=== PATIENT | female | born 1940 | race Caucasian/White ===

== ENCOUNTER 2020-10-16 23:24 | Inpatient (IN) | payer MEDICARE ==
[2020-10-16] MEDS ORDERED: HYDROmorphone 0.5 MG/0.5 ML SYRINGE IVP STA (23:40)
[2020-10-16] MEDS ORDERED: SODIUM CHLORIDE 0.9% 1,000 ML IV STA (23:40)
--- NOTE | 2020-10-16 23:45 | ED ---
Abdominal Pain HPI - General Chief Complaint: Abdominal Pain Stated Complaint: Abdominal pain Time Seen by Provider: 10/16/20 23:25 Source: patient, EMS Mode of arrival: EMS Limitations: no limitations - History of Present Illness Initial Comments: This patient is an 80-year-old woman presenting to be evaluate for right upper quadrant and epigastric abdominal pain that does radiate around the right flank to the back. It started between 7 and 7:30. She had eaten chicken stirfry an hour to 2 earlier. The patient also having some nausea. Patient does relate that she has had chronic constipation going back for weeks to months. On the review of systems, patient does acknowledge history of COPD being on 24- hour home oxygen at 3 L. She states that her breathing does not feel worse than usual. MD Complaint: abdominal pain Onset/Timin -: hour(s) Location: RUQ Radiation: R flank Migration to: no migration Severity: moderate Quality: aching, sharp Consistency: constant Improves With: nothing Worsens With: nothing Associated Symptoms: nausea, constipation - Related Data Allergies Allergy/AdvReac Type Severity Reaction Status Date / Time metaxalone [From Skelaxin] Allergy Dyspnea Verified 10/16/20 23:43 Review of Systems ROS Statement: Those systems with pertinent positive or pertinent negative responses have been documented in the HPI. ROS Other: All systems not noted in ROS Statement are negative. Constitutional: Denies: fever, chills Respiratory: Reports: cough (Chronic), dyspnea (Chronic), wheezes (Chronic) Cardiovascular: Denies: chest pain, palpitations, edema, syncope Gastrointestinal: Reports: abdominal pain, nausea, constipation (Chronic). Denies: vomiting, diarrhea, melena, hematochezia Genitourinary: Denies: dysuria, hematuria Musculoskeletal: Denies: back pain Skin: Denies: rash Neurological: Denies: headache, weakness, numbness Past Medical History Past Medical History: COPD, Hypertension Additional Past Medical History / Comment(s): Anemia, Pt wears 3 liters nasal cannula constantly, diverticulosis. History of Any Multi-Drug Resistant Organisms: None Reported Past Surgical History: Bladder Surgery, Hysterectomy, Tubal Ligation Past Psychological History: No Psychological Hx Reported Smoking Status: Former smoker Past Alcohol Use History: Daily Past Drug Use History: None Reported General Exam Limitations: no limitations General appearance: alert, in distress Head exam: Present: atraumatic, normocephalic Eye exam: Present: normal appearance. Absent: scleral icterus, conjunctival injection ENT exam: Present: normal oropharynx Neck exam: Present: normal inspection Respiratory exam: Present: respiratory distress, wheezes, accessory muscle use, decreased breath sounds, prolonged expiratory. Absent: rales, rhonchi, stridor, chest wall tenderness Cardiovascular Exam: Present: regular rate, normal rhythm, normal heart sounds. Absent: systolic murmur, diastolic murmur, rubs, gallop GI/Abdominal exam: Present: soft, tenderness. Absent: distended, guarding, rebound, rigid, mass, hernia Extremities exam: Present: normal inspection, normal capillary refill. Absent: pedal edema, calf tenderness Back exam: Present: normal inspection. Absent: CVA tenderness (R), CVA tend erness (L) Neurological exam: Present: alert Skin exam: Present: warm, dry, intact, normal color. Absent: rash Course Vital Signs 10/16/20 10/17/20 23:33 00:56 Temperature 98.3 F Pulse Rate 83 77 Respiratory 20 22 Rate Blood Pressure 212/83 168/54 O2 Sat by Pulse 96 96 Oximetry Medical Decision Making - Medical Decision Making This patient is an 80-year-old woman presenting to be evaluate for right upper quadrant and epigastric abdominal pain that does radiate around the right flank to the back. It started between 7 and 7:30. She had eaten chicken stirfry an hour to 2 earlier. The patient also having some nausea. Patient does relate that she has had chronic constipation going back for weeks to months. On the review of systems, patient does acknowledge history of COPD being on 24- hour home oxygen at 3 L. She states that her breathing does not feel worse than usual. - Lab Data Result diagrams: 10/16/20 23:45 10/17/20 00:20 Lab Results 10/16/20 10/17/20 10/17/20 Range/Units 23:45 00:20 00:20 WBC 18.2 H (3.8-10.6) k/uL RBC 4.69 (3.80-5.40) m/uL Hgb 12.8 (11.4-16.0) gm/dL Hct 41.6 (34.0-46.0) % MCV 88.7 (80.0-100.0) fL MCH 27.3 (25.0-35.0) pg MCHC 30.8 L (31.0-37.0) g/dL RDW 13.7 (11.5-15.5) % Plt Count 369 (150-450) k/uL MPV 9.3 Neutrophils % 82 % Lymphocytes % 9 % Monocytes % 4 % Eosinophils % 4 % Basophils % 0 % Neutrophils # 15.0 H (1.3-7.7) k/uL Lymphocytes # 1.7 (1.0-4.8) k/uL Monocytes # 0.7 (0-1.0) k/uL Eosinophils # 0.7 (0-0.7) k/uL Basophils # 0.1 (0-0.2) k/uL Hypochromasia Slight Sodium 135 L (137-145) mmol/L Potassium 4.7 (3.5-5.1) mmol/L Chloride 101 (98-107) mmol/L Carbon Dioxide 28 (22-30) mmol/L Anion Gap 6 mmol/L BUN 18 H (7-17) mg/dL Creatinine 0.71 (0.52-1.04) mg/dL Est GFR (CKD-EPI)AfAm >90 (>60 ml/min/1.73 sqM) Est GFR (CKD-EPI)NonAf 81 (>60 ml/min/1.73 sqM) Glucose 117 H (74-99) mg/dL Plasma Lactic Acid Marco (0.7-2.0) mmol/L Calcium 10.1 (8.4-10.2) mg/dL Total Bilirubin 0.7 (0.2-1.3) mg/dL AST 90 H (14-36) U/L ALT 28 (4-34) U/L Alkaline Phosphatase 212 H (38-126) U/L Troponin I <0.012 (0.000-0.034) ng/mL Total Protein 6.2 L (6.3-8.2) g/dL Albumin 3.5 (3.5-5.0) g/dL Amylase 165 H (30-110) U/L Lipase 2661 H (23-300) U/L 10/17/20 Range/Units 00:20 WBC (3.8-10.6) k/uL RBC (3.80-5.40) m/uL Hgb (11.4-16.0) gm/dL Hct (34.0-46.0) % MCV (80.0-100.0) fL MCH (25.0-35.0) pg MCHC (31.0-37.0) g/dL RDW (11.5-15.5) % Plt Count (150-450) k/uL MPV Neutrophils % % Lymphocytes % % Monocytes % % Eosinophils % % Basophils % % Neutrophils # (1.3-7.7) k/uL Lymphocytes # (1.0-4.8) k/uL Monocytes # (0-1.0) k/uL Eosinophils # (0-0.7) k/uL Basophils # (0-0.2) k/uL Hypochromasia Sodium (137-145) mmol/L Potassium (3.5-5.1) mmol/L Chloride (98-107) mmol/L Carbon Dioxide (22-30) mmol/L Anion Gap mmol/L BUN (7-17) mg/dL Creatinine (0.52-1.04) mg/dL Est GFR (CKD-EPI)AfAm (>60 ml/min/1.73 sqM) Est GFR (CKD-EPI)NonAf (>60 ml/min/1.73 sqM) Glucose (74-99) mg/dL Plasma Lactic Acid Marco 1.2 (0.7-2.0) mmol/L Calcium (8.4-10.2) mg/dL Total Bilirubin (0.2-1.3) mg/dL AST (14-36) U/L ALT (4-34) U/L Alkaline Phosphatase (38-126) U/L Troponin I (0.000-0.034) ng/mL Total Protein (6.3-8.2) g/dL Albumin (3.5-5.0) g/dL Amylase (30-110) U/L Lipase (23-300) U/L Disposition Clinical Impression: Abdominal pain, Pancreatitis Disposition: ADMITTED IP TO THIS [facility] Condition: Fair Is patient prescribed a controlled substance at d/c from ED?: No Referrals: Caprice Gore MD [Primary Care Provider] - 1-2 days
[2020-10-17 00:06] LABS: Basophils # (A) 0.1 k/uL (0-0.2); Basophils % (A) 0 %; Eosinophils # (A) 0.7 k/uL (0-0.7); Eosinophils % (A) 4 %; HCT 41.6 % (34.0-46.0); HGB 12.8 gm/dL (11.4-16.0); Hypochromasia Slight; Lymphocytes # (A) 1.7 k/uL (1.0-4.8); Lymphocytes % (A) 9 %; MCH 27.3 pg (25.0-35.0); MCHC 30.8 g/dL (31.0-37.0); MCV 88.7 fL (80.0-100.0); Mean Platelet Volume 9.3; Monocytes # (A) 0.7 k/uL (0-1.0); Monocytes % (A) 4 %; Neutrophils % (A) 82 %; Platelet Count 369 k/uL (150-450); RBC 4.69 m/uL (3.80-5.40); RDW 13.7 % (11.5-15.5); WBC 18.2 k/uL (3.8-10.6)
--- NOTE | 2020-10-17 00:16 | XR ---
EXAM: XR Abdomen, 1 View CLINICAL HISTORY: Abdominal pain. TECHNIQUE: Frontal supine view of the abdomen/pelvis. COMPARISON: No previous studies. FINDINGS: Gastrointestinal tract: Moderate quantity of stool throughout the colon. No dilation. Bones/joints: Moderate degenerative disc disease of the thoracolumbar spine and dextroscoliosis. Vasculature: IVC filter is noted in place. Pelvic phleboliths are noted. Other findings: No abnormal calcifications. IMPRESSION: 1. Moderate quantity of stool throughout the colon. 2. Nonspecific bowel gas pattern.
[2020-10-17] MEDS ORDERED: HYDROmorphone 1 MG/ML 1 ML SYRINGE IVP STA (01:01)
[2020-10-17 01:05] LABS: ALT 28 U/L (4-34); AST 90 U/L (14-36); African American GFR (CKD) >90 (>60 ml/min/1.73 sqM); Albumin 3.5 g/dL (3.5-5.0); Alkaline Phosphatase 212 U/L (38-126); Amylase 165 U/L (30-110); Anion Gap 6 mmol/L; Blood Urea Nitrogen 18 mg/dL (7-17); Calcium 10.1 mg/dL (8.4-10.2); Carbon Dioxide 28 mmol/L (22-30); Chloride 101 mmol/L (98-107); Glucose 117 mg/dL (74-99); Non-African American GFR(CKD) 81 (>60 ml/min/1.73 sqM); Sodium 135 mmol/L (137-145); Total Bilirubin 0.7 mg/dL (0.2-1.3); Total Protein 6.2 g/dL (6.3-8.2)
[2020-10-17 01:16] LABS: Lipase 2661 U/L (23-300)
[2020-10-17 01:29] LABS: Potassium 4.7 mmol/L (3.5-5.1)
--- NOTE | 2020-10-17 01:33 | US ---
EXAM: US Abdomen Limited, Right Upper Quadrant CLINICAL HISTORY: RUQ TECHNIQUE: Real-time ultrasound of the right upper quadrant with image documentation. COMPARISON: No relevant prior studies available. FINDINGS: Liver: Diffusely increased hepatic echogenicity is suggestive of steatosis. No focal hepatic lesions. Gallbladder: Gallbladder sludge. Sonographic Hernandez sign is positive. No shadowing gallstones or gallbladder wall thickening. Common bile duct: Unremarkable as visualized. No stones. No dilation. Pancreas: Unremarkable as visualized. Right kidney: Cortical thickening. No stones. No solid mass. No hydronephrosis. IMPRESSION: Gallbladder sludge. Sonographic Hernandez sign is positive. No shadowing gallstones or gallbladder wall thickening.
--- NOTE | 2020-10-17 03:20 | CT ---
EXAM: CT Abdomen and Pelvis With Intravenous Contrast CLINICAL HISTORY: ITS.REASON CT Reason: abdominal pain TECHNIQUE: Axial computed tomography images of the abdomen and pelvis with intravenous contrast. CTDI is 42.17 mGy and DLP is 1593.9 mGy-cm. This CT exam was performed using one or more of the following dose reduction techniques: automated exposure control, adjustment of the mA and/or kV according to patient size, and/or use of iterative reconstruction technique. COMPARISON: No relevant prior studies available. FINDINGS: Lung bases: Bibasilar atelectasis. ABDOMEN: Liver: No significant abnormality. Gallbladder and bile ducts: No significant abnormality. No calcified stones. Pancreas: No significant abnormality. Spleen: No significant abnormality. Adrenals: No significant abnormality. Kidneys and ureters: No significant abnormality. No hydronephrosis. Stomach and bowel: Rectal prolapse. Colonic diverticulosis without focal inflammatory change. Bowel is nondilated. PELVIS: Appendix: No findings to suggest acute appendicitis. Bladder: No significant abnormality. Reproductive: The uterus is absent. ABDOMEN and PELVIS: Intraperitoneal space: No significant abnormality. No free air. Bones/joints: Mild compression fracture of the superior endplate of the T12 vertebral body with visible fracture line and sclerosis. There is approximately 25% height loss of the anterior superior T12 vertebral body. No significant bony retropulsion. Degenerative changes of the spine and hips. Soft tissues: Diastases of the rectus musculature. Fat-containing periumbilical hernia. Vasculature: IVC filter. Aortic atherosclerosis and tortuosity. No abdominal aortic aneurysm. Lymph nodes: No significant abnormality. IMPRESSION: 1. Acute or subacute mild compression fracture of the superior endplate of T12. No significant bony retropulsion. 2. Rectocele.
[2020-10-17] MEDS ORDERED: TEMAZEPAM 15 MG CAP PO PRN (03:32)
[2020-10-17] MEDS ORDERED: ONDANSETRON 4 MG/2 ML VIAL IVP PRN (03:32)
[2020-10-17] MEDS ORDERED: NALOXONE 0.4 MG/ML 1 ML VIAL IV PRN (03:32)
[2020-10-17] MEDS ORDERED: ACETAMINOPHEN TAB 325 MG TAB PO PRN (03:32)
[2020-10-17] MEDS ORDERED: MORPHINE SULFATE 4 MG/ML SYRINGE IV PRN (03:32)
[2020-10-17 03:41] LABS: Appearance,Urine Cloudy (Clear); Bacteria,Urine Few /hpf; Bilirubin,Urine Negative (Negative); Blood,Urine Negative (Negative); Budding Yeast,Urine Occasional /hpf; Color,Urine Yellow; Glucose,Urine (UA) Negative (Negative); Ketones,Urine Negative (Negative); Leukocyte Esterase,Urine Large (Negative); Mucus,Urine Rare /hpf; Nitrite,Urine Positive (Negative); PH, Urine 6.5 (5.0-8.0); Protein,Urine Negative (Negative); RBC,Urine 43 /hpf (0-5); Specific Gravity,Urine 1.038 (1.001-1.035); Squamous Epithelial Cell,Urine 3 /hpf (0-4); Urobilinogen,Urine <2.0 mg/dL (<2.0); WBC,Urine 70 /hpf (0-5)
[2020-10-17] MEDS ORDERED: IPRATROPIUM-ALBUTEROL 3 ML NEB INHALATION PRN (04:53)
--- NOTE | 2020-10-17 05:00 | P.HPIM ---
History of Present Illness H&P Date: 10/17/20 Chief Complaint: Abdominal pain 80-year-old female with chronic hypoxic respiratory failure secondary to COPD on home oxygen Patient comes in due to acute onset epigastric and right upper quadrant abdominal pain radiating to the back sharp in nature 9 out of 10 in severity started this evening after dinner, was associated with feeling nauseous and sweating all night until eventually she decided come to the hospital for evaluation she has never experienced anything like this she denies any vomiting denies any diarrhea denies any changes in her urine denies any history of gallstones or kidney stones. Denies any history of peptic ulcer disease. Denies any GI bleeding. Denies any fevers or chills. She claims that she has been at her baseline status of health before this happens. She denies any history of pancreatitis. Denies any alcohol abuse. Patient denies any changes in her medications In the ED blood work suggested possible pancreatitis computed tomography scan showed no changes around the pancreas. Review of Systems Pertinent positives as noted in HPI. All other systems were reviewed and are negative Past Medical History Past Medical History: COPD, Hypertension Additional Past Medical History / Comment(s): Anemia, Pt wears 3 liters nasal cannula constantly, diverticulosis. History of Any Multi-Drug Resistant Organisms: None Reported Past Surgical History: Bladder Surgery, Hysterectomy, Tubal Ligation Past Psychological History: No Psychological Hx Reported Smoking Status: Former smoker Past Alcohol Use History: Daily Past Drug Use History: None Reported - Past Family History Family Family Medical History: No Reported History Medications and Allergies Allergies Allergy/AdvReac Type Severity Reaction Status Date / Time metaxalone [From Skelaxin] Allergy Dyspnea Verified 10/16/20 23:43 Physical Exam Vitals: Vital Signs Temp Pulse Resp BP Pulse Ox 10/17/20 00:56 77 22 168/54 96 10/16/20 23:33 98.3 F 83 20 212/83 96 Intake and Output 10/16/20 10/16/20 10/17/20 14:59 22:59 06:59 Other: Weight 94.347 kg Constitutional: No acute distress, conversant, pleasant Eyes: Anicteric sclerae, moist conjunctiva, Pupils equal round reactive to light ENMT: NC/AT Oropharynx clear, no erythema, or exudates Neck: Supple, FROM, no masses, or JVD No carotid bruits No thyromegaly Lungs: Clear to auscultation Clear to percussion Normal respiratory effort, no accessory muscle use Cardiovascular: Heart regular in rate and rhythm, No murmurs, gallops, or rubs No peripheral edema Abdominal: Soft Discomfort to deep palpation of the epigastric region, Hernandez's sign negative, no tenderness to palpation of the costovertebral angle no guarding, rebound or rigidity Abdomen moving with respiration Normoactive bowel sounds No hepatomegaly, No splenomegaly No palpable mass No abdominal wall hernia noted Skin: Normal temperature, tone, texture, turgor No induration No subcutaneous nodules No rash, lesions No ulcers Extremities: No digital cyanosis No clubbing Pedal pulses intact and symmetrical Radial pulses intact and symmetrical No calf tenderness Psychiatric: Alert and oriented to person, place and time Appropriate affect fair judgement Neuro Muscles Strength 4/5 in all 4 extremities Sensation to light touch grossly present throughout Cranial nerves II-XII grossly intact No focal sensory deficits Lymphatics: no palpable cervical or supraclavicular , or inguinal lymph nodes Results CBC & Chem 7: 10/16/20 23:45 10/17/20 00:20 Labs: Abnormal Lab Results - Last 24 Hours (Table) 10/16/20 10/17/20 10/17/20 Range/Units 23:45 00:20 03:27 WBC 18.2 H (3.8-10.6) k/uL MCHC 30.8 L (31.0-37.0) g/dL Neutrophils # 15.0 H (1.3-7.7) k/uL Sodium 135 L (137-145) mmol/L BUN 18 H (7-17) mg/dL Glucose 117 H (74-99) mg/dL AST 90 H (14-36) U/L Alkaline Phosphatase 212 H (38-126) U/L Total Protein 6.2 L (6.3-8.2) g/dL Amylase 165 H (30-110) U/L Lipase 2661 H (23-300) U/L Urine Appearance Cloudy H (Clear) Ur Specific [place] 1.038 H (1.001-1.035) Urine Nitrite Positive H (Negative) Ur Leukocyte Esterase Large H (Negative) Urine RBC 43 H (0-5) /hpf Urine WBC 70 H (0-5) /hpf Urine Bacteria Few H (None) /hpf Urine Mucus Rare H (None) /hpf Urine Yeast (Budding) Occasional H (None) /hpf Assessment and Plan Assessment: Acute pancreatitis unknown underlying cause CT of the abdomen reviewed Follow-up lipase and liver enzymes GI evaluation Check lipid panel Check immunoglobulin G4 subtype IV fluid hydration Pain control Nothing by mouth Protonic Verify home medications Chronic hypoxic respiratory failure on supplemental oxygen secondary to COPD Supplemental oxygen as needed DuoNeb's when necessary CODE STATUS: Full code DVT prophylaxis: Heparin subcu 3 times a day Discussed with: Patient, ER, RN Anticipated length of stay more than [address]: Pending clinical course A total of 75 minutes was spent on the care of this complex patient more than 50% of the time was spent in counseling and care coordination.
[2020-10-17] MEDS: HYDROmorphone 0.5 MG/0.5 ML SYRINGE IVP PRN ×3 (05:33→23:33)
[2020-10-17] MEDS: PANTOPRAZOLE 40 MG/10 ML VIAL IV SCH (08:52)
[2020-10-17] MEDS: SODIUM CHLORIDE 0.9% 1,000 ML IV SCH ×2 (08:52→15:57)
[2020-10-17] MEDS: HEPARIN SODIUM,PORCINE/PF 5,000 UNIT/0.5 ML SYRINGE SQ SCH ×3 (08:52→23:33)
[2020-10-17 10:12] LABS: Chol/HDL Ratio 2.6
[2020-10-17] MEDS ORDERED: ALBUTEROL NEBULIZED 2.5 MG/3 ML INHALATION PRN (11:32)
--- NOTE | 2020-10-17 11:34 | P.PN ---
Subjective Progress Note Date: 10/17/20 Patient was seen and evaluated by me today. She reports still having some abdominal pain that is better compared to yesterday. She is not feeling hungry and does not have an appetite. Repeat blood work this morning is not back yet. Objective - Vital Signs Vital signs: Vital Signs Temp 98.4 F 10/17/20 11:19 Pulse 67 10/17/20 11:19 Resp 20 10/17/20 11:19 BP 175/63 10/17/20 11:19 Pulse Ox 94 L 10/17/20 11:19 Intake & Output 10/16/20 10/17/20 10/17/20 18:59 06:59 18:59 Weight 94.347 kg Other: # Voids 0 - Exam General: The patient is awake and alert, in no distress Eye: there is normal conjunctiva bilaterally. Neck: The neck is supple, there is no JVD. Cardiovascular: Normal S1-S2, no S3-S4, no murmurs. Respiratory: Lungs clear to auscultation bilaterally Gastrointestinal: Abdomen is soft, there is moderate tenderness to palpation in the epigastric area Musculoskeletal: There is no pedal edema. Neurological:. Speech is normal. Skin: Skin is warm and dry - Labs CBC & Chem 7: 10/16/20 23:45 10/17/20 00:20 Labs: Abnormal Lab Results - Last 24 Hours (Table) 10/16/20 10/17/20 10/17/20 Range/Units 23:45 00:20 03:27 WBC 18.2 H (3.8-10.6) k/uL MCHC 30.8 L (31.0-37.0) g/dL Neutrophils # 15.0 H (1.3-7.7) k/uL Sodium 135 L (137-145) mmol/L BUN 18 H (7-17) mg/dL Glucose 117 H (74-99) mg/dL AST 90 H (14-36) U/L Alkaline Phosphatase 212 H (38-126) U/L Total Protein 6.2 L (6.3-8.2) g/dL Amylase 165 H (30-110) U/L Lipase 2661 H (23-300) U/L Urine Appearance Cloudy H (Clear) Ur Specific [place] 1.038 H (1.001-1.035) Urine Nitrite Positive H (Negative) Ur Leukocyte Esterase Large H (Negative) Urine RBC 43 H (0-5) /hpf Urine WBC 70 H (0-5) /hpf Urine Bacteria Few H (None) /hpf Urine Mucus Rare H (None) /hpf Urine Yeast (Budding) Occasional H (None) /hpf Assessment and Plan Assessment: This is a 80-year-old female with past medical history noted below that presented to the emergency room with abdominal pain. Patient was evaluated in the ER and admitted to the hospital for further management of her medical problems noted below. 1. Acute pancreatitis, exact etiology unclear. Patient denies alcohol use. Ultrasound showed no evidence of stones. Triglyceride level normal. GI consulted for further evaluation. 2. Gallbladder sludge and positive sonographic Hernandez sign, noted on ultrasound. I will consult general surgery for further evaluation. Hernandez sign is negative on clinical exam 3. Chronic medical problems: COPD with no evidence of exacerbation, essential hypertension, hyperlipidemia, GERD 4. DVT prophylaxis with subcu heparin Today, I reviewed her medication list and lab work results. Repeat lab work from this morning is still pending. Continue nothing by mouth status for now. IV fluid hydration and pain control. Awaiting consultants evaluation.
[2020-10-17] MEDS: IPRATROPIUM-ALBUTEROL 3 ML NEB INHALATION PRN ×3 (11:52→20:09)
--- NOTE | 2020-10-17 12:41 | CONS ---
CONSULTATION DATE OF DICTATION: October 17, 2020. REASON FOR CONSULTATION: Acute pancreatitis. HISTORY OF PRESENT ILLNESS: The patient is an 80-year-old pleasant white female admitted to the hospital with acute onset of severe epigastric pain that started around 7:00 pm last night. The pain was mostly in the epigastric area radiating to the back and continued to progressively get worse with some nausea but no emesis. She came to the emergency room and was noted to have elevated amylase and lipase consistent with acute pancreatitis. She never had these symptoms in the past. She drinks about 1 or 2 glasses of wine on a daily basis, but no history of heavy alcohol abuse. In the ER, she denies being started on any new medications recently. No family history of acute pancreatitis. In the ER, she did have labs done and was noted to have elevated lipase at 2661 and amylase of 165. ALT and AST were 28 and 90 respectively and alkaline phosphatase was 212. She did have ultrasound of the gallbladder that did show evidence of sludge, but no stones and CT of the abdomen was unremarkable. PAST MEDICAL HISTORY: Significant for hypertension, gastroesophageal reflux disease, hyperlipidemia, anxiety, depression. MEDICATIONS: Medications at home include Myrbetriq, calcium/vitamin D3, verapamil, Celexa, Lipitor, Ecotrin, omeprazole, and Isordil. ALLERGIES: SKELAXIN. SOCIAL HISTORY: Remote history of smoking. Drinks 1 or 2 glasses of wine on a daily basis. PAST SURGICAL HISTORY: Tubal ligation, hysterectomy and bladder surgery. REVIEW OF SYSTEMS: CARDIOPULMONARY: She denies any chest pain or shortness of breath. GENITOURINARY: No dysuria or hematuria. MUSCULOSKELETAL unremarkable. SKIN unremarkable. ENDOCRINE unremarkable. PSYCHIATRIC unremarkable. NEUROLOGY: Unremarkable. ENT/VISION: Unremarkable. CONSTITUTIONAL: No recent weight loss. No fever, chills, night sweats. GI as mentioned above. Hematology unremarkable. PHYSICAL EXAMINATION: She appears comfortable. VITAL SIGNS: Stable. Blood pressure 188/72, pulse rate 92, temperature 97.7. HEENT examination unremarkable. Conjunctivae pink. Sclerae anicteric. Oral cavity no lesions. NECK: No JVD or lymph node enlargement. CHEST was clear to auscultation. HEART: Regular rate and rhythm. ABDOMEN: Soft. Mild tenderness noted in the epigastric area. Bowel sounds are positive. No organomegaly. EXTREMITIES: No pedal edema. SKIN: No rashes. NEURO: She is alert and oriented x3. No focal deficits. LABS: Labs done yesterday: WBC 18, hemoglobin 12, platelets normal. Amylase 165, lipase 2661. AST 90, ALT 28, alkaline phosphatase 212. Ultrasound of the gallbladder did show evidence of sludge in the gallbladder. No biliary ductal dilation. No thickening of the gallbladder wall. Hernandez sign was positive. CT of the abdomen and pelvis showed normal-appearing pancreas. Rectocele noted. IMPRESSION: This is a lady who presented to the hospital with acute onset of severe epigastric pain around 7:00 pm last night, associated with some nausea but no emesis. Noted to have elevated lipase consistent with acute pancreatitis. CT scan was unremarkable. Ultrasound did show gallbladder sludge, but no evidence of gallstones. The liver enzymes are minimally elevated with AST at 90 but ALT is normal and alkaline phosphatase was 212. At this time, etiology of pancreatitis remains unclear. Patient has mild to moderate amount of drinking but no history of heavy alcohol abuse. RECOMMENDATIONS: 1. Aggressive IV hydration. 2. Pain medications as needed. 3. We will repeat labs in the morning and if the lipase is improving and her symptoms are improving, we can start her on a clear liquid diet. For now we can start her on ice chips. 4. We will repeat LFTs and amylase and lipase tomorrow and we will follow with you closely. Thank you for this consultation. NIXON / LIANNA: [id number] /
[2020-10-17] MEDS: ISOSORBIDE MONONITRATE ER 30 MG TAB.ER.24H PO SCH (12:43)
[2020-10-17] MEDS: PATIENT'S OWN (Mirabegron [Myrbetriq] 25 MG Tab.Er.24h) PO SCH (20:07)
[2020-10-17] MEDS: VERAPAMIL SR 120 MG TABLET.ER PO SCH (20:12)
[2020-10-17] MEDS: ASPIRIN 81 MG PO SCH (20:12)
[2020-10-17] MEDS: VERAPAMIL SR 180 MG TABLET.ER PO SCH (20:13)
[2020-10-17] MEDS ORDERED: VERAPAMIL HCL 300 MG PO SCH (21:00)
[2020-10-18] MEDS ORDERED: LORazepam 2 MG/ML INJ IV PRN ×3 (00:52)
[2020-10-18] MEDS: SODIUM CHLORIDE 0.9% 1,000 ML IV SCH ×3 (04:11→20:35)
[2020-10-18] MEDS: HYDROmorphone 0.5 MG/0.5 ML SYRINGE IVP PRN (06:16)
[2020-10-18 06:41] LABS: Basophils # (A) 0.1 k/uL (0-0.2); Basophils % (A) 0 %; Eosinophils # (A) 0.1 k/uL (0-0.7); Eosinophils % (A) 0 %; HCT 33.3 % (34.0-46.0); HGB 10.5 gm/dL (11.4-16.0); Hypochromasia Moderate; Lymphocytes # (A) 1.7 k/uL (1.0-4.8); Lymphocytes % (A) 6 %; MCH 28.4 pg (25.0-35.0); MCHC 31.6 g/dL (31.0-37.0); Mean Platelet Volume 9.8; Monocytes # (A) 1.5 k/uL (0-1.0); Monocytes % (A) 5 %; Neutrophils # (A) 25.1 k/uL (1.3-7.7); Neutrophils % (A) 88 %; Platelet Count 295 k/uL (150-450); RDW 13.6 % (11.5-15.5); WBC 28.6 k/uL (3.8-10.6)
[2020-10-18] MEDS: LOSARTAN 50 MG TAB PO SCH (08:02)
[2020-10-18] MEDS: ISOSORBIDE MONONITRATE ER 30 MG TAB.ER.24H PO SCH (08:03)
[2020-10-18] MEDS: HEPARIN SODIUM,PORCINE/PF 5,000 UNIT/0.5 ML SYRINGE SQ SCH ×2 (08:03→17:26)
[2020-10-18] MEDS: CITALOPRAM HYDROBROMIDE 20 MG TAB PO SCH (08:03)
[2020-10-18] MEDS: PANTOPRAZOLE 40 MG/10 ML VIAL IV SCH (08:03)
[2020-10-18] MEDS: ATORVASTATIN 20 MG TAB PO SCH (08:03)
[2020-10-18 08:29] LABS: Poikilocytosis (M) Present
--- NOTE | 2020-10-18 08:35 | P.PN ---
Subjective Progress Note Date: 10/18/20 Patient is doing better today. Her abdominal pain is improving. Nursing staff informed me that patient daughter told him that patient usually drinks 2 large glasses of fine daily. This is a new information to me today. Patient herself denies any nausea or vomiting. Objective - Vital Signs Vital signs: Vital Signs Temp 97.9 F 10/18/20 05:00 Pulse 78 10/18/20 05:00 Resp 16 10/18/20 05:00 BP 145/97 10/18/20 05:00 Pulse Ox 90 L 10/18/20 05:00 Intake & Output 10/17/20 10/18/20 10/18/20 18:59 06:59 18:59 Intake Total 1320 Balance 1320 Intake: Intake, IV Titration 1320 Amount Sodium Chloride 0.9% 1, 1320 000 ml @ 110 mls/hr IV . Q9H6M [facility] Rx#:[id number] Other: # Voids 1 2 - Exam General: The patient is awake and alert, in no distress Eye: there is normal conjunctiva bilaterally. Neck: The neck is supple, there is no JVD. Cardiovascular: Normal S1-S2, no S3-S4, no murmurs. Respiratory: Lungs clear to auscultation bilaterally Gastrointestinal: Abdomen is soft, nontender Musculoskeletal: There is no pedal edema. Neurological:. Speech is normal. Skin: Skin is warm and dry - Labs CBC & Chem 7: 10/18/20 05:27 10/17/20 00:20 Labs: Abnormal Lab Results - Last 24 Hours (Table) 10/18/20 Range/Units 05:27 WBC 28.6 H (3.8-10.6) k/uL RBC 3.70 L (3.80-5.40) m/uL Hgb 10.5 L (11.4-16.0) gm/dL Hct 33.3 L (34.0-46.0) % Assessment and Plan Assessment: This is a 80-year-old female with past medical history noted below that pre sented to the emergency room with abdominal pain. Patient was evaluated in the ER and admitted to the hospital for further management of her medical problems noted below. 1. Acute pancreatitis: Probably alcohol induced. Ultrasound showed no evidence of stones. Triglyceride level normal. GI consulted for further evaluation. 2. Gallbladder sludge and positive sonographic Hernandez sign, noted on ultrasound. I consulted general surgery for further evaluation. Hernandez sign is negative on clinical exam 3. Possible UTI with worsening leukocytosis, I'll start patient on IV ceftriaxone. Repeat urinalysis with culture. Cultures were not sent in the ER. Leukocytosis may be also reactive to underlying pancreatitis. 4. Underlying COPD with mild exacerbation, change DuoNeb's every 6 hours scheduled. Continue albuterol as needed. 5. Chronic medical problems: essential hypertension, hyperlipidemia, GERD 6. DVT prophylaxis with subcu heparin Today, I reviewed her medication list and lab work results. Start clear liquid diet today IV fluid hydration and pain control as needed Repeat lab work from this morning is still pending.
[2020-10-18 10:53] LABS: African American GFR (CKD) 61.6 (60.0-200.0); Albumin 3.6 g/dL (3.80-4.90); Albumin/Globulin Ratio 1.71 (1.60-3.17); Anion Gap 10.2 mmol/L (4.00-12.00); Calcium 10.2 mg/dL (8.7-10.3); Carbon Dioxide 26.8 mmol/L (21.6-31.8); Globulin 2.1 g/dL (1.6-3.3); Non-African American GFR(CKD) 53.2 (60.0-200.0); Potassium 5.1 mmol/L (3.5-5.5); Total Bilirubin 1.5 mg/dL (0.3-1.2); Total Protein 5.7 g/dL (6.2-8.2)
[2020-10-18 11:15] LABS: IgG Subclass 3 84.1 mg/dL (11.0-85.0); IgG Subclass 4 37.1 mg/dL (3.0-175.0)
--- NOTE | 2020-10-18 11:25 | PN ---
PROGRESS NOTE DATE OF SERVICE: 10/18/2020. The patient is an 80-year-old pleasant white female admitted to hospital with acute pancreatitis. She presented with acute onset of severe epigastric pain associated with nausea, vomiting. She did have a CT of the abdomen and ultrasound of the abdomen that showed evidence of sludge in the gallbladder, but no biliary ductal dilation. She was noted to have very minimal elevation of AST and alkaline phosphatase. This morning she is feeling much better. She was started on a clear liquid diet yesterday. Labs from this morning are still pending. PHYSICAL EXAMINATION: She appears comfortable. VITAL SIGNS: Stable. Blood pressure is 145/97, pulse rate 78, temperature 97.8. HEENT examination unremarkable. Conjunctivae pink, sclerae anicteric. Oral cavity no lesions. NECK: No JVD or lymph node enlargement. ABDOMEN: Soft, slightly distended. There was minimal tenderness on deep palpation in the epigastric area. Rest of the abdomen was benign. EXTREMITIES: No pedal edema. NEURO: She is alert and oriented x3. No focal deficits. LABS: From this morning are still pending. IMPRESSION: 1. Acute pancreatitis. Workup in progress. Labs from this morning are pending at this time. Possibility of biliary pancreatitis cannot be entirely excluded though unlikely. The patient clinically doing well on a clear liquid diet, tolerating well. 2. Mild leukocytosis probably related to acute pancreatitis. 3. History of hypertension. 4. History of anxiety, depression. RECOMMENDATIONS: 1. Continue with a clear liquid diet. 2. Await labs from today. 3. Continue with symptomatic and supportive care. 4. Continue with IV hydration. 5. Will follow with you closely. MMODL / IJN: [id number] /
--- NOTE | 2020-10-18 12:11 | P.GSCN ---
History of Present Illness Consult date: 10/18/20 Reason for Consult: Pancreatitis History of present illness: 80-year-old female presents to the hospital complaining of abdominal pain. Pain is epigastric. Associated with nausea. Patient was found to have pancreatitis by labs. CAT scan showed gallbladder sludge in the pancreas actually appeared fairly normal. Ultrasound also showed gallbladder sludge with a positive Hernandez sign. Common bile duct nondistended. Patient doing better today. She was started on liquids. No nausea or vomiting. Patient with history of daily alcohol use however volume is fairly small. No history of pancreatitis or gallbladder disease in the past. Review of Systems The patient denies any acute changes in vision or hearing, no dysphagia or odynophagia, no chest pain or shortness of breath, no dysuria or hematuria, no headache, no runny nose, no rectal bleeding or melena, no unexplained weight loss Past Medical History Past Medical History: COPD, Hypertension Additional Past Medical History / Comment(s): Anemia, Pt wears 3 liters nasal cannula constantly, diverticulosis. History of Any Multi-Drug Resistant Organisms: None Reported Past Surgical History: Bladder Surgery, Hysterectomy, Tubal Ligation Past Psychological History: No Psychological Hx Reported Smoking Status: Former smoker Past Alcohol Use History: Daily Past Drug Use History: None Reported - Past Family History Family Family Medical History: No Reported History Medications and Allergies Home Medications Medication Instructions Recorded Confirmed Type Albuterol Inhaler [Ventolin Hfa 2 puff INHALATION RT-QID PRN 10/17/20 10/17/20 History Inhaler] Aspirin EC [Ecotrin Low Dose] 81 mg PO HS 10/17/20 10/17/20 History Atorvastatin Calcium [Lipitor] 20 mg PO DAILY 10/17/20 10/17/20 History Jered/D3/Mag11/Zinc/Lead Designer/Mike/Bor 1 tab PO BID 10/17/20 10/17/20 History [Caltrate 600+D Plus Tablet] Candesartan Cilexetil [Atacand] 32 mg PO DAILY 10/17/20 10/17/20 History Citalopram Hydrobromide [CeleXA] 20 mg PO DAILY 10/17/20 10/17/20 History EPINEPHrine (Auto Inject) [Epipen] 0.3 mg IM ONCE PRN 10/17/20 10/17/20 History Fluticasone/Umeclidin/Vilanter 1 puff INHALATION RT-DAILY 10/17/20 10/17/20 History [Trelegy Ellipta 100-62.5-25] Ipratropium-Albuterol Nebulize 3 ml INHALATION RT-QID PRN 10/17/20 10/17/20 History [Duoneb 0.5 mg-3 mg/3 ml Soln] Isosorbide Mononitrate [Isosorbide 30 mg PO DAILY 10/17/20 10/17/20 History Mononitrate ER] Mirabegron [Myrbetriq] 25 mg PO HS 10/17/20 10/17/20 History Omeprazole 20 mg PO DAILY 10/17/20 10/17/20 History Verapamil HCl [Verelan Pm] 300 mg PO HS 10/17/20 10/17/20 History Allergies Allergy/AdvReac Type Severity Reaction Status Date / Time metaxalone [From Skelaxin] Allergy Dyspnea Verified 10/17/20 09:22 Surgical - Exam Vital Signs Temp Pulse Resp BP Pulse Ox 98.3 F 83 20 212/83 96 10/16/20 23:33 10/16/20 23:33 10/16/20 23:33 10/16/20 23:33 10/16/20 23:33 Physical exam: General: Well-developed, well-nourished mildly short of breath HEENT: Normocephalic, sclerae nonicteric Abdomen: Mild epigastric tenderness, nondistended Extremities: Bilateral lower extremity edema Neuro: Alert and oriented Results - Labs 10/18/20 05:27 10/18/20 05:27 Abnormal Lab Results - Last 24 Hours (Table) 10/18/20 10/18/20 Range/Units 05:27 05:27 WBC 28.6 H (3.8-10.6) k/uL RBC 3.70 L (3.80-5.40) m/uL Hgb 10.5 L (11.4-16.0) gm/dL Hct 33.3 L (34.0-46.0) % Neutrophils # 25.1 H (1.3-7.7) k/uL Monocytes # 1.5 H (0-1.0) k/uL BUN 28.0 H (9.0-27.0) mg/dL Est GFR (CKD-EPI)NonAf 53.2 L (60.0-200.0) BUN/Creatinine Ratio 28.00 H (12.00-20.00) Ratio Total Bilirubin 1.5 H (0.3-1.2) mg/dL AST 136 H (13-35) U/L ALT 106 H (8-44) U/L Alkaline Phosphatase 251 H (41-126) U/L Total Protein 5.7 L (6.2-8.2) g/dL Albumin 3.60 L (3.80-4.90) g/dL Diabetes panel 10/18/20 Range/Units 05:27 Sodium 142 (135-145) mmol/L Potassium 5.1 (3.5-5.5) mmol/L Chloride 105 (96-109) mmol/L Carbon Dioxide 26.8 (21.6-31.8) mmol/L BUN 28.0 H (9.0-27.0) mg/dL Creatinine 1.0 (0.6-1.5) mg/dL Glucose 110 (70-110) mg/dL Calcium 10.2 (8.7-10.3) mg/dL AST 136 H (13-35) U/L ALT 106 H (8-44) U/L Alkaline Phosphatase 251 H (41-126) U/L Total Protein 5.7 L (6.2-8.2) g/dL Albumin 3.60 L (3.80-4.90) g/dL Calcium panel 10/18/20 Range/Units 05:27 Calcium 10.2 (8.7-10.3) mg/dL Albumin 3.60 L (3.80-4.90) g/dL Pituitary panel 10/18/20 Range/Units 05:27 Sodium 142 (135-145) mmol/L Potassium 5.1 (3.5-5.5) mmol/L Chloride 105 (96-109) mmol/L Carbon Dioxide 26.8 (21.6-31.8) mmol/L BUN 28.0 H (9.0-27.0) mg/dL Creatinine 1.0 (0.6-1.5) mg/dL Glucose 110 (70-110) mg/dL Calcium 10.2 (8.7-10.3) mg/dL Adrenal panel 10/18/20 Range/Units 05:27 Sodium 142 (135-145) mmol/L Potassium 5.1 (3.5-5.5) mmol/L Chloride 105 (96-109) mmol/L Carbon Dioxide 26.8 (21.6-31.8) mmol/L BUN 28.0 H (9.0-27.0) mg/dL Creatinine 1.0 (0.6-1.5) mg/dL Glucose 110 (70-110) mg/dL Calcium 10.2 (8.7-10.3) mg/dL Total Bilirubin 1.5 H (0.3-1.2) mg/dL AST 136 H (13-35) U/L ALT 106 H (8-44) U/L Alkaline Phosphatase 251 H (41-126) U/L Total Protein 5.7 L (6.2-8.2) g/dL Albumin 3.60 L (3.80-4.90) g/dL Assessment and Plan (1) Pancreatitis Narrative/Plan: 80-year-old female with pancreatitis. Ultrasound and CAT scan shows gallbladder sludge. Biliary source certainly a very likely etiology for her pancreatitis. Patient is not interested in surgery at this time. Patient's pulmonary status precludes surgery at this time either way. We'll follow closely with you for possible elective outpatient cholecystectomy. Current Visit: Yes Status: Acute Code(s): K85.90 - ACUTE PANCREATITIS WITHOUT NECROSIS OR INFECTION, UNSP SNOMED Code(s): 89257588
[2020-10-18 12:12] LABS: Appearance,Urine Turbid (Clear); Bacteria,Urine Many /hpf; Bilirubin,Urine Negative (Negative); Blood,Urine Negative (Negative); Color,Urine Dark Brown; Glucose,Urine (UA) Negative (Negative); Hyaline Casts,Urine 24 /lpf (0-2); Ketones,Urine Negative (Negative); Leukocyte Esterase,Urine Moderate (Negative); Mucus,Urine Few /hpf; Nitrite,Urine Negative (Negative); Protein,Urine 1+ (Negative); RBC,Urine 12 /hpf (0-5); Specific Gravity,Urine 1.031 (1.001-1.035); Squamous Epithelial Cell,Urine 8 /hpf (0-4); WBC,Urine 87 /hpf (0-5)
[2020-10-18] MEDS: IPRATROPIUM-ALBUTEROL 3 ML NEB INHALATION SCH ×3 (13:28→20:20)
[2020-10-18] MEDS: THIAMINE 100 MG TAB PO SCH (17:27)
[2020-10-18] MEDS: PATIENT'S OWN (Mirabegron [Myrbetriq] 25 MG Tab.Er.24h) PO SCH (20:32)
[2020-10-18] MEDS: VERAPAMIL SR 180 MG TABLET.ER PO SCH (20:34)
[2020-10-18] MEDS: ASPIRIN 81 MG PO SCH (20:34)
[2020-10-18] MEDS: VERAPAMIL SR 120 MG TABLET.ER PO SCH (20:34)
[2020-10-19] MEDS: HEPARIN SODIUM,PORCINE/PF 5,000 UNIT/0.5 ML SYRINGE SQ SCH ×4 (00:02→23:41)
[2020-10-19] MEDS: SODIUM CHLORIDE 0.9% 1,000 ML IV SCH (04:57)
[2020-10-19 05:31] LABS: Basophils % (A) 0 %; Eosinophils # (A) 0.2 k/uL (0-0.7); Eosinophils % (A) 1 %; HCT 32.5 % (34.0-46.0); Hypochromasia Moderate; Lymphocytes # (A) 1.3 k/uL (1.0-4.8); Lymphocytes % (A) 7 %; MCH 27.4 pg (25.0-35.0); MCHC 30.8 g/dL (31.0-37.0); MCV 88.9 fL (80.0-100.0); Monocytes # (A) 1.1 k/uL (0-1.0); Monocytes % (A) 6 %; Neutrophils # (A) 15.1 k/uL (1.3-7.7); Neutrophils % (A) 85 %; Platelet Count 266 k/uL (150-450); RBC 3.65 m/uL (3.80-5.40); RDW 13.7 % (11.5-15.5); WBC 17.9 k/uL (3.8-10.6)
[2020-10-19] MEDS: IPRATROPIUM-ALBUTEROL 3 ML NEB INHALATION SCH ×4 (07:11→19:15)
[2020-10-19] MEDS: ATORVASTATIN 20 MG TAB PO SCH (09:05)
[2020-10-19] MEDS: ISOSORBIDE MONONITRATE ER 30 MG TAB.ER.24H PO SCH (09:05)
[2020-10-19] MEDS: PANTOPRAZOLE 40 MG/10 ML VIAL IV SCH (09:05)
[2020-10-19] MEDS: LOSARTAN 50 MG TAB PO SCH (09:06)
[2020-10-19] MEDS: THIAMINE 100 MG TAB PO SCH ×2 (09:06→17:46)
[2020-10-19] MEDS: CITALOPRAM HYDROBROMIDE 20 MG TAB PO SCH (09:06)
--- NOTE | 2020-10-19 09:27 | P.PN ---
Subjective Progress Note Date: 10/19/20 Patient is feeling better today in terms of her abdominal pain. She did have a bowel movement this morning. She denies any abdominal pain at this point. She is having worsening shortness of breath. She appeared very short of breath when I saw her and told me that she just got off of the toilet and that's why she is short of breath. She is on 3 L of oxygen at home. She denies any productive cough. No fevers or chills. Objective - Vital Signs Vital signs: Vital Signs Temp 98.2 F 10/19/20 04:26 Pulse 73 10/19/20 07:25 Resp 20 10/19/20 04:26 BP 149/55 10/19/20 04:26 Pulse Ox 93 L 10/19/20 07:14 Intake & Output 10/18/20 10/19/20 10/19/20 18:59 06:59 18:59 Intake Total 62 1900 Balance 62 1900 Intake: Intake, IV Titration 62 1300 Amount Sodium Chloride 0.9% 1, 12 1300 000 ml @ 110 mls/hr IV . Q9H6M [facility] Rx#:[id number] cefTRIAXone 1 gm In 50 Sodium Chloride 0.9% 50 ml @ 100 mls/hr IVPB Q24HR [facility] Rx#:[id number] Oral 600 Other: # Voids 3 # Bowel Movements 1 - Exam General: The patient is awake and alert, in no distress Eye: there is normal conjunctiva bilaterally. Neck: The neck is supple, there is no JVD. Cardiovascular: Normal S1-S2, no S3-S4, no murmurs. Respiratory: Lungs are diminished with end-expiratory wheezing Gastrointestinal: Abdomen is soft, nontender Musculoskeletal: There is no pedal edema. Neurological:. Speech is normal. Skin: Skin is warm and dry - Labs CBC & Chem 7: 10/19/20 04:19 10/18/20 05:27 Labs: Abnormal Lab Results - Last 24 Hours (Table) 10/18/20 10/18/20 10/19/20 Range/Units 05:27 11:50 04:19 WBC 17.9 H (3.8-10.6) k/uL RBC 3.65 L (3.80-5.40) m/uL Hgb 10.0 L (11.4-16.0) gm/dL Hct 32.5 L (34.0-46.0) % MCHC 30.8 L (31.0-37.0) g/dL Neutrophils # 15.1 H (1.3-7.7) k/uL Monocytes # 1.1 H (0-1.0) k/uL BUN 28.0 H (9.0-27.0) mg/dL Est GFR (CKD-EPI)NonAf 53.2 L (60.0-200.0) BUN/Creatinine Ratio 28.00 H (12.00-20.00) Ratio Total Bilirubin 1.5 H (0.3-1.2) mg/dL AST 136 H (13-35) U/L ALT 106 H (8-44) U/L Alkaline Phosphatase 251 H (41-126) U/L Total Protein 5.7 L (6.2-8.2) g/dL Albumin 3.60 L (3.80-4.90) g/dL Urine Appearance Turbid H (Clear) Urine Protein 1+ H (Negative) Ur Leukocyte Esterase Moderate H (Negative) Urine RBC 12 H (0-5) /hpf Urine WBC 87 H (0-5) /hpf Urine WBC Clumps Few H (None) /hpf Ur Squamous Epith Cells 8 H (0-4) /hpf Urine Bacteria Many H (None) /hpf Hyaline Casts 24 H (0-2) /lpf Urine Mucus Few H (None) /hpf Microbiology - Last 24 Hours (Table) 10/18/20 11:50 Urine Culture - Preliminary Urine,Voided Assessment and Plan Assessment: This is a 80-year-old female with past medical history noted below that presen anamaria to the emergency room with abdominal pain. Patient was evaluated in the ER and admitted to the hospital for further management of her medical problems noted below. 1. Acute pancreatitis: Probably alcohol induced. Patient reported drinking 1 or 2 large glasses of wine daily. Patient advised to stop drinking for the foreseeable future and On Her Drinking Maybe Half a Glass of Find Daily after Work. Ultrasound showed no evidence of stones. Triglyceride level normal. GI consulted for further evaluation, appreciate recommendations. 2. Gallbladder sludge and positive sonographic Hernandez sign, noted on ultrasound. I consulted general surgery for further evaluation. May consider elective cholecystectomy as an outpatient 3. Possible UTI with worsening leukocytosis, IV ceftriaxone day #2 awaiting urine culture 4. Underlying COPD with acute exacerbation: Start IV Solu-Medrol 40 mg twice daily. Symbicort twice daily. Obtain chest x-ray. Continue DuoNeb's every 6 hours scheduled. Continue albuterol as needed. 5. Chronic medical problems: essential hypertension, hyperlipidemia, GERD 6. DVT prophylaxis with subcu heparin Today, I reviewed her medication list and lab work results. Discontinue IV fluids Advance diet as tolerated Awaiting lab work from this morning
--- NOTE | 2020-10-19 09:37 | PN ---
PROGRESS NOTE DATE OF DICTATION: October 19, 2020. REQUESTING PHYSICIAN: Caprice Rea. The patient is an 80-year-old pleasant white female admitted to the hospital with acute pancreatitis. She is feeling much better. Abdominal pain has resolved. No nausea, no vomiting. On a clear liquid diet, tolerating well. Labs from yesterday did show elevated serum transaminases with AST that went up to 136, ALT went up to 106, alkaline phosphatase 251 and bilirubin is 1.5. Amylase and lipase have normalized to 48 and 21 respectively. She has leukocytosis with a white count of 28.6 thousand and she was started on broad-spectrum antibiotics with ceftriaxone. She denies any fever, chills, night sweats. PHYSICAL EXAMINATION: Appears comfortable, no apparent distress. Vital signs stable. Blood pressure 149/55, pulse rate 66. Temperature 98.2. HEENT examination unremarkable. Conjunctivae pink. Sclerae anicteric. Oral cavity no lesions. NECK: No JVD. No lymph node enlargement. CHEST was clear to auscultation. HEART: Regular rate and rhythm. ABDOMEN: Benign. Bowel sounds are positive. No organomegaly. EXTREMITIES: No pedal edema. NEURO: She is alert and oriented x3. No focal deficits. LABS: WBC 17.9, hemoglobin 10. Platelets normal. LFTs are still pending from this morning. IMPRESSION: 1. Acute pancreatitis, most likely biliary pancreatitis given the fact that she has elevated serum transaminases on labs from yesterday, ultrasound showed gallbladder sludge. Dr. Wing was already consulted. The patient is feeling better. Remains on broad-spectrum antibiotics. 2. History of hypertension and hyperlipidemia. 3. History of anxiety. RECOMMENDATIONS: 1. Advance to low-fat diet. 2. We will await labs from this morning. If serum transaminases are improving, she does not need to have any endoscopic intervention. However, if the serum transaminases and bilirubin continues to get worse, we may have to consider an ERCP during this hospitalization. For now, we will watch her closely. Monitor labs on a daily basis. Continue with broad-spectrum antibiotics and follow with you. Thank you for this consultation. MMODL / IJN: [id number] /
[2020-10-19] MEDS: SYMBICORT 160-4.5 MCG INHALER INHALATION SCH ×2 (09:44→19:16)
[2020-10-19 10:21] LABS: Albumin 3.2 g/dL (3.80-4.90); Albumin/Globulin Ratio 1.6 (1.60-3.17); Anion Gap 9.6 mmol/L (4.00-12.00); BUN/Creat Ratio 24.29 Ratio (12.00-20.00); Calcium 9.1 mg/dL (8.7-10.3); Carbon Dioxide 25.4 mmol/L (21.6-31.8); Non-African American GFR(CKD) 35.4 (60.0-200.0); Potassium 4.2 mmol/L (3.5-5.5); Total Bilirubin 0.7 mg/dL (0.2-1.2); Total Protein 5.2 g/dL (6.2-8.2)
[2020-10-19 10:22] LABS: Magnesium 1.6 mg/dL (1.5-2.4)
--- NOTE | 2020-10-19 10:30 | XR ---
EXAMINATION TYPE: XR chest 2V DATE OF EXAM: 10/19/2020 COMPARISON: NONE HISTORY: Shortness of breath TECHNIQUE: Frontal and lateral views of the chest are obtained. FINDINGS: There is no focal air space opacity, pleural effusion, or pneumothorax seen. The cardiac silhouette size is within normal limits. There are prominent lung volume suggesting underlying COPD. Minimal patchy basilar density is present on the right. Aorta is dense and tortuous. Suspect an infer ior vena cava filter is in place. The osseous structures are intact, anterior wedge compression defo rmity noted near the thoracic lumbar junction is of indeterminate age. There are coronary artery calc ifications suspected. There is overlying artifact.. IMPRESSION: COPD, difficult to exclude basilar pneumonia versus atelectasis or scarring.
[2020-10-19] MEDS: methylPREDNISolone SOD SUCCI 40 MG/ML 1 ML VIAL IV SCH ×3 (10:46→23:41)
[2020-10-19] MEDS: guaiFENesin 600 MG TABLET.ER PO SCH ×2 (10:46→19:53)
[2020-10-19] MEDS ORDERED: FUROSEMIDE 10 MG/ML 2 ML VIAL IV ONE (11:02)
--- NOTE | 2020-10-19 11:02 | P.CNPUL ---
History of Present Illness Consult date: 10/19/20 Reason for consult: COPD History of present illness: 80-year-old female presents to the hospital complaining of abdominal pain. The patient was diagnosed having acute pancreatitis. I was consulted to see this patient because of COPD exacerbation. The patient has advanced COPD and the patient is oxygen dependent utilizes oxygen at 3 L per minute nasal cannula and she has been maintained on Trelegy on outpatient basis once a day regarding her COPD controlled. This morning, she was noted to be more short of breath. Chest x-ray was done that showed no acute abnormalities and showed hyperinflation secondary to COPD. IV fluids are running at the rate of 110cc/hr an hour and the patient was placed on KVO IV fluids. Currently she is receiving bronchodilators with albuterol nebulized treatments around the clock. She is also on Symbicort as maintenance to follow twice a day and she is on IV Solu- Medrol 40 mg every 6 hours that was started today, first dose was given today. Her abdominal pain was epigastric. Associated with nausea. Patient was found to have pancreatitis by labs. CAT scan showed gallbladder sludge in the panc reas actually appeared fairly normal. Ultrasound also showed gallbladder sludge with a positive Hernandez sign. Common bile duct nondistended. Patient doing better today. She was started on liquids. No nausea or vomiting. Patient with history of daily alcohol use however volume is fairly small. No history of pancreatitis or gallbladder disease in the past. Review of Systems For review of system was done and the positive findings were mentioned above in history of present illness. Is consistent with worsening shortness of breath during this current hospital stay is also consistent with epigastric pain which ultimately turned out to be related to pancreatitis. The patient remains on 3 L of oxygen by nasal cannula. Abdominal pain is subsided. Otherwise review of system is negative. Past Medical History Past Medical History: COPD, Hypertension Additional Past Medical History / Comment(s): Anemia, Pt wears 3 liters nasal cannula constantly, diverticulosis. History of Any Multi-Drug Resistant Organisms: None Reported Past Surgical History: Bladder Surgery, Hysterectomy, Tubal Ligation Past Psychological History: No Psychological Hx Reported Smoking Status: Former smoker Past Alcohol Use History: Daily Past Drug Use History: None Reported - Past Family History Family Family Medical History: No Reported History Medications and Allergies Home Medications Medication Instructions Recorded Confirmed Type Albuterol Inhaler [Ventolin Hfa 2 puff INHALATION RT-QID PRN 10/17/20 10/17/20 History Inhaler] Aspirin EC [Ecotrin Low Dose] 81 mg PO HS 10/17/20 10/17/20 History Atorvastatin Calcium [Lipitor] 20 mg PO DAILY 10/17/20 10/17/20 History Jered/D3/Mag11/Zinc/Bilingual Research Interviewer/Mike/Bor 1 tab PO BID 10/17/20 10/17/20 History [Caltrate 600+D Plus Tablet] Candesartan Cilexetil [Atacand] 32 mg PO DAILY 10/17/20 10/17/20 History Citalopram Hydrobromide [CeleXA] 20 mg PO DAILY 10/17/20 10/17/20 History EPINEPHrine (Auto Inject) [Epipen] 0.3 mg IM ONCE PRN 10/17/20 10/17/20 History Fluticasone/Umeclidin/Vilanter 1 puff INHALATION RT-DAILY 10/17/20 10/17/20 History [Trelemarty Ellipta 100-62.5-25] Ipratropium-Albuterol Nebulize 3 ml INHALATION RT-QID PRN 10/17/20 10/17/20 History [Duoneb 0.5 mg-3 mg/3 ml Soln] Isosorbide Mononitrate [Isosorbide 30 mg PO DAILY 10/17/20 10/17/20 History Mononitrate ER] Mirabegron [Myrbetriq] 25 mg PO HS 10/17/20 10/17/20 History Omeprazole 20 mg PO DAILY 10/17/20 10/17/20 History Verapamil HCl [Verelan Pm] 300 mg PO HS 10/17/20 10/17/20 History Allergies Allergy/AdvReac Type Severity Reaction Status Date / Time metaxalone [From Skelaxin] Allergy Dyspnea Verified 10/17/20 09:22 Physical Exam Vitals: Vital Signs Temp Pulse Pulse Resp BP Pulse Ox 10/19/20 07:25 73 10/19/20 07:14 69 93 L 10/19/20 04:26 98.2 F 66 20 149/55 97 10/18/20 20:04 98.8 F 79 16 136/59 94 L 10/18/20 19:15 16 10/18/20 13:39 78 10/18/20 13:31 72 10/18/20 11:57 97.9 F 58 L 126/59 93 L Intake and Output 10/18/20 10/19/20 10/19/20 22:59 06:59 14:59 Intake Total 422 1540 Balance 422 1540 Intake: Intake, IV Titration 62 1300 Amount Sodium Chloride 0.9% 1, 12 1300 000 ml @ 110 mls/hr IV . Q9H6M [facility] Rx#:[id number] cefTRIAXone 1 gm In 50 Sodium Chloride 0.9% 50 ml @ 100 mls/hr IVPB Q24HR [facility] Rx#:[id number] Oral 360 240 Other: # Voids 3 # Bowel Movements 1 General: The patient is awake and alert, in no distress Eye: there is normal conjunctiva bilaterally. Neck: The neck is supple, there is no JVD. Cardiovascular: Normal S1-S2, no S3-S4, no murmurs. Respiratory: Lungs are diminished breath sounds along with scattered expiratory wheezes without the lung reynoso bilaterally and prolongation of the expiration phase of breathing Gastrointestinal: Abdomen is soft, there is moderate tenderness to palpation in the epigastric area Musculoskeletal: There is no pedal edema. Neurological:. Speech is normal. Skin: Skin is warm and dry Results - Laboratory Findings CBC and BMP: 10/19/20 04:19 10/19/20 04:19 Abnormal lab findings: Abnormal Labs 10/16/20 10/17/20 10/17/20 23:45 00:20 03:27 WBC 18.2 H RBC Hgb Hct MCHC 30.8 L Neutrophils # 15.0 H Monocytes # Sodium 135 L BUN 18 H Est GFR (CKD-EPI)AfAm Est GFR (CKD-EPI)NonAf BUN/Creatinine Ratio Glucose 117 H Total Bilirubin AST 90 H ALT Alkaline Phosphatase 212 H Total Protein 6.2 L Albumin Amylase 165 H Lipase 2661 H Urine Appearance Cloudy H Ur Specific Mehama 1.038 H Urine Protein Urine Nitrite Positive H Ur Leukocyte Esterase Large H Urine RBC 43 H Urine WBC 70 H Urine WBC Clumps Ur Squamous Epith Cells Urine Bacteria Few H Hyaline Casts Urine Mucus Rare H Urine Yeast (Budding) Occasional H 10/18/20 10/18/20 10/18/20 05:27 05:27 11:50 WBC 28.6 H RBC 3.70 L Hgb 10.5 L Hct 33.3 L MCHC Neutrophils # 25.1 H Monocytes # 1.5 H Sodium BUN 28.0 H Est GFR (CKD-EPI)AfAm Est GFR (CKD-EPI)NonAf 53.2 L BUN/Creatinine Ratio 28.00 H Glucose Total Bilirubin 1.5 H AST 136 H ALT 106 H Alkaline Phosphatase 251 H Total Protein 5.7 L Albumin 3.60 L Amylase Lipase Urine Appearance Turbid H Ur Specific Mehama Urine Protein 1+ H Urine Nitrite Ur Leukocyte Esterase Moderate H Urine RBC 12 H Urine WBC 87 H Urine WBC Clumps Few H Ur Squamous Epith Cells 8 H Urine Bacteria Many H Hyaline Casts 24 H Urine Mucus Few H Urine Yeast (Budding) 10/19/20 10/19/20 04:19 04:19 WBC 17.9 H RBC 3.65 L Hgb 10.0 L Hct 32.5 L MCHC 30.8 L Neutrophils # 15.1 H Monocytes # 1.1 H Sodium BUN 34.0 H Est GFR (CKD-EPI)AfAm 41.0 L Est GFR (CKD-EPI)NonAf 35.4 L BUN/Creatinine Ratio 24.29 H Glucose Total Bilirubin AST 97 H ALT 82 H Alkaline Phosphatase 202 H Total Protein 5.2 L Albumin 3.20 L Amylase Lipase Urine Appearance Ur Specific Mehama Urine Protein Urine Nitrite Ur Leukocyte Esterase Urine RBC Urine WBC Urine WBC Clumps Ur Squamous Epith Cells Urine Bacteria Hyaline Casts Urine Mucus Urine Yeast (Budding) - Diagnostic Findings Chest x-ray: image reviewed Assessment and Plan Plan: 1 shortness of breath secondary to COPD exacerbation. The patient is known to have advanced COPD oxygen dependent maintained on Trelegy at home. No obvious signs of fluid overload currently still on 3 L 02 by nasal cannula started on bronchodilators and steroids on steroids.. Chest x-ray was noted. 2 Acute pancreatitis: Probably alcohol induced. Patient reported drinking 1 or 2 large glasses of wine daily. Ultrasound showed no evidence of stones. Triglyceride level normal. GI consulted for further evaluation, appreciate recommendations. 3 Gallbladder sludge and positive sonographic Hernandez sign, noted on ultrasound. 4 Possible UTI with worsening leukocytosis, IV ceftriaxone day #2 awaiting urine culture 5. Chronic medical problems: essential hypertension, hyperlipidemia, GERD Plan Agree on the current treatment. We'll continue to follow. Every dose of Lasix 20 mg IV push. Agree on chest exam fluids. Continue bronchodilators. Continue steroids. clinically improving.
--- NOTE | 2020-10-19 11:15 | P.PN ---
Subjective Progress Note Date: 10/19/20 Principal diagnosis: Pancreatitis Patient complaining of shortness of breath. Denies abdominal pain. Tolerating diet. White blood cell count decreased at 17.9. Lipase normal. Liver enzymes improved. Objective - Vital Signs Vital signs: Vital Signs Temp 98.2 F 10/19/20 04:26 Pulse 73 10/19/20 07:25 Resp 20 10/19/20 04:26 BP 149/55 10/19/20 04:26 Pulse Ox 93 L 10/19/20 07:14 Intake & Output 10/18/20 10/19/20 10/19/20 18:59 06:59 18:59 Intake Total 62 1900 Balance 62 1900 Intake: Intake, IV Titration 62 1300 Amount Sodium Chloride 0.9% 1, 12 1300 000 ml @ 110 mls/hr IV . Q9H6M [facility] Rx#:[id number] cefTRIAXone 1 gm In 50 Sodium Chloride 0.9% 50 ml @ 100 mls/hr IVPB Q24HR [facility] Rx#:[id number] Oral 600 Other: # Voids 3 # Bowel Movements 1 - Exam Abdomen: Soft, nontender, nondistended - Labs CBC & Chem 7: 10/19/20 04:19 10/19/20 04:19 Labs: Abnormal Lab Results - Last 24 Hours (Table) 10/18/20 10/19/20 10/19/20 Range/Units 11:50 04:19 04:19 WBC 17.9 H (3.8-10.6) k/uL RBC 3.65 L (3.80-5.40) m/uL Hgb 10.0 L (11.4-16.0) gm/dL Hct 32.5 L (34.0-46.0) % MCHC 30.8 L (31.0-37.0) g/dL Neutrophils # 15.1 H (1.3-7.7) k/uL Monocytes # 1.1 H (0-1.0) k/uL BUN 34.0 H (9.0-27.0) mg/dL Est GFR (CKD-EPI)AfAm 41.0 L (60.0-200.0) Est GFR (CKD-EPI)NonAf 35.4 L (60.0-200.0) BUN/Creatinine Ratio 24.29 H (12.00-20.00) Ratio AST 97 H (13-35) U/L ALT 82 H (8-44) U/L Alkaline Phosphatase 202 H (41-126) U/L Total Protein 5.2 L (6.2-8.2) g/dL Albumin 3.20 L (3.80-4.90) g/dL Urine Appearance Turbid H (Clear) Urine Protein 1+ H (Negative) Ur Leukocyte Esterase Moderate H (Negative) Urine RBC 12 H (0-5) /hpf Urine WBC 87 H (0-5) /hpf Urine WBC Clumps Few H (None) /hpf Ur Squamous Epith Cells 8 H (0-4) /hpf Urine Bacteria Many H (None) /hpf Hyaline Casts 24 H (0-2) /lpf Urine Mucus Few H (None) /hpf Microbiology - Last 24 Hours (Table) 10/18/20 11:50 Urine Culture - Preliminary Urine,Voided Assessment and Plan (1) Pancreatitis Narrative/Plan: 80-year-old female with gallbladder sludge. Possible etiology for recent pancreatitis. Patient with increased shortness of breath. Pulmonary consult pending. Will follow. Current Visit: Yes Status: Acute Code(s): K85.90 - ACUTE PANCREATITIS WITHOUT NECROSIS OR INFECTION, [facility] SNOMED Code(s): 96152440
[2020-10-19] MEDS: PATIENT'S OWN (Mirabegron [Myrbetriq] 25 MG Tab.Er.24h) PO SCH (19:42)
[2020-10-19] MEDS: VERAPAMIL SR 180 MG TABLET.ER PO SCH (19:53)
[2020-10-19] MEDS: VERAPAMIL SR 120 MG TABLET.ER PO SCH (19:53)
[2020-10-19] MEDS: ASPIRIN 81 MG PO SCH (19:53)
[2020-10-20 07:16] LABS: Basophils % (A) 0 %; Eosinophils % (A) 0 %; HCT 37.2 % (34.0-46.0); HGB 11.2 gm/dL (11.4-16.0); Hypochromasia Slight; Lymphocytes # (A) 0.9 k/uL (1.0-4.8); Lymphocytes % (A) 7 %; MCV 89.8 fL (80.0-100.0); Mean Platelet Volume 9.7; Monocytes # (A) 0.3 k/uL (0-1.0); Monocytes % (A) 2 %; Neutrophils # (A) 12.1 k/uL (1.3-7.7); Neutrophils % (A) 91 %; Platelet Count 334 k/uL (150-450); RBC 4.14 m/uL (3.80-5.40); RDW 13.8 % (11.5-15.5); WBC 13.3 k/uL (3.8-10.6)
[2020-10-20] MEDS: IPRATROPIUM-ALBUTEROL 3 ML NEB INHALATION SCH ×4 (07:19→19:56)
[2020-10-20] MEDS: SYMBICORT 160-4.5 MCG INHALER INHALATION SCH ×2 (07:19→19:56)
[2020-10-20] MEDS: ATORVASTATIN 20 MG TAB PO SCH (07:43)
[2020-10-20] MEDS: guaiFENesin 600 MG TABLET.ER PO SCH ×2 (07:43→20:41)
[2020-10-20] MEDS: HEPARIN SODIUM,PORCINE/PF 5,000 UNIT/0.5 ML SYRINGE SQ SCH ×3 (07:43→23:00)
[2020-10-20] MEDS: ISOSORBIDE MONONITRATE ER 30 MG TAB.ER.24H PO SCH (07:44)
[2020-10-20] MEDS: THIAMINE 100 MG TAB PO SCH ×2 (07:44→16:54)
[2020-10-20] MEDS: CITALOPRAM HYDROBROMIDE 20 MG TAB PO SCH (07:45)
[2020-10-20] MEDS: LOSARTAN 50 MG TAB PO SCH (07:45)
[2020-10-20] MEDS: PANTOPRAZOLE 40 MG/10 ML VIAL IV SCH (07:46)
[2020-10-20] MEDS: methylPREDNISolone SOD SUCCI 40 MG/ML 1 ML VIAL IV SCH (07:47)
--- NOTE | 2020-10-20 10:44 | P.DS ---
Providers Date of admission: 10/17/20 03:32 Expected date of discharge: 10/20/20 Attending physician: Paco Gómez MD Consults: 10/17/20 03:33 Consult Physician Routine Consulting Provider: Santa Cabrera Consult Reason/Comments: Abdominal pain. Pancreatitis. Do you want consulting provider notified?: Yes 10/17/20 11:30 Consult Physician Routine Consulting Provider: Darien Wing Consult Reason/Comments: Gallbladder sludge Do you want consulting provider notified?: Yes 10/19/20 09:27 Consult Physician Routine Consulting Provider: Gopi Vazquez Consult Reason/Comments: COPD exacerbation Do you want consulting provider notified?: Yes Primary care physician: Caprice Gore MD Hospital Course: This is a 80-year-old female with past medical history noted below that presented to the emergency room with abdominal pain. Patient was evaluated in the ER and admitted to the hospital for further management of her medical problems noted below. 1. Acute pancreatitis: Improved significantly. Probably alcohol induced. Patient reported drinking 1 or 2 large glasses of wine daily. Patient advised to stop drinking for the foreseeable future. Ultrasound showed no evidence of stones. Triglyceride level normal. GI consulted for further evaluation, appreciate recommendations. 2. Gallbladder sludge and positive sonographic Hernandez sign, noted on ultrasound. I consulted general surgery for further evaluation. May consider elective cholecystectomy as an outpatient. Follow up as directed 3. Possible UTI with worsening leukocytosis, started on IV ceftriaxone. Would finish 5 days course of antibiotic with Keflex 4. Underlying COPD with acute exacerbation: Improved with IV Solu-Medrol and bronchodilators. Would finish short course of prednisone. Chest x-ray showed no acute findings. 5. Chronic medical problems: essential hypertension, hyperlipidemia, GERD Patient will be discharged home in a stable condition. She was referred to Dr. Vazquez to establish care with him here in town given underlying severe COPD. She will follow-up with Dr. Wing in the office as directed in 2 weeks. Plan of care discussed with her daughter over the phone. Patient Condition at Discharge: Fair Plan - Discharge Summary New Discharge Prescriptions: New predniSONE [Deltasone] 40 mg PO DAILY #6 tab Cephalexin [Keflex] 500 mg PO Q6HR 2 Days #8 cap Continue Isosorbide Mononitrate [Isosorbide Mononitrate ER] 30 mg PO DAILY Aspirin EC [Ecotrin Low Dose] 81 mg PO HS Jered/D3/Mag11/Zinc/Cement Mason Helper/Mike/Bor [Caltrate 600+D Plus Tablet] 1 tab PO BID Mirabegron [Myrbetriq] 25 mg PO HS EPINEPHrine (Auto Inject) [Epipen] 0.3 mg IM ONCE PRN PRN Reason: Anaphylaxis Albuterol Inhaler [Ventolin Hfa Inhaler] 2 puff INHALATION RT-QID PRN PRN Reason: Shortness Of Breath Candesartan Cilexetil [Atacand] 32 mg PO DAILY Verapamil HCl [Verelan Pm] 300 mg PO HS Omeprazole 20 mg PO DAILY Citalopram Hydrobromide [CeleXA] 20 mg PO DAILY Fluticasone/Umeclidin/Vilanter [Trelegy Ellipta 100-62.5-25] 1 puff INHALATION RT-DAILY Atorvastatin Calcium [Lipitor] 20 mg PO DAILY Ipratropium-Albuterol Nebulize [Duoneb 0.5 mg-3 mg/3 ml Soln] 3 ml INHALATION RT-QID PRN PRN Reason: Shortness Of Breath Discharge Medication List Albuterol Inhaler [Ventolin Hfa Inhaler] 2 puff INHALATION RT-QID PRN 10/17/20 [History] Aspirin EC [Ecotrin Low Dose] 81 mg PO HS 10/17/20 [History] Atorvastatin Calcium [Lipitor] 20 mg PO DAILY 10/17/20 [History] Jered/D3/Mag11/Zinc/Cement Mason Helper/Mike/Bor [Caltrate 600+D Plus Tablet] 1 tab PO BID 10/17/20 [History] Candesartan Cilexetil [Atacand] 32 mg PO DAILY 10/17/20 [History] Citalopram Hydrobromide [CeleXA] 20 mg PO DAILY 10/17/20 [History] EPINEPHrine (Auto Inject) [Epipen] 0.3 mg IM ONCE PRN 10/17/20 [History] Fluticasone/Umeclidin/Vilanter [Trelegy Ellipta 100-62.5-25] 1 puff INHALATION RT-DAILY 10/17/20 [History] Ipratropium-Albuterol Nebulize [Duoneb 0.5 mg-3 mg/3 ml Soln] 3 ml INHALATION RT-QID PRN 10/17/20 [History] Isosorbide Mononitrate [Isosorbide Mononitrate ER] 30 mg PO DAILY 10/17/20 [History] Mirabegron [Myrbetriq] 25 mg PO HS 10/17/20 [History] Omeprazole 20 mg PO DAILY 10/17/20 [History] Verapamil HCl [Verelan Pm] 300 mg PO HS 10/17/20 [History] Cephalexin [Keflex] 500 mg PO Q6HR 2 Days #8 cap 10/20/20 [Rx] predniSONE [Deltasone] 40 mg PO DAILY #6 tab 10/20/20 [Rx] Follow up Appointment(s)/Referral(s): Darien Wing MD [Medical Doctor] - 2 Weeks Caprice Gore MD [Primary Care Provider] - 1-2 days Gopi Vazquez MD [STAFF PHYSICIAN] - 1 Week
--- NOTE | 2020-10-20 11:39 | P.PN ---
<Tisha Solis - Last Filed: 10/20/20 11:34> Subjective Progress Note Date: 10/20/20 CHIEF COMPLAINT: Abdominal pain HISTORY OF PRESENT ILLNESS: Patient is being followed in regards pancreatitis. She denies any abdominal pain. Denies any nausea or vomiting. Patient does report some lower abdominal discomfort which was likely gas pains. Now resolved. She is tolerating regular diet. Patient is scheduled for discharge. She reports that her shortness of breath is back to baseline. Afebrile. WBC is down from 17.9-13.3 hemoglobin 11.2 LFTs yesterday trending down and lipase normal at 25 PHYSICAL EXAM: VITAL SIGNS: Reviewed. GENERAL: Well-developed in no acute distress. HEENT: No sclera icterus. Extraocular movements grossly intact. Moist buccal mucosa. Head is atraumatic, normocephalic. ABDOMEN: Soft. Nondistended. Nontender. NEUROLOGIC: Alert and oriented. Cranial nerves II through XII grossly intact. ASSESSMENT: 1. Pancreatitis 2. Gallbladder sludge possible etiology for recent pancreatitis PLAN: -Continue regular diet -Patient is stable from surgical standpoint for discharge Physician Hot Dipper note has been reviewed by physician. Signing provider agrees with the documented findings, assessment, and plan of care. Objective - Vital Signs Vital signs: Vital Signs Temp 97.4 F L 10/20/20 05:00 Pulse 71 10/20/20 11:14 Resp 18 10/20/20 05:00 BP 168/60 10/20/20 05:00 Pulse Ox 96 10/20/20 07:19 Intake & Output 10/19/20 10/20/20 10/20/20 18:59 06:59 18:59 Intake Total 50 720 Balance 50 720 Intake: Intake, IV Titration 50 120 Amount Sodium Chloride 0.9% 1, 120 000 ml @ 110 mls/hr IV . Q9H6M [facility] Rx#:[id number] cefTRIAXone 1 gm In 50 Sodium Chloride 0.9% 50 ml @ 100 mls/hr IVPB Q24HR [facility] Rx#:[id number] Oral 600 Other: # Voids 2 2 - Labs CBC & Chem 7: 10/20/20 06:10 10/19/20 04:19 Labs: Abnormal Lab Results - Last 24 Hours (Table) 10/20/20 Range/Units 06:10 WBC 13.3 H (3.8-10.6) k/uL Hgb 11.2 L (11.4-16.0) gm/dL MCHC 30.0 L (31.0-37.0) g/dL Neutrophils # 12.1 H (1.3-7.7) k/uL Lymphocytes # 0.9 L (1.0-4.8) k/uL Microbiology - Last 24 Hours (Table) 10/18/20 11:50 Urine Culture - Preliminary Urine,Voided Gram Neg Bacilli <Darien Wing - Last Filed: 10/20/20 12:15> Subjective As above. No pain. Continue diet as tolerated. Follow-up as outpatient. Objective - Vital Signs Vital signs: Vital Signs Temp 97.7 F 10/20/20 11:42 Pulse 75 10/20/20 11:42 Resp 20 10/20/20 11:42 BP 174/55 10/20/20 11:42 Pulse Ox 92 L 10/20/20 11:42 Intake & Output 10/19/20 10/20/20 10/20/20 18:59 06:59 18:59 Intake Total 50 720 Balance 50 720 Intake: Intake, IV Titration 50 120 Amount Sodium Chloride 0.9% 1, 120 000 ml @ 110 mls/hr IV . Q9H6M [facility] Rx#:[id number] cefTRIAXone 1 gm In 50 Sodium Chloride 0.9% 50 ml @ 100 mls/hr IVPB Q24HR [facility] Rx#:[id number] Oral 600 Other: # Voids 2 2 - Labs CBC & Chem 7: 10/20/20 06:10 10/19/20 04:19 Labs: Abnormal Lab Results - Last 24 Hours (Table) 10/20/20 Range/Units 06:10 WBC 13.3 H (3.8-10.6) k/uL Hgb 11.2 L (11.4-16.0) gm/dL MCHC 30.0 L (31.0-37.0) g/dL Neutrophils # 12.1 H (1.3-7.7) k/uL Lymphocytes # 0.9 L (1.0-4.8) k/uL Microbiology - Last 24 Hours (Table) 10/18/20 11:50 Urine Culture - Final Urine,Voided Escherichia coli Assessment and Plan (1) Pancreatitis Current Visit: Yes Status: Acute Code(s): K85.90 - ACUTE PANCREATITIS WITHOUT NECROSIS OR INFECTION[facility] Code(s): 65588797
[2020-10-20 13:21] LABS: ALT 60 U/L (4-34); AST 62 U/L (14-36); African American GFR (CKD) 49 (>60 ml/min/1.73 sqM); Albumin 3.4 g/dL (3.5-5.0); Albumin/Globulin Ratio 1.3; Alkaline Phosphatase 182 U/L (38-126); Anion Gap 8 mmol/L; Blood Urea Nitrogen 37 mg/dL (7-17); Calcium 9.9 mg/dL (8.4-10.2); Carbon Dioxide 25 mmol/L (22-30); Chloride 105 mmol/L (98-107); Globulin 2.7 g/dL; Glucose 127 mg/dL (74-99); Non-African American GFR(CKD) 43 (>60 ml/min/1.73 sqM); Potassium 3.7 mmol/L (3.5-5.1); Sodium 138 mmol/L (137-145); Total Bilirubin 0.4 mg/dL (0.2-1.3); Total Protein 6.1 g/dL (6.3-8.2)
--- NOTE | 2020-10-20 14:13 | P.PN ---
Subjective Progress Note Date: 10/20/20 Principal diagnosis: Acute exacerbation of COPD 80-year-old female presents to the hospital complaining of abdominal pain. The patient was diagnosed having acute pancreatitis. I was consulted to see this patient because of COPD exacerbation. The patient has advanced COPD and the patient is oxygen dependent utilizes oxygen at 3 L per minute nasal cannula and she has been maintained on Trelegy on outpatient basis once a day regarding her COPD controlled. This morning, she was noted to be more short of breath. Chest x-ray was done that showed no acute abnormalities and showed hyperinflation secondary to COPD. IV fluids are running at the rate of 110cc/hr an hour and t he patient was placed on KVO IV fluids. Currently she is receiving bronchodilators with albuterol nebulized treatments around the clock. She is also on Symbicort as maintenance to follow twice a day and she is on IV Solu- Medrol 40 mg every 6 hours that was started today, first dose was given today. Her abdominal pain was epigastric. Associated with nausea. Patient was found to have pancreatitis by labs. CAT scan showed gallbladder sludge in the pancreas actually appeared fairly normal. Ultrasound also showed gallbladder sludge with a positive Hernandez sign. Common bile duct nondistended. Patient doing better today. She was started on liquids. No nausea or vomiting. Patient with history of daily alcohol use however volume is fairly small. No history of pancreatitis or gallbladder disease in the past. On 10/20/2020 patient seen in follow-up on medical surgical floor. She is s itting up in the chair, she is breathing easier, she states there is about 80% improvement in her breathing since admission. She is speaking in full sentences, her pulse ox on 3 L is 92%, she's been afebrile, no complaints of worsening cough, dyspnea, some mild abdominal discomfort under the left breast in the upper abdomen area no nausea or vomiting. Chest x-ray from yesterday shows COPD, and minimal patchy basilar density on the right. No fever or chills, today's labs have been reviewed, electrolytes are within normal limits, her creatinine is improving and is down to 1.21 from 1.4 on yesterday's labs, B1 is 37, LFTs are improving, her amylase and lipase were negative at 48 and 25 respectively. Urinalysis showed urinary tract infection, urine culture is positive for E. coli, patient is covered with Lasix. Patient continues on Symbicort, and DuoNeb breathing treatments. Objective - Vital Signs Vital signs: Vital Signs Temp 97.7 F 10/20/20 11:42 Pulse 75 10/20/20 11:42 Resp 20 10/20/20 11:42 BP 174/55 10/20/20 11:42 Pulse Ox 92 L 10/20/20 11:42 Intake & Output 10/19/20 10/20/20 10/20/20 18:59 06:59 18:59 Intake Total 50 720 Balance 50 720 Intake: Intake, IV Titration 50 120 Amount Sodium Chloride 0.9% 1, 120 000 ml @ 110 mls/hr IV . Q9H6M [facility] Rx#:[id number] cefTRIAXone 1 gm In 50 Sodium Chloride 0.9% 50 ml @ 100 mls/hr IVPB Q24HR [facility] Rx#:[id number] Oral 600 Other: # Voids 2 2 - Exam GENERAL EXAM: Alert, very pleasant, 80-year-old white female on 3 L of oxygen a pulse ox of 92%, comfortable in no apparent distress. HEAD: Normocephalic/atraumatic. EYES: Normal reaction of pupils, equal size. Conjunctiva pink, sclera white. NOSE: Clear with pink turbinates. THROAT: No erythema or exudates. NECK: No masses, no JVD, no thyroid enlargement, no adenopathy. CHEST: No chest wall deformity. Symmetrical expansion. LUNGS: Equal air entry with mild expiratory wheezing CVS: Regular rate and rhythm, normal S1 and S2, no gallops, no murmurs, no rubs ABDOMEN: Soft, nontender. No hepatosplenomegaly, normal bowel sounds, no guarding or rigidity. EXTREMITIES: No clubbing, no edema, no cyanosis, 2+ pulses and upper and lower extremities. MUSCULOSKELETAL: Muscle strength and tone normal. SPINE: No scoliosis or deformity SKIN: No rashes CENTRAL NERVOUS SYSTEM: Alert and oriented -3. No focal deficits, tone is normal in all 4 extremities. PSYCHIATRIC: Alert and oriented -3. Appropriate affect. Intact judgment and insight. - Labs CBC & Chem 7: 10/20/20 06:10 10/20/20 12:59 Labs: Abnormal Lab Results - Last 24 Hours (Table) 10/20/20 10/20/20 Range/Units 06:10 12:59 WBC 13.3 H (3.8-10.6) k/uL Hgb 11.2 L (11.4-16.0) gm/dL MCHC 30.0 L (31.0-37.0) g/dL Neutrophils # 12.1 H (1.3-7.7) k/uL Lymphocytes # 0.9 L (1.0-4.8) k/uL BUN 37 H (7-17) mg/dL Creatinine 1.21 H (0.52-1.04) mg/dL Glucose 127 H (74-99) mg/dL AST 62 H (14-36) U/L ALT 60 H (4-34) U/L Alkaline Phosphatase 182 H (38-126) U/L Total Protein 6.1 L (6.3-8.2) g/dL Albumin 3.4 L (3.5-5.0) g/dL Microbiology - Last 24 Hours (Table) 10/18/20 11:50 Urine Culture - Final Urine,Voided Escherichia coli Assessment and Plan Plan: Assessment: #1. shortness of breath secondary to COPD exacerbation. The patient is known to have advanced COPD oxygen dependent maintained on Trelegy at home. No obvious signs of fluid overload currently still on 3 L 02 by nasal cannula started on bronchodilators and steroids on steroids.. Chest x-ray was noted. #2. Acute pancreatitis: Probably alcohol induced. Patient reported drinking 1 or 2 large glasses of wine daily. Ultrasound showed no evidence of stones. Triglyceride level normal. GI consulted for further evaluation, appreciate recommendations. #3. Gallbladder sludge and positive sonographic Hernandez sign, noted on ultrasound. #4. Possible UTI with worsening leukocytosis, urine culture positive for E. coli, patient is covered with Rocephin #5. Chronic medical problems: essential hypertension, hyperlipidemia, GERD Plan: Continue current antibiotics Continue breathing treatments Continue steroids Patient reports about 80% improvement but is still bronchospastic on today's e chloe will probably benefit from the 24-hour inpatient treatment On discharge and can resume her Trelegy Ellipta, DuoNeb nebulized treatments, she can finish outpatient course of oral antibiotics for urinary tract infection, prednisone taper. She will need outpatient follow-up with Dr. Vazquez in the office in 7-10 days I performed a history & physical examination of the patient and discussed their management with my nurse practitioner, Dianne Vargas. I reviewed the nurse practitioner's note and agree with the documented findings and plan of care. Lung sounds are positive for mild wheezes throughout the lung reynoso. The findings and the impression was discussed with the patient. I attest to the documentation by the nurse practitioner. Time with Patient: Less than 30
--- NOTE | 2020-10-20 14:56 | P.PN ---
Subjective Progress Note Date: 10/20/20 Principal diagnosis: Pancreatitis, abdominal pain An 80-year-old pleasant white female who was admitted to the hospital with acute pancreatitis. She continues to feel much better with abdominal pain. Denies any nausea or vomiting. Liver enzymes continued to trend down. She is having some increased difficulty with breathing, has a history of COPD. Today's labs totally bilirubin 0.4, alkaline phosphatase 182, AST 62, ALT 60. Objective - Vital Signs Vital signs: Vital Signs Temp 97.7 F 10/20/20 11:42 Pulse 75 10/20/20 11:42 Resp 20 10/20/20 11:42 BP 174/55 10/20/20 11:42 Pulse Ox 92 L 10/20/20 11:42 Intake & Output 10/19/20 10/20/20 10/20/20 18:59 06:59 18:59 Intake Total 50 720 Balance 50 720 Intake: Intake, IV Titration 50 120 Amount Sodium Chloride 0.9% 1, 120 000 ml @ 110 mls/hr IV . Q9H6M [facility] Rx#:[id number] cefTRIAXone 1 gm In 50 Sodium Chloride 0.9% 50 ml @ 100 mls/hr IVPB Q24HR [facility] Rx#:[id number] Oral 600 Other: # Voids 2 2 - Exam General appearance: The patient is alert, oriented, appears in no acute distress. HET: Head is normocephalic and atraumatic. Conjunctiva pink. Sclera anicteric. Neck: Supple without lymphadenopathy. Abdomen: Soft, nontender, nondistended with bowel sounds. No guarding or rigi dity. Extremities: Normal skin color and turgor. No pedal edema Skin: No rashes, no jaundice Neurological: No focal deficits. Alert and oriented 3. - Labs CBC & Chem 7: 10/20/20 06:10 10/20/20 12:59 Labs: Abnormal Lab Results - Last 24 Hours (Table) 10/20/20 10/20/20 Range/Units 06:10 12:59 WBC 13.3 H (3.8-10.6) k/uL Hgb 11.2 L (11.4-16.0) gm/dL MCHC 30.0 L (31.0-37.0) g/dL Neutrophils # 12.1 H (1.3-7.7) k/uL Lymphocytes # 0.9 L (1.0-4.8) k/uL BUN 37 H (7-17) mg/dL Creatinine 1.21 H (0.52-1.04) mg/dL Glucose 127 H (74-99) mg/dL AST 62 H (14-36) U/L ALT 60 H (4-34) U/L Alkaline Phosphatase 182 H (38-126) U/L Total Protein 6.1 L (6.3-8.2) g/dL Albumin 3.4 L (3.5-5.0) g/dL Microbiology - Last 24 Hours (Table) 10/18/20 11:50 Urine Culture - Final Urine,Voided Escherichia coli Assessment and Plan (1) Pancreatitis Narrative/Plan: 80-year-old female pancreatitis most likely biliary pancreatitis given the fact that she has elevated serum transaminases on labs from initial hospitalization. Ultrasound showed gallbladder sludge. Dr. Wing is on consult no plans for any surgical intervention. Current Visit: Yes Status: Acute Code(s): K85.90 - ACUTE PANCREATITIS WITHOUT NECROSIS OR INFECTION, UNSP SNOMED Code(s): 49260681 (2) Abdominal pain Current Visit: Yes Status: Acute Code(s): R10.9 - UNSPECIFIED ABDOMINAL PAIN SNOMED Code(s): 47727396 Plan: 1. CMP ordered and reviewed 2. Continue current medical management 3. Surgical service is on consult no plan for any surgical intervention 4. Liver enzymes continued to trend down, no plans for any endoscopic ev aluation Thank you for this consultation, patient may be discharged home from a gastroenterology standpoint once medically stable Dr. Marla Cabrera I agree with the dictator's note, documented as a scribe by Fiorella Rodriguez.
[2020-10-20] MEDS: VERAPAMIL SR 180 MG TABLET.ER PO SCH (20:37)
[2020-10-20] MEDS: VERAPAMIL SR 120 MG TABLET.ER PO SCH (20:37)
[2020-10-20] MEDS: ASPIRIN 81 MG PO SCH (20:37)
[2020-10-20] MEDS: PATIENT'S OWN (Mirabegron [Myrbetriq] 25 MG Tab.Er.24h) PO SCH (20:39)
[2020-10-21 04:39] VITALS: BP 177/60; RESP 18; TEMP 97.6
[2020-10-21] MEDS: IPRATROPIUM-ALBUTEROL 3 ML NEB INHALATION SCH ×2 (07:11→11:05)
[2020-10-21] MEDS: SYMBICORT 160-4.5 MCG INHALER INHALATION SCH (07:11)
[2020-10-21] MEDS: HEPARIN SODIUM,PORCINE/PF 5,000 UNIT/0.5 ML SYRINGE SQ SCH (07:33)
[2020-10-21] MEDS: THIAMINE 100 MG TAB PO SCH (07:34)
[2020-10-21] MEDS: guaiFENesin 600 MG TABLET.ER PO SCH (07:34)
[2020-10-21] MEDS: ISOSORBIDE MONONITRATE ER 30 MG TAB.ER.24H PO SCH (07:35)
[2020-10-21] MEDS: CITALOPRAM HYDROBROMIDE 20 MG TAB PO SCH (07:35)
[2020-10-21] MEDS: ATORVASTATIN 20 MG TAB PO SCH (07:35)
[2020-10-21] MEDS: LOSARTAN 50 MG TAB PO SCH (07:35)
[2020-10-21] MEDS ORDERED: PANTOPRAZOLE 40 MG TABLET PO SCH (09:00)
[2020-10-21] MEDS ORDERED: predniSONE 20 MG TAB PO SCH (09:00)
[2020-10-21 11:19] VITALS: PULSE 78
--- NOTE | 2020-10-21 12:55 | P.PN ---
Subjective Progress Note Date: 10/21/20 Principal diagnosis: Acute exacerbation of COPD 80-year-old female presents to the hospital complaining of abdominal pain. The patient was diagnosed having acute pancreatitis. I was consulted to see this patient because of COPD exacerbation. The patient has advanced COPD and the patient is oxygen dependent utilizes oxygen at 3 L per minute nasal cannula and she has been maintained on Trelegy on outpatient basis once a day regarding her COPD controlled. This morning, she was noted to be more short of breath. Chest x-ray was done that showed no acute abnormalities and showed hyperinflation secondary to COPD. IV fluids are running at the rate of 110cc/hr an hour and t he patient was placed on KVO IV fluids. Currently she is receiving bronchodilators with albuterol nebulized treatments around the clock. She is also on Symbicort as maintenance to follow twice a day and she is on IV Solu- Medrol 40 mg every 6 hours that was started today, first dose was given today. Her abdominal pain was epigastric. Associated with nausea. Patient was found to have pancreatitis by labs. CAT scan showed gallbladder sludge in the pancreas actually appeared fairly normal. Ultrasound also showed gallbladder sludge with a positive Hernandez sign. Common bile duct nondistended. Patient doing better today. She was started on liquids. No nausea or vomiting. Patient with history of daily alcohol use however volume is fairly small. No history of pancreatitis or gallbladder disease in the past. On 10/20/2020 patient seen in follow-up on medical surgical floor. She is s itting up in the chair, she is breathing easier, she states there is about 80% improvement in her breathing since admission. She is speaking in full sentences, her pulse ox on 3 L is 92%, she's been afebrile, no complaints of worsening cough, dyspnea, some mild abdominal discomfort under the left breast in the upper abdomen area no nausea or vomiting. Chest x-ray from yesterday shows COPD, and minimal patchy basilar density on the right. No fever or chills, today's labs have been reviewed, electrolytes are within normal limits, her creatinine is improving and is down to 1.21 from 1.4 on yesterday's labs, B1 is 37, LFTs are improving, her amylase and lipase were negative at 48 and 25 respectively. Urinalysis showed urinary tract infection, urine culture is positive for E. coli, patient is covered with Lasix. Patient continues on Symbicort, and DuoNeb breathing treatments. On 10/21/2020 patient seen in follow-up on medical surgical floor. She is breathing much easier today, less bronchospastic, less dyspneic. She is currently on 3 L of oxygen, this is actually the amount of oxygen she wears at home, her pulse ox is 90%, he is afebrile,. She states she is breathing easier, she is close to her baseline, today's labs have been reviewed electrolytes are within normal limits, renal function slightly improved, creatinine is down to 1.21. Patient is on Rocephin for urinary tract infection due to to E. coli, she was treated with IV steroids and nebulized bronchodilators, she responded well to inpatient treatment. Patient is anticipated to be discharged home today Objective - Vital Signs Vital signs: Vital Signs Temp 97.6 F 10/21/20 04:36 Pulse 78 10/21/20 11:18 Resp 18 10/21/20 04:36 BP 177/60 10/21/20 04:36 Pulse Ox 90 L 10/21/20 04:36 Intake & Output 10/20/20 10/21/20 10/21/20 18:59 06:59 18:59 Other: # Voids 2 - Exam GENERAL EXAM: Alert, very pleasant, 80-year-old white female on 3 L of oxygen a pulse ox of 92%, comfortable in no apparent distress. HEAD: Normocephalic/atraumatic. EYES: Normal reaction of pupils, equal size. Conjunctiva pink, sclera white. NOSE: Clear with pink turbinates. THROAT: No erythema or exudates. NECK: No masses, no JVD, no thyroid enlargement, no adenopathy. CHEST: No chest wall deformity. Symmetrical expansion. LUNGS: Equal air entry with mild expiratory wheezing CVS: Regular rate and rhythm, normal S1 and S2, no gallops, no murmurs, no rubs ABDOMEN: Soft, nontender. No hepatosplenomegaly, normal bowel sounds, no guarding or rigidity. EXTREMITIES: No clubbing, no edema, no cyanosis, 2+ pulses and upper and lower extremities. MUSCULOSKELETAL: Muscle strength and tone normal. SPINE: No scoliosis or deformity SKIN: No rashes CENTRAL NERVOUS SYSTEM: Alert and oriented -3. No focal deficits, tone is normal in all 4 extremities. PSYCHIATRIC: Alert and oriented -3. Appropriate affect. Intact judgment and insight. - Labs CBC & Chem 7: 10/20/20 06:10 10/20/20 12:59 Labs: Abnormal Lab Results - Last 24 Hours (Table) 10/20/20 Range/Units 12:59 BUN 37 H (7-17) mg/dL Creatinine 1.21 H (0.52-1.04) mg/dL Glucose 127 H (74-99) mg/dL AST 62 H (14-36) U/L ALT 60 H (4-34) U/L Alkaline Phosphatase 182 H (38-126) U/L Total Protein 6.1 L (6.3-8.2) g/dL Albumin 3.4 L (3.5-5.0) g/dL Microbiology - Last 24 Hours (Table) 10/18/20 11:50 Urine Culture - Final Urine,Voided Escherichia coli Assessment and Plan Plan: Assessment: #1. shortness of breath secondary to COPD exacerbation. The patient is known to have advanced COPD oxygen dependent maintained on Trelegy at home. No obvious signs of fluid overload currently still on 3 L 02 by nasal cannula started on bronchodilators and steroids on steroids.. Chest x-ray was noted. #2. Acute pancreatitis: Probably alcohol induced. Patient reported drinking 1 or 2 large glasses of wine daily. Ultrasound showed no evidence of stones. Triglyceride level normal. GI consulted for further evaluation, appreciate recommendations. #3. Gallbladder sludge and positive sonographic Hernandez sign, noted on ultrasound. #4. Possible UTI with worsening leukocytosis, urine culture positive for E. coli, patient is covered with Rocephin #5. Chronic medical problems: essential hypertension, hyperlipidemia, GERD Plan: Patient reports further improvement in her breathing Vital signs are stable She is on home dose supplemental oxygen, 3 L She's been treated with IV steroids, she received Rocephin for E. coli urinary tract infection, She responded well to inpatient treatment She can be discharged from pulmonary perspective On discharge and can resume her Trelegy Ellipta, DuoNeb nebulized treatments, she can finish outpatient course of oral antibiotics for urinary tract infection, prednisone taper. She will need outpatient follow-up with Dr. Vazquez in the office in 7-10 days I performed a history & physical examination of the patient and discussed their management with my nurse practitioner, Dianne Vargas. I reviewed the nurse practitioner's note and agree with the documented findings and plan of care. Lung sounds are positive for mild wheezes throughout the lung reynoso. The findings and the impression was discussed with the patient. I attest to the documentation by the nurse practitioner. Time with Patient: Less than 30
--- NOTE | 2020-10-21 15:23 | P.DS ---
<Tima Sam - Last Filed: 10/21/20 14:56> Providers Expected date of discharge: 10/21/20 Hospital Course: Discharge Diagnosis: Acute pancreatitis Gallbladder sludge and positive sonographic Hernandez sign, noted on ultrasound. Possible UTI with worsening leukocytosis, started on IV ceftriaxone. Would finish 5 days course of antibiotic with Keflex Underlying COPD with acute exacerbation: Improved with IV Solu-Medrol and bronchodilators. Essential hypertension Hyperlipidemia GERD Hospital Course: Patient is an 80-year-old female with a past medical history of chronic hypoxemic respiratory failure secondary to COPD on home oxygen, GERD, hypertension, hyperlipidemia, anxiety and depression. She presented to the emergency department on 10/17/20 with a chief complaint of sudden onset right up per quadrant pain radiating into her back beginning after eating dinner that evening. Patient reported this pain was accompanied by nausea and diaphoresis. Patient underwent full workup in the emergency department with KUB showing moderate quantity of stool throughout the colon with nonspecific bowel gas pattern. Abdominal ultrasound revealing gallbladder sludge with positive sonographic Hernandez sign. Transaminitis present with AST of 90 and a alkaline phosphatase of 212. Initial lipase 2661. Patient admitted under our services for acute pancreatitis and cholithiasis without acute cholecystitis. Patient was treated with aggressive IV hydration. Urinalysis was also obtained concerning for UTI and urine culture positive for E. coli. Patient started on IV antibiotic Rocephin and being discharged home with Keflex 500 mg every 6 hours for 2 days to complete a 5 day course of antibiotic. Patient's abdominal pain has completely subsided and she is medically stable for discharge home. Patient to follow-up with PCP Dr. Gore in 2 days, order worker Dr. Cabrera in one week, Dr. Vazquez fiberglass ski maker in 1 week, and Dr. Wing to discuss the possibility of outpatient cholecystectomy. Physical exam: Patient seen and examined at bedside. Vital signs reviewed and stable. General: Nontoxic, no distress and appears stated age. Derm: Skin warm and dry, normal coloration for ethnicity. Head: Atraumatic, normocephalic and symmetric. Eyes: EOMs intact, no lid lag, and anicteric sclera Mouth: no lip lesions, mucus membranes moist Cardiovascular: regular rate and rhythm with normal S1S2, no murmur, positive posterior tibial pulses bilaterally, and cap refill < 2 seconds. Lungs: Respirations even, regular, and unlabored on 3 L O2 via nasal cannula.. Lungs diminished at bases with soft expiratory wheezes diffusely bilaterally. Abdominal: soft, nontender to palpation, no guarding, no appreciable organomegaly Ext: ROM intact. No gross muscle atrophy, no edema, no contractures Neuro: Speech clear, face symmetrical and CN II-XII grossly intact with no noted focal neuro deficits. Psych: Alert and oriented to person, place, time, and situation. Appropriate and pleasant affect. A total of 45 minutes of time were spent preparing this complex discharge summary. Patient Condition at Discharge: Fair Plan - Discharge Summary New Discharge Prescriptions: New predniSONE [Deltasone] 40 mg PO DAILY #6 tab Cephalexin [Keflex] 500 mg PO Q6HR 2 Days #8 cap Continue Isosorbide Mononitrate [Isosorbide Mononitrate ER] 30 mg PO DAILY Aspirin EC [Ecotrin Low Dose] 81 mg PO HS Jered/D3/Mag11/Zinc/Legal Administrator/Mike/Bor [Caltrate 600+D Plus Tablet] 1 tab PO BID Mirabegron [Myrbetriq] 25 mg PO HS EPINEPHrine (Auto Inject) [Epipen] 0.3 mg IM ONCE PRN PRN Reason: Anaphylaxis Albuterol Inhaler [Ventolin Hfa Inhaler] 2 puff INHALATION RT-QID PRN PRN Reason: Shortness Of Breath Candesartan Cilexetil [Atacand] 32 mg PO DAILY Verapamil HCl [Verelan Pm] 300 mg PO HS Omeprazole 20 mg PO DAILY Citalopram Hydrobromide [CeleXA] 20 mg PO DAILY Fluticasone/Umeclidin/Vilanter [Trelegy Ellipta 100-62.5-25] 1 puff INHALATION RT-DAILY Atorvastatin Calcium [Lipitor] 20 mg PO DAILY Ipratropium-Albuterol Nebulize [Duoneb 0.5 mg-3 mg/3 ml Soln] 3 ml INHALATION RT-QID PRN PRN Reason: Shortness Of Breath Discharge Medication List Albuterol Inhaler [Ventolin Hfa Inhaler] 2 puff INHALATION RT-QID PRN 10/17/20 [History] Aspirin EC [Ecotrin Low Dose] 81 mg PO HS 10/17/20 [History] Atorvastatin Calcium [Lipitor] 20 mg PO DAILY 10/17/20 [History] Jered/D3/Mag11/Zinc/Legal Administrator/Mike/Bor [Caltrate 600+D Plus Tablet] 1 tab PO BID 10/17/20 [History] Candesartan Cilexetil [Atacand] 32 mg PO DAILY 10/17/20 [History] Citalopram Hydrobromide [CeleXA] 20 mg PO DAILY 10/17/20 [History] EPINEPHrine (Auto Inject) [Epipen] 0.3 mg IM ONCE PRN 10/17/20 [History] Fluticasone/Umeclidin/Vilanter [Trelegy Ellipta 100-62.5-25] 1 puff INHALATION RT-DAILY 10/17/20 [History] Ipratropium-Albuterol Nebulize [Duoneb 0.5 mg-3 mg/3 ml Soln] 3 ml INHALATION RT-QID PRN 10/17/20 [History] Isosorbide Mononitrate [Isosorbide Mononitrate ER] 30 mg PO DAILY 10/17/20 [History] Mirabegron [Myrbetriq] 25 mg PO HS 10/17/20 [History] Omeprazole 20 mg PO DAILY 10/17/20 [History] Verapamil HCl [Verelan Pm] 300 mg PO HS 10/17/20 [History] Cephalexin [Keflex] 500 mg PO Q6HR 2 Days #8 cap 10/20/20 [Rx] predniSONE [Deltasone] 40 mg PO DAILY #6 tab 10/20/20 [Rx] Follow up Appointment(s)/Referral(s): Darien Wing MD [Medical Doctor] - 10/29/20 9:00 am Caprice Gore MD [Primary Care Provider] - 1-2 days (The office lines are busy please call and make follow up appointment.) Santa Cabrera MD [STAFF PHYSICIAN] - 10/28/20 10:00 am Gopi Vazquez MD [STAFF PHYSICIAN] - 11/13/20 9:45 am Patient Instructions/Handouts: Cephalexin (By mouth), Prednisone (By mouth), Pancreatitis (DC), Acute Abdominal Pain (DC) Activity/Diet/Wound Care/Special Instructions: [facility] - Discharge Disposition: HOME WITH HOME HEALTH SERVICES <Reyna Valencia - Last Filed: 10/21/20 18:06> Providers Date of admission: 10/17/20 03:32 Attending physician: Paco Gómez MD Consults: 10/17/20 03:33 Consult Physician Routine Consulting Provider: Santa Cabrera Consult Reason/Comments: Abdominal pain. Pancreatitis. Do you want consulting provider notified?: Yes 10/17/20 11:30 Consult Physician Routine Consulting Provider: Darien Wing Consult Reason/Comments: Gallbladder sludge Do you want consulting provider notified?: Yes 10/19/20 09:27 Consult Physician Routine Consulting Provider: Gopi Vazquez Consult Reason/Comments: COPD exacerbation Do you want consulting provider notified?: Yes Primary care physician: Caprice Gore MD Hospital Course: I discussed the care with Tima Sam NP and reviewed the findings and plan as documented in the note above. I did not physically speak with or examine the patient on this date.
== END 2020-10-21 12:05 | disposition home health service (06) | DRG 439 ==
LOC: EC 23:24 → 5NMEDONC 10-17 03:32
PROVIDERS: ADMIT Internal Medicine; ATTEND Internal Medicine
DX: K85.90 Acute pancreatitis without necrosis or infection, unspecified (principal); J44.1 Chronic obstructive pulmonary disease with (acute) exacerbation; J96.11 Chronic respiratory failure with hypoxia; N39.0 Urinary tract infection, site not specified; B96.20 Unspecified Escherichia coli [E. coli] as the cause of diseases classified elsewhere; E78.5 Hyperlipidemia, unspecified; K80.20 Calculus of gallbladder without cholecystitis without obstruction; I10 Essential (primary) hypertension; Z99.81 Dependence on supplemental oxygen; K21.9 Gastro-esophageal reflux disease without esophagitis; K59.09 Other constipation; K82.8 Other specified diseases of gallbladder; Z79.899 Other long term (current) drug therapy; Z20.822 Contact with and (suspected) exposure to COVID-19; Z87.891 Personal history of nicotine dependence; Z90.710 Acquired absence of both cervix and uterus; Z98.51 Tubal ligation status; Z88.8 Allergy status to other drugs, medicaments and biological substances
CPT/HCPCS: 36415; 71046; 74018; 74177; 76705; 80053; 80061; 81001; 82150; 82787; 83605; 83690; 83735; 84484; 85025; 87077; 87086; 87186; 87635; 94640; 94760; 96361; 96374; 96376; 99285

== ENCOUNTER 2020-11-11 12:26 | Inpatient (IN) | payer MEDICARE, BC ==
[2020-11-11] MEDS ORDERED: SODIUM CHLORIDE 0.9% 1,000 ML IV STA (12:44)
[2020-11-11] MEDS ORDERED: ONDANSETRON 4 MG/2 ML VIAL IVP STA (12:44)
[2020-11-11] MEDS ORDERED: MORPHINE SULFATE 4 MG/ML SYRINGE IV STA (12:44)
--- NOTE | 2020-11-11 12:56 | ED ---
Abdominal Pain HPI - General Chief Complaint: Abdominal Pain Stated Complaint: ABD pain Time Seen by Provider: 11/11/20 12:31 Source: patient Mode of arrival: ambulatory Limitations: no limitations - History of Present Illness Initial Comments: Patient is an 80-year-old female, with history of COPD, on 3 L of home O2, GERD, hypertension, presenting to the emergency department via EMS with complaints of right-sided abdominal pain as well as diarrhea for the past few days. Patient was recently discharged on 10/21/2020 following a bout of pancreatitis, cholelithiasis without acute cholecystitis and mild COPD exacerbation. She did not follow-up with any of the doctors they recommended. Patient states she did finish her antibiotics regarding a UTI she had as well. She states the diarrhea started a few days ago, she's been going about 5-6 times a day, she is also complaining of right upper quadrant pain that is very sharp, consistent, rated 8/10. She denies any radiation. She admits to history of hysterectomy, no other abdominal surgeries. She denies any fevers or chills, no chest pain or increase in her shortness of breath. She does admit to some mild nausea however no vomiting. Denies dysuria. She has no further complaints at this time. Upon arrival to the ER, she is afebrile, 93% on 3 L. - Related Data Home Medications Medication Instructions Recorded Confirmed Albuterol Inhaler [Ventolin Hfa 2 puff INHALATION RT-QID PRN 10/17/20 11/11/20 Inhaler] Aspirin EC [Ecotrin Low Dose] 81 mg PO HS 10/17/20 11/11/20 Atorvastatin Calcium [Lipitor] 20 mg PO DAILY 10/17/20 11/11/20 Jered/D3/Mag11/Zinc/Revenue Analyst/Mike/Bor 1 tab PO BID 10/17/20 11/11/20 [Caltrate 600+D Plus Tablet] Candesartan Cilexetil [Atacand] 32 mg PO DAILY 10/17/20 11/11/20 Citalopram Hydrobromide [CeleXA] 20 mg PO DAILY 10/17/20 11/11/20 EPINEPHrine (Auto Inject) [Epipen] 0.3 mg IM ONCE PRN 10/17/20 11/11/20 Fluticasone/Umeclidin/Vilanter 1 puff INHALATION RT-DAILY 10/17/20 11/11/20 [Chekolemarty Ellipta 100-62.5-25] Ipratropium-Albuterol Nebulize 3 ml INHALATION RT-QID PRN 10/17/20 11/11/20 [Duoneb 0.5 mg-3 mg/3 ml Soln] Isosorbide Mononitrate [Isosorbide 30 mg PO DAILY 10/17/20 11/11/20 Mononitrate ER] Mirabegron [Myrbetriq] 25 mg PO HS 10/17/20 11/11/20 Omeprazole 20 mg PO DAILY 10/17/20 11/11/20 Verapamil HCl [Verelan Pm] 300 mg PO HS 10/17/20 11/11/20 Naproxen Sodium [Aleve] 440 mg PO Q12H PRN 11/11/20 11/11/20 Allergies Allergy/AdvReac Type Severity Reaction Status Date / Time metaxalone [From Skelaxin] Allergy Dyspnea Verified 11/11/20 15:34 Review of Systems ROS Statement: Those systems with pertinent positive or pertinent negative responses have been documented in the HPI. ROS Other: All systems not noted in ROS Statement are negative. Past Medical History Past Medical History: COPD, Hypertension Additional Past Medical History / Comment(s): Anemia, Pt wears 3 liters nasal cannula constantly, diverticulosis. History of Any Multi-Drug Resistant Organisms: None Reported Past Surgical History: Bladder Surgery, Hysterectomy, Tubal Ligation Past Psychological History: No Psychological Hx Reported Smoking Status: Former smoker Past Alcohol Use History: Daily Past Drug Use History: None Reported - Past Family History Family Family Medical History: No Reported History General Exam - General Exam Comments Initial Comments: GENERAL: Patient is well-developed and well-nourished. Patient is nontoxic and in mild distress, appears dry and dehydrated. HEAD: Atraumatic, normocephalic. EYES: Pupils equal round and reactive to light, extraocular movements intact, sclera anicteric, conjunctiva are normal. Eyelids were unremarkable. ENT: TMs normal, nares patent, oropharynx clear without exudates. Moist mucous membranes. NECK: Normal range of motion, supple without lymphadenopathy or JVD. LUNGS: Unlabored respirations. Breath sounds clear to auscultation bilaterally and equal. No wheezes rales or rhonchi. HEART: Regular rate and rhythm without murmurs, rubs or gallops. ABDOMEN: Soft, tender to palpation in the right upper quadrant, positive murphys sign, normoactive bowel sounds. No guarding, no rebound. No masses appreciated. : Deferred MUSCULOSKELETAL: Normal extremities with adequate strength and normal range of motion, no pitting or edema. No clubbing or cyanosis. NEUROLOGICAL: Patient is alert and oriented x 3. Motor and sensory are also intact. Cranial nerves II through XII grossly intact. Symmetrical smile. Normal speech, normal gait. PSYCH: Normal mood, normal affect. SKIN: Warm, Dry, normal turgor, no rashes or lesions noted. Limitations: no limitations Course Vital Signs 11/11/20 11/11/20 12:37 14:47 Temperature 97.9 F Pulse Rate 55 L 68 Respiratory 16 18 Rate Blood Pressure 139/67 139/46 O2 Sat by Pulse 93 L 94 L Oximetry Medical Decision Making - Medical Decision Making Patient is an 80-year-old female with history of COPD, hypertension, presenting with right upper quadrant abdominal pain, nausea and diarrhea for the past few days. Patient was recently admitted with diagnoses of pancreatitis, cholelithi asis without acute cholecystitis. She was also to follow-up with Dr. Cabrera as well as Dr. Wing regarding a possible cholecystectomy. She did not follow up with them. Her vitals are stable upon arrival. Labs show a white count of 22.8 which is elevated from before, sodium is 134, transaminitis, lipase is normal at 27 today. Lactic acid is 1.3. Urine shows a large amount leukocyte Estrace, cl umps, bacteria, urine culture is pending. KUB shows no acute process, ultrasound gallbladder today reveals cholelithiasis without acute cholecystitis. IV infiltration of the liver. She received fluids, pain control, continues to have right upper quadrant pain. She will be admitted for UTI, cholelithiasis with consult to surgery. I did order a C. diff, this is pending secondary to the diarrhea. Case discussed with Dr. Nixon who accepts the patient. Case disussed with Dr. Garg. - Lab Data Result diagrams: 11/11/20 12:50 11/11/20 12:50 Lab Results 06/23/21 06/23/21 06/23/21 Range/Units 12:50 12:50 12:50 WBC 22.8 H (3.8-10.6) k/uL RBC 4.26 (3.80-5.40) m/uL Hgb 11.3 L (11.4-16.0) gm/dL Hct 36.3 (34.0-46.0) % MCV 85.3 (80.0-100.0) fL MCH 26.4 (25.0-35.0) pg MCHC 31.0 (31.0-37.0) g/dL RDW 15.0 (11.5-15.5) % Plt Count 222 (150-450) k/uL MPV 10.2 Neutrophils % 88 % Lymphocytes % 6 % Monocytes % 5 % Eosinophils % 0 % Basophils % 0 % Neutrophils # 19.9 H (1.3-7.7) k/uL Lymphocytes # 1.3 (1.0-4.8) k/uL Monocytes # 1.1 H (0-1.0) k/uL Eosinophils # 0.1 (0-0.7) k/uL Basophils # 0.1 (0-0.2) k/uL Hypochromasia Moderate PT 10.6 (9.0-12.0) sec INR 1.0 (<1.2) APTT 21.8 L (22.0-30.0) sec Sodium 134 L (137-145) mmol/L Potassium 3.7 (3.5-5.1) mmol/L Chloride 104 (98-107) mmol/L Carbon Dioxide 24 (22-30) mmol/L Anion Gap 6 mmol/L BUN 36 H (7-17) mg/dL Creatinine 0.93 (0.52-1.04) mg/dL Est GFR (CKD-EPI)AfAm 68 (>60 ml/min/1.73 sqM) Est GFR (CKD-EPI)NonAf 59 (>60 ml/min/1.73 sqM) Glucose 110 H (74-99) mg/dL Plasma Lactic Acid Marco (0.7-2.0) mmol/L Calcium 9.4 (8.4-10.2) mg/dL Magnesium 1.5 L (1.6-2.3) mg/dL Total Bilirubin 0.6 (0.2-1.3) mg/dL AST 139 H (14-36) U/L ALT 114 H (4-34) U/L Alkaline Phosphatase 163 H (38-126) U/L Total Protein 5.1 L (6.3-8.2) g/dL Albumin 2.6 L (3.5-5.0) g/dL Amylase 33 (30-110) U/L Lipase 27 (23-300) U/L Urine Color Urine Appearance (Clear) Urine pH (5.0-8.0) Ur Specific [place] (1.001-1.035) Urine Protein (Negative) Urine Glucose (UA) (Negative) Urine Ketones (Negative) Urine Blood (Negative) Urine Nitrite (Negative) Urine Bilirubin (Negative) Urine Urobilinogen (<2.0) mg/dL Ur Leukocyte Esterase (Negative) Urine RBC (0-5) /hpf Urine WBC (0-5) /hpf Urine WBC Clumps (None) /hpf Ur Squamous Epith Cells (0-4) /hpf Urine Bacteria (None) /hpf Hyaline Casts (0-2) /lpf Urine Mucus (None) /hpf Urine Yeast (Budding) (None) /hpf 11/11/20 11/11/20 Range/Units 12:50 15:41 WBC (3.8-10.6) k/uL RBC (3.80-5.40) m/uL Hgb (11.4-16.0) gm/dL Hct (34.0-46.0) % MCV (80.0-100.0) fL MCH (25.0-35.0) pg MCHC (31.0-37.0) g/dL RDW (11.5-15.5) % Plt Count (150-450) k/uL MPV Neutrophils % % Lymphocytes % % Monocytes % % Eosinophils % % Basophils % % Neutrophils # (1.3-7.7) k/uL Lymphocytes # (1.0-4.8) k/uL Monocytes # (0-1.0) k/uL Eosinophils # (0-0.7) k/uL Basophils # (0-0.2) k/uL Hypochromasia PT (9.0-12.0) sec INR (<1.2) APTT (22.0-30.0) sec Sodium (137-145) mmol/L Potassium (3.5-5.1) mmol/L Chloride (98-107) mmol/L Carbon Dioxide (22-30) mmol/L Anion Gap mmol/L BUN (7-17) mg/dL Creatinine (0.52-1.04) mg/dL Est GFR (CKD-EPI)AfAm (>60 ml/min/1.73 sqM) Est GFR (CKD-EPI)NonAf (>60 ml/min/1.73 sqM) Glucose (74-99) mg/dL Plasma Lactic Acid Marco 1.3 (0.7-2.0) mmol/L Calcium (8.4-10.2) mg/dL Magnesium (1.6-2.3) mg/dL Total Bilirubin (0.2-1.3) mg/dL AST (14-36) U/L ALT (4-34) U/L Alkaline Phosphatase (38-126) U/L Total Protein (6.3-8.2) g/dL Albumin (3.5-5.0) g/dL Amylase (30-110) U/L Lipase (23-300) U/L Urine Color Yellow Urine Appearance Turbid H (Clear) Urine pH 6.5 (5.0-8.0) Ur Specific [place] 1.020 (1.001-1.035) Urine Protein 1+ H (Negative) Urine Glucose (UA) Negative (Negative) Urine Ketones Trace H (Negative) Urine Blood Trace H (Negative) Urine Nitrite Negative (Negative) Urine Bilirubin Negative (Negative) Urine Urobilinogen 3.0 (<2.0) mg/dL Ur Leukocyte Esterase Large H (Negative) Urine RBC 2 (0-5) /hpf Urine WBC 99 H (0-5) /hpf Urine WBC Clumps Few H (None) /hpf Ur Squamous Epith Cells 22 H (0-4) /hpf Urine Bacteria Many H (None) /hpf Hyaline Casts 37 H (0-2) /lpf Urine Mucus Occasional H (None) /hpf Urine Yeast (Budding) Many H (None) /hpf Disposition Clinical Impression: Abdominal pain, UTI (urinary tract infection), Cholelithiasis Disposition: ADMITTED IP TO THIS HOSP Condition: Stable Is patient prescribed a controlled substance at d/c from ED?: No Referrals: Caprice Gore MD [Primary Care Provider] - 1-2 days Decision Date: 11/11/20 Decision Time: 16:34
[2020-11-11 13:05] LABS: Basophils # (A) 0.1 k/uL (0-0.2); Basophils % (A) 0 %; Eosinophils # (A) 0.1 k/uL (0-0.7); Eosinophils % (A) 0 %; HCT 36.3 % (34.0-46.0); HGB 11.3 gm/dL (11.4-16.0); Hypochromasia Moderate; Lymphocytes # (A) 1.3 k/uL (1.0-4.8); Lymphocytes % (A) 6 %; MCH 26.4 pg (25.0-35.0); MCV 85.3 fL (80.0-100.0); Mean Platelet Volume 10.2; Monocytes # (A) 1.1 k/uL (0-1.0); Monocytes % (A) 5 %; Neutrophils # (A) 19.9 k/uL (1.3-7.7); Neutrophils % (A) 88 %; Platelet Count 222 k/uL (150-450); RBC 4.26 m/uL (3.80-5.40); WBC 22.8 k/uL (3.8-10.6)
[2020-11-11 13:18] LABS: Albumin 2.6 g/dL (3.5-5.0); Calcium 9.4 mg/dL (8.4-10.2); Magnesium 1.5 mg/dL (1.6-2.3); Potassium 3.7 mmol/L (3.5-5.1); Total Bilirubin 0.6 mg/dL (0.2-1.3); Total Protein 5.1 g/dL (6.3-8.2)
[2020-11-11 13:21] LABS: Prothrombin Time 10.6 sec (9.0-12.0)
[2020-11-11 13:37] LABS: Partial Thromboplastin Time 21.8 sec (22.0-30.0)
--- NOTE | 2020-11-11 13:53 | XR ---
KUB HISTORY: Abdominal pain Frontal KUB and 2 images correlated to prior KUB and CT 10/17/2020 Inferior vena cava filter is again noted in a stable position. Degenerative disc changes in the visua lized spine. Lung bases show a similar appearance, possible interstitial changes. Heart may be enlarg ed. Aorta is dense and possibly ectatic. No evident pneumoperitoneum or bowel obstruction. Multiple c alcifications are again noted within the pelvis. Osteoarthritic change noted within the hips. impression: No acute abnormality is evident
--- NOTE | 2020-11-11 14:40 | US ---
EXAMINATION TYPE: US gallbladder DATE OF EXAM: 11/11/2020 COMPARISON: US 10/17/2020, CT 10/17/2020 CLINICAL HISTORY: RUQ pain. EXAM MEASUREMENTS: Liver Length: 15.1 cm Gallbladder Wall: 0.2 cm CBD: 0.5 cm Right Kidney: 8.6 x 4.7 x 4.0 cm Pancreas: Obscured by bowel gas Liver: Heterogeneous Gallbladder: Non-shadowing echogenic foci visualized Evidence for sonographic Hernandez's sign: Yes CBD: wnl as visualized Right Kidney: Measuring small. Loss of corticomedullary differentiation. No hydronephrosis IMPRESSION: 1. Cholelithiasis. No acute cholecystitis evident. 2. Limited exam due to bowel gas. 3. Right renal atrophy. 4. Fatty infiltration of the liver.
[2020-11-11] MEDS ORDERED: MORPHINE SULFATE 4 MG/ML SYRINGE IVP STA (14:58)
[2020-11-11 16:04] LABS: Appearance,Urine Turbid (Clear); Bacteria,Urine Many /hpf; Bilirubin,Urine Negative (Negative); Blood,Urine Trace (Negative); Budding Yeast,Urine Many /hpf; Color,Urine Yellow; Glucose,Urine (UA) Negative (Negative); Hyaline Casts,Urine 37 /lpf (0-2); Ketones,Urine Trace (Negative); Leukocyte Esterase,Urine Large (Negative); Mucus,Urine Occasional /hpf; Nitrite,Urine Negative (Negative); PH, Urine 6.5 (5.0-8.0); Protein,Urine 1+ (Negative); RBC,Urine 2 /hpf (0-5); Squamous Epithelial Cell,Urine 22 /hpf (0-4); WBC,Urine 99 /hpf (0-5)
[2020-11-11] MEDS ORDERED: cefTRIAXone IN SWFI 1,000 MG/10 ML SYRINGE IVP STA (16:11)
[2020-11-11] MEDS ORDERED: ONDANSETRON 4 MG/2 ML VIAL IVP PRN (16:31)
[2020-11-11] MEDS ORDERED: NALOXONE 0.4 MG/ML 1 ML VIAL IV PRN (16:31)
[2020-11-11] MEDS ORDERED: PANTOPRAZOLE 40 MG/10 ML VIAL IV SCH (16:45)
[2020-11-11] MEDS: SODIUM CHLORIDE 0.9% 1,000 ML IV SCH (16:58)
[2020-11-11] MEDS ORDERED: ALBUTEROL HFA INHALER INHALATION PRN (17:13)
--- NOTE | 2020-11-11 17:20 | P.HPIM ---
History of Present Illness H&P Date: 11/11/20 Chief Complaint: Abdominal pain This is a 80-year-old female with complex past medical history noted below that presented to the emergency room with right upper quadrant pain. Patient said that her symptoms started couple of days ago and has been constant. She initially thought that the pain would go away that since her pain was constant and she decided to come to the emergency room. She reports no appetite but denies any nausea or vomiting. No constipation or diarrhea. No fevers or chills. No urinary symptoms. Patient was evaluated in the ER and was found to have evidence of leukocytosis. Ultrasound in the ER showed cholelithiasis was no evidence of acute cholecystitis. Urinalysis was clearly contaminated. Patient will be placed on observation for surgical evaluation. Review of Systems Review of system: 14 points review of systems were obtained and were negative except to what were mentioned in the HPI. Past Medical History Past Medical History: COPD, Hypertension Additional Past Medical History / Comment(s): Anemia, Pt wears 3 liters nasal cannula constantly, diverticulosis. History of Any Multi-Drug Resistant Organisms: None Reported Past Surgical History: Bladder Surgery, Hysterectomy, Tubal Ligation Past Psychological History: No Psychological Hx Reported Smoking Status: Former smoker Past Alcohol Use History: Daily Past Drug Use History: None Reported - Past Family History Family Family Medical History: No Reported History Medications and Allergies Home Medications Medication Instructions Recorded Confirmed Type Albuterol Inhaler [Ventolin Hfa 2 puff INHALATION RT-QID PRN 10/17/20 11/11/20 History Inhaler] Aspirin EC [Ecotrin Low Dose] 81 mg PO HS 10/17/20 11/11/20 History Atorvastatin Calcium [Lipitor] 20 mg PO DAILY 10/17/20 11/11/20 History Jered/D3/Mag11/Zinc/Veterinary Anatomist/Mike/Bor 1 tab PO BID 10/17/20 11/11/20 History [Caltrate 600+D Plus Tablet] Candesartan Cilexetil [Atacand] 32 mg PO DAILY 10/17/20 11/11/20 History Citalopram Hydrobromide [CeleXA] 20 mg PO DAILY 10/17/20 11/11/20 History EPINEPHrine (Auto Inject) [Epipen] 0.3 mg IM ONCE PRN 10/17/20 11/11/20 History Fluticasone/Umeclidin/Vilanter 1 puff INHALATION RT-DAILY 10/17/20 11/11/20 History [Trelegy Ellipta 100-62.5-25] Ipratropium-Albuterol Nebulize 3 ml INHALATION RT-QID PRN 10/17/20 11/11/20 History [Duoneb 0.5 mg-3 mg/3 ml Soln] Isosorbide Mononitrate [Isosorbide 30 mg PO DAILY 10/17/20 11/11/20 History Mononitrate ER] Mirabegron [Myrbetriq] 25 mg PO HS 10/17/20 11/11/20 History Omeprazole 20 mg PO DAILY 10/17/20 11/11/20 History Verapamil HCl [Verelan Pm] 300 mg PO HS 10/17/20 11/11/20 History Naproxen Sodium [Aleve] 440 mg PO Q12H PRN 11/11/20 11/11/20 History Allergies Allergy/AdvReac Type Severity Reaction Status Date / Time metaxalone [From Skelaxin] Allergy Dyspnea Verified 11/11/20 15:34 Physical Exam Vitals: Vital Signs Temp Pulse Resp BP Pulse Ox 11/11/20 14:47 68 18 139/46 94 L 11/11/20 12:37 97.9 F 55 L 16 139/67 93 L Intake and Output 11/11/20 11/11/20 11/11/20 06:59 14:59 22:59 Other: Weight 81.647 kg General: The patient is awake and alert, in no distress Eye: there is normal conjunctiva bilaterally. Neck: The neck is supple, there is no JVD. Cardiovascular: Normal S1-S2, no S3-S4, no murmurs. Respiratory: Lungs clear to auscultation bilaterally Gastrointestinal: Abdomen is soft, there is tenderness to palpation in the right upper quadrant Musculoskeletal: There is no pedal edema. Neurological:. Speech is normal. Skin: Skin is warm and dry Results CBC & Chem 7: 11/11/20 12:50 11/11/20 12:50 Labs: Abnormal Lab Results - Last 24 Hours (Table) 11/11/20 11/11/20 11/11/20 Range/Units 12:50 12:50 12:50 WBC 22.8 H (3.8-10.6) k/uL Hgb 11.3 L (11.4-16.0) gm/dL Neutrophils # 19.9 H (1.3-7.7) k/uL Monocytes # 1.1 H (0-1.0) k/uL APTT 21.8 L (22.0-30.0) sec Sodium 134 L (137-145) mmol/L BUN 36 H (7-17) mg/dL Glucose 110 H (74-99) mg/dL Magnesium 1.5 L (1.6-2.3) mg/dL AST 139 H (14-36) U/L ALT 114 H (4-34) U/L Alkaline Phosphatase 163 H (38-126) U/L Total Protein 5.1 L (6.3-8.2) g/dL Albumin 2.6 L (3.5-5.0) g/dL Urine Appearance (Clear) Urine Protein (Negative) Urine Ketones (Negative) Urine Blood (Negative) Ur Leukocyte Esterase (Negative) Urine WBC (0-5) /hpf Urine WBC Clumps (None) /hpf Ur Squamous Epith Cells (0-4) /hpf Urine Bacteria (None) /hpf Hyaline Casts (0-2) /lpf Urine Mucus (None) /hpf Urine Yeast (Budding) (None) /hpf 11/11/20 Range/Units 15:41 WBC (3.8-10.6) k/uL Hgb (11.4-16.0) gm/dL Neutrophils # (1.3-7.7) k/uL Monocytes # (0-1.0) k/uL APTT (22.0-30.0) sec Sodium (137-145) mmol/L BUN (7-17) mg/dL Glucose (74-99) mg/dL Magnesium (1.6-2.3) mg/dL AST (14-36) U/L ALT (4-34) U/L Alkaline Phosphatase (38-126) U/L Total Protein (6.3-8.2) g/dL Albumin (3.5-5.0) g/dL Urine Appearance Turbid H (Clear) Urine Protein 1+ H (Negative) Urine Ketones Trace H (Negative) Urine Blood Trace H (Negative) Ur Leukocyte Esterase Large H (Negative) Urine WBC 99 H (0-5) /hpf Urine WBC Clumps Few H (None) /hpf Ur Squamous Epith Cells 22 H (0-4) /hpf Urine Bacteria Many H (None) /hpf Hyaline Casts 37 H (0-2) /lpf Urine Mucus Occasional H (None) /hpf Urine Yeast (Budding) Many H (None) /hpf Assessment and Plan Assessment: 1. Right upper quadrant pain, exact etiology unclear. Gallbladder ultrasound showed cholelithiasis with no evidence of early cystitis. Previously noted to have a gallbladder sludge sludge during last admission a month ago. Gen. surgery consulted for further evaluation. 2. Uncomplicated UTI, her urinalysis was clearly contaminated. I would obtain repeat UA. Check bladder scan to rule out retention as patient is on Myrbetric at home. 3. Underlying COPD with chronic hypoxic respiratory failure on 3 L of oxygen at home 4. Chronic medical problems, essential hypertension, hyperlipidemia, GERD 5. DVT prophylaxis with subcu Lovenox 6. CODE STATUS: Patient is full code Today, I reviewed her medication list and lab work results. I can't identify a clear source of infection by given leukocytosis would cover empirically with Zosyn. I would obtain a repeat urinalysis to get a clean catch urine and figure out whether this patient has a UTI. She does not have any urinary symptoms. Awaiting general surgery evaluation for right upper quadrant. The liquid for now and nothing by mouth after midnight.
--- NOTE | 2020-11-11 17:20 | P.PN ---
Progress Note - Text Progress Note Date: 11/11/20 Today, I discussed with the patient and her daughter at bedside CODE STATUS. We discussed the meaning of cardiac resuscitation and intubation/mechanical ventilation if needed. Patient would like to be a full code.
[2020-11-11] MEDS ORDERED: NON FORMULARY DRUG (Cal/D3/Mag11/Zinc/Cop/Mang/Bor [Caltrate 600+D Plus Tablet] 1 EACH Tab PO SCH (21:00)
[2020-11-11] MEDS: PIPERACILLIN-TAZOBACTAM 3.375 GM in SODIUM CHLORIDE 0.9% 100 ML IVPB SCH (23:30)
[2020-11-11] MEDS: MORPHINE SULFATE 4 MG/ML SYRINGE IV PRN (23:32)
[2020-11-12] MEDS: VERAPAMIL SR 180 MG TABLET.ER PO SCH ×2 (06:14→20:19)
[2020-11-12] MEDS: ASPIRIN 81 MG PO SCH (07:46)
[2020-11-12] MEDS: ENOXAPARIN 40 MG/0.4 ML SYRINGE SQ SCH (07:46)
[2020-11-12] MEDS: CITALOPRAM HYDROBROMIDE 20 MG TAB PO SCH (07:46)
[2020-11-12] MEDS: ATORVASTATIN 20 MG TAB PO SCH (07:46)
[2020-11-12] MEDS: PANTOPRAZOLE 40 MG TABLET PO SCH (07:46)
[2020-11-12] MEDS: SODIUM CHLORIDE 0.9% 1,000 ML IV SCH ×2 (07:48→20:31)
[2020-11-12] MEDS: PIPERACILLIN-TAZOBACTAM 3.375 GM in SODIUM CHLORIDE 0.9% 100 ML IVPB SCH ×2 (07:49→16:49)
[2020-11-12] MEDS: MORPHINE SULFATE 4 MG/ML SYRINGE IV PRN ×2 (08:09→12:25)
[2020-11-12] MEDS: IPRATROPIUM-ALBUTEROL 3 ML NEB INHALATION PRN ×3 (08:23→21:03)
[2020-11-12] MEDS: SYMBICORT 80-4.5 MCG INHALER INHALATION SCH ×2 (08:35→21:02)
[2020-11-12 09:00] LABS: Basophils # (A) 0.1 k/uL (0-0.2); Basophils % (A) 0 %; Eosinophils # (A) 0.1 k/uL (0-0.7); Eosinophils % (A) 0 %; HCT 35.3 % (34.0-46.0); HGB 11.1 gm/dL (11.4-16.0); Hypochromasia Marked; Lymphocytes # (A) 1.3 k/uL (1.0-4.8); Lymphocytes % (A) 6 %; MCHC 31.4 g/dL (31.0-37.0); MCV 85.9 fL (80.0-100.0); Mean Platelet Volume 10.2; Monocytes # (A) 1.4 k/uL (0-1.0); Monocytes % (A) 6 %; Neutrophils # (A) 18.5 k/uL (1.3-7.7); Neutrophils % (A) 86 %; Platelet Count 225 k/uL (150-450); RDW 14.8 % (11.5-15.5); WBC 21.7 k/uL (3.8-10.6)
[2020-11-12 09:31] LABS: ALT 85 U/L (4-34); AST 73 U/L (14-36); African American GFR (CKD) >90 (>60 ml/min/1.73 sqM); Albumin 2.5 g/dL (3.5-5.0); Alkaline Phosphatase 148 U/L (38-126); Anion Gap 4 mmol/L; Blood Urea Nitrogen 31 mg/dL (7-17); Calcium 9.3 mg/dL (8.4-10.2); Carbon Dioxide 24 mmol/L (22-30); Chloride 110 mmol/L (98-107); Globulin 2.5 g/dL; Glucose 111 mg/dL (74-99); Non-African American GFR(CKD) 85 (>60 ml/min/1.73 sqM); Potassium 3.9 mmol/L (3.5-5.1); Sodium 138 mmol/L (137-145); Total Bilirubin 0.5 mg/dL (0.2-1.3)
--- NOTE | 2020-11-12 12:45 | P.GSCN ---
History of Present Illness Consult date: 11/12/20 History of present illness: CHIEF COMPLAINT: Right upper quadrant abdominal pain HISTORY OF PRESENT ILLNESS: This is a 80-year-old female with a known past medical history of COPD, chronic hypoxic respiratory failure home O2 dependent, hypertension. Her past surgical history includes bladder suspension, hysterectomy and tubal ligation. Patient presents to the emergency room with complaints of right upper quadrant abdominal pain for the last 3 days. She has had no appetite. She's been nauseated no vomiting. She denies any fever chills or sweats. She did have one episode of diarrhea. She had a ultrasound that showed cholelithiasis. No acute cholecystitis is evident. Fatty infiltration of the liver. Right renal atrophy. Patient is currently on antibiotics IV fluids. She has been requiring pain medication. Surgical service has been called consulted in regards to patient's abdominal pain and cholelithiasis. Patient also had a admission in September 2020 with pancreatitis. At that time ultrasound had showed gallbladder sludge and positive Hernandez sign. Which may have contributed to patient's pancreatitis. Dr. Ricardo was recommending an outpatient cholecystectomy. Patient reports she never did follow up for the appointment because it had been too hot outside. PAST MEDICAL HISTORY: See list. PAST SURGICAL HISTORY: See list. MEDICATIONS: See list. ALLERGIES: See list. SOCIAL HISTORY: No illicit drug use. REVIEW OF SYSTEMS: CONSTITUTIONAL: Denies fever or chills. HEENT: Denies blurred vision, vision changes, or eye pain. Denies hemoptysis ENDOCRINE: Denies heat or cold intolerance. CARDIOVASCULAR: Denies chest pain or pressure. RESPIRATORY: No shortness of breath. GASTROINTESTINAL: Please free to HPI NEURO: Denies history of seizures. PSYCH: No depression or suicidal ideation HEMATOLOGIC: Denies bleeding disorders. LYMPHATIC: The patient denies any lumps and bumps around the neck. GENITOURINARY: Denies any blood in urine or increased urinary frequency. MUSCULOSKELETAL: Denies myalgias. Denies joint swelling. Denies decreased range of motion beyond patients baseline. SKIN: Denies pruitis. Denies rash. PHYSICAL EXAM: VITAL SIGNS: Reviewed GENERAL: Well-developed in no acute distress. HEENT: No sclera icterus. Extraocular movements grossly intact. Moist buccal mucosa. Head is atraumatic, normocephalic. Hears conversational speech. No nasal drainage. NECK: Supple without lymphadenopathy. CHEST: Non-labored respirations and equal bilateral excursions. CARDIOVASCULAR: Regular rate with regular rhythm. Palpable 2+ radial pulses. ABDOMEN: Soft. Nondistended. Tenderness to palpation of the right upper quadrant MUSCULOSKELETAL: No clubbing or cyanosis. NEUROLOGIC: No focal or lateralizing signs. Cranial nerves II through XII grossly intact. PSYCH: Appropriate affect. Alert and oriented to person, place and time. SKIN: Well perfused. Good skin turgor. LABORATORY DATA: WBC 21.7 hemoglobin 11.1 and platelets 225 INR 1.0 sodium 138 potassium 3.9 creatinine 0.63 BUN 31 lactic acid 1.3 magnesium 1.7 AST has come down from 139-73 ALT 114 down to 85 alk phos 163 down to 148 lipase normal at 27 Urinalysis possible contamination COVID-19 not detected IMAGING: ultrasound that showed cholelithiasis. No acute cholecystitis is evident. Fatty infiltration of the liver. Right renal atrophy. ASSESSMENT: 1. Acute cholecystitis 2. Elevated LFTs trending down 3. History of COPD and home O2 dependent 4. Prior hospitalization for pancreatitis possibly secondary to gallbladder sludge 5. Surgical history of bladder suspension, hysterectomy and tubal ligation PLAN: -Patient scheduled for robotic cholecystectomy tomorrow 11/13/2020 pending cardiac and pulmonary clearance. -Okay to start clear liquid diet -Nothing by mouth after midnight -Continue IV antibiotics -Continue IV fluids -Continue pain medication as needed Thank you for this consultation Physician Director Electrical Engineering note has been reviewed by physician. Signing provider agrees with the documented findings, assessment, and plan of care. Past Medical History Past Medical History: COPD, Hypertension Additional Past Medical History / Comment(s): Anemia, Pt wears 3 liters nasal cannula constantly, diverticulosis. History of Any Multi-Drug Resistant Organisms: None Reported Past Surgical History: Bladder Surgery, Hysterectomy, Tubal Ligation Past Anesthesia/Blood Transfusion Reactions: No Reported Reaction Past Psychological History: No Psychological Hx Reported Smoking Status: Former smoker Past Alcohol Use History: Daily Past Drug Use History: None Reported - Past Family History Family Family Medical History: No Reported History Medications and Allergies Home Medications Medication Instructions Recorded Confirmed Type Albuterol Inhaler [Ventolin Hfa 2 puff INHALATION RT-QID PRN 10/17/20 11/11/20 History Inhaler] Aspirin EC [Ecotrin Low Dose] 81 mg PO HS 10/17/20 11/11/20 History Atorvastatin Calcium [Lipitor] 20 mg PO DAILY 10/17/20 11/11/20 History Jered/D3/Mag11/Zinc/Property Assessment Monitor/Mike/Bor 1 tab PO BID 10/17/20 11/11/20 History [Caltrate 600+D Plus Tablet] Candesartan Cilexetil [Atacand] 32 mg PO DAILY 10/17/20 11/11/20 History Citalopram Hydrobromide [CeleXA] 20 mg PO DAILY 10/17/20 11/11/20 History EPINEPHrine (Auto Inject) [Epipen] 0.3 mg IM ONCE PRN 10/17/20 11/11/20 History Fluticasone/Umeclidin/Vilanter 1 puff INHALATION RT-DAILY 10/17/20 11/11/20 History [Chekolemarty Ellipta 100-62.5-25] Ipratropium-Albuterol Nebulize 3 ml INHALATION RT-QID PRN 10/17/20 11/11/20 History [Duoneb 0.5 mg-3 mg/3 ml Soln] Isosorbide Mononitrate [Isosorbide 30 mg PO DAILY 10/17/20 11/11/20 History Mononitrate ER] Mirabegron [Myrbetriq] 25 mg PO HS 10/17/20 11/11/20 History Omeprazole 20 mg PO DAILY 10/17/20 11/11/20 History Verapamil HCl [Verelan Pm] 300 mg PO HS 10/17/20 11/11/20 History Naproxen Sodium [Aleve] 440 mg PO Q12H PRN 11/11/20 11/11/20 History Allergies Allergy/AdvReac Type Severity Reaction Status Date / Time metaxalone [From Skelaxin] Allergy Dyspnea Verified 11/11/20 15:34 Surgical - Exam Vital Signs Temp Pulse Resp BP Pulse Ox 97.9 F 55 L 16 139/67 93 L 11/11/20 12:37 11/11/20 12:37 11/11/20 12:37 11/11/20 12:37 11/11/20 12:37 Results - Labs 11/12/20 08:24 11/12/20 08:24 Abnormal Lab Results - Last 24 Hours (Table) 11/11/20 11/11/20 11/11/20 Range/Units 12:50 12:50 12:50 WBC 22.8 H (3.8-10.6) k/uL Hgb 11.3 L (11.4-16.0) gm/dL Neutrophils # 19.9 H (1.3-7.7) k/uL Monocytes # 1.1 H (0-1.0) k/uL APTT 21.8 L (22.0-30.0) sec Sodium 134 L (137-145) mmol/L Chloride (98-107) mmol/L BUN 36 H (7-17) mg/dL Glucose 110 H (74-99) mg/dL Magnesium 1.5 L (1.6-2.3) mg/dL AST 139 H (14-36) U/L ALT 114 H (4-34) U/L Alkaline Phosphatase 163 H (38-126) U/L Total Protein 5.1 L (6.3-8.2) g/dL Albumin 2.6 L (3.5-5.0) g/dL Urine Appearance (Clear) Urine Protein (Negative) Urine Ketones (Negative) Urine Blood (Negative) Ur Leukocyte Esterase (Negative) Urine WBC (0-5) /hpf Urine WBC Clumps (None) /hpf Ur Squamous Epith Cells (0-4) /hpf Urine Bacteria (None) /hpf Hyaline Casts (0-2) /lpf Urine Mucus (None) /hpf Urine Yeast (Budding) (None) /hpf 11/11/20 11/12/20 11/12/20 Range/Units 15:41 08:24 08:24 WBC 21.7 H (3.8-10.6) k/uL Hgb 11.1 L (11.4-16.0) gm/dL Neutrophils # 18.5 H (1.3-7.7) k/uL Monocytes # 1.4 H (0-1.0) k/uL APTT (22.0-30.0) sec Sodium (137-145) mmol/L Chloride 110 H (98-107) mmol/L BUN 31 H (7-17) mg/dL Glucose 111 H (74-99) mg/dL Magnesium (1.6-2.3) mg/dL AST 73 H (14-36) U/L ALT 85 H (4-34) U/L Alkaline Phosphatase 148 H (38-126) U/L Total Protein 5.0 L (6.3-8.2) g/dL Albumin 2.5 L (3.5-5.0) g/dL Urine Appearance Turbid H (Clear) Urine Protein 1+ H (Negative) Urine Ketones Trace H (Negative) Urine Blood Trace H (Negative) Ur Leukocyte Esterase Large H (Negative) Urine WBC 99 H (0-5) /hpf Urine WBC Clumps Few H (None) /hpf Ur Squamous Epith Cells 22 H (0-4) /hpf Urine Bacteria Many H (None) /hpf Hyaline Casts 37 H (0-2) /lpf Urine Mucus Occasional H (None) /hpf Urine Yeast (Budding) Many H (None) /hpf Microbiology - Last 24 Hours (Table) 11/11/20 15:41 Urine Culture - Preliminary Urine,Clean Catch Diabetes panel 11/11/20 11/12/20 Range/Units 12:50 08:24 Sodium 134 L 138 (137-145) mmol/L Potassium 3.7 3.9 (3.5-5.1) mmol/L Chloride 104 110 H (98-107) mmol/L Carbon Dioxide 24 24 (22-30) mmol/L BUN 36 H 31 H (7-17) mg/dL Creatinine 0.93 0.63 (0.52-1.04) mg/dL Glucose 110 H 111 H (74-99) mg/dL Calcium 9.4 9.3 (8.4-10.2) mg/dL AST 139 H 73 H (14-36) U/L ALT 114 H 85 H (4-34) U/L Alkaline Phosphatase 163 H 148 H (38-126) U/L Total Protein 5.1 L 5.0 L (6.3-8.2) g/dL Albumin 2.6 L 2.5 L (3.5-5.0) g/dL Calcium panel 11/11/20 11/12/20 Range/Units 12:50 08:24 Calcium 9.4 9.3 (8.4-10.2) mg/dL Albumin 2.6 L 2.5 L (3.5-5.0) g/dL Pituitary panel 11/11/20 11/12/20 Range/Units 12:50 08:24 Sodium 134 L 138 (137-145) mmol/L Potassium 3.7 3.9 (3.5-5.1) mmol/L Chloride 104 110 H (98-107) mmol/L Carbon Dioxide 24 24 (22-30) mmol/L BUN 36 H 31 H (7-17) mg/dL Creatinine 0.93 0.63 (0.52-1.04) mg/dL Glucose 110 H 111 H (74-99) mg/dL Calcium 9.4 9.3 (8.4-10.2) mg/dL Adrenal panel 11/11/20 11/12/20 Range/Units 12:50 08:24 Sodium 134 L 138 (137-145) mmol/L Potassium 3.7 3.9 (3.5-5.1) mmol/L Chloride 104 110 H (98-107) mmol/L Carbon Dioxide 24 24 (22-30) mmol/L BUN 36 H 31 H (7-17) mg/dL Creatinine 0.93 0.63 (0.52-1.04) mg/dL Glucose 110 H 111 H (74-99) mg/dL Calcium 9.4 9.3 (8.4-10.2) mg/dL Total Bilirubin 0.6 0.5 (0.2-1.3) mg/dL AST 139 H 73 H (14-36) U/L ALT 114 H 85 H (4-34) U/L Alkaline Phosphatase 163 H 148 H (38-126) U/L Total Protein 5.1 L 5.0 L (6.3-8.2) g/dL Albumin 2.6 L 2.5 L (3.5-5.0) g/dL
[2020-11-12] MEDS: ISOSORBIDE MONONITRATE ER 30 MG TAB.ER.24H PO SCH (13:43)
[2020-11-12] MEDS: LOSARTAN 50 MG TAB PO SCH (13:43)
[2020-11-12 16:39] LABS: Appearance,Urine Cloudy (Clear); Bacteria,Urine Rare /hpf; Bilirubin,Urine Negative (Negative); Blood,Urine Negative (Negative); Color,Urine Yellow; Glucose,Urine (UA) Negative (Negative); Hyaline Casts,Urine 1 /lpf (0-2); Ketones,Urine Negative (Negative); Leukocyte Esterase,Urine Moderate (Negative); Mucus,Urine Rare /hpf; Nitrite,Urine Positive (Negative); Protein,Urine Trace (Negative); RBC,Urine 2 /hpf (0-5); Specific Gravity,Urine 1.022 (1.001-1.035); Squamous Epithelial Cell,Urine 3 /hpf (0-4); Urobilinogen,Urine <2.0 mg/dL (<2.0); WBC,Urine 30 /hpf (0-5)
--- NOTE | 2020-11-12 16:44 | P.PN ---
Subjective Progress Note Date: 11/12/20 Patient is still complaining of right upper quadrant pain. Objective - Vital Signs Vital signs: Vital Signs Temp 98.4 F 11/12/20 14:00 Pulse 66 11/12/20 14:00 Resp 18 11/12/20 14:00 BP 149/53 11/12/20 14:00 Pulse Ox 93 L 11/12/20 14:00 Intake & Output 11/11/20 11/12/20 11/12/20 18:59 06:59 18:59 Output Total 1000 500 Balance -1000 -500 Weight 81.647 kg 81.647 kg Output: Urine 500 Post Void Residual 1000 Other: Voiding Method Bedside Commode Bedside Commode # Voids 3 - Exam General: The patient is awake and alert, in no distress Eye: there is normal conjunctiva bilaterally. Neck: The neck is supple, there is no JVD. Cardiovascular: Normal S1-S2, no S3-S4, no murmurs. Respiratory: Lungs clear to auscultation bilaterally Gastrointestinal: Abdomen is soft, nontender Musculoskeletal: There is no pedal edema. Neurological:. Speech is normal. Skin: Skin is warm and dry - Labs CBC & Chem 7: 11/12/20 08:24 11/12/20 08:24 Labs: Abnormal Lab Results - Last 24 Hours (Table) 11/12/20 11/12/20 11/12/20 Range/Units 08:24 08:24 16:20 WBC 21.7 H (3.8-10.6) k/uL Hgb 11.1 L (11.4-16.0) gm/dL Neutrophils # 18.5 H (1.3-7.7) k/uL Monocytes # 1.4 H (0-1.0) k/uL Chloride 110 H (98-107) mmol/L BUN 31 H (7-17) mg/dL Glucose 111 H (74-99) mg/dL AST 73 H (14-36) U/L ALT 85 H (4-34) U/L Alkaline Phosphatase 148 H (38-126) U/L Total Protein 5.0 L (6.3-8.2) g/dL Albumin 2.5 L (3.5-5.0) g/dL Urine Appearance Cloudy H (Clear) Urine Protein Trace H (Negative) Urine Nitrite Positive H (Negative) Ur Leukocyte Esterase Moderate H (Negative) Urine WBC 30 H (0-5) /hpf Urine Bacteria Rare H (None) /hpf Urine Mucus Rare H (None) /hpf Microbiology - Last 24 Hours (Table) 11/11/20 15:41 Urine Culture - Preliminary Urine,Clean Catch Assessment and Plan Assessment: 1. Acute cholecystitis: Seen and evaluated by general surgery. Plan for cholecystectomy tomorrow awaiting clearance. 2. Uncomplicated UTI, initial urinalysis was clearly contaminated. Repeat UA not impressive. We will continue antibiotic for now awaiting urine culture. Check bladder scan to rule out retention as patient is on Myrbetric at home. 3. Underlying COPD with chronic hypoxic respiratory failure on 3 L of oxygen at home 4. Chronic medical problems, essential hypertension, hyperlipidemia, GERD 5. DVT prophylaxis with subcu Lovenox 6. CODE STATUS: Patient is full code Today, I reviewed her medication list and lab work results. Continue current regimen. Repeat lab work in the morning.
[2020-11-12] MEDS: HYDROcodone/APAP 5-325MG 1 EACH TAB PO PRN (20:19)
[2020-11-13] MEDS: PIPERACILLIN-TAZOBACTAM 3.375 GM in SODIUM CHLORIDE 0.9% 100 ML IVPB SCH ×3 (00:57→16:56)
[2020-11-13] MEDS: MORPHINE SULFATE 4 MG/ML SYRINGE IV PRN (01:07)
[2020-11-13] MEDS: SYMBICORT 80-4.5 MCG INHALER INHALATION SCH ×2 (07:39→20:47)
[2020-11-13] MEDS: ISOSORBIDE MONONITRATE ER 30 MG TAB.ER.24H PO SCH (07:53)
[2020-11-13] MEDS: PANTOPRAZOLE 40 MG TABLET PO SCH (07:53)
[2020-11-13] MEDS: ENOXAPARIN 40 MG/0.4 ML SYRINGE SQ SCH ×2 (07:54→08:07)
[2020-11-13] MEDS: CITALOPRAM HYDROBROMIDE 20 MG TAB PO SCH (07:54)
[2020-11-13] MEDS: LOSARTAN 50 MG TAB PO SCH (07:54)
[2020-11-13] MEDS: ASPIRIN 81 MG PO SCH (07:54)
[2020-11-13] MEDS: ATORVASTATIN 20 MG TAB PO SCH (07:54)
--- NOTE | 2020-11-13 08:03 | ECHOF ---
Referral Reason:Hypertensive heart disease MEASUREMENTS -------- HEIGHT: 165.1 cm WEIGHT: 81.6 kg BP: 147/55 RVIDd: 3.2 cm (< 3.3) IVSd: 1.2 cm (0.6 - 1.1) LVIDd: 4.4 cm (3.9 - 5.3) LVPWd: 1.1 cm (0.6 - 1.1) IVSs: 1.7 cm LVIDs: 3.1 cm LVPWs: 1.5 cm LA Diam: 3.5 cm (2.7 - 3.8) LAESV Index (A-L): 26.82 ml/m Ao Diam: 3.6 cm (2.0 - 3.7) AV Cusp: 2.3 cm (1.5 - 2.6) MV EXCURSION: 12.148 mm (> 18.000) MV EF SLOPE: 25 mm/s (70 - 150) EPSS: 0.9 cm MV E Moi: 0.98 m/s MV DecT: 323 ms MV A Moi: 1.48 m/s MV E/A Ratio: 0.66 RAP: 5.00 mmHg RVSP: 38.72 mmHg FINDINGS -------- Sinus rhythm. This was a technically adequate study. The left ventricular size is normal. There is borderline concentric left ventricular hypertrophy. Overall left ventricular systolic function is normal with, an EF between 60 - 65 %. The right ventricle is normal in size. Normal LA size by volume 22+/-6 ml/m2. The right atrium is normal in size. There is mild aortic valve sclerosis. The mitral valve leaflets are mildly thickened. Mild mitral annular calcification present. Mild m itral regurgitation is present. Mild tricuspid regurgitation present. There is mild pulmonary hypertension. The right ventricular systolic pressure, as measured by Doppler, is 38.72mmHg. The pulmonic valve was not well visualized. The aortic root size is normal. Normal inferior vena cava with normal inspiratory collapse consistent with estimated right atrial pre ssure of 5 mmHg. There is no pericardial effusion. CONCLUSIONS -------- 1. The left ventricular size is normal. 2. There is borderline concentric left ventricular hypertrophy. 3. Overall left ventricular systolic function is normal with, an EF between 60 - 65 %. 4. There is mild aortic valve sclerosis. 5. The mitral valve leaflets are mildly thickened. 6. Mild mitral annular calcification present. 7. Mild mitral regurgitation is present. 8. Mild tricuspid regurgitation present. 9. There is mild pulmonary hypertension. 10. The right ventricular systolic pressure, as measured by Doppler, is 38.72mmHg. 11. There is no pericardial effusion. [employer]: Shireen Alicea RDCS
[2020-11-13 09:50] LABS: HCT 34.1 % (37.2-46.3); HGB 10.1 g/dL (12.0-15.0); MCH 25.9 pg (27.0-32.0); MCHC 29.6 g/dL (32.0-37.0); MCV 87.4 fL (80.0-97.0); Mean Platelet Volume 12.8 fL (9.5-12.2); Platelet Count 257 X 10*3/uL (140-440); RDW 16.1 % (11.5-14.5); WBC 26.24 X 10*3/uL (4.50-10.00)
--- NOTE | 2020-11-13 10:40 | P.CRDCN ---
History of Present Illness Consult date: 11/13/20 History of present illness: HISTORY OF PRESENT ILLNESS: This is a 80-year-old female with a past medical history significant for COPD with home oxygen use, hypertension, former nicotine dependence, and diverticulosis. Patient does not follow with a business analyst manager. We have been asked to see the patient in consultation for cardiac clearance. Patient presented to the hospital secondary to abdominal pain. It is noted the patient was recently hospitalized secondary to cholelithiasis and pancreatitis. Patient was found to have acute cholecystitis and is scheduled for robotic cholecystectomy with Dr. Vitale. Patient examined at the bedside. Patient is confused at the time of examination is unable to provide thorough medical history. She denies any cardiac history. She currently denies chest pain or pressure. She denies shortness of breath. Echocardiogram completed revealed ejection fraction 60- 65%, mild mitral regurgitation, and mild tricuspid regurgitation. Laboratory data reveals WBC 26.24. Hemoglobin 10.1. Platelet count 257. Sodium 138. Potassium 3.9. BUN 31. Creatinine 0.63. Magnesium 1.7. Bilirubin 0.5. AST 73. ALT 85. Home cardiac medications include Imdur 30 mg daily, atorvastatin 20 mg daily, and aspirin 81 mg daily REVIEW OF SYSTEMS: At the time of my exam: CONSTITUTIONAL: Denies fever or chills. HEENT: Denies blurred vision, vision changes, or eye pain. Denies hemoptysis CARDIOVASCULAR: Denies chest pain. Denies orthopnea. Denies PND. Denies palpitations RESPIRATORY: Denies shortness of breath. GASTROINTESTINAL: Denies abdominal pain. Denies nausea or vomiting. HEMATOLOGIC: Denies bleeding disorders. GENITOURINARY: Denies any blood in urine. SKIN: Denies pruitis. Denies rash. PHYSICAL EXAM: VITAL SIGNS: Reviewed. GENERAL: Well-developed in no acute distress. Ill appearing. HEENT: Head is normocephalic. Pupils are equal, round. Sclerae anicteric. Mucous membranes of the mouth are moist. Neck supple. No JVD or thyromegaly LUNGS: Respirations even and unlabored. Lungs diminished bilaterally. HEART: Regular rate and rhythm. S1 and S2 heard. ABDOMEN: Soft. Nondistended. Tenderness with palpation EXTREMITIES: Normal range of motion. No clubbing or cyanosis. Peripheral pulses intact. No lower extremity edema NEUROLOGIC: Awake and alert. Confused. ASSESSMENT: Acute cholecystitis Leukocytosis Recent hospitalization secondary to pancreatitis and cholecystitis Mildly elevated LFTs COPD with home oxygen use PLAN: Continue current cardiac medications Patient denies any symptoms of angina. No clinical evidence of acute heart failure Patient is high risk for surgical intervention due to advanced age and comorbidities Will defer timing of surgical intervention to general surgery Nurse practitioner note has been reviewed by physician. Signing provider agrees with the documented findings, assessment, and plan of care. Past Medical History Past Medical History: COPD, Hypertension Additional Past Medical History / Comment(s): Anemia, Pt wears 3 liters nasal cannula constantly, diverticulosis. History of Any Multi-Drug Resistant Organisms: None Reported Past Surgical History: Bladder Surgery, Hysterectomy, Tubal Ligation Past Anesthesia/Blood Transfusion Reactions: No Reported Reaction Past Psychological History: No Psychological Hx Reported Smoking Status: Former smoker Past Alcohol Use History: Daily Past Drug Use History: None Reported - Past Family History Family Family Medical History: No Reported History Medications and Allergies Home Medications Medication Instructions Recorded Confirmed Type Albuterol Inhaler [Ventolin Hfa 2 puff INHALATION RT-QID PRN 10/17/20 11/11/20 History Inhaler] Aspirin EC [Ecotrin Low Dose] 81 mg PO HS 10/17/20 11/11/20 History Atorvastatin Calcium [Lipitor] 20 mg PO DAILY 10/17/20 11/11/20 History Jered/D3/Mag11/Zinc/Dancer Or Choreographer/Mike/Bor 1 tab PO BID 10/17/20 11/11/20 History [Caltrate 600+D Plus Tablet] Candesartan Cilexetil [Atacand] 32 mg PO DAILY 10/17/20 11/11/20 History Citalopram Hydrobromide [CeleXA] 20 mg PO DAILY 10/17/20 11/11/20 History EPINEPHrine (Auto Inject) [Epipen] 0.3 mg IM ONCE PRN 10/17/20 11/11/20 History Fluticasone/Umeclidin/Vilanter 1 puff INHALATION RT-DAILY 10/17/20 11/11/20 History [Trelegy Ellipta 100-62.5-25] Ipratropium-Albuterol Nebulize 3 ml INHALATION RT-QID PRN 10/17/20 11/11/20 History [Duoneb 0.5 mg-3 mg/3 ml Soln] Isosorbide Mononitrate [Isosorbide 30 mg PO DAILY 10/17/20 11/11/20 History Mononitrate ER] Mirabegron [Myrbetriq] 25 mg PO HS 10/17/20 11/11/20 History Omeprazole 20 mg PO DAILY 10/17/20 11/11/20 History Verapamil HCl [Verelan Pm] 300 mg PO HS 10/17/20 11/11/20 History Naproxen Sodium [Aleve] 440 mg PO Q12H PRN 11/11/20 11/11/20 History Allergies Allergy/AdvReac Type Severity Reaction Status Date / Time metaxalone [From Skelaxin] Allergy Dyspnea Verified 11/11/20 15:34 Physical Exam Vitals: Vital Signs Temp Pulse Pulse Resp BP Pulse Ox 11/13/20 07:39 90 L 11/13/20 07:28 97.5 F L 68 18 145/45 92 L 11/13/20 02:39 97.4 F L 74 15 140/59 91 L 11/12/20 21:17 71 11/12/20 21:04 71 98 11/12/20 20:00 76 19 11/12/20 19:45 98.2 F 76 19 141/83 91 L 11/12/20 14:00 98.4 F 66 18 149/53 93 L 11/12/20 11:51 68 11/12/20 11:44 67 Intake and Output 11/12/20 11/13/20 11/13/20 22:59 06:59 14:59 Output Total 750 150 Balance -750 -150 Output: Urine 500 150 Post Void Residual 250 Other: Voiding Method Indwelling Catheter # Voids 2 Results 11/13/20 05:27 11/12/20 08:24 CBC 11/13/20 Range/Units 05:27 WBC 26.24 H (4.50-10.00) X 10*3/uL RBC 3.90 L (4.10-5.20) X 10*6/uL Hgb 10.1 L (12.0-15.0) g/dL Hct 34.1 L (37.2-46.3) % Plt Count 257 (140-440) X 10*3/uL Current Medications Generic Name Dose Route Start Last Admin Trade Name Freq PRN Reason Stop Dose Admin Acetaminophen 650 mg 11/11/20 16:31 Acetaminophen Tab 325 Mg Tab PO Q6HR PRN Mild Pain or Fever > 100.5 Hydrocodone Bitart/Acetaminophen 1 each 11/11/20 16:31 11/12/20 20:19 Hydrocodone/Apap 5-325mg 1 Each Tab PO 1 each Q4HR PRN Administration Moderate Pain Albuterol Sulfate 2 puff 11/11/20 17:13 Albuterol Hfa Inhaler INHALATION RT-QID PRN Shortness Of Breath Albuterol/Ipratropium 3 ml 11/11/20 17:13 11/12/20 21:03 Ipratropium-Albuterol 3 Ml Neb INHALATION 3 ml RT-QID PRN Administration Shortness Of Breath Albuterol/Ipratropium 3 ml 11/13/20 13:00 Ipratropium-Albuterol 3 Ml Neb INHALATION RT-TID ANTWON Aspirin 81 mg 11/12/20 09:00 11/13/20 07:54 Aspirin 81 Mg PO 81 mg DAILY ANTWON Administration Atorvastatin Calcium 20 mg 11/12/20 09:00 11/13/20 07:54 Atorvastatin 20 Mg Tab PO 20 mg DAILY ANTWON Administration Budesonide/Formoterol Fumarate 2 puff 11/12/20 08:00 11/13/20 07:39 Symbicort 80-4.5 Mcg Inhaler INHALATION 2 puff RT-BID ANTWON Administration Citalopram Hydrobromide 20 mg 11/12/20 09:00 11/13/20 07:54 Citalopram Hydrobromide 20 Mg Tab PO 20 mg DAILY ANTWON Administration Enoxaparin Sodium 40 mg 11/12/20 09:00 11/13/20 08:07 Enoxaparin 40 Mg/0.4 Ml Syringe SQ Not Given DAILY ANTWON Sodium Chloride 1,000 mls @ 75 mls/hr 11/11/20 16:45 11/12/20 20:31 Saline 0.9% IV 75 mls/hr .[id number] ANTWON Administration Piperacillin Sod/Tazobactam 100 mls @ 25 mls/hr 11/12/20 00:00 11/13/20 07:55 Sod 3.375 gm/ Sodium Chloride IVPB 25 mls/hr Q8HR ANTWON Administration Isosorbide Mononitrate 30 mg 11/12/20 09:00 11/13/20 07:53 Isosorbide Mononitrate Er 30 Mg Tab.Er.24h PO 30 mg DAILY ANTWON Administration Losartan Potassium 150 mg 11/12/20 09:00 11/13/20 07:54 Losartan 50 Mg Tab PO 150 mg DAILY ANTWON Administration Methylprednisolone Sodium Succinate 40 mg 11/13/20 10:15 Methylprednisolone Sod Succi 40 Mg/Ml 1 Ml Vial IV Q12HR ANTWON Morphine Sulfate 4 mg 11/11/20 16:31 11/13/20 01:07 Morphine Sulfate 4 Mg/Ml Syringe IV 4 mg Q4HR PRN Administration Severe Pain Naloxone HCl 0.2 mg 11/11/20 16:31 Naloxone 0.4 Mg/Ml 1 Ml Vial IV Q2M PRN Opioid Reversal Ondansetron HCl 4 mg 11/11/20 16:31 Ondansetron 4 Mg/2 Ml Vial IVP Q8HR PRN Nausea And Vomiting Pantoprazole Sodium 40 mg 11/12/20 07:30 11/13/20 07:53 Pantoprazole 40 Mg Tablet PO 40 mg DAILY@0730 ANTWON Administration Verapamil HCl 360 mg 11/11/20 21:00 11/12/20 20:19 Verapamil Sr 180 Mg Tablet.Er PO 360 mg HS ANTWON Administration Intake and Output 11/12/20 11/13/20 11/13/20 22:59 06:59 14:59 Output Total 750 150 Balance -750 -150 Output: Urine 500 150 Post Void Residual 250 Other: Voiding Method Indwelling Catheter # Voids 2 11/13/20 05:27 11/12/20 08:24
[2020-11-13 11:00] LABS: African American GFR (CKD) 80.7 (60.0-200.0); Albumin 2.9 g/dL (3.80-4.90); Albumin/Globulin Ratio 1.53 (1.60-3.17); Anion Gap 7.6 mmol/L (4.00-12.00); BUN/Creat Ratio 41.25 Ratio (12.00-20.00); Calcium 8.8 mg/dL (8.7-10.3); Carbon Dioxide 24.4 mmol/L (21.6-31.8); Globulin 1.9 g/dL (1.6-3.3); Non-African American GFR(CKD) 69.6 (60.0-200.0); Potassium 3.7 mmol/L (3.5-5.5); Total Bilirubin 0.5 mg/dL (0.2-1.2); Total Protein 4.8 g/dL (6.2-8.2)
[2020-11-13 11:15] LABS: Acanthocytes 2+; Basophils # (A) 0.07 X 10*3/uL (0.00-0.10); Basophils % (A) 0.3 %; Eosinophils # (A) 0.02 X 10*3/uL (0.04-0.35); Eosinophils % (A) 0.1 %; Hypochromasia (M) 2+; Lymphocytes # (A) 1.89 X 10*3/uL (0.90-5.00); Lymphocytes % (A) 7.2 %; Monocytes # (A) 2.43 X 10*3/uL (0.20-1.00); Monocytes % (A) 9.3 %; Neutrophils # (A) 21.64 X 10*3/uL (1.80-7.70); Neutrophils % (A) 82.4 %
[2020-11-13] MEDS: IPRATROPIUM-ALBUTEROL 3 ML NEB INHALATION SCH ×2 (11:54→20:47)
[2020-11-13] MEDS: methylPREDNISolone SOD SUCCI 40 MG/ML 1 ML VIAL IV SCH ×2 (11:58→22:20)
[2020-11-13] MEDS: HYDROcodone/APAP 5-325MG 1 EACH TAB PO PRN (11:59)
--- NOTE | 2020-11-13 12:08 | P.CNPUL ---
History of Present Illness Consult date: 11/13/20 Requesting physician: Mauricio Nixon Reason for consult: dyspnea, other Chief complaint: Shortness of breath, right upper quadrant abdominal pain, diarrhea History of present illness: This is a 80-year-old white female patient with past history of COPD on home oxygen at 3 L, hypertension, hyperlipidemia, GERD, urinary tract infections, who was recently hospitalized from 10/16/2020 through 10/23/2020 for acute pancreatitis, and ultrasound of the gallbladder showed gallbladder sludge and positive sonographic Hernandez sign, and urinary tract infection. During that admission we saw the patient for acute exacerbation of COPD in addition to the above mentioned complaints. Patient was treated with steroids, nebulized bronchodilators. Her maintenance inhaler at home is Trelegy. Patient's acute pancreatitis was thought to be possibly related to regular alcohol intake. And patient reported drinking one or 2 large glasses of wine on a daily basis. Her liver enzymes improved during that admission, abdominal pain improved, she was discharged home on 10/21/2020. On 11/11/2020 patient returned to the emergency department for evaluation of right-sided abdominal pain, and diarrhea for the past few days. Patient apparently failed to follow-up with any of her doctors as recommended. She did finish her antibiotics for the urinary tract infection. Patient reports 5-6 bouts of diarrhea on a daily basis. She still complains of right upper quadrant pain which is very sharp consistent, rated 8 out of 10. She denied any radiation. Denied any fever or chills, no chest pain. She did report some mild nausea. Denied any dysuria. Her KUB abdomen showed no acute abnormality. Lung bases showed possible interstitial changes, no evidence of pneumoperitoneum or bowel obstruction. Ultrasound of gallbladder showed cholelithiasis with no acute cholecystitis, fatty infiltration of the liver. Initial blood work showed elevated white count of 22.8, hemoglobin was 11.3, INR was 1.0, sodium was 134, the rest of electrolytes and renal profile were fairly unremarkable with the exception of BUN being elevated at 36, her liver enzymes showed total bilirubin of 0.6, AST of 139, ALT of 114, alkaline phosphatase is 163. Amylase and lipase were within normal limits at 33 and 27 respectively. Urinalysis showed turbid urine, with large amount of leuk trase, many bacteria, and white blood cells in clumps. Urine culture was sent and showed a gram- negative bacilli, cultures pending, patient was started on Zosyn. She is on Symbicort and DuoNeb breathing treatments. Patient is having ongoing sharp right upper quadrant abdominal pain. Surgical services were consulted and patient is being scheduled for robotic cholecystectomy with Dr. Vitale. We were asked to see the patient for clearance for surgery from pulmonary perspective, we don't have a chest x-ray from this admission, patient is bronchospastic she does have congestive cough on today's exam, she is on 4 L of oxygen and the pulse ox 90 and at 92%. She is afebrile, she is having significant right upper quadrant abdominal pain, we will go ahead and clear the patient for surgery, we'll continue to closely follow the patient in the postoperative period Review of Systems All systems: negative Constitutional: Denies chills, Denies fever Eyes: denies blurred vision, denies pain Ears, nose, mouth and throat: Denies headache, Denies sore throat Cardiovascular: Denies chest pain, Denies shortness of breath Respiratory: Reports dyspnea, Denies cough Gastrointestinal: Reports abdominal pain, Reports nausea, Denies diarrhea, D enies vomiting Genitourinary: Denies dysuria, Denies hematuria Musculoskeletal: Denies myalgias Integumentary: Denies pruritus, Denies rash Neurological: Denies numbness, Denies weakness Psychiatric: Denies anxiety, Denies depression Endocrine: Denies fatigue, Denies weight change Past Medical History Past Medical History: COPD, Hypertension Additional Past Medical History / Comment(s): Anemia, Pt wears 3 liters nasal cannula constantly, diverticulosis. History of Any Multi-Drug Resistant Organisms: None Reported Past Surgical History: Bladder Surgery, Hysterectomy, Tubal Ligation Past Anesthesia/Blood Transfusion Reactions: No Reported Reaction Past Psychological History: No Psychological Hx Reported Smoking Status: Former smoker Past Alcohol Use History: Daily Past Drug Use History: None Reported - Past Family History Family Family Medical History: No Reported History Medications and Allergies Home Medications Medication Instructions Recorded Confirmed Type Albuterol Inhaler [Ventolin Hfa 2 puff INHALATION RT-QID PRN 10/17/20 11/11/20 History Inhaler] Aspirin EC [Ecotrin Low Dose] 81 mg PO HS 10/17/20 11/11/20 History Atorvastatin Calcium [Lipitor] 20 mg PO DAILY 10/17/20 11/11/20 History Jered/D3/Mag11/Zinc/Dock Boss/Mike/Bor 1 tab PO BID 10/17/20 11/11/20 History [Caltrate 600+D Plus Tablet] Candesartan Cilexetil [Atacand] 32 mg PO DAILY 10/17/20 11/11/20 History Citalopram Hydrobromide [CeleXA] 20 mg PO DAILY 10/17/20 11/11/20 History EPINEPHrine (Auto Inject) [Epipen] 0.3 mg IM ONCE PRN 10/17/20 11/11/20 History Fluticasone/Umeclidin/Vilanter 1 puff INHALATION RT-DAILY 10/17/20 11/11/20 History [Chekolemarty Ellipta 100-62.5-25] Ipratropium-Albuterol Nebulize 3 ml INHALATION RT-QID PRN 10/17/20 11/11/20 History [Duoneb 0.5 mg-3 mg/3 ml Soln] Isosorbide Mononitrate [Isosorbide 30 mg PO DAILY 10/17/20 11/11/20 History Mononitrate ER] Mirabegron [Myrbetriq] 25 mg PO HS 10/17/20 11/11/20 History Omeprazole 20 mg PO DAILY 10/17/20 11/11/20 History Verapamil HCl [Verelan Pm] 300 mg PO HS 10/17/20 11/11/20 History Naproxen Sodium [Aleve] 440 mg PO Q12H PRN 11/11/20 11/11/20 History Allergies Allergy/AdvReac Type Severity Reaction Status Date / Time metaxalone [From Skelaxin] Allergy Dyspnea Verified 11/11/20 15:34 Physical Exam Vitals: Vital Signs Temp Pulse Pulse Resp BP Pulse Ox 11/13/20 07:39 90 L 11/13/20 07:28 97.5 F L 68 18 145/45 92 L 11/13/20 02:39 97.4 F L 74 15 140/59 91 L 11/12/20 21:17 71 11/12/20 21:04 71 98 11/12/20 20:00 76 19 11/12/20 19:45 98.2 F 76 19 141/83 91 L 11/12/20 14:00 98.4 F 66 18 149/53 93 L 11/12/20 11:51 68 Intake and Output 11/12/20 11/13/20 11/13/20 22:59 06:59 14:59 Output Total 750 150 Balance -750 -150 Output: Urine 500 150 Post Void Residual 250 Other: Voiding Method Indwelling Catheter Indwelling Catheter # Voids 2 GENERAL EXAM: Alert but confused, 80-year-old white female, on 4 L of oxygen with pulse ox of 90-92% comfortable in no apparent distress. HEAD: Normocephalic/atraumatic. EYES: Normal reaction of pupils, equal size. Conjunctiva pink, sclera white. NOSE: Clear with pink turbinates. THROAT: No erythema or exudates. NECK: No masses, no JVD, no thyroid enlargement, no adenopathy. CHEST: No chest wall deformity. Symmetrical expansion. LUNGS: Equal air entry with scattered wheezes CVS: Regular rate and rhythm, normal S1 and S2, no gallops, no murmurs, no rubs ABDOMEN: Soft, patient has sharp tenderness in the right upper quadrant with palpation No hepatosplenomegaly, normal bowel sounds, no guarding or rigidity. EXTREMITIES: No clubbing, no edema, no cyanosis, 2+ pulses and upper and lower extremities. MUSCULOSKELETAL: Muscle strength and tone normal. SPINE: No scoliosis or deformity SKIN: No rashes CENTRAL NERVOUS SYSTEM: Alert and confused No focal deficits, tone is normal in all 4 extremities. Results - Laboratory Findings CBC and BMP: 11/13/20 05:27 11/13/20 05:27 PT/INR, D-dimer PT 10.6 sec (9.0-12.0) 11/11/20 12:50 INR 1.0 (<1.2) 11/11/20 12:50 Abnormal lab findings: Abnormal Labs 11/11/20 11/11/20 11/11/20 12:50 12:50 12:50 WBC 22.8 H RBC Hgb 11.3 L Hct MCH MCHC RDW MPV Absolute Nucleated RBC Immature Gran # Neutrophils # 19.9 H Monocytes # 1.1 H Eosinophils # NRBC/100 WBC Diff APTT 21.8 L Sodium 134 L Chloride BUN 36 H BUN/Creatinine Ratio Glucose 110 H Magnesium 1.5 L AST 139 H ALT 114 H Alkaline Phosphatase 163 H Total Protein 5.1 L Albumin 2.6 L Albumin/Globulin Ratio Urine Appearance Urine Protein Urine Ketones Urine Blood Urine Nitrite Ur Leukocyte Esterase Urine WBC Urine WBC Clumps Ur Squamous Epith Cells Urine Bacteria Hyaline Casts Urine Mucus Urine Yeast (Budding) 11/11/20 11/12/20 11/12/20 15:41 08:24 08:24 WBC 21.7 H RBC Hgb 11.1 L Hct MCH MCHC RDW MPV Absolute Nucleated RBC Immature Gran # Neutrophils # 18.5 H Monocytes # 1.4 H Eosinophils # NRBC/100 WBC Diff APTT Sodium Chloride 110 H BUN 31 H BUN/Creatinine Ratio Glucose 111 H Magnesium AST 73 H ALT 85 H Alkaline Phosphatase 148 H Total Protein 5.0 L Albumin 2.5 L Albumin/Globulin Ratio Urine Appearance Turbid H Urine Protein 1+ H Urine Ketones Trace H Urine Blood Trace H Urine Nitrite Ur Leukocyte Esterase Large H Urine WBC 99 H Urine WBC Clumps Few H Ur Squamous Epith Cells 22 H Urine Bacteria Many H Hyaline Casts 37 H Urine Mucus Occasional H Urine Yeast (Budding) Many H 11/12/20 11/13/20 11/13/20 16:20 05:27 05:27 WBC 26.24 H RBC 3.90 L Hgb 10.1 L Hct 34.1 L MCH 25.9 L MCHC 29.6 L RDW 16.1 H MPV 12.8 H Absolute Nucleated RBC 0.05 H Immature Gran # 0.19 H Neutrophils # 21.64 H Monocytes # 2.43 H Eosinophils # 0.02 L NRBC/100 WBC Diff 0.2 H APTT Sodium Chloride 110 H BUN 33.0 H BUN/Creatinine Ratio 41.25 H Glucose Magnesium AST 65 H ALT 86 H Alkaline Phosphatase 175 H Total Protein 4.8 L Albumin 2.90 L Albumin/Globulin Ratio 1.53 L Urine Appearance Cloudy H Urine Protein Trace H Urine Ketones Urine Blood Urine Nitrite Positive H Ur Leukocyte Esterase Moderate H Urine WBC 30 H Urine WBC Clumps Ur Squamous Epith Cells Urine Bacteria Rare H Hyaline Casts Urine Mucus Rare H Urine Yeast (Budding) - Diagnostic Findings Additional studies: KUB x-ray, gallbladder ultrasound, echocardiogram reviewed Assessment and Plan Plan: Assessment: #1. Acute on chronic hypoxic respiratory failure related to exacerbation of COPD, we will review chest x-ray when is completed #2. Acute right upper quadrant pain, likely related to acute cholecystitis, patient is scheduled for robotically assisted cholecystectomy today with Dr. Vitale on 11/13/2020 pending cardiology and pulmonology clearance #3. Acute urinary tract infection, urine cultures are positive for gram- negative bacilli, patient is covered with Zosyn #4. Recent hospitalization for acute pancreatitis, urinary tract infection, and acute exacerbation of COPD #5. Medical noncompliance #6. Daily EtOH use patient drinks 1-2 large glasses of wine on a daily basis #7. Confusion, altered mental status, consider EtOH withdrawal in addition to sepsis related to urinary tract infection and acute cholecystitis, or place the patient on CIWA protocol #8. Advanced COPD on home oxygen usually wears 3 L on a regular basis #9. Hypertension #10. Former smoker Plan: Continue nebulized bronchodilators Continue antibiotics We will add IV steroids with Solu-Medrol 40 mg twice daily Obtain a portable chest x-ray From pulmonary perspective patient is cleared for surgery, the benefits outweigh the potential risks We'll follow the patient in the postoperative period Add CIWA protocol I performed a history & physical examination of the patient and discussed their management with my nurse practitioner, Dianne Vargas. I reviewed the nurse practitioner's note and agree with the documented findings and plan of care. Lung sounds are positive for diffuse wheezes throughout the lung reynoso. The findings and the impression was discussed with the patient. I attest to the documentation by the nurse practitioner. Time with Patient: Greater than 30
[2020-11-13] MEDS: SODIUM CHLORIDE 0.9% 1,000 ML IV SCH (12:28)
--- NOTE | 2020-11-13 12:36 | XR ---
EXAMINATION TYPE: XR chest 1V portable DATE OF EXAM: 11/13/2020 COMPARISON: 10/19/2020 INDICATION: Shortness of breath TECHNIQUE: Single frontal view of the chest is obtained. FINDINGS: The heart size is normal. The pulmonary vasculature is normal. Bibasilar infiltrates are present. IMPRESSION: 1. Bibasilar infiltrates. Correlate for atelectasis.
--- NOTE | 2020-11-13 13:25 | P.PN ---
Subjective Progress Note Date: 11/13/20 Patient is still complaining of right upper quadrant pain today. No acute events overnight reported by nursing staff. Objective - Vital Signs Vital signs: Vital Signs Temp 97.5 F L 11/13/20 07:28 Pulse 90 11/13/20 12:02 Resp 18 11/13/20 12:02 BP 145/45 11/13/20 07:28 Pulse Ox 90 L 11/13/20 07:39 Intake & Output 11/12/20 11/13/20 11/13/20 18:59 06:59 18:59 Output Total 500 400 Balance -500 -400 Output: Urine 500 150 Post Void Residual 250 Other: Voiding Method Bedside Commode Indwelling Catheter Indwelling Catheter # Voids 2 - Exam General: The patient is awake and alert, in no distress Eye: there is normal conjunctiva bilaterally. Neck: The neck is supple, there is no JVD. Cardiovascular: Normal S1-S2, no S3-S4, no murmurs. Respiratory: Lungs clear to auscultation bilaterally Gastrointestinal: Abdomen is soft, nontender Musculoskeletal: There is no pedal edema. Neurological:. Speech is normal. Skin: Skin is warm and dry - Labs CBC & Chem 7: 11/13/20 05:27 11/13/20 05:27 Labs: Abnormal Lab Results - Last 24 Hours (Table) 11/12/20 11/13/20 11/13/20 Range/Units 16:20 05:27 05:27 WBC 26.24 H (4.50-10.00) X 10*3/uL RBC 3.90 L (4.10-5.20) X 10*6/uL Hgb 10.1 L (12.0-15.0) g/dL Hct 34.1 L (37.2-46.3) % MCH 25.9 L (27.0-32.0) pg MCHC 29.6 L (32.0-37.0) g/dL RDW 16.1 H (11.5-14.5) % MPV 12.8 H (9.5-12.2) fL Absolute Nucleated RBC 0.05 H (0.00-0.00) X 10*3/uL Immature Gran # 0.19 H (0.00-0.04) X 10*3/uL Neutrophils # 21.64 H (1.80-7.70) X 10*3/uL Monocytes # 2.43 H (0.20-1.00) X 10*3/uL Eosinophils # 0.02 L (0.04-0.35) X 10*3/uL NRBC/100 WBC Diff 0.2 H (0.0-0.0) /100 WBCS Chloride 110 H (96-109) mmol/L BUN 33.0 H (9.0-27.0) mg/dL BUN/Creatinine Ratio 41.25 H (12.00-20.00) Ratio AST 65 H (13-35) U/L ALT 86 H (8-44) U/L Alkaline Phosphatase 175 H (41-126) U/L Total Protein 4.8 L (6.2-8.2) g/dL Albumin 2.90 L (3.80-4.90) g/dL Albumin/Globulin Ratio 1.53 L (1.60-3.17) g/dL Urine Appearance Cloudy H (Clear) Urine Protein Trace H (Negative) Urine Nitrite Positive H (Negative) Ur Leukocyte Esterase Moderate H (Negative) Urine WBC 30 H (0-5) /hpf Urine Bacteria Rare H (None) /hpf Urine Mucus Rare H (None) /hpf Microbiology - Last 24 Hours (Table) 11/12/20 16:20 Urine Culture - Preliminary Urine,Clean Catch 11/11/20 15:41 Urine Culture - Preliminary Urine,Clean Catch Gram Neg Bacilli 11/11/20 16:40 Blood Culture - Preliminary Blood No Growth after 24 hours Assessment and Plan Assessment: 1. Acute cholecystitis: Seen and evaluated by general surgery. Seen by cardiology and pulmonary for clearance. Awaiting surgery to schedule surgery. 2. Uncomplicated UTI, initial urinalysis was clearly contaminated. Repeat UA not impressive. We will continue antibiotic for now awaiting urine culture. Check bladder scan to rule out retention as patient is on Myrbetric at home. 3. Obstructive uropathy with evidence of urinary retention on bladder scan. Status post Young catheter insertion. We will attempt voiding trial after surgery 4. Underlying COPD with chronic hypoxic respiratory failure on 3 L of oxygen at home 5. Chronic medical problems, essential hypertension, hyperlipidemia, GERD 6. DVT prophylaxis with subcu Lovenox 7. CODE STATUS: Patient is full code Today, I reviewed her medication list and lab work results. Continue current regimen. Repeat lab work in the morning.
--- NOTE | 2020-11-13 13:38 | P.PN ---
Subjective Progress Note Date: 11/13/20 Principal diagnosis: Patient seen and evaluated with nerves. Patient has increased confusion overnight. Patient was more awake and alert in the time of my assessment. Still pending both cardiac including pulmonary clearance. At this time, recommended medical optimization. Surgery is scheduled for tomorrow after medical optimization Objective - Vital Signs Vital signs: Vital Signs Temp 97.5 F L 11/13/20 07:28 Pulse 90 11/13/20 12:02 Resp 18 11/13/20 12:02 BP 145/45 11/13/20 07:28 Pulse Ox 90 L 11/13/20 07:39 Intake & Output 11/12/20 11/13/20 11/13/20 18:59 06:59 18:59 Output Total 500 400 Balance -500 -400 Output: Urine 500 150 Post Void Residual 250 Other: Voiding Method Bedside Commode Indwelling Catheter Indwelling Catheter # Voids 2 - Labs CBC & Chem 7: 11/13/20 05:27 11/13/20 05:27 Labs: Abnormal Lab Results - Last 24 Hours (Table) 11/12/20 11/13/20 11/13/20 Range/Units 16:20 05:27 05:27 WBC 26.24 H (4.50-10.00) X 10*3/uL RBC 3.90 L (4.10-5.20) X 10*6/uL Hgb 10.1 L (12.0-15.0) g/dL Hct 34.1 L (37.2-46.3) % MCH 25.9 L (27.0-32.0) pg MCHC 29.6 L (32.0-37.0) g/dL RDW 16.1 H (11.5-14.5) % MPV 12.8 H (9.5-12.2) fL Absolute Nucleated RBC 0.05 H (0.00-0.00) X 10*3/uL Immature Gran # 0.19 H (0.00-0.04) X 10*3/uL Neutrophils # 21.64 H (1.80-7.70) X 10*3/uL Monocytes # 2.43 H (0.20-1.00) X 10*3/uL Eosinophils # 0.02 L (0.04-0.35) X 10*3/uL NRBC/100 WBC Diff 0.2 H (0.0-0.0) /100 WBCS Chloride 110 H (96-109) mmol/L BUN 33.0 H (9.0-27.0) mg/dL BUN/Creatinine Ratio 41.25 H (12.00-20.00) Ratio AST 65 H (13-35) U/L ALT 86 H (8-44) U/L Alkaline Phosphatase 175 H (41-126) U/L Total Protein 4.8 L (6.2-8.2) g/dL Albumin 2.90 L (3.80-4.90) g/dL Albumin/Globulin Ratio 1.53 L (1.60-3.17) g/dL Urine Appearance Cloudy H (Clear) Urine Protein Trace H (Negative) Urine Nitrite Positive H (Negative) Ur Leukocyte Esterase Moderate H (Negative) Urine WBC 30 H (0-5) /hpf Urine Bacteria Rare H (None) /hpf Urine Mucus Rare H (None) /hpf Microbiology - Last 24 Hours (Table) 11/12/20 16:20 Urine Culture - Preliminary Urine,Clean Catch 11/11/20 15:41 Urine Culture - Preliminary Urine,Clean Catch Gram Neg Bacilli 11/11/20 16:40 Blood Culture - Preliminary Blood No Growth after 24 hours
[2020-11-13] MEDS: VERAPAMIL SR 180 MG TABLET.ER PO SCH (22:21)
[2020-11-14] MEDS: PIPERACILLIN-TAZOBACTAM 3.375 GM in SODIUM CHLORIDE 0.9% 100 ML IVPB SCH ×4 (00:16→23:55)
[2020-11-14] MEDS ORDERED: INDOCYANINE GREEN 25 MG VIAL IV STA (07:21)
[2020-11-14] MEDS ORDERED: fentaNYL (PF) 50 MCG/ML 2 ML AMP ONE (07:51)
[2020-11-14] MEDS ORDERED: ROCURONIUM 10 MG/ML (5 ML VIAL) IV ONE (07:51)
[2020-11-14] MEDS ORDERED: GLYCOPYRROLATE 0.2 MG/ML 2 ML VIAL ONE (07:51)
[2020-11-14] MEDS ORDERED: PROPOFOL 10 MG/ML 20 ML VIAL IV ONE (07:51)
[2020-11-14] MEDS ORDERED: HYDROCORTISONE SUCCINATE 100 MG/2 ML VIAL ONE (07:51)
[2020-11-14] MEDS ORDERED: SUCCINYLCHOLINE CHLORIDE 100 MG/5 ML SYR IV ONE (07:51)
[2020-11-14] MEDS ORDERED: MIDAZOLAM 2 MG/2 ML VIAL ONE (07:51)
[2020-11-14] MEDS ORDERED: ONDANSETRON 4 MG/2 ML VIAL ONE (07:51)
[2020-11-14] MEDS ORDERED: HYDROmorphone (PF) 1 MG/ML ONE (07:51)
[2020-11-14] MEDS ORDERED: HEPARIN SODIUM,PORCINE 5,000 UNIT/ML 1 ML VIAL ONE (07:51)
[2020-11-14] MEDS ORDERED: NEOSTIGMINE 1 MG/ML 10 ML VIAL ONE (07:51)
[2020-11-14] MEDS ORDERED: LIDOCAINE 1%-EPI 1:100,000 20 ML VIAL SQ ONE (08:11)
[2020-11-14] MEDS ORDERED: SODIUM CHLORIDE 0.9% 1,000 ML IV ONE (08:11)
[2020-11-14] MEDS: SYMBICORT 80-4.5 MCG INHALER INHALATION SCH ×2 (09:02→20:27)
[2020-11-14] MEDS: IPRATROPIUM-ALBUTEROL 3 ML NEB INHALATION SCH ×3 (09:02→20:27)
[2020-11-14] MEDS ORDERED: LACTATED RINGERS 1,000 ML IV ONE (09:07)
[2020-11-14 09:18] LABS: HCT 32.9 % (37.2-46.3); HGB 10.1 g/dL (12.0-15.0); MCH 26.4 pg (27.0-32.0); MCHC 30.7 g/dL (32.0-37.0); MCV 85.9 fL (80.0-97.0); Mean Platelet Volume 12.2 fL (9.5-12.2); Platelet Count 283 X 10*3/uL (140-440); RBC 3.83 X 10*6/uL (4.10-5.20); RDW 16.3 % (11.5-14.5); WBC 25.33 X 10*3/uL (4.50-10.00)
[2020-11-14 10:10] LABS: African American GFR (CKD) 80.7 (60.0-200.0); Albumin/Globulin Ratio 1.36 (1.60-3.17); Anion Gap 11.3 mmol/L (4.00-12.00); BUN/Creat Ratio 47.5 Ratio (12.00-20.00); Basophils # (A) 0.07 X 10*3/uL (0.00-0.10); Basophils % (A) 0.3 %; Calcium 8.9 mg/dL (8.7-10.3); Carbon Dioxide 21.7 mmol/L (21.6-31.8); Eosinophils # (A) 0 X 10*3/uL (0.04-0.35); Eosinophils % (A) 0 %; Globulin 2.2 g/dL (1.6-3.3); Lymphocytes # (A) 1.37 X 10*3/uL (0.90-5.00); Lymphocytes % (A) 5.4 %; Monocytes % (A) 4.3 %; Neutrophils # (A) 22.23 X 10*3/uL (1.80-7.70); Neutrophils % (A) 87.8 %; Non-African American GFR(CKD) 69.6 (60.0-200.0); Potassium 3.8 mmol/L (3.5-5.5); Total Bilirubin 0.6 mg/dL (0.2-1.2); Total Protein 5.2 g/dL (6.2-8.2)
[2020-11-14 10:11] LABS: Acanthocytes 2+
[2020-11-14] MEDS ORDERED: ACETAMINOPHEN IV (For NPO) 1,000 MG in EMPTY BAG 1 BAG IVPB ONE (10:16)
--- NOTE | 2020-11-14 10:22 | P.OP ---
Date of Procedure: 11/14/20 Description of Procedure: SURGEON: LIZ RODRIGUEZ MD PREOPERATIVE DIAGNOSES: 1. Acute cholecystitis with sepsis 2. Transaminitis 3. Moderate to severe chronic obstructive pulmonary disease exacerbation, oxygen dependent 4. Hypertensive heart disease and ischemic cardiomyopathy 5. Depressive disorder 6. Congestive heart failure 7. Hyperlipidemia 8. Anemia POSTOPERATIVE DIAGNOSES: 1. Acute cholecystitis with sepsis 2. Transaminitis 3. Moderate to severe chronic obstructive pulmonary disease exacerbation, oxygen dependent 4. Hypertensive heart disease and ischemic cardiomyopathy 5. Depressive disorder 6. Congestive heart failure 7. Hyperlipidemia 8. Anemia 9. Right upper quadrant peritonitis 10. Severe intra-abdominal peritoneal adhesions 11. Incarcerated ventral hernia OPERATION: 1. Robotic-assisted da Jitendra Xi laparoscopic lysis of adhesions over 30 minutes 2. Robotic-assisted da Jitendra Xi laparoscopic sub-total cholecystectomy, multiport with FIREFLY 3. Placement of round #19 Adrian-Eastman drain, hepatic fossa Anesthesia: GETA, local Estimated Blood Loss (ml): 5 Pathology: other (Peritoneal fluid, gallbladder) Condition: stable Disposition: floor COMPLICATIONS: None. Operative Findings: 1. Severe intra-abdominal adhesions, omentum to abdominal wall requiring additional port placement left lateral abdomen 2. Extensive lysis of adhesions over 30 minutes performed of the epigastrium and bilateral upper abdomen 3. Bile staining right upper quadrant including decompressed gallbladder nonop acified consistent with acute cholecystitis and right upper quadrant peritonitis of unclear etiology 4. Common bile duct visualized without injury and within normal limits 5. Right upper quadrant peritonitis with peritoneal fluid obtained for cultures 6. Ventral umbilical hernia identified 7. Anterior surface right lobe of liver with questionable intraparenchymal liver abscess versus cyst. 8. ANITA drain along the hepatic fossa 9. Indocyanine green confirms acute cholecystitis with lack of contrast in gallbladder and lack of contrast at right upper quadrant fluid collection negative for bile. INDICATIONS: The patient is a 80 year-old female who presents with right upper quadrant peritonitis, acute cholecystitis with presentation of sepsis. Surgical intervention with cholecystectomy was described. Patient was deemed high risk with moderate to severe COPD. Robotic assisted laparoscopic approach was described. Benefits and risks of the procedure including but not limited to bleeding, infection, injury to the biliary tree was reviewed. Informed consent was obtained. DESCRIPTION OF PROCEDURE: Patient was brought to the operating room, placed in supine position. After general induction, the abdomen had been prepped and draped in standard sterile fashion. The robotic da Jitendra XI system was primed. After a timeout protocol was performed, the patient had been prepped and draped in standard sterile fashion. The patient was injected with indocyanine green. A 5 mm 0 degrees laparoscopic trocar entry was performed along the left upper quadrant. The abdomen insufflated to 15 mmHg pressure which was tolerated well. Diagnostic laparoscopy demonstrated no injury to bowel viscera or mesentery. The liver surface was unremarkable. A moderately distended gallbladder was i dentified adding complexity to the case including complete encasement of the gallbladder by the omentum. Next, two 8 mm robotic ports were placed along the right upper abdomen. The camera 8-mm port was maintained along the epigastrium. Another 8 mm port was placed along the left upper abdominal wall after exchanging the 5 mm port. Please note that the ports were placed at least 10 to 15 cm away from the target anatomy of the gallbladder. The robot was docked along the left lateral abdomen. The patient was repositioned in reverse Trendelenburg position at 21 with the right side up 7. Using a grasper for arm 3, a grasper for arm 4, including hook cautery for arm 1, the robotic system was docked and primed as described. Instruments were interchanged by the escrow assistant including hook cautery, Bovie cautery and clip appliers. Additional instruments including vessel sealer, robotic suction brazing furnace operator, robotic stapler were made available. I had sat at the console. Moderate to severe epigastric adhesions including at the midline was identified with a ventral umbilical hernia. Extensive lysis of adhesions over 30 minutes was performed using vessel sealer. Additionally, the gallbladder was decompressed without instrumentation. Right upper quadrant peritoneal fluid the color of bile was identified. Using indocyanine green, non-enhancement confirmed non-bilious content fluid collection of unclear etiology. Additionally, along the anterior inferior right lobe of the liver a questionable cyst versus abscess was found. Using a sponge, the liver was reflected towards the diaphragm and starting at the gallbladder fundus, hook cautery was used between the liver and the gallbladder. As the gallbladder was dissected from the hepatic fossa, hemostasis was checked using vessel sealer along the posterior gallbladder. Next, indocyanine green was used to confirm the common bile duct as well as cystic duct. The entire gallbladder was without contrast consistent with acute cholecystitis. The infundibulum was retracted laterally away from the common bile duct. FIREFLY was used to identify the common bile duct. Using large PLASTIC clips, two (2) clips were placed along the junction of the cystic duct and infundibulum. The cystic duct was divided using hook cautery. Similarly the cystic artery was controlled and divided using clips and cautery. No injury to the common bile duct had occurred. The robot was undocked. I re-scrubbed into the case. A 10 mm Endo Catch bag was used to remove the gallbladder in total via the left upper quadrant incision. The specimen was removed from the abdominal cavity. Jarek Wells and 0 Vicryl was used to close the fascial defect of the left upper quadrant. A round #19 drain was placed along the right upper quadrant at the hepatic fossa and exited via the right lateral trocar. A drain stitch 2-0 nylon was placed. All pneumoperitoneum instruments were evacuated from the abdominal cavity. The incisions were cleansed using dilute hydrogen peroxide. The incisions were reapproximated using 4-0 Monocryl in an interrupted subcuticular fashion. Please note along the trocar sites, local anesthetic was placed as a field block prior to insertion of all instruments. Liquid glue was applied to the skin. Optifoam was placed along the ANITA site for the right upper quadrant. At the end of the procedure needle, sponge, and instrument count had been verified correct by the surgical brace maker. The patient was transferred to postanesthesia care unit in stable condition. Intraoperative films were shared with the patient's family who were pleased with the level of care.
[2020-11-14] MEDS ORDERED: FUROSEMIDE 10 MG/ML 4 ML VIAL IV ONE (10:35)
[2020-11-14 11:23] LABS: Glucose,Whole Blood 147 mg/dL (75-99)
[2020-11-14] MEDS: LOSARTAN 50 MG TAB PO SCH (12:24)
[2020-11-14] MEDS: CITALOPRAM HYDROBROMIDE 20 MG TAB PO SCH (12:24)
[2020-11-14] MEDS: ENOXAPARIN 40 MG/0.4 ML SYRINGE SQ SCH (12:24)
[2020-11-14] MEDS: ISOSORBIDE MONONITRATE ER 30 MG TAB.ER.24H PO SCH (12:24)
[2020-11-14] MEDS: ASPIRIN 81 MG PO SCH (12:24)
[2020-11-14] MEDS: PANTOPRAZOLE 40 MG TABLET PO SCH (12:24)
[2020-11-14] MEDS: ATORVASTATIN 20 MG TAB PO SCH (12:24)
[2020-11-14] MEDS: methylPREDNISolone SOD SUCCI 40 MG/ML 1 ML VIAL IV SCH ×2 (12:26→20:25)
[2020-11-14] MEDS: SIMETHICONE 40 MG/0.6 ML DROPS 2,000 MG/30 ML BOTTLE PO SCH ×3 (12:54→20:25)
--- NOTE | 2020-11-14 13:08 | P.PN ---
Subjective Progress Note Date: 11/14/20 Patient was seen and evaluated by me in the ICU. She was on BiPAP. She appeared restless and was trying to pull the mask. Nursing staff informing the patient was started on BiPAP secondary to worsening respiratory status. Objective - Vital Signs Vital signs: Vital Signs Temp 97.4 F L 11/14/20 09:59 Pulse 65 11/14/20 12:40 Resp 24 11/14/20 10:45 BP 149/67 11/14/20 10:45 Pulse Ox 93 L 11/14/20 10:45 Intake & Output 11/13/20 11/14/20 11/14/20 18:59 06:59 18:59 Intake Total 950 Output Total 400 350 205 Balance -400 -350 745 Intake: IV 950 Output: Urine 400 350 200 Estimated Blood Loss 5 Other: Voiding Method Indwelling Catheter Indwelling Catheter - Exam General: The patient is awak but appeared restless. BiPAP in place. Eye: there is normal conjunctiva bilaterally. Neck: The neck is supple, there is no JVD. Cardiovascular: Normal S1-S2, no S3-S4, no murmurs. Respiratory: Lungs clear to anterior chest auscultation bilaterally Gastrointestinal: Abdomen is soft, nontender Musculoskeletal: There is no pedal edema. Skin: Skin is warm and dry - Labs CBC & Chem 7: 11/14/20 06:03 11/14/20 06:03 Labs: Abnormal Lab Results - Last 24 Hours (Table) 11/14/20 11/14/20 11/14/20 Range/Units 06:03 06:03 11:21 WBC 25.33 H (4.50-10.00) X 10*3/uL RBC 3.83 L (4.10-5.20) X 10*6/uL Hgb 10.1 L (12.0-15.0) g/dL Hct 32.9 L (37.2-46.3) % MCH 26.4 L (27.0-32.0) pg MCHC 30.7 L (32.0-37.0) g/dL RDW 16.3 H (11.5-14.5) % Absolute Nucleated RBC 0.03 H (0.00-0.00) X 10*3/uL Immature Gran # 0.56 H (0.00-0.04) X 10*3/uL Neutrophils # 22.23 H (1.80-7.70) X 10*3/uL Monocytes # 1.10 H (0.20-1.00) X 10*3/uL Eosinophils # 0 L (0.04-0.35) X 10*3/uL NRBC/100 WBC Diff 0.1 H (0.0-0.0) /100 WBCS Sodium 146 H (135-145) mmol/L Chloride 113 H (96-109) mmol/L BUN 38.0 H (9.0-27.0) mg/dL BUN/Creatinine Ratio 47.50 H (12.00-20.00) Ratio Glucose 130 H (70-110) mg/dL POC Glucose (mg/dL) 147 H (75-99) mg/dL AST 63 H (13-35) U/L ALT 79 H (8-44) U/L Alkaline Phosphatase 210 H (41-126) U/L Total Protein 5.2 L (6.2-8.2) g/dL Albumin 3.00 L (3.80-4.90) g/dL Albumin/Globulin Ratio 1.36 L (1.60-3.17) g/dL Microbiology - Last 24 Hours (Table) 11/12/20 16:20 Urine Culture - Final Urine,Clean Catch 11/11/20 16:40 Blood Culture - Preliminary Blood No Growth after 48 hours 11/11/20 15:41 Urine Culture - Final Urine,Clean Catch Escherichia coli
--- NOTE | 2020-11-14 13:23 | P.PN ---
Subjective Progress Note Date: 11/14/20 Principal diagnosis: Acute cholecystitis and right upper quadrant pain This is a 80-year-old white female patient with past history of COPD on home oxygen at 3 L, hypertension, hyperlipidemia, GERD, urinary tract infections, who was recently hospitalized from 10/16/2020 through 10/23/2020 for acute pancreatitis, and ultrasound of the gallbladder showed gallbladder sludge and po sitive sonographic Hernandez sign, and urinary tract infection. During that admission we saw the patient for acute exacerbation of COPD in addition to the above mentioned complaints. Patient was treated with steroids, nebulized bronchodilators. Her maintenance inhaler at home is Trelegy. Patient's acute pancreatitis was thought to be possibly related to regular alcohol intake. And patient reported drinking one or 2 large glasses of wine on a daily basis. Her liver enzymes improved during that admission, abdominal pain improved, she was discharged home on 10/21/2020. On 11/11/2020 patient returned to the emergency department for evaluation of right-sided abdominal pain, and diarrhea for the past few days. Patient apparently failed to follow-up with any of her doctors as recommended. She did finish her antibiotics for the urinary tract infection. Patient reports 5-6 bouts of diarrhea on a daily basis. She still complains of right upper quadrant pain which is very sharp consistent, rated 8 out of 10. She denied any radiation. Denied any fever or chills, no chest pain. She did report some mild nausea. Denied any dysuria. Her KUB abdomen showed no acute abnormality. Lung bases showed possible interstitial changes, no evidence of pneumoperitoneum or bowel obstruction. Ultrasound of gallbladder showed cholelithiasis with no acute cholecystitis, fatty infiltration of the liver. Initial blood work showed elevated white count of 22.8, hemoglobin was 11.3, INR was 1.0, sodium was 134, the rest of electrolytes and renal profile were fairly unremarkable with the exception of BUN being elevated at 36, her liver enzymes showed total bilirubin of 0.6, AST of 139, ALT of 114, alkaline phosphatase is 163. Amylase and lipase were within normal limits at 33 and 27 respectively. Urinalysis showed turbid urine, with large amount of leuk trase, many bacteria, and white blood cells in clumps. Urine culture was sent and showed a gram- negative bacilli, cultures pending, patient was started on Zosyn. She is on Symbicort and DuoNeb breathing treatments. Patient is having ongoing sharp right upper quadrant abdominal pain. Surgical services were consulted and patient is being scheduled for robotic cholecystectomy with Dr. Vitale. We were asked to see the patient for clearance for surgery from pulmonary perspective, we don't have a chest x-ray from this admission, patient is bronchospastic she does have congestive cough on today's exam, she is on 4 L of oxygen and the pulse ox 90 and at 92%. She is afebrile, she is having significant right upper quadrant abdominal pain, we will go ahead and clear the patient for surgery, we'll continue to closely follow the patient in the postoperative period Patient was reevaluated today on 11/14/2020, patient is now status post robotic extensive lysis of adhesions robotic cholecystectomy and placement of #19 drain right upper quadrant. Patient was found to have severe intra-abdominal adhesions with omentum adhering to abdominal wall and she underwent extensive lysis of adhesions over [address] Cartagena. She was also noted to have bile staining right upper quadrant including a decompressed g allbladder consistent with acute cholecystitis she was also found to have right upper quadrant peritonitis and peritoneal fluid was obtained for cultures. At any rate patient was sent back to the ICU after her surgery, she was noted to be and a bit of respiratory distress, and I recommended patient on BiPAP with IPAP of 12 EPAP of 6, and FiO2 of 35%. Patient is already on antibiotics, she is als o on bronchodilators, and I plan to monitor the patient in the ICU for at least the next 24 hours, if her condition gets any worse, patient could be intubated and placed on mechanical ventilation. Apparently while she was on the recovery room, her status was marginal, and the intubating the patient was considered but felt not to do so unless the patient gets any worse. Patient is lethargic, coul d not get adequate history from the patient today WBC count remains elevated at 25.33. Hemoglobin is 10.1. Electrolytes are normal renal profile is normal, chest x-ray is pending. Previous x-ray showed bibasilar atelectasis Objective - Vital Signs Vital signs: Vital Signs Temp 97.4 F L 11/14/20 09:59 Pulse 58 L 11/14/20 13:00 Resp 18 11/14/20 13:00 BP 142/52 11/14/20 13:00 Pulse Ox 95 11/14/20 13:00 Intake & Output 11/13/20 11/14/20 11/14/20 18:59 06:59 18:59 Intake Total 950 Output Total 400 350 205 Balance -400 -350 745 Intake: IV 950 Output: Urine 400 350 200 Estimated Blood Loss 5 Other: Voiding Method Indwelling Catheter Indwelling Catheter - Exam GENERAL EXAM: Revealed 80-year-old female, restless and bed, agitated, in mild respiratory distress on nasal cannula, switched to BiPAP in the ICU. Head: Atraumatic, normocephalic. HEENT: PERRLA, EOMI, anicteric, no neck masses, dry mucous membranes, throat is clear. CHEST: Symmetrical chest expansion. LUNGS: Rhonchi noted bilaterally. No wheezing. No crackles. CVS: Normal S1 and S2, no S3 gallop. No murmur. ABDOMEN: Postsurgical soft slightly tender to palpation. EXTREMITIES: Good pulses bilaterally no clubbing edema or SKIN: No rashes CENTRAL NERVOUS SYSTEM: Lethargic, however arousable, follows simple instructions only. Psychiatric: Blunted mood and affect, confused - Labs CBC & Chem 7: 11/14/20 06:03 11/14/20 06:03 Labs: Abnormal Lab Results - Last 24 Hours (Table) 11/14/20 11/14/20 11/14/20 Range/Units 06:03 06:03 11:21 WBC 25.33 H (4.50-10.00) X 10*3/uL RBC 3.83 L (4.10-5.20) X 10*6/uL Hgb 10.1 L (12.0-15.0) g/dL Hct 32.9 L (37.2-46.3) % MCH 26.4 L (27.0-32.0) pg MCHC 30.7 L (32.0-37.0) g/dL RDW 16.3 H (11.5-14.5) % Absolute Nucleated RBC 0.03 H (0.00-0.00) X 10*3/uL Immature Gran # 0.56 H (0.00-0.04) X 10*3/uL Neutrophils # 22.23 H (1.80-7.70) X 10*3/uL Monocytes # 1.10 H (0.20-1.00) X 10*3/uL Eosinophils # 0 L (0.04-0.35) X 10*3/uL NRBC/100 WBC Diff 0.1 H (0.0-0.0) /100 WBCS Sodium 146 H (135-145) mmol/L Chloride 113 H (96-109) mmol/L BUN 38.0 H (9.0-27.0) mg/dL BUN/Creatinine Ratio 47.50 H (12.00-20.00) Ratio Glucose 130 H (70-110) mg/dL POC Glucose (mg/dL) 147 H (75-99) mg/dL AST 63 H (13-35) U/L ALT 79 H (8-44) U/L Alkaline Phosphatase 210 H (41-126) U/L Total Protein 5.2 L (6.2-8.2) g/dL Albumin 3.00 L (3.80-4.90) g/dL Albumin/Globulin Ratio 1.36 L (1.60-3.17) g/dL Microbiology - Last 24 Hours (Table) 11/12/20 16:20 Urine Culture - Final Urine,Clean Catch 11/11/20 16:40 Blood Culture - Preliminary Blood No Growth after 48 hours 11/11/20 15:41 Urine Culture - Final Urine,Clean Catch Escherichia coli Assessment and Plan Assessment: Impression: Status post robotic cholecystectomy, extensive lysis of adhesions, placement of right upper quadrant drain. Postoperative day #0. Acute cholecystitis. History of severe underlying COPD. Acute on chronic hypoxic respiratory failure secondary to COPD. Acute urinary tract infection Recent hospitalization for acute pancreatitis Medical noncompliance. History of alcohol abuse. Hypertension. Former smoker. Recommendation: Continue to monitor the patient in the ICU. Continue antibiotics Continue bronchodilators Placed patient on BiPAP, and titrate accordingly. Continue incentive spirometry. Continued ciwa protocol. Continue GI and DVT prophylaxis. If her clinical condition gets any worse, patient could be intubated and mechanically ventilated. However will try to manage the patient with BiPAP for now. Ecchymosis is definitely guarded. We'll continue to follow Time with Patient: Less than 30
[2020-11-14 13:30] LABS: Albumin 2.7 g/dL (3.5-5.0); Calcium 9.3 mg/dL (8.4-10.2); Potassium 4.3 mmol/L (3.5-5.1); Total Bilirubin 0.5 mg/dL (0.2-1.3); Total Protein 5.4 g/dL (6.3-8.2)
[2020-11-14 13:36] LABS: Basophils # (A) 0.1 k/uL (0-0.2); Basophils % (A) 0 %; Eosinophils % (A) 0 %; HCT 37.3 % (34.0-46.0); HGB 10.8 gm/dL (11.4-16.0); Hypochromasia Marked; Lymphocytes # (A) 1.3 k/uL (1.0-4.8); Lymphocytes % (A) 5 %; MCH 25.8 pg (25.0-35.0); Mean Platelet Volume 10.7; Monocytes # (A) 1.1 k/uL (0-1.0); Monocytes % (A) 4 %; Neutrophils # (A) 24.3 k/uL (1.3-7.7); Neutrophils % (A) 91 %; Platelet Count 294 k/uL (150-450); RDW 15.1 % (11.5-15.5); WBC 26.8 k/uL (3.8-10.6)
--- NOTE | 2020-11-14 13:38 | XR ---
EXAMINATION TYPE: XR chest 1V portable DATE OF EXAM: 11/14/2020 COMPARISON: 11/13/2020 HISTORY: Short of breath TECHNIQUE: FINDINGS: There is no heart failure. There is some coarsening of interstitial markings in the lower l nighat reynoso. There is no pleural effusion. There are no hilar masses. Thoracic aorta is atheromatous. IMPRESSION: Mild fibrotic changes at the lung bases. No heart failure. No significant change compared to recent exam.
--- NOTE | 2020-11-14 14:34 | P.PN ---
Progress Note - Text Progress Note Date: 11/14/20 Patient sent to ICU per anesthesia. Notified by nurse regarding ANITA drain. Patient had bilious fluid in the right upper quadrant with peritonitis prior to removal of gallbladder, localized. Questionable abscess along right anterior surface of liver surface. ANITA drain left for pre-existing peritonitis with drainage of right upper quadrant fluid collection. Monitor WBC.
[2020-11-14] MEDS: VERAPAMIL SR 180 MG TABLET.ER PO SCH (19:31)
[2020-11-14] MEDS: MORPHINE SULFATE 4 MG/ML SYRINGE IV PRN (22:53)
[2020-11-14] MEDS ORDERED: hydrALAZINE HCL 20 MG/ML 1 ML VIAL IVP STA (23:47)
[2020-11-15 03:59] LABS: Basophils % (A) 0 %; Eosinophils % (A) 0 %; HCT 33.6 % (34.0-46.0); HGB 10.5 gm/dL (11.4-16.0); Hypochromasia Marked; Lymphocytes # (A) 1.1 k/uL (1.0-4.8); Lymphocytes % (A) 5 %; MCH 26.7 pg (25.0-35.0); MCHC 31.2 g/dL (31.0-37.0); MCV 85.4 fL (80.0-100.0); Mean Platelet Volume 9.8; Monocytes # (A) 0.8 k/uL (0-1.0); Monocytes % (A) 4 %; Neutrophils # (A) 19.8 k/uL (1.3-7.7); Neutrophils % (A) 91 %; Platelet Count 277 k/uL (150-450); RBC 3.93 m/uL (3.80-5.40); RDW 15.3 % (11.5-15.5); WBC 21.8 k/uL (3.8-10.6)
[2020-11-15 04:14] LABS: Albumin 2.6 g/dL (3.5-5.0); Calcium 9.7 mg/dL (8.4-10.2); Total Bilirubin 0.5 mg/dL (0.2-1.3); Total Protein 5.2 g/dL (6.3-8.2)
--- NOTE | 2020-11-15 07:27 | XR ---
EXAMINATION TYPE: XR chest 1V portable DATE OF EXAM: 11/15/2020 HISTORY: Shortness of breath. COMPARISON: 11/14/2020 TECHNIQUE: Single view of the chest is submitted. FINDINGS: Demonstrated are scattered senescent parenchymal change. There is no evidence for focal infiltrate. The heart is stable. Hilar and mediastinal structures are within normal limits. Degenerative changes are seen of the dorsal spine. IMPRESSION: 1. Chronic changes without evidence for acute pulmonary disease.
[2020-11-15] MEDS ORDERED: LABETALOL 5 MG/ML VIAL MDV IVP PRN (08:05)
[2020-11-15] MEDS: IPRATROPIUM-ALBUTEROL 3 ML NEB INHALATION SCH ×3 (08:30→21:59)
[2020-11-15] MEDS: SYMBICORT 80-4.5 MCG INHALER INHALATION SCH ×2 (08:31→21:59)
[2020-11-15] MEDS: PIPERACILLIN-TAZOBACTAM 3.375 GM in SODIUM CHLORIDE 0.9% 100 ML IVPB SCH ×2 (08:52→16:07)
[2020-11-15] MEDS: SIMETHICONE 40 MG/0.6 ML DROPS 2,000 MG/30 ML BOTTLE PO SCH ×4 (08:53→19:42)
[2020-11-15] MEDS: PANTOPRAZOLE 40 MG/10 ML VIAL IVP SCH (08:54)
[2020-11-15] MEDS: methylPREDNISolone SOD SUCCI 40 MG/ML 1 ML VIAL IV SCH ×2 (08:54→19:42)
[2020-11-15] MEDS: ENOXAPARIN 40 MG/0.4 ML SYRINGE SQ SCH (08:54)
[2020-11-15] MEDS: LOSARTAN 50 MG TAB PO SCH (08:55)
[2020-11-15] MEDS: ASPIRIN 81 MG PO SCH (08:55)
[2020-11-15] MEDS: ATORVASTATIN 20 MG TAB PO SCH (08:55)
[2020-11-15] MEDS: CITALOPRAM HYDROBROMIDE 20 MG TAB PO SCH (08:55)
[2020-11-15] MEDS: ISOSORBIDE MONONITRATE ER 30 MG TAB.ER.24H PO SCH (08:55)
[2020-11-15] MEDS: DEXTROSE 5% IN WATER 1,000 ML IV SCH ×2 (10:45→19:43)
[2020-11-15] MEDS: CLEVIDIPINE BUTYRATE 25 MG in EMPTY BAG 1 BAG IV SCH ×2 (10:45→19:44)
--- NOTE | 2020-11-15 12:50 | P.PN ---
Subjective Progress Note Date: 11/15/20 Patient is awake and alert today. She is on oxygen via nasal cannula. She denies shortness of breath. She passed swallow study this morning. She is yet to try some food. No acute events overnight reported by nursing staff. Blood pressure still not well controlled. Objective - Vital Signs Vital signs: Vital Signs Temp 99.4 F 11/15/20 08:00 Pulse 81 11/15/20 10:00 Resp 18 11/15/20 10:00 BP 174/66 11/15/20 10:00 Pulse Ox 96 11/15/20 10:00 Intake & Output 11/14/20 11/15/20 11/15/20 18:59 06:59 18:59 Intake Total 1170 240 160 Output Total 440 645 170 Balance 730 -405 -10 Weight 85.4 kg Intake: IV 1070 240 160 0.9 120 240 60 Piperacillin-Tazobactam 3 100 .375 gm In Sodium Chloride 0.9% 100 ml @ 25 mls/hr IVPB Q8HR ANTWON Rx# :[id number] Intake, IV Titration 100 Amount Piperacillin-Tazobactam 3 100 .375 gm In Sodium Chloride 0.9% 100 ml @ 25 mls/hr IVPB Q8HR ANTWON Rx# :[id number] Output: Drainage 40 60 Abdomen 40 60 Urine 395 585 170 Estimated Blood Loss 5 Other: Voiding Method Indwelling Catheter Indwelling Catheter Indwelling Catheter - Exam General: The patient is awake and alert, in no distress Eye: there is normal conjunctiva bilaterally. Neck: The neck is supple, there is no JVD. Cardiovascular: Normal S1-S2, no S3-S4, no murmurs. Respiratory: Lungs clear to auscultation bilaterally Gastrointestinal: Abdomen is soft, nontender Musculoskeletal: There is no pedal edema. Neurological:. Speech is normal. Skin: Skin is warm and dry - Labs CBC & Chem 7: 11/15/20 02:51 11/15/20 02:51 Labs: Abnormal Lab Results - Last 24 Hours (Table) 11/14/20 11/14/20 11/15/20 Range/Units 11:48 11:48 02:51 WBC 26.8 H 21.8 H (3.8-10.6) k/uL Hgb 10.8 L 10.5 L (11.4-16.0) gm/dL Hct 33.6 L (34.0-46.0) % MCHC 29.0 L (31.0-37.0) g/dL Neutrophils # 24.3 H 19.8 H (1.3-7.7) k/uL Monocytes # 1.1 H (0-1.0) k/uL Sodium 148 H (137-145) mmol/L Chloride 116 H (98-107) mmol/L Carbon Dioxide 21 L (22-30) mmol/L BUN 37 H (7-17) mg/dL Glucose 146 H (74-99) mg/dL Magnesium (1.6-2.3) mg/dL AST 69 H (14-36) U/L ALT 71 H (4-34) U/L Alkaline Phosphatase 213 H (38-126) U/L Total Protein 5.4 L (6.3-8.2) g/dL Albumin 2.7 L (3.5-5.0) g/dL 11/15/20 11/15/20 Range/Units 02:51 10:58 WBC (3.8-10.6) k/uL Hgb (11.4-16.0) gm/dL Hct (34.0-46.0) % MCHC (31.0-37.0) g/dL Neutrophils # (1.3-7.7) k/uL Monocytes # (0-1.0) k/uL Sodium 150 H (137-145) mmol/L Chloride 121 H (98-107) mmol/L Carbon Dioxide 19 L (22-30) mmol/L BUN 47 H (7-17) mg/dL Glucose 129 H (74-99) mg/dL Magnesium 2.4 H (1.6-2.3) mg/dL AST 103 H (14-36) U/L ALT 67 H (4-34) U/L Alkaline Phosphatase 212 H (38-126) U/L Total Protein 5.2 L (6.3-8.2) g/dL Albumin 2.6 L (3.5-5.0) g/dL Microbiology - Last 24 Hours (Table) 11/14/20 09:40 Gram Stain - Preliminary Peritoneal Fluid Body Fluid Culture - Preliminary 11/14/20 09:40 Anaerobic Culture - Preliminary Peritoneal Fluid 11/14/20 09:40 Fungal Culture - Preliminary Peritoneal Fluid 11/11/20 16:40 Blood Culture - Preliminary Blood No Growth after 72 hours Assessment and Plan Assessment: 1. Acute cholecystitis: Status post cholecystectomy with lysis of adhesions. Postoperative care per general surgery. 2. Uncomplicated UTI, currently on IV Zosyn day #4. Urine culture grew E. coli. Would discontinue antibiotics tomorrow. 3. Obstructive uropathy with evidence of urinary retention on bladder scan. Status post Young catheter insertion. We will attempt voiding trial after surgery 4. Underlying COPD with chronic hypoxic respiratory failure on 3 L of oxygen at home. Now with acute exacerbation managed by pulmonology. Currently on IV Solu-Medrol and bronchodilators. 5. Hypernatremia: IV fluids changed to D5 water. We'll repeat lab work in the morning. 6. Chronic medical problems, essential hypertension, hyperlipidemia, GERD 7. DVT prophylaxis with subcu Lovenox 8. CODE STATUS: Patient is full code Today, I reviewed her medication list and lab work results. Continue current regimen. Repeat lab work in the morning.
--- NOTE | 2020-11-15 13:19 | P.PN ---
Subjective Progress Note Date: 11/15/20 Principal diagnosis: Her granddaughter is at bedside. She is now on nasal cannula, off Bipap. She is awake. No complaints of generalized or localized pain. Swallow assessment compl eted earlier and passed. She denies appetite. Her family reports they took her dentures home. ABDOMEN: ANITA is bilious. No peritonitis. Mild tenderness right upper quadrant. (Patient was pulling on ANITA tubing earlier) LABS: WBC decreasing from over 25,000 to over 21,000. LFTs trending down. ASSESSMENT: 1. Sepsis 2. Acute cholecystitis 3. Right upper quadrant peritonitis PLAN: 1. Order dysphagia diet 2. Monitor LFTs 3. Send cultures from [facility] - Vital Signs Vital signs: Vital Signs Temp 99.4 F 11/15/20 08:00 Pulse 77 11/15/20 13:03 Resp 18 11/15/20 10:00 BP 174/66 11/15/20 10:00 Pulse Ox 96 11/15/20 10:00 Intake & Output 11/14/20 11/15/20 11/15/20 18:59 06:59 18:59 Intake Total 1170 240 160 Output Total 440 645 170 Balance 730 -405 -10 Weight 85.4 kg Intake: IV 1070 240 160 0.9 120 240 60 Piperacillin-Tazobactam 3 100 .375 gm In Sodium Chloride 0.9% 100 ml @ 25 mls/hr IVPB Q8HR [facility] Rx# :[id number] Intake, IV Titration 100 Amount Piperacillin-Tazobactam 3 100 .375 gm In Sodium Chloride 0.9% 100 ml @ 25 mls/hr IVPB Q8HR [facility] Rx# :[id number] Output: Drainage 40 60 Abdomen 40 60 Urine 395 585 170 Estimated Blood Loss 5 Other: Voiding Method Indwelling Catheter Indwelling Catheter Indwelling Catheter - Labs CBC & Chem 7: 11/15/20 02:51 11/15/20 02:51 Labs: Abnormal Lab Results - Last 24 Hours (Table) 11/14/20 11/14/20 11/15/20 Range/Units 11:48 11:48 02:51 WBC 26.8 H 21.8 H (3.8-10.6) k/uL Hgb 10.8 L 10.5 L (11.4-16.0) gm/dL Hct 33.6 L (34.0-46.0) % MCHC 29.0 L (31.0-37.0) g/dL Neutrophils # 24.3 H 19.8 H (1.3-7.7) k/uL Monocytes # 1.1 H (0-1.0) k/uL Sodium 148 H (137-145) mmol/L Chloride 116 H (98-107) mmol/L Carbon Dioxide 21 L (22-30) mmol/L BUN 37 H (7-17) mg/dL Glucose 146 H (74-99) mg/dL Magnesium (1.6-2.3) mg/dL AST 69 H (14-36) U/L ALT 71 H (4-34) U/L Alkaline Phosphatase 213 H (38-126) U/L Total Protein 5.4 L (6.3-8.2) g/dL Albumin 2.7 L (3.5-5.0) g/dL 11/15/20 11/15/20 Range/Units 02:51 10:58 WBC (3.8-10.6) k/uL Hgb (11.4-16.0) gm/dL Hct (34.0-46.0) % MCHC (31.0-37.0) g/dL Neutrophils # (1.3-7.7) k/uL Monocytes # (0-1.0) k/uL Sodium 150 H (137-145) mmol/L Chloride 121 H (98-107) mmol/L Carbon Dioxide 19 L (22-30) mmol/L BUN 47 H (7-17) mg/dL Glucose 129 H (74-99) mg/dL Magnesium 2.4 H (1.6-2.3) mg/dL AST 103 H (14-36) U/L ALT 67 H (4-34) U/L Alkaline Phosphatase 212 H (38-126) U/L Total Protein 5.2 L (6.3-8.2) g/dL Albumin 2.6 L (3.5-5.0) g/dL Microbiology - Last 24 Hours (Table) 11/14/20 09:40 Gram Stain - Preliminary Peritoneal Fluid Body Fluid Culture - Preliminary 11/14/20 09:40 Anaerobic Culture - Preliminary Peritoneal Fluid 11/14/20 09:40 Fungal Culture - Preliminary Peritoneal Fluid 11/11/20 16:40 Blood Culture - Preliminary Blood No Growth after 72 hours
--- NOTE | 2020-11-15 13:25 | P.PN ---
Subjective Progress Note Date: 11/15/20 This is a 80-year-old white female patient with past history of COPD on home oxygen at 3 L, hypertension, hyperlipidemia, GERD, urinary tract infections, who was recently hospitalized from 10/16/2020 through 10/23/2020 for acute pancreatitis, and ultrasound of the gallbladder showed gallbladder sludge and positive sonographic Hernandez sign, and urinary tract infection. During that admission we saw the patient for acute exacerbation of COPD in addition to the above mentioned complaints. Patient was treated with steroids, nebulized bronchodilators. Her maintenance inhaler at home is Trelegy. Patient's acute pancreatitis was thought to be possibly related to regular alcohol intake. And patient reported drinking one or 2 large glasses of wine on a daily basis. Her liver enzymes improved during that admission, abdominal pain improved, she was discharged home on 10/21/2020. On 11/11/2020 patient returned to the emergency department for evaluation of right-sided abdominal pain, and diarrhea for the past few days. Patient apparently failed to follow-up with any of her doctors as recommended. She did finish her antibiotics for the urinary tract infection. Patient reports 5-6 bouts of diarrhea on a daily basis. She still complains of right upper quadrant pain which is very sharp consistent, rated 8 out of 10. She denied any radiation. Denied any fever or chills, no chest pain. She did report some mild nausea. Denied any dysuria. Her KUB abdomen showed no acute abnormality. Lung bases showed possible interstitial changes, no evidence of pneumoperitoneum or bowel obstruction. Ultrasound of gallbladder showed cholelithiasis with no acute cholecystitis, fatty infiltration of the liver. Initial blood work showed elevated white count of 22.8, hemoglobin was 11.3, INR was 1.0, sodium was 134, the rest of electrolytes and renal profile were fairly unremarkable with the exception of BUN being elevated at 36, her liver enzymes showed total bilirubin of 0.6, AST of 139, ALT of 114, alkaline phosphatase is 163. Amylase and lipase were within normal limits at 33 and 27 respectively. Urinalysis showed turbid urine, with large amount of leuk trase, many bacteria, and white blood cells in clumps. Urine culture was sent and showed a gram- negative bacilli, cultures pending, patient was started on Zosyn. She is on Symbicort and DuoNeb breathing treatments. Patient is having ongoing sharp right upper quadrant abdominal pain. Surgical services were consulted and patient is being scheduled for robotic cholecystectomy with Dr. Vitale. We were asked to see the patient for clearance for surgery from pulmonary perspective, we don't have a chest x-ray from this admission, patient is bronchospastic she does have congestive cough on today's exam, she is on 4 L of oxygen and the pulse ox 90 and at 92%. She is afebrile, she is having significant right upper quadrant abdominal pain, we will go ahead and clear the patient for surgery, we'll continue to closely follow the patient in the postoperative period Patient was reevaluated today on 11/14/2020, patient is now status post robotic extensive lysis of adhesions robotic cholecystectomy and placement of #19 drain right upper quadrant. Patient was found to have severe intra-abdominal adhesions with omentum adhering to abdominal wall and she underwent extensive lysis of adhesions over [address] Cartagena. She was also noted to have bile staining right upper quadrant including a decompressed gallbladder consistent with acute cholecystitis she was also found to have right upper quadrant peritonitis and peritoneal fluid was obtained for cultures. At any rate patient was sent back to the ICU after her surgery, she was noted to be and a bit of respiratory distress, and I recommended patient on BiPAP with IPAP of 12 EPAP of 6, and FiO2 of 35%. Patient is already on antibiotics, she is also on bronchodilators, and I plan to monitor the patient in the ICU for at least the next 24 hours, if her condition gets any worse, patient could be intubated and placed on mechanical ventilation. Apparently while she was on the recovery room, her status was marginal, and the intubating the patient was considered but felt not to do so unless the patient gets any worse. Patient is lethargic, could not get adequate history from the patient today WBC count remains elevated at 25.33. Hemoglobin is 10.1. Electrolytes are normal renal profile is normal, chest x-ray is pending. Previous x-ray showed bibasilar atelectasis The patient is seen today 11/15/2020 in follow-up in the intensive care unit. She is currently resting fairly comfortably in bed. Awake. Currently on BiPAP 12/6 and 40% FiO2. Chest x-ray reveals evidence of chronic changes but no acute pulmonary process. She is having issues with hypertension. She was given labetalol earlier. His 0.9 normal saline at KVO. Abdominal dressing is dry and intact. ANITA drain remains in place.. Female fluid cultures are pending. Urine culture pending. Previous culture positive for E. coli. White count 21.8. Hemoglobin 10.5. Sodium 150. Potassium 4.0. Bicarb 19. Creatinine 0.99. Glucose 129. AST 103. ALT 67. Alk phos 212. She is continued on DuoNeb inhalations, Symbicort, IV Solu-Medrol. Antibiotics in the form of Zosyn. Lovenox for DVT prophylaxis. [facility] - Vital Signs Vital signs: Vital Signs Temp 99.4 F 11/15/20 08:00 Pulse 77 11/15/20 13:03 Resp 18 11/15/20 10:00 BP 174/66 11/15/20 10:00 Pulse Ox 96 11/15/20 10:00 Intake & Output 11/14/20 11/15/20 11/15/20 18:59 06:59 18:59 Intake Total 1170 240 160 Output Total 440 645 170 Balance 730 -405 -10 Weight 85.4 kg Intake: IV 1070 240 160 0.9 120 240 60 Piperacillin-Tazobactam 3 100 .375 gm In Sodium Chloride 0.9% 100 ml @ 25 mls/hr IVPB Q8HR [facility] Rx# :[id number] Intake, IV Titration 100 Amount Piperacillin-Tazobactam 3 100 .375 gm In Sodium Chloride 0.9% 100 ml @ 25 mls/hr IVPB Q8HR [facility] Rx# :[id number] Output: Drainage 40 60 Abdomen 40 60 Urine 395 585 170 Estimated Blood Loss 5 Other: Voiding Method Indwelling Catheter Indwelling Catheter Indwelling Catheter - Exam GENERAL EXAM: Revealed an 80-year-old female, awake, alert, on BiPAP 04/26 at 40% FiO2, no acute distress. Head: Atraumatic, normocephalic. HEENT: PERRLA, EOMI, anicteric, no neck masses, dry mucous membranes, throat is clear. CHEST: Symmetrical chest expansion. LUNGS: Rhonchi noted bilaterally. No wheezing. No crackles. CVS: Normal S1 and S2, no S3 gallop. No murmur. ABDOMEN: Postsurgical soft slightly tender to palpation. EXTREMITIES: Good pulses bilaterally no clubbing edema or SKIN: No rashes CENTRAL NERVOUS SYSTEM: Awake, follows simple instructions only. Psychiatric: Blunted mood and affect, confused - Labs CBC & Chem 7: 11/15/20 02:51 11/15/20 02:51 Labs: Abnormal Lab Results - Last 24 Hours (Table) 11/14/20 11/14/20 11/15/20 Range/Units 11:48 11:48 02:51 WBC 26.8 H 21.8 H (3.8-10.6) k/uL Hgb 10.8 L 10.5 L (11.4-16.0) gm/dL Hct 33.6 L (34.0-46.0) % MCHC 29.0 L (31.0-37.0) g/dL Neutrophils # 24.3 H 19.8 H (1.3-7.7) k/uL Monocytes # 1.1 H (0-1.0) k/uL Sodium 148 H (137-145) mmol/L Chloride 116 H (98-107) mmol/L Carbon Dioxide 21 L (22-30) mmol/L BUN 37 H (7-17) mg/dL Glucose 146 H (74-99) mg/dL Magnesium (1.6-2.3) mg/dL AST 69 H (14-36) U/L ALT 71 H (4-34) U/L Alkaline Phosphatase 213 H (38-126) U/L Total Protein 5.4 L (6.3-8.2) g/dL Albumin 2.7 L (3.5-5.0) g/dL 11/15/20 11/15/20 Range/Units 02:51 10:58 WBC (3.8-10.6) k/uL Hgb (11.4-16.0) gm/dL Hct (34.0-46.0) % MCHC (31.0-37.0) g/dL Neutrophils # (1.3-7.7) k/uL Monocytes # (0-1.0) k/uL Sodium 150 H (137-145) mmol/L Chloride 121 H (98-107) mmol/L Carbon Dioxide 19 L (22-30) mmol/L BUN 47 H (7-17) mg/dL Glucose 129 H (74-99) mg/dL Magnesium 2.4 H (1.6-2.3) mg/dL AST 103 H (14-36) U/L ALT 67 H (4-34) U/L Alkaline Phosphatase 212 H (38-126) U/L Total Protein 5.2 L (6.3-8.2) g/dL Albumin 2.6 L (3.5-5.0) g/dL Microbiology - Last 24 Hours (Table) 11/14/20 09:40 Gram Stain - Preliminary Peritoneal Fluid Body Fluid Culture - Preliminary 11/14/20 09:40 Anaerobic Culture - Preliminary Peritoneal Fluid 11/14/20 09:40 Fungal Culture - Preliminary Peritoneal Fluid 11/11/20 16:40 Blood Culture - Preliminary Blood No Growth after 72 hours Assessment and Plan Assessment: 1 Acute cholecystitis, status post robotic cholecystectomy, extensive lysis of adhesions, placement of right upper quadrant drain. Postoperative day #1. 2 Hypernatremia, current sodium 150 3 Hypertension requiring Cleviprex infusion 4 Acute on chronic hypoxic respiratory failure secondary to COPD and the currently on BiPAP. 5 Acute urinary tract infection 6 Recent hospitalization for acute pancreatitis 7 Medical noncompliance. 8 History of alcohol abuse. 9 Former smoker Plan: The patient was seen and evaluated by Dr. Lambert Chest x-ray and labs reviewed Continue BiPAP for now Initiate Cleviprex drip for hypertension Change IV fluids to D5W it 100 ML's per hour due to hypernatremia Continue Zosyn Incentive spirometry when off the BiPAP We will watch her here in the ICU another 24 hours I, the cosigning physician, performed a history & physical examination of the patient. Lungs sounds with few scattered rhonchi. Maintaining good O2 saturations in the 90s on BiPAP at 40% FiO2. I discussed the assessment and plan of care with my nurse practitioner, Rita Fernández. I attest to the above note as dictated by her.
[2020-11-15] MEDS: MORPHINE SULFATE 4 MG/ML SYRINGE IV PRN ×2 (15:15→22:31)
[2020-11-15] MEDS: VERAPAMIL SR 180 MG TABLET.ER PO SCH (19:42)
[2020-11-16] MEDS: PIPERACILLIN-TAZOBACTAM 3.375 GM in SODIUM CHLORIDE 0.9% 100 ML IVPB SCH ×4 (00:11→23:38)
[2020-11-16 04:30] LABS: Albumin 2.6 g/dL (3.5-5.0); Calcium 9.5 mg/dL (8.4-10.2); Potassium 4.1 mmol/L (3.5-5.1); Total Bilirubin 0.5 mg/dL (0.2-1.3); Total Protein 5.2 g/dL (6.3-8.2)
[2020-11-16 04:59] LABS: Basophils % (A) 0 %; Eosinophils % (A) 0 %; HCT 33.5 % (34.0-46.0); HGB 10.8 gm/dL (11.4-16.0); Hypochromasia Marked; Lymphocytes % (A) 6 %; MCH 28.1 pg (25.0-35.0); MCHC 32.2 g/dL (31.0-37.0); MCV 87.5 fL (80.0-100.0); Mean Platelet Volume 9.5; Monocytes # (A) 0.5 k/uL (0-1.0); Monocytes % (A) 3 %; Neutrophils # (A) 15.2 k/uL (1.3-7.7); Neutrophils % (A) 90 %; Platelet Count 211 k/uL (150-450); RBC 3.83 m/uL (3.80-5.40); RDW 15.4 % (11.5-15.5); WBC 16.9 k/uL (3.8-10.6)
[2020-11-16] MEDS: DEXTROSE 5% IN WATER 1,000 ML IV SCH ×2 (05:51→21:33)
[2020-11-16] MEDS: IPRATROPIUM-ALBUTEROL 3 ML NEB INHALATION SCH ×3 (07:06→19:46)
[2020-11-16] MEDS: SYMBICORT 80-4.5 MCG INHALER INHALATION SCH ×2 (07:06→19:47)
[2020-11-16] MEDS: ENOXAPARIN 40 MG/0.4 ML SYRINGE SQ SCH (08:04)
[2020-11-16] MEDS: PANTOPRAZOLE 40 MG/10 ML VIAL IVP SCH (08:05)
[2020-11-16] MEDS: SIMETHICONE 40 MG/0.6 ML DROPS 2,000 MG/30 ML BOTTLE PO SCH ×4 (08:09→21:51)
[2020-11-16] MEDS: LOSARTAN 50 MG TAB PO SCH (08:12)
[2020-11-16] MEDS: ASPIRIN 81 MG PO SCH (08:12)
[2020-11-16] MEDS: methylPREDNISolone SOD SUCCI 40 MG/ML 1 ML VIAL IV SCH ×2 (08:13→21:52)
[2020-11-16] MEDS: ATORVASTATIN 20 MG TAB PO SCH (08:13)
[2020-11-16] MEDS: CITALOPRAM HYDROBROMIDE 20 MG TAB PO SCH (08:13)
[2020-11-16] MEDS: ISOSORBIDE MONONITRATE ER 30 MG TAB.ER.24H PO SCH (08:13)
--- NOTE | 2020-11-16 09:30 | P.PN ---
Subjective Progress Note Date: 11/16/20 Principal diagnosis: Urinary tract infection, sepsis, dehydration, cholecystitis. This is a 80-year-old white female patient with past history of COPD on home oxygen at 3 L, hypertension, hyperlipidemia, GERD, urinary tract infections, who was recently hospitalized from 10/16/2020 through 10/23/2020 for acute pancreatitis, and ultrasound of the gallbladder showed gallbladder sludge and positive sonographic Hernandez sign, and urinary tract infection. During that admission we saw the patient for acute exacerbation of COPD in addition to the above mentioned complaints. Patient was treated with steroids, nebulized bronchodilators. Her maintenance inhaler at home is Trelegy. Patient's acute pancreatitis was thought to be possibly related to regular alcohol intake. And patient reported drinking one or 2 large glasses of wine on a daily basis. Her liver enzymes improved during that admission, abdominal pain improved, she was discharged home on 10/21/2020. On 11/11/2020 patient returned to the emergency department for evaluation of right-sided abdominal pain, and diarrhea for the past few days. Patient apparently failed to follow-up with any of her doctors as recommended. She did finish her antibiotics for the urinary tract infection. Patient reports 5-6 bouts of diarrhea on a daily basis. She still complains of right upper quadrant pain which is very sharp consistent, rated 8 out of 10. She denied any radiation. Denied any fever or chills, no chest pain. She did report some mild nausea. Denied any dysuria. Her KUB abdomen showed no acute abnormality. Lung bases showed possible interstitial changes, no evidence of pneumoperitoneum or bowel obstruction. Ultrasound of gallbladder showed cholelithiasis with no acute cholecystitis, fatty infiltration of the liver. Initial blood work showed elevated white count of 22.8, hemoglobin was 11.3, INR was 1.0, sodium was 134, the rest of electrolytes and renal profile were fairly unremarkable with the exception of BUN being elevated at 36, her liver enzymes showed total bilirubin of 0.6, AST of 139, ALT of 114, alkaline phosphatase is 163. Amylase and lipase were within normal limits at 33 and 27 respectively. Urinalysis showed turbid urine, with large amount of leuk trase, many bacteria, and white blood cells in clumps. Urine culture was sent and showed a gram- negative bacilli, cultures pending, patient was started on Zosyn. She is on Symbicort and DuoNeb breathing treatments. Patient is having ongoing sharp right upper quadrant abdominal pain. Surgical services were consulted and patient is being scheduled for robotic cholecystectomy with Dr. Vitale. We were asked to see the patient for clearance for surgery from pulmonary perspective, we don't have a chest x-ray from this admission, patient is bronchospastic she does have congestive cough on today's exam, she is on 4 L of oxygen and the pulse ox 90 and at 92%. She is afebrile, she is having significant right upper quadrant abdominal pain, we will go ahead and clear the patient for surgery, we'll continue to closely follow the patient in the postoperative period Patient was reevaluated today on 11/14/2020, patient is now status post robotic extensive lysis of adhesions robotic cholecystectomy and placement of #19 drain right upper quadrant. Patient was found to have severe intra-abdominal adhesions with omentum adhering to abdominal wall and she underwent extensive lysis of adhesions over [address] Cartagena. She was also noted to have bile staining right upper quadrant including a decompressed gallbladder consistent with acute cholecystitis she was also found to have right upper quadrant peritonitis and peritoneal fluid was obtained for cultures. At any rate patient was sent back to the ICU after her surgery, she was noted to be and a bit of respiratory distress, and I recommended patient on BiPAP with IPAP of 12 EPAP of 6, and FiO2 of 35%. Patient is already on antibiotics, she is also on bronchodilators, and I plan to monitor the patient in the ICU for at least the next 24 hours, if her condition gets any worse, patient could be intubated and placed on mechanical ventilation. Apparently while she was on the recovery room, her status was marginal, and the intubating the patient was considered but felt not to do so unless the patient gets any worse. Patient is lethargic, could not get adequate history from the patient today WBC count remains elevated at 25.33. Hemoglobin is 10.1. Electrolytes are normal renal profile is normal, chest x-ray is pending. Previous x-ray showed bibasilar atelectasis The patient is seen today 11/15/2020 in follow-up in the intensive care unit. She is currently resting fairly comfortably in bed. Awake. Currently on BiPAP 12/6 and 40% FiO2. Chest x-ray reveals evidence of chronic changes but no acute pulmonary process. She is having issues with hypertension. She was given labetalol earlier. His 0.9 normal saline at KVO. Abdominal dressing is dry and intact. ANITA drain remains in place.. Female fluid cultures are pending. Urine culture pending. Previous culture positive for E. coli. White count 21.8. Hemoglobin 10.5. Sodium 150. Potassium 4.0. Bicarb 19. Creatinine 0.99. Glucose 129. AST 103. ALT 67. Alk phos 212. She is continued on DuoNeb inhalations, Symbicort, IV Solu-Medrol. Antibiotics in the form of Zosyn. Lovenox for DVT prophylaxis. Progress note dated 11/16/2020. 80-year-old female, who was admitted back on November 11. Please see the above notes. The patient was admitted with a diagnosis of Escherichia coli urinary tract infection and sepsis, dehydration, and cholecystitis. The patient had a laparoscopic cholecystectomy on November 14. Currently, she is on Zosyn for her E. coli urinary tract infection. She's getting 5 L nasal cannula. He is also getting dextrose, at 100 mL an hour. I did tell the nurse to drop it down to 50 mL an hour. I discussed off the phone with her granddaughter by the name of Bita Malone. I attempted to have a conversation about CODE STATUS with the patient, but she was not able to really respond appropriately. She was somewhat lethargic and somnolent. Anyway, the granddaughter said that the patient would agree to all support short of intubation and mechanical ventilation which I think is very appropriate given her age. White count of 16.9, hemoglobin 10.8, hematocrit 33.5, platelet count 211,000. Sodium 147, calcium is 4.1, chlorides 121, CO2 19, anion gap 7, BUN 50 and creatinine 0.81. No recent chest x-ray to report. Objective - Vital Signs Vital signs: Vital Signs Temp 98.1 F 11/16/20 08:00 Pulse 75 11/16/20 08:00 Resp 23 11/16/20 08:00 BP 138/56 11/16/20 08:00 Pulse Ox 95 11/16/20 08:00 Intake & Output 11/15/20 11/16/20 11/16/20 18:59 06:59 18:59 Intake Total 1145.9 1371.533 375 Output Total 580 560 145 Balance 565.9 811.533 230 Weight 84.8 kg Intake: IV 1140 1320 345 0.9 140 120 20 Dextrose 5% in Water 1, 800 1200 300 000 ml @ 100 mls/hr IV . Q10H [facility] Rx#:[id number] Piperacillin-Tazobactam 3 200 25 .375 gm In Sodium Chloride 0.9% 100 ml @ 25 mls/hr IVPB Q8HR [facility] Rx# :[id number] Intake, IV Titration 5.9 51.533 Amount Clevidipine Butyrate 25 5.9 51.533 mg In Empty Bag 1 bag @ 1 MG/HR 2 mls/hr IV .Q24H [facility] Rx#:[id number] Oral 30 Output: Drainage 40 Abdomen 40 Urine 580 520 145 Other: Voiding Method Indwelling Catheter Indwelling Catheter Indwelling Catheter - Exam No acute distress, lethargic and somnolent. Currently on 5 L nasal cannula. HEENT examination is grossly unremarkable. Neck supple. Full range of motion. No adenopathy thyromegaly or neck vein distention. Cardiovascular examination reveals regular rhythm rate. S1-S2 normal. No S3 or S4. No discernible murmur noted. Heart sounds are very distant. Heart rate 75 bpm. Lungs reveal gurgling respirations. Breath sounds equal. A few scattered rhonchi. No wheezes or crackles. Breath sounds equal. Abdomen soft, without bowel sounds. No masses or tenderness. Extremities are intact. Diffuse edema is noted. No cyanosis or clubbing. Skin is without rash or lesion. Neurologic examination is difficult to assess. She does respond, but seemed very lethargic and somnolent. - Labs CBC & Chem 7: 11/16/20 03:38 11/16/20 03:38 Labs: Abnormal Lab Results - Last 24 Hours (Table) 11/15/20 11/16/20 11/16/20 Range/Units 10:58 03:38 03:38 WBC 16.9 H (3.8-10.6) k/uL Hgb 10.8 L (11.4-16.0) gm/dL Hct 33.5 L (34.0-46.0) % Neutrophils # 15.2 H (1.3-7.7) k/uL Sodium 147 H (137-145) mmol/L Chloride 121 H (98-107) mmol/L Carbon Dioxide 19 L (22-30) mmol/L BUN 50 H (7-17) mg/dL Glucose 175 H (74-99) mg/dL Magnesium 2.4 H (1.6-2.3) mg/dL AST 62 H (14-36) U/L ALT 51 H (4-34) U/L Alkaline Phosphatase 201 H (38-126) U/L Total Protein 5.2 L (6.3-8.2) g/dL Albumin 2.6 L (3.5-5.0) g/dL Microbiology - Last 24 Hours (Table) 11/11/20 16:40 Blood Culture - Preliminary Blood No Growth after 96 hours 11/14/20 09:40 Gram Stain - Preliminary Peritoneal Fluid Body Fluid Culture - Preliminary Assessment and Plan Assessment: 1 Acute cholecystitis, status post robotic cholecystectomy, extensive lysis of adhesions, placement of right upper quadrant drain. Postoperative day #2. 2 Hypernatremia, improved. 3 Hypertension. 4 Acute on chronic hypoxic respiratory failure secondary to COPD and the currently on nasal cannula. 5 Escherichia coli urinary tract infection. 6 Recent hospitalization for acute pancreatitis. 7 Medical noncompliance. 8 History of alcohol abuse. 9 Former smoker. Plan: Progress note dated 11/16/2020. I did speak to the granddaughter. The patient is now a DO NOT INTUBATE. The patient would agree to all other forms of resuscitation short of intubation and mechanical ventilation. The patient is on D5W now at 50 mL an hour. She receiving nasal cannula at 5 L. She is on Zosyn for Escherichia coli urinary tract infection. Labs x-rays a medications are all reviewed. Narcotics are discontinued. Head of bed should be elevated all times. She is currently at risk for aspiration. We will continue to follow and make recommendations where appropriate. Time with Patient: Greater than 30
--- NOTE | 2020-11-16 11:00 | P.PN ---
Subjective Progress Note Date: 11/16/20 CHIEF COMPLAINT: Abdominal pain HISTORY OF PRESENT ILLNESS: Surgical service is following regards to patient's acute cholecystitis. Patient is postop day #2 status post robotic extensive lysis of adhesions, robotic cholecystectomy and placement of ANITA drain right upper quadrant. Patient is lethargic. She is easily awakened. Nursing staff that said that she was awake earlier this morning on talking and was able to eat small amounts of food. Critical care service has adjusted pain medication to Tylenol and Toradol and discontinued his Dilaudid. And patient's CODE STATUS has been changed to a DO NOT INTUBATE. Patient denies any nausea or vomiting. No bowel movement reported. Afebrile. On 4 L nasal cannula. White count is down from 21.8-16.9. Hemoglobin 10.8 LFTs trending down. Fluid cultures from ANITA drain negative so far PHYSICAL EXAM: VITAL SIGNS: Reviewed GENERAL: Well-developed in no acute distress. HEENT: No sclera icterus. Extraocular movements grossly intact. Moist buccal mucosa. Head is atraumatic, normocephalic. Hears conversational speech. No nasal drainage. NECK: Supple without lymphadenopathy. CHEST: Non-labored respirations and equal bilateral excursions. CARDIOVASCULAR: Palpable 2+ radial pulses. ABDOMEN: Soft. Nondistended. Incision sites clean dry and intact. ANITA drain with bilious output MUSCULOSKELETAL: No clubbing or cyanosis. NEUROLOGIC: No focal or lateralizing signs. Cranial nerves II through XII grossly intact. PSYCH: Appropriate affect. Alert and oriented to person, place and time. SKIN: Well perfused. Good skin turgor. ASSESSMENT: 1. Sepsis 2. Acute cholecystitis 3. Peritonitis right upper quadrant 4. Severe intra-abdominal adhesions 5. Ventral umbilical hernia 6. UTI 7. COPD exacerbation 8. Hypernatremia PLAN: -Continue pureed Diet -Continue pain medication -Continue antibiotics -Continue ICU management -Continue supportive care -DVT prophylaxis Lovenox and GI prophylaxis Protonix Physician Case Management Manager note has been reviewed by physician. Signing provider agrees with the documented findings, assessment, and plan of care. Objective - Vital Signs Vital signs: Vital Signs Temp 98.1 F 11/16/20 08:00 Pulse 75 11/16/20 08:00 Resp 23 11/16/20 08:00 BP 138/56 11/16/20 08:00 Pulse Ox 95 11/16/20 08:00 Intake & Output 11/15/20 11/16/20 11/16/20 18:59 06:59 18:59 Intake Total 1145.9 1371.533 375 Output Total 580 560 145 Balance 565.9 811.533 230 Weight 84.8 kg Intake: IV 1140 1320 345 0.9 140 120 20 Dextrose 5% in Water 1, 800 1200 300 000 ml @ 100 mls/hr IV . Q10H [facility] Rx#:[id number] Piperacillin-Tazobactam 3 200 25 .375 gm In Sodium Chloride 0.9% 100 ml @ 25 mls/hr IVPB Q8HR [facility] Rx# :[id number] Intake, IV Titration 5.9 51.533 Amount Clevidipine Butyrate 25 5.9 51.533 mg In Empty Bag 1 bag @ 1 MG/HR 2 mls/hr IV .Q24H [facility] Rx#:[id number] Oral 30 Output: Drainage 40 Abdomen 40 Urine 580 520 145 Other: Voiding Method Indwelling Catheter Indwelling Catheter Indwelling Catheter - Labs CBC & Chem 7: 11/16/20 03:38 11/16/20 03:38 Labs: Abnormal Lab Results - Last 24 Hours (Table) 11/15/20 11/16/20 11/16/20 Range/Units 10:58 03:38 03:38 WBC 16.9 H (3.8-10.6) k/uL Hgb 10.8 L (11.4-16.0) gm/dL Hct 33.5 L (34.0-46.0) % Neutrophils # 15.2 H (1.3-7.7) k/uL Sodium 147 H (137-145) mmol/L Chloride 121 H (98-107) mmol/L Carbon Dioxide 19 L (22-30) mmol/L BUN 50 H (7-17) mg/dL Glucose 175 H (74-99) mg/dL Magnesium 2.4 H (1.6-2.3) mg/dL AST 62 H (14-36) U/L ALT 51 H (4-34) U/L Alkaline Phosphatase 201 H (38-126) U/L Total Protein 5.2 L (6.3-8.2) g/dL Albumin 2.6 L (3.5-5.0) g/dL Microbiology - Last 24 Hours (Table) 11/11/20 16:40 Blood Culture - Preliminary Blood No Growth after 96 hours 11/14/20 09:40 Gram Stain - Preliminary Peritoneal Fluid Body Fluid Culture - Preliminary
[2020-11-16] MEDS: KETOROLAC 15 MG/ML 1 ML VIAL IVP SCH ×3 (11:38→23:37)
--- NOTE | 2020-11-16 13:05 | P.PN ---
Subjective Progress Note Date: 11/16/20 Patient is doing fairly well today. No acute events overnight. Patient denies any pain this morning. Objective - Vital Signs Vital signs: Vital Signs Temp 98.3 F 11/16/20 12:00 Pulse 60 11/16/20 12:00 Resp 23 11/16/20 12:00 BP 151/66 11/16/20 12:00 Pulse Ox 95 11/16/20 12:00 Intake & Output 11/15/20 11/16/20 11/16/20 18:59 06:59 18:59 Intake Total 1145.9 1371.533 750 Output Total 580 560 255 Balance 565.9 811.533 495 Weight 84.8 kg Intake: IV 1140 1320 720 0.9 140 120 20 Dextrose 5% in Water 1, 800 1200 600 000 ml @ 50 mls/hr IV . Q20H [facility] Rx#:[id number] Piperacillin-Tazobactam 3 200 100 .375 gm In Sodium Chloride 0.9% 100 ml @ 25 mls/hr IVPB Q8HR [facility] Rx# :[id number] Intake, IV Titration 5.9 51.533 Amount Clevidipine Butyrate 25 5.9 51.533 mg In Empty Bag 1 bag @ 1 MG/HR 2 mls/hr IV .Q24H [facility] Rx#:[id number] Oral 30 Output: Drainage 40 Abdomen 40 Urine 580 520 255 Other: Voiding Method Indwelling Catheter Indwelling Catheter Indwelling Catheter - Exam General: The patient is awake and alert, in no distress Eye: there is normal conjunctiva bilaterally. Neck: The neck is supple, there is no JVD. Cardiovascular: Normal S1-S2, no S3-S4, no murmurs. Respiratory: Lungs clear to auscultation bilaterally Gastrointestinal: Abdomen is soft, nontender Musculoskeletal: There is no pedal edema. Neurological:. Speech is normal. Skin: Skin is warm and dry - Labs CBC & Chem 7: 11/16/20 03:38 11/16/20 03:38 Labs: Abnormal Lab Results - Last 24 Hours (Table) 11/16/20 11/16/20 Range/Units 03:38 03:38 WBC 16.9 H (3.8-10.6) k/uL Hgb 10.8 L (11.4-16.0) gm/dL Hct 33.5 L (34.0-46.0) % Neutrophils # 15.2 H (1.3-7.7) k/uL Sodium 147 H (137-145) mmol/L Chloride 121 H (98-107) mmol/L Carbon Dioxide 19 L (22-30) mmol/L BUN 50 H (7-17) mg/dL Glucose 175 H (74-99) mg/dL AST 62 H (14-36) U/L ALT 51 H (4-34) U/L Alkaline Phosphatase 201 H (38-126) U/L Total Protein 5.2 L (6.3-8.2) g/dL Albumin 2.6 L (3.5-5.0) g/dL Microbiology - Last 24 Hours (Table) 11/11/20 16:40 Blood Culture - Preliminary Blood No Growth after 96 hours 11/14/20 09:40 Gram Stain - Preliminary Peritoneal Fluid Body Fluid Culture - Preliminary Assessment and Plan Assessment: 1. Acute cholecystitis: Status post cholecystectomy with lysis of adhesions. Postoperative care per general surgery. 2. Uncomplicated UTI: Urine culture grew E. coli. Today is day #5 of antibiotic 3. Obstructive uropathy with evidence of urinary retention on bladder scan. Status post Young catheter insertion. We will attempt voiding trial in the next day or 2 4. Underlying COPD with chronic hypoxic respiratory failure on 3 L of oxygen at home. Now with acute exacerbation managed by pulmonology. Currently on IV Solu-Medrol and bronchodilators. 5. Hypernatremia: IV fluids changed to D5 water. We'll repeat lab work in the morning. 6. Chronic medical problems, essential hypertension, hyperlipidemia, GERD 7. DVT prophylaxis with subcu Lovenox 8. CODE STATUS: Patient is full code Today, I reviewed her medication list and lab work results. Patient may be transferred out of ICU to [facility] care. Continue current regimen. Repeat lab work in the morning.
[2020-11-16 13:47] VITALS: BMI 31.1
[2020-11-16] MEDS: VERAPAMIL SR 180 MG TABLET.ER PO SCH (21:53)
[2020-11-17] MEDS: KETOROLAC 15 MG/ML 1 ML VIAL IVP SCH ×4 (05:49→23:57)
[2020-11-17] MEDS: PIPERACILLIN-TAZOBACTAM 3.375 GM in SODIUM CHLORIDE 0.9% 100 ML IVPB SCH (07:43)
[2020-11-17] MEDS: ISOSORBIDE MONONITRATE ER 30 MG TAB.ER.24H PO SCH (07:43)
[2020-11-17] MEDS: ASPIRIN 81 MG PO SCH (07:43)
[2020-11-17] MEDS: CITALOPRAM HYDROBROMIDE 20 MG TAB PO SCH (07:44)
[2020-11-17] MEDS: ATORVASTATIN 20 MG TAB PO SCH (07:44)
[2020-11-17] MEDS: methylPREDNISolone SOD SUCCI 40 MG/ML 1 ML VIAL IV SCH (07:44)
[2020-11-17] MEDS: PANTOPRAZOLE 40 MG/10 ML VIAL IVP SCH (07:45)
[2020-11-17] MEDS: LOSARTAN 50 MG TAB PO SCH (07:45)
[2020-11-17] MEDS: ENOXAPARIN 40 MG/0.4 ML SYRINGE SQ SCH (07:46)
--- NOTE | 2020-11-17 08:50 | XR ---
EXAMINATION TYPE: XR chest 1V portable DATE OF EXAM: 11/17/2020 HISTORY: Shortness of breath. COMPARISON: 11/15/2020 TECHNIQUE: Single view of the chest is submitted. FINDINGS: Demonstrated are scattered senescent parenchymal change. Increased basilar densities may reflect atelectasis versus developing infiltrate. Correlate clinicall y. The heart is stable. Hilar and mediastinal structures are within normal limits. Degenerative changes are seen of the dorsal spine. IMPRESSION: 1. Increased basilar densities may reflect atelectasis versus developing infiltrate. Correlate clini eloise.
[2020-11-17 09:15] LABS: Basophils % (A) 0 %; Eosinophils % (A) 0 %; HCT 36.3 % (34.0-46.0); HGB 10.7 gm/dL (11.4-16.0); Hypochromasia Marked; Lymphocytes # (A) 1.1 k/uL (1.0-4.8); Lymphocytes % (A) 4 %; MCH 25.7 pg (25.0-35.0); MCHC 29.5 g/dL (31.0-37.0); Mean Platelet Volume 9.9; Monocytes # (A) 0.5 k/uL (0-1.0); Monocytes % (A) 2 %; Neutrophils # (A) 24.9 k/uL (1.3-7.7); Neutrophils % (A) 94 %; Platelet Count 226 k/uL (150-450); RBC 4.17 m/uL (3.80-5.40); RDW 15.5 % (11.5-15.5); WBC 26.6 k/uL (3.8-10.6)
[2020-11-17] MEDS: IPRATROPIUM-ALBUTEROL 3 ML NEB INHALATION SCH ×3 (09:21→19:49)
[2020-11-17] MEDS: SYMBICORT 80-4.5 MCG INHALER INHALATION SCH ×2 (09:21→19:49)
[2020-11-17 09:34] LABS: ALT 46 U/L (4-34); AST 44 U/L (14-36); African American GFR (CKD) 75 (>60 ml/min/1.73 sqM); Albumin 2.7 g/dL (3.5-5.0); Alkaline Phosphatase 187 U/L (38-126); Anion Gap 8 mmol/L; Blood Urea Nitrogen 48 mg/dL (7-17); Calcium 9.9 mg/dL (8.4-10.2); Carbon Dioxide 19 mmol/L (22-30); Chloride 118 mmol/L (98-107); Globulin 2.7 g/dL; Glucose 137 mg/dL (74-99); Non-African American GFR(CKD) 65 (>60 ml/min/1.73 sqM); Sodium 145 mmol/L (137-145); Total Bilirubin 0.5 mg/dL (0.2-1.3); Total Protein 5.4 g/dL (6.3-8.2)
[2020-11-17] MEDS: SIMETHICONE 40 MG/0.6 ML DROPS 2,000 MG/30 ML BOTTLE PO SCH ×4 (10:05→21:49)
[2020-11-17] MEDS ORDERED: metroNIDAZOLE 500 MG TAB PO SCH (10:30)
--- NOTE | 2020-11-17 10:33 | P.PN ---
Subjective Progress Note Date: 11/17/20 Principal diagnosis: Urinary tract infection, sepsis, dehydration, cholecystitis This is a 80-year-old white female patient with past history of COPD on home oxygen at 3 L, hypertension, hyperlipidemia, GERD, urinary tract infections, who was recently hospitalized from 10/16/2020 through 10/23/2020 for acute pancreatitis, and ultrasound of the gallbladder showed gallbladder sludge and positive sonographic Hernandez sign, and urinary tract infection. During that admission we saw the patient for acute exacerbation of COPD in addition to the above mentioned complaints. Patient was treated with steroids, nebulized bronchodilators. Her maintenance inhaler at home is Trelegy. Patient's acute pancreatitis was thought to be possibly related to regular alcohol intake. And patient reported drinking one or 2 large glasses of wine on a daily basis. Her liver enzymes improved during that admission, abdominal pain improved, she was discharged home on 10/21/2020. On 11/11/2020 patient returned to the emergency department for evaluation of right-sided abdominal pain, and diarrhea for the past few days. Patient apparently failed to follow-up with any of her doctors as recommended. She did finish her antibiotics for the urinary tract infection. Patient reports 5-6 bouts of diarrhea on a daily basis. She still complains of right upper quadrant pain which is very sharp consistent, rated 8 out of 10. She denied any radiation. Denied any fever or chills, no chest pain. She did report some mild nausea. Denied any dysuria. Her KUB abdomen showed no acute abnormality. Lung bases showed possible interstitial changes, no evidence of pneumoperitoneum or bowel obstruction. Ultrasound of gallbladder showed cholelithiasis with no acute cholecystitis, fatty infiltration of the liver. Initial blood work showed elevated white count of 22.8, hemoglobin was 11.3, INR was 1.0, sodium was 134, the rest of electrolytes and renal profile were fairly unremarkable with the exception of BUN being elevated at 36, her liver enzymes showed total bilirubin of 0.6, AST of 139, ALT of 114, alkaline phosphatase is 163. Amylase and lipase were within normal limits at 33 and 27 respectively. Urinalysis showed turbid urine, with large amount of leuk trase, many bacteria, and white blood cells in clumps. Urine culture was sent and showed a gram- negative bacilli, cultures pending, patient was started on Zosyn. She is on Symbicort and DuoNeb breathing treatments. Patient is having ongoing sharp right upper quadrant abdominal pain. Surgical services were consulted and patient is being scheduled for robotic cholecystectomy with Dr. Vitale. We were asked to see the patient for clearance for surgery from pulmonary perspective, we don't have a chest x-ray from this admission, patient is bronchospastic she does have congestive cough on today's exam, she is on 4 L of oxygen and the pulse ox 90 and at 92%. She is afebrile, she is having significant right upper quadrant abdominal pain, we will go ahead and clear the patient for surgery, we'll continue to closely follow the patient in the postoperative period Patient was reevaluated today on 11/14/2020, patient is now status post robotic extensive lysis of adhesions robotic cholecystectomy and placement of #19 drain right upper quadrant. Patient was found to have severe intra-abdominal adhesions with omentum adhering to abdominal wall and she underwent extensive lysis of adhesions over [address] Cartagena. She was also noted to have bile staining right upper quadrant including a decompressed gallbladder consistent with acute cholecystitis she was also found to have right upper quadrant peritonitis and peritoneal fluid was obtained for cultures. At any rate patient was sent back to the ICU after her surgery, she was noted to be and a bit of respiratory distress, and I recommended patient on BiPAP with IPAP of 12 EPAP of 6, and FiO2 of 35%. Patient is already on antibiotics, she is also on bronchodilators, and I plan to monitor the patient in the ICU for at least the next 24 hours, if her condition gets any worse, patient could be intubated and placed on mechanical ventilation. Apparently while she was on the recovery room, her status was marginal, and the intubating the patient was considered but felt not to do so unless the patient gets any worse. Patient is lethargic, could not get adequate history from the patient today WBC count remains elevated at 25.33. Hemoglobin is 10.1. Electrolytes are normal renal profile is normal, chest x-ray is pending. Previous x-ray showed bibasilar atelectasis The patient is seen today 11/15/2020 in follow-up in the intensive care unit. She is currently resting fairly comfortably in bed. Awake. Currently on BiPAP 12/6 and 40% FiO2. Chest x-ray reveals evidence of chronic changes but no acute pulmonary process. She is having issues with hypertension. She was given labetalol earlier. His 0.9 normal saline at KVO. Abdominal dressing is dry and intact. ANITA drain remains in place.. Female fluid cultures are pending. Urine culture pending. Previous culture positive for E. coli. White count 21.8. Hemoglobin 10.5. Sodium 150. Potassium 4.0. Bicarb 19. Creatinine 0.99. Glucose 129. AST 103. ALT 67. Alk phos 212. She is continued on DuoNeb inhalations, Symbicort, IV Solu-Medrol. Antibiotics in the form of Zosyn. Lovenox for DVT prophylaxis. Progress note dated 11/16/2020. 80-year-old female, who was admitted back on November 11. Please see the above notes. The patient was admitted with a diagnosis of Escherichia coli urinary tract infection and sepsis, dehydration, and cholecystitis. The patient had a laparoscopic cholecystectomy on November 14. Currently, she is on Zosyn for her E. coli urinary tract infection. She's getting 5 L nasal cannula. He is also getting dextrose, at 100 mL an hour. I did tell the nurse to drop it down to 50 mL an hour. I discussed off the phone with her granddaughter by the name of Bita Malone. I attempted to have a conversation about CODE STATUS with the patient, but she was not able to really respond appropriately. She was somewhat lethargic and somnolent. Anyway, the granddaughter said that the patient would agree to all support short of intubation and mechanical ventilation which I think is very appropriate given her age. White count of 16.9, hemoglobin 10.8, hematocrit 33.5, platelet count 211,000. Sodium 147, calcium is 4.1, chlorides 121, CO2 19, anion gap 7, BUN 50 and creatinine 0.81. No recent chest x-ray to report. On 11/17/2020 patient seen in follow-up on medical surgical floor. She is resting in bed, she seems to be a little dyspneic at rest. She is currently 4 L of oxygen the pulse ox of 97%, she is afebrile, a bit hypertensive this morning, with a blood pressure 189/71. Follow-up chest x-ray today has been reviewed showing increased basilar densities that could reflect atelectasis versus developing infiltrate. Patient continues on antibiotics in the form of Zosyn for urinary tract infection. She continues on breathing treatments. She is on IV steroids with IV Solu-Medrol 40 mg every 12 hours. She denies any increased cough, no chest pain. Today's labs have been reviewed showing white blood cell, 26.6, hemoglobin is 10.7, her serum sodium has improved and is down to 145, and we will discontinue her D5W infusion. Chloride is 118, CO2 is 19, BUN is 48 and creatinine 0.85 on today's labs, her LFTs are also trending down Objective - Vital Signs Vital signs: Vital Signs Temp 97.9 F 11/17/20 08:00 Pulse 77 11/17/20 09:35 Resp 18 11/17/20 09:35 BP 189/71 11/17/20 08:00 Pulse Ox 97 11/17/20 09:21 Intake & Output 11/16/20 11/17/20 11/17/20 18:59 06:59 18:59 Intake Total 1010 400 Output Total 405 660 Balance 605 -260 Weight 84.8 kg Intake: IV 980 0.9 30 Dextrose 5% in Water 1, 750 000 ml @ 50 mls/hr IV . Q20H [facility] Rx#:[id number] Piperacillin-Tazobactam 3 200 .375 gm In Sodium Chloride 0.9% 100 ml @ 25 mls/hr IVPB Q8HR [facility] Rx# :[id number] Oral 30 400 Output: Drainage 60 Abdomen 60 Urine 405 600 Other: Voiding Method Indwelling Catheter Indwelling Catheter - Exam GENERAL EXAM: Alert but confused, 80-year-old white female, on 4 L of oxygen with pulse ox of 97% mildly tachypneic and short of breath at rest, but denies acute distress HEAD: Normocephalic/atraumatic. EYES: Normal reaction of pupils, equal size. Conjunctiva pink, sclera white. NOSE: Clear with pink turbinates. THROAT: No erythema or exudates. NECK: No masses, no JVD, no thyroid enlargement, no adenopathy. CHEST: No chest wall deformity. Symmetrical expansion. LUNGS: Equal air entry with scattered wheezes CVS: Regular rate and rhythm, normal S1 and S2, no gallops, no murmurs, no rubs ABDOMEN: Soft, patient has sharp tenderness in the right upper quadrant with palpation No hepatosplenomegaly, normal bowel sounds, no guarding or rigidity. EXTREMITIES: No clubbing, no edema, no cyanosis, 2+ pulses and upper and lower extremities. MUSCULOSKELETAL: Muscle strength and tone normal. SPINE: No scoliosis or deformity SKIN: No rashes CENTRAL NERVOUS SYSTEM: Alert and confused No focal deficits, tone is normal in all 4 extremities. - Labs CBC & Chem 7: 11/17/20 08:32 11/17/20 08:32 Labs: Abnormal Lab Results - Last 24 Hours (Table) 11/17/20 11/17/20 Range/Units 08:32 08:32 WBC 26.6 H (3.8-10.6) k/uL Hgb 10.7 L (11.4-16.0) gm/dL MCHC 29.5 L (31.0-37.0) g/dL Neutrophils # 24.9 H (1.3-7.7) k/uL Chloride 118 H (98-107) mmol/L Carbon Dioxide 19 L (22-30) mmol/L BUN 48 H (7-17) mg/dL Glucose 137 H (74-99) mg/dL AST 44 H (14-36) U/L ALT 46 H (4-34) U/L Alkaline Phosphatase 187 H (38-126) U/L Total Protein 5.4 L (6.3-8.2) g/dL Albumin 2.7 L (3.5-5.0) g/dL Microbiology - Last 24 Hours (Table) 11/11/20 16:40 Blood Culture - Preliminary Blood No Growth after 120 hours 11/14/20 09:40 Gram Stain - Preliminary Peritoneal Fluid Body Fluid Culture - Preliminary Assessment and Plan Plan: Assessment: #1. Acute on chronic hypoxic respiratory failure related to exacerbation of COPD, and possibility of atelectasis, or early infiltrate #2. Acute right upper quadrant pain, likely related to acute cholecystitis, patient is scheduled for robotically assisted cholecystectomy today with Dr. Vitale on 11/13/2020 #3. Acute urinary tract infection related to E. coli patient is covered with Zosyn #4. Hypernatremia, improved #5. Recent hospitalization for acute pancreatitis, urinary tract infection, and acute exacerbation of COPD #6. Medical noncompliance #7. Daily EtOH use patient drinks 1-2 large glasses of wine on a daily basis #8. Confusion, altered mental status, consider EtOH withdrawal in addition to sepsis related to urinary tract infection and acute cholecystitis, or place the patient on CIWA protocol #9. Advanced COPD on home oxygen usually wears 3 L on a regular basis #10. Hypertension #11. Former smoker Plan: Today's chest x-ray has been reviewed Provide incentive spirometer and encourage patient to use Patient is covered with antibiotics Continue breathing treatments and steroids Increase activity, encouraged the patient to sit up in a chair Tolerating oral diet, hypernatremia improved, discontinue D5W We'll continue to follow I performed a history & physical examination of the patient and discussed their management with my nurse practitioner, Dianne Vargas. I reviewed the nurse practitioner's note and agree with the documented findings and plan of care. Lung sounds are positive for diffuse wheezes throughout the lung reynoso. The findings and the impression was discussed with the patient. I attest to the documentation by the nurse practitioner. Time with Patient: Less than 30
--- NOTE | 2020-11-17 14:09 | P.PN ---
Subjective Progress Note Date: 11/17/20 CHIEF COMPLAINT: Abdominal pain HISTORY OF PRESENT ILLNESS: Surgical service is following regards to patient's acute cholecystitis. Patient is postop day #3 status post robotic extensive lysis of adhesions, robotic cholecystectomy and placement of ANITA drain right upper quadrant. Patient was transferred out of the ICU yesterday. She is having multiple episodes of diarrhea. Stool for C. diff have been ordered by medicine service. Patient will be started on Flagyl. Patient denies any abdominal pain. Denies any nausea or vomiting. Afebrile. Fluid cultures remain negative. WBC is up at 26.6 but patient is on steroids. LFTs trending downwards PHYSICAL EXAM: VITAL SIGNS: Reviewed GENERAL: Well-developed in no acute distress. HEENT: No sclera icterus. Extraocular movements grossly intact. Moist buccal mucosa. Head is atraumatic, normocephalic. Hears conversational speech. No nasal dr ainage. NECK: Supple without lymphadenopathy. CHEST: Non-labored respirations and equal bilateral excursions. CARDIOVASCULAR: Palpable 2+ radial pulses. ABDOMEN: Soft. Nondistended. Incision sites clean dry and intact. ANITA drain with bilious output MUSCULOSKELETAL: No clubbing or cyanosis. NEUROLOGIC: No focal or lateralizing signs. Cranial nerves II through XII grossly intact. PSYCH: Appropriate affect. Alert and oriented to person, place and time. SKIN: Well perfused. Good skin turgor. ASSESSMENT: 1. Sepsis 2. Acute cholecystitis 3. Peritonitis right upper quadrant 4. Severe intra-abdominal adhesions 5. Ventral umbilical hernia 6. UTI 7. COPD exacerbation 8. Hypernatremia 9. Diarrhea PLAN: -Flagyl added for diarrhea -Continue pureed Diet -Continue pain medication -Continue antibiotics -Continue supportive care -DVT prophylaxis Lovenox and GI prophylaxis Protonix Physician Organ Pipe Voicer note has been reviewed by physician. Signing provider agrees with the documented findings, assessment, and plan of care. Objective - Vital Signs Vital signs: Vital Signs Temp 97.9 F 11/17/20 13:38 Pulse 76 11/17/20 13:38 Resp 22 11/17/20 13:38 BP 142/62 11/17/20 13:38 Pulse Ox 97 11/17/20 13:38 Intake & Output 11/16/20 11/17/20 11/17/20 18:59 06:59 18:59 Intake Total 1010 400 Output Total 405 660 Balance 605 -260 Weight 84.8 kg Intake: IV 980 0.9 30 Dextrose 5% in Water 1, 750 000 ml @ 50 mls/hr IV . Q20H [facility] Rx#:[id number] Piperacillin-Tazobactam 3 200 .375 gm In Sodium Chloride 0.9% 100 ml @ 25 mls/hr IVPB Q8HR [facility] Rx# :[id number] Oral 30 400 Output: Drainage 60 Abdomen 60 Urine 405 600 Other: Voiding Method Indwelling Catheter Indwelling Catheter Indwelling Catheter - Labs CBC & Chem 7: 11/17/20 08:32 11/17/20 08:32 Labs: Abnormal Lab Results - Last 24 Hours (Table) 11/17/20 11/17/20 Range/Units 08:32 08:32 WBC 26.6 H (3.8-10.6) k/uL Hgb 10.7 L (11.4-16.0) gm/dL MCHC 29.5 L (31.0-37.0) g/dL Neutrophils # 24.9 H (1.3-7.7) k/uL Chloride 118 H (98-107) mmol/L Carbon Dioxide 19 L (22-30) mmol/L BUN 48 H (7-17) mg/dL Glucose 137 H (74-99) mg/dL AST 44 H (14-36) U/L ALT 46 H (4-34) U/L Alkaline Phosphatase 187 H (38-126) U/L Total Protein 5.4 L (6.3-8.2) g/dL Albumin 2.7 L (3.5-5.0) g/dL Microbiology - Last 24 Hours (Table) 11/11/20 16:40 Blood Culture - Preliminary Blood No Growth after 120 hours 11/14/20 09:40 Gram Stain - Preliminary Peritoneal Fluid Body Fluid Culture - Preliminary
--- NOTE | 2020-11-17 14:27 | P.PN ---
Subjective Progress Note Date: 11/17/20 Patient is doing fairly well today. She denies any shortness of breath. She said that her breathing is at baseline. She is having frequent bowel movement this morning mostly diarrhea. Objective - Vital Signs Vital signs: Vital Signs Temp 97.9 F 11/17/20 13:38 Pulse 76 11/17/20 13:38 Resp 22 11/17/20 13:38 BP 142/62 11/17/20 13:38 Pulse Ox 97 11/17/20 13:38 Intake & Output 11/16/20 11/17/20 11/17/20 18:59 06:59 18:59 Intake Total 1010 400 Output Total 405 660 Balance 605 -260 Weight 84.8 kg Intake: IV 980 0.9 30 Dextrose 5% in Water 1, 750 000 ml @ 50 mls/hr IV . Q20H [facility] Rx#:[id number] Piperacillin-Tazobactam 3 200 .375 gm In Sodium Chloride 0.9% 100 ml @ 25 mls/hr IVPB Q8HR [facility] Rx# :[id number] Oral 30 400 Output: Drainage 60 Abdomen 60 Urine 405 600 Other: Voiding Method Indwelling Catheter Indwelling Catheter Indwelling Catheter - Exam General: The patient is awake and alert, in no distress Eye: there is normal conjunctiva bilaterally. Neck: The neck is supple, there is no JVD. Cardiovascular: Normal S1-S2, no S3-S4, no murmurs. Respiratory: Lungs are diminished with no obvious wheezing Gastrointestinal: Abdomen is soft, nontender Musculoskeletal: There is no pedal edema. Neurological:. Speech is normal. Skin: Skin is warm and dry - Labs CBC & Chem 7: 11/17/20 08:32 11/17/20 08:32 Labs: Abnormal Lab Results - Last 24 Hours (Table) 11/17/20 11/17/20 Range/Units 08:32 08:32 WBC 26.6 H (3.8-10.6) k/uL Hgb 10.7 L (11.4-16.0) gm/dL MCHC 29.5 L (31.0-37.0) g/dL Neutrophils # 24.9 H (1.3-7.7) k/uL Chloride 118 H (98-107) mmol/L Carbon Dioxide 19 L (22-30) mmol/L BUN 48 H (7-17) mg/dL Glucose 137 H (74-99) mg/dL AST 44 H (14-36) U/L ALT 46 H (4-34) U/L Alkaline Phosphatase 187 H (38-126) U/L Total Protein 5.4 L (6.3-8.2) g/dL Albumin 2.7 L (3.5-5.0) g/dL Microbiology - Last 24 Hours (Table) 11/14/20 09:40 Anaerobic Culture - Preliminary Peritoneal Fluid Gram Neg Bacilli 11/11/20 16:40 Blood Culture - Preliminary Blood No Growth after 120 hours 11/14/20 09:40 Gram Stain - Preliminary Peritoneal Fluid Body Fluid Culture - Preliminary Assessment and Plan Assessment: 1. Acute cholecystitis: Status post cholecystectomy with lysis of adhesions. Postoperative care per general surgery. 2. Uncomplicated UTI: Urine culture grew E. coli. Today is day #5 of IV Zosyn. Antibiotic will be discontinued. Blood cultures negative. 3. Obstructive uropathy with evidence of urinary retention on bladder scan. Discontinue Young catheter today. Check bladder scan for PVR 4. Underlying COPD with chronic hypoxic respiratory failure on 3 L of oxygen at home. Now with acute exacerbation managed by pulmonology. Currently on IV Solu-Medrol and bronchodilators. I would discontinue IV Solu-Medrol and start prednisone 40 mg daily starting tomorrow 5. Hypernatremia: improved after hydration with D5 water. Encouraged oral hydration. Repeat lab work in the morning. 6. Chronic medical problems, essential hypertension, hyperlipidemia, GERD 7. Leukocytosis, secondary to IV steroid use. 8. Diarrhea: Started today. C. diff screen negative. We will continue to monitor closely 9. DVT prophylaxis with subcu Lovenox 10. CODE STATUS: Patient is full code Today, I reviewed her medication list and lab work results. Continue current regimen. Repeat lab work in the morning. PT/OT evaluation
--- NOTE | 2020-11-17 16:07 | CDI ---
Documentation Clarification Form Date: 11/17/2020 03:36:31 PM From: Irene Wyatt RN, CCDS Admit Date: 11/12/2020 06:25:00 PM Patient Name: Makenna Khan Visit Number: [id number] Discharge Date: ATTENTION: The Clinical Documentation Specialists (CDI) and [facility] Coding Staff appreciate your assistance in clarifying documentation. Please respond to the clarification below the line at the bottom and electronically sign. The CDI & [facility] Coding staff will review the response and follow-up if needed. Please note: Queries are made part of the Legal Health Record. If you have any questions, please contact the author of this message via ITS. Hussain Reed Sepsis is documented in the pulmonary consult on 11/13 and in surgical progress note starting on 11/15 and in subsequent progress notes. In your documentation on 11/18, "Acute cholecystitis with sepsis, bacterial peritonitis" Additional clarification regarding sepsis is requested. 11/18 ID Progress note: Admitted to hospital with sepsis about 7 days ago 11/11/20. History/Risk Factors: COPD O2 dependent, hypertension Clinical Indicators: 80-year-old female present to ED on 11/11 with complaints of right-sided abdominal pain, diarrhea, mild nausea without vomiting. 11/11 WBC: 22.8, Neutrophils 19.9 UA Urine Large Leukocyte Esterase, Urine culture: Escherichia coli 11/11 Blood Culture No growth after 120 hrs 11/11 Lactic acid: 1.3 11/11 Vital signs: 139/67 55 16 97.9 93 % 3/L NC 11/13 Pulmonary progress note: Confusion, altered mental status, consider ETOH withdrawal in addition to sepsis related to urinary tract infection and acute cholecystitis. 11/15 Surgical progress notes: Sepsis, acute cholecystitis peritonitis right upper quadrant Treatment 11/11 IV Bolus: .9NS 1000 MLS/HR Zosyn 3.375 GM IVPB Q8 HRS-11/17 Rocephin 1000, MG IVP X1 11/14 Robotic Cholecystectomy In your professional opinion, please clarify if these findings signify one of the following conditions: [ ] Sepsis POA [ X ] Sepsis, Not POA [ ] Other, please specify [ ] Unable to determine SIRS Criteria: 2 or more of the following may indicate SIRS -Temperature < 96.8F (36C) or > 101.0F (38.3C) -Heart Rate > 90 bpm -Respiratory Rate > 20 breaths/min or PaCO2 < 32 mmHg -White Blood Cell Count > 12,000 or < 4,000 cells/mm3 or > 10% bands (Template Last Reviewed: June 2020) MTDD
[2020-11-17] MEDS: VANCOMYCIN 125 MG CAPSULE PO SCH (21:50)
[2020-11-17] MEDS: VERAPAMIL SR 180 MG TABLET.ER PO SCH (21:50)
[2020-11-17] MEDS: CHOLESTYRAMINE (WITH SUGAR) 4 GM PACKET PO SCH (21:50)
[2020-11-18] MEDS ORDERED: cloNIDine HCL 0.2 MG TAB PO PRN (05:05)
[2020-11-18] MEDS: PANTOPRAZOLE 40 MG/10 ML VIAL IVP SCH (07:31)
[2020-11-18] MEDS: ENOXAPARIN 40 MG/0.4 ML SYRINGE SQ SCH (07:31)
[2020-11-18] MEDS: ACETAMINOPHEN TAB 325 MG TAB PO PRN (07:32)
[2020-11-18] MEDS: predniSONE 20 MG TAB PO SCH (07:33)
[2020-11-18] MEDS: LOSARTAN 50 MG TAB PO SCH (07:33)
[2020-11-18] MEDS: ISOSORBIDE MONONITRATE ER 30 MG TAB.ER.24H PO SCH (07:34)
[2020-11-18] MEDS: ATORVASTATIN 20 MG TAB PO SCH (07:34)
[2020-11-18] MEDS: ASPIRIN 81 MG PO SCH (07:34)
[2020-11-18] MEDS: CHOLESTYRAMINE (WITH SUGAR) 4 GM PACKET PO SCH ×4 (07:37→22:28)
[2020-11-18] MEDS: VANCOMYCIN 125 MG CAPSULE PO SCH ×2 (07:38→12:18)
[2020-11-18] MEDS: SIMETHICONE 40 MG/0.6 ML DROPS 2,000 MG/30 ML BOTTLE PO SCH ×4 (07:39→22:27)
[2020-11-18] MEDS: CITALOPRAM HYDROBROMIDE 20 MG TAB PO SCH (07:42)
[2020-11-18] MEDS: KETOROLAC 15 MG/ML 1 ML VIAL IVP SCH ×4 (08:04→23:33)
[2020-11-18] MEDS: SYMBICORT 80-4.5 MCG INHALER INHALATION SCH ×2 (08:44→22:12)
[2020-11-18] MEDS: IPRATROPIUM-ALBUTEROL 3 ML NEB INHALATION SCH ×3 (08:44→22:12)
[2020-11-18] MEDS: PIPERACILLIN-TAZOBACTAM 3.375 GM in SODIUM CHLORIDE 0.9% 100 ML IVPB SCH ×2 (09:53→16:15)
--- NOTE | 2020-11-18 10:49 | P.PN ---
Subjective Progress Note Date: 11/18/20 Principal diagnosis: Urinary tract infection, sepsis, dehydration, cholecystitis This is a 80-year-old white female patient with past history of COPD on home oxygen at 3 L, hypertension, hyperlipidemia, GERD, urinary tract infections, who was recently hospitalized from 10/16/2020 through 10/23/2020 for acute pancreatitis, and ultrasound of the gallbladder showed gallbladder sludge and positive sonographic Hernandez sign, and urinary tract infection. During that admission we saw the patient for acute exacerbation of COPD in addition to the above mentioned complaints. Patient was treated with steroids, nebulized bronchodilators. Her maintenance inhaler at home is Trelegy. Patient's acute pancreatitis was thought to be possibly related to regular alcohol intake. And patient reported drinking one or 2 large glasses of wine on a daily basis. Her liver enzymes improved during that admission, abdominal pain improved, she was discharged home on 10/21/2020. On 11/11/2020 patient returned to the emergency department for evaluation of right-sided abdominal pain, and diarrhea for the past few days. Patient apparently failed to follow-up with any of her doctors as recommended. She did finish her antibiotics for the urinary tract infection. Patient reports 5-6 bouts of diarrhea on a daily basis. She still complains of right upper quadrant pain which is very sharp consistent, rated 8 out of 10. She denied any radiation. Denied any fever or chills, no chest pain. She did report some mild nausea. Denied any dysuria. Her KUB abdomen showed no acute abnormality. Lung bases showed possible interstitial changes, no evidence of pneumoperitoneum or bowel obstruction. Ultrasound of gallbladder showed cholelithiasis with no acute cholecystitis, fatty infiltration of the liver. Initial blood work showed elevated white count of 22.8, hemoglobin was 11.3, INR was 1.0, sodium was 134, the rest of electrolytes and renal profile were fairly unremarkable with the exception of BUN being elevated at 36, her liver enzymes showed total bilirubin of 0.6, AST of 139, ALT of 114, alkaline phosphatase is 163. Amylase and lipase were within normal limits at 33 and 27 respectively. Urinalysis showed turbid urine, with large amount of leuk trase, many bacteria, and white blood cells in clumps. Urine culture was sent and showed a gram- negative bacilli, cultures pending, patient was started on Zosyn. She is on Symbicort and DuoNeb breathing treatments. Patient is having ongoing sharp right upper quadrant abdominal pain. Surgical services were consulted and patient is being scheduled for robotic cholecystectomy with Dr. Vitale. We were asked to see the patient for clearance for surgery from pulmonary perspective, we don't have a chest x-ray from this admission, patient is bronchospastic she does have congestive cough on today's exam, she is on 4 L of oxygen and the pulse ox 90 and at 92%. She is afebrile, she is having significant right upper quadrant abdominal pain, we will go ahead and clear the patient for surgery, we'll continue to closely follow the patient in the postoperative period Patient was reevaluated today on 11/14/2020, patient is now status post robotic extensive lysis of adhesions robotic cholecystectomy and placement of #19 drain right upper quadrant. Patient was found to have severe intra-abdominal adhesions with omentum adhering to abdominal wall and she underwent extensive lysis of adhesions over [address] Cartagena. She was also noted to have bile staining right upper quadrant including a decompressed gallbladder consistent with acute cholecystitis she was also found to have right upper quadrant peritonitis and peritoneal fluid was obtained for cultures. At any rate patient was sent back to the ICU after her surgery, she was noted to be and a bit of respiratory distress, and I recommended patient on BiPAP with IPAP of 12 EPAP of 6, and FiO2 of 35%. Patient is already on antibiotics, she is also on bronchodilators, and I plan to monitor the patient in the ICU for at least the next 24 hours, if her condition gets any worse, patient could be intubated and placed on mechanical ventilation. Apparently while she was on the recovery room, her status was marginal, and the intubating the patient was considered but felt not to do so unless the patient gets any worse. Patient is lethargic, could not get adequate history from the patient today WBC count remains elevated at 25.33. Hemoglobin is 10.1. Electrolytes are normal renal profile is normal, chest x-ray is pending. Previous x-ray showed bibasilar atelectasis The patient is seen today 11/15/2020 in follow-up in the intensive care unit. She is currently resting fairly comfortably in bed. Awake. Currently on BiPAP 12/6 and 40% FiO2. Chest x-ray reveals evidence of chronic changes but no acute pulmonary process. She is having issues with hypertension. She was given labetalol earlier. His 0.9 normal saline at KVO. Abdominal dressing is dry and intact. ANITA drain remains in place.. Female fluid cultures are pending. Urine culture pending. Previous culture positive for E. coli. White count 21.8. Hemoglobin 10.5. Sodium 150. Potassium 4.0. Bicarb 19. Creatinine 0.99. Glucose 129. AST 103. ALT 67. Alk phos 212. She is continued on DuoNeb inhalations, Symbicort, IV Solu-Medrol. Antibiotics in the form of Zosyn. Lovenox for DVT prophylaxis. Progress note dated 11/16/2020. 80-year-old female, who was admitted back on November 11. Please see the above notes. The patient was admitted with a diagnosis of Escherichia coli urinary tract infection and sepsis, dehydration, and cholecystitis. The patient had a laparoscopic cholecystectomy on November 14. Currently, she is on Zosyn for her E. coli urinary tract infection. She's getting 5 L nasal cannula. He is also getting dextrose, at 100 mL an hour. I did tell the nurse to drop it down to 50 mL an hour. I discussed off the phone with her granddaughter by the name of Bita Malone. I attempted to have a conversation about CODE STATUS with the patient, but she was not able to really respond appropriately. She was somewhat lethargic and somnolent. Anyway, the granddaughter said that the patient would agree to all support short of intubation and mechanical ventilation which I think is very appropriate given her age. White count of 16.9, hemoglobin 10.8, hematocrit 33.5, platelet count 211,000. Sodium 147, calcium is 4.1, chlorides 121, CO2 19, anion gap 7, BUN 50 and creatinine 0.81. No recent chest x-ray to report. On 11/17/2020 patient seen in follow-up on medical surgical floor. She is resting in bed, she seems to be a little dyspneic at rest. She is currently 4 L of oxygen the pulse ox of 97%, she is afebrile, a bit hypertensive this morning, with a blood pressure 189/71. Follow-up chest x-ray today has been reviewed showing increased basilar densities that could reflect atelectasis versus developing infiltrate. Patient continues on antibiotics in the form of Zosyn for urinary tract infection. She continues on breathing treatments. She is on IV steroids with IV Solu-Medrol 40 mg every 12 hours. She denies any increased cough, no chest pain. Today's labs have been reviewed showing white blood cell, 26.6, hemoglobin is 10.7, her serum sodium has improved and is down to 145, and we will discontinue her D5W infusion. Chloride is 118, CO2 is 19, BUN is 48 and creatinine 0.85 on today's labs, her LFTs are also trending down On 11/18/2020 patient is seen in follow-up on medical surgical floor. She is resting in bed, still dyspneic at rest, however not any worse than yesterday's exam, she is remains on the same amount of oxygen at 4 L or pulse ox is 95%, she is afebrile, she remains hypertensive, and her blood pressures are in the 170s to 190s over 60s. Yesterday his follow-up chest x-ray just showed increased basilar densities that could reflect atelectasis. No wheezing, her lung sounds are clear on today's exam, however there is a possibility of bilious leak from around the ANITA drain in the left lower quadrant, ANITA drain itself is putting out serous fluid. ID service is following, and we will be ordering CT of the abdomen and pelvis. Currently patient remains on antibiotics in the form of Zosyn. Patient has been having loose stools, however C. diff was negative, she was started on oral vancomycin for possibility of C. diff which was ruled out. No new labs today, yesterday's labs showed up trending white blood cell count, and he was up to 26.6. Patient has been afebrile. Peritoneal fluid culture is showing gram-negative bacilli and final culture is pending. Urine culture was positive for E. coli. Objective - Vital Signs Vital signs: Vital Signs Temp 98.0 F 11/18/20 08:00 Pulse 77 11/18/20 09:50 Resp 18 11/18/20 09:50 BP 173/64 11/18/20 09:50 Pulse Ox 95 11/18/20 09:50 Intake & Output 11/17/20 11/18/20 11/18/20 18:59 06:59 18:59 Intake Total 340 Output Total 9024 855 Balance -3080 -246 Intake: IV 100 Piperacillin-Tazobactam 3 100 .375 gm In Sodium Chloride 0.9% 100 ml @ 25 mls/hr IVPB Q8HR [facility] Rx# :[id number] Oral 240 Output: Drainage 25 53 Abdomen 25 53 Urine 1640 300 Post Void Residual 505 Other: Voiding Method Indwelling Catheter Bedpan Incontinent Indwelling Catheter # Voids 4 # Bowel Movements 5 - Exam GENERAL EXAM: Alert but confused, 80-year-old white female, on 4 L of oxygen with pulse ox of 97% mildly tachypneic and short of breath at rest, but denies acute distress HEAD: Normocephalic/atraumatic. EYES: Normal reaction of pupils, equal size. Conjunctiva pink, sclera white. NOSE: Clear with pink turbinates. THROAT: No erythema or exudates. NECK: No masses, no JVD, no thyroid enlargement, no adenopathy. CHEST: No chest wall deformity. Symmetrical expansion. LUNGS: Equal air entry with scattered wheezes CVS: Regular rate and rhythm, normal S1 and S2, no gallops, no murmurs, no rubs ABDOMEN: Soft, patient has sharp tenderness in the right upper quadrant with palpation No hepatosplenomegaly, normal bowel sounds, no guarding or rigidity. ANITA drain in the left lower quadrant is covered with a dressing, serous output in the ANITA drain, and there is bilious drainage from around the ANITA drain noted. EXTREMITIES: No clubbing, no edema, no cyanosis, 2+ pulses and upper and lower extremities. MUSCULOSKELETAL: Muscle strength and tone normal. SPINE: No scoliosis or deformity SKIN: No rashes CENTRAL NERVOUS SYSTEM: Alert and confused No focal deficits, tone is normal in all 4 extremities. - Labs CBC & Chem 7: 11/17/20 08:32 11/17/20 08:32 Labs: Microbiology - Last 24 Hours (Table) 11/14/20 09:40 Gram Stain - Final Peritoneal Fluid Body Fluid Culture - Final 11/11/20 16:40 Blood Culture - Final Blood No Growth after 144 hours 11/14/20 09:40 Anaerobic Culture - Preliminary Peritoneal Fluid Gram Neg Bacilli Assessment and Plan Plan: Assessment: #1. Acute on chronic hypoxic respiratory failure related to exacerbation of COPD, and possibility of atelectasis, or early infiltrate #2. Acute right upper quadrant pain, likely related to acute cholecystitis, patient is scheduled for robotically assisted cholecystectomy today with Dr. Demetria Kitchen on 11/13/2020 #3. Acute urinary tract infection related to E. coli patient is covered with Zosyn #4. Hypernatremia, improved #5. Recent hospitalization for acute pancreatitis, urinary tract infection, and acute exacerbation of COPD #6. Medical noncompliance #7. Daily EtOH use patient drinks 1-2 large glasses of wine on a daily basis #8. Confusion, altered mental status, consider EtOH withdrawal in addition to sepsis related to urinary tract infection and acute cholecystitis, or place the patient on CIWA protocol #9. Advanced COPD on home oxygen usually wears 3 L on a regular basis #10. Hypertension #11. Former smoker Plan: Continue nebulized bronchodilators Encourage incentive spirometry use Continue steroids and antibiotics No need for repeat chest x-ray, yesterday chest x-ray only showed atelectasis Breathing is unchanged compared to yesterday Mildly dyspneic, same amount of oxygen Antibiotics per ID service recommendations There is a possibility CT of abdomen and pelvis will be obtained today and will defer this to ID service and surgery We will continue to follow I performed a history & physical examination of the patient and discussed their management with my nurse practitioner, Dianne Vargas. I reviewed the nurse practitioner's note and agree with the documented findings and plan of care. Lung sounds are positive for diffuse wheezes throughout the lung reynoso. The findings and the impression was discussed with the patient. I attest to the documentation by the nurse practitioner. Time with Patient: Less than 30
[2020-11-18 11:37] LABS: Basophils # (A) 0.05 X 10*3/uL (0.00-0.10); Basophils % (A) 0.2 %; Eosinophils # (A) 0.01 X 10*3/uL (0.04-0.35); Eosinophils % (A) 0 %; HCT 33.5 % (37.2-46.3); HGB 9.7 g/dL (12.0-15.0); Lymphocytes # (A) 0.97 X 10*3/uL (0.90-5.00); MCV 89.8 fL (80.0-97.0); Mean Platelet Volume 12.6 fL (9.5-12.2); Monocytes # (A) 0.99 X 10*3/uL (0.20-1.00); Neutrophils # (A) 21.85 X 10*3/uL (1.80-7.70); Neutrophils % (A) 89.1 %; Platelet Count 233 X 10*3/uL (140-440); RBC 3.73 X 10*6/uL (4.10-5.20); RDW 16.8 % (11.5-14.5); WBC 24.54 X 10*3/uL (4.50-10.00)
--- NOTE | 2020-11-18 12:58 | P.PN ---
Subjective Progress Note Date: 11/18/20 CHIEF COMPLAINT: Abdominal pain HISTORY OF PRESENT ILLNESS: Surgical service is following regards to patient's acute cholecystitis. Patient is postop day #4 status post robotic extensive lysis of adhesions, robotic cholecystectomy and placement of ANITA drain right upper quadrant. Patient sitting up at bedside chair. She was eating breakfast. She had complained of right upper quadrant plane where the ANITA drain is placed. The ANITA drain output is still bilious with 25 mL through the night. She had iss ues with urinary retention Young catheter was reinserted. Per nursing staff her diarrhea episodes have decreased. Afebrile. WBC 24.5 for hemoglobin 9.7 C. diff negative. CMP pending peritoneal fluid culture with gram-negative bacilli. PHYSICAL EXAM: VITAL SIGNS: Reviewed GENERAL: Well-developed in no acute distress. HEENT: No sclera icterus. Extraocular movements grossly intact. Moist buccal mucosa. Head is atraumatic, normocephalic. Hears conversational speech. No nasal drainage. NECK: Supple without lymphadenopathy. CHEST: Non-labored respirations and equal bilateral excursions. CARDIOVASCULAR: Palpable 2+ radial pulses. ABDOMEN: Soft. Nondistended. Incision sites clean dry and intact. NAITA drain with bilious output MUSCULOSKELETAL: No clubbing or cyanosis. NEUROLOGIC: No focal or lateralizing signs. Cranial nerves II through XII grossly intact. PSYCH: Appropriate affect. Alert and oriented to person, place and time. SKIN: Well perfused. Good skin turgor. ASSESSMENT: 1. Sepsis 2. Acute cholecystitis 3. Peritonitis right upper quadrant 4. Severe intra-abdominal adhesions 5. Ventral umbilical hernia 6. UTI 7. COPD exacerbation 8. Hypernatremia 9. Diarrhea PLAN: -Continue pureed Diet -Continue pain medication -Continue antibiotics -Continue supportive care -Continue PT OT -DVT prophylaxis Lovenox and GI prophylaxis Protonix Physician Gambling Floor Supervisor note has been reviewed by physician. Signing provider agrees with the documented findings, assessment, and plan of care. Objective - Vital Signs Vital signs: Vital Signs Temp 98.0 F 11/18/20 08:00 Pulse 77 11/18/20 09:50 Resp 18 11/18/20 09:50 BP 173/64 11/18/20 09:50 Pulse Ox 95 11/18/20 09:50 Intake & Output 11/17/20 11/18/20 11/18/20 18:59 06:59 18:59 Intake Total 340 Output Total 4928 857 Balance -6825 -695 Intake: IV 100 Piperacillin-Tazobactam 3 100 .375 gm In Sodium Chloride 0.9% 100 ml @ 25 mls/hr IVPB Q8HR [facility] Rx# :[id number] Oral 240 Output: Drainage 25 53 Abdomen 25 53 Urine 1640 300 Post Void Residual 505 Other: Voiding Method Indwelling Catheter Bedpan Incontinent Incontinent Indwelling Catheter Indwelling Catheter # Voids 4 # Bowel Movements 5 - Labs CBC & Chem 7: 11/18/20 07:04 11/17/20 08:32 Labs: Abnormal Lab Results - Last 24 Hours (Table) 11/18/20 Range/Units 07:04 WBC 24.54 H (4.50-10.00) X 10*3/uL RBC 3.73 L (4.10-5.20) X 10*6/uL Hgb 9.7 L (12.0-15.0) g/dL Hct 33.5 L (37.2-46.3) % MCH 26.0 L (27.0-32.0) pg MCHC 29.0 L (32.0-37.0) g/dL RDW 16.8 H (11.5-14.5) % MPV 12.6 H (9.5-12.2) fL Absolute Nucleated RBC 0.02 H (0.00-0.00) X 10*3/uL Immature Gran # 0.67 H (0.00-0.04) X 10*3/uL Neutrophils # 21.85 H (1.80-7.70) X 10*3/uL Eosinophils # 0.01 L (0.04-0.35) X 10*3/uL NRBC/100 WBC Diff 0.1 H (0.0-0.0) /100 WBCS Microbiology - Last 24 Hours (Table) 11/14/20 09:40 Gram Stain - Final Peritoneal Fluid Body Fluid Culture - Final 11/11/20 16:40 Blood Culture - Final Blood No Growth after 144 hours 11/14/20 09:40 Anaerobic Culture - Preliminary Peritoneal Fluid Gram Neg Bacilli
[2020-11-18 13:28] LABS: African American GFR (CKD) 94.8 (60.0-200.0); Albumin 2.9 g/dL (3.80-4.90); Albumin/Globulin Ratio 1.53 (1.60-3.17); Anion Gap 6.2 mmol/L (4.00-12.00); BUN/Creat Ratio 58.57 Ratio (12.00-20.00); Calcium 8.9 mg/dL (8.7-10.3); Carbon Dioxide 22.8 mmol/L (21.6-31.8); Globulin 1.9 g/dL (1.6-3.3); Non-African American GFR(CKD) 81.8 (60.0-200.0); Potassium 3.7 mmol/L (3.5-5.5); Total Bilirubin 0.5 mg/dL (0.2-1.2); Total Protein 4.8 g/dL (6.2-8.2)
--- NOTE | 2020-11-18 19:02 | P.PN ---
Subjective Progress Note Date: 11/18/20 Principal diagnosis: abdominal pain Patient is an 80-year-old female past medical history of COPD, hypertension, and anemia who presented to the hospital secondary to right upper quadrant pain. She's had a complex hospital stay including a cholecystectomy secondary to acute on chronic cholecystitis. She was also discovered to have bacterial peritonitis. Patient seen and examined at bedside. She reports that her abdominal pain is better than yesterday. She denies any nausea, vomiting. She states her diarrhea has slowed down from yesterday. General: non toxic, no distress, appears at stated age Derm: warm, dry Head: atraumatic, normocephalic, symmetric Eyes: EOMI, no lid lag, anicteric sclera Mouth: no lip lesion, mucus membranes moist Cardiovascular: S1S2 reg, no murmur, positive posterior tibial pulse bilateral, Lungs: Decreased breath sounds bilateral], no rhonchi, no rales , no accessory muscle use Abdominal: soft, tender to palpation diffusely, no guarding, no appreciable organomegaly Ext: no gross muscle atrophy, no edema, no contractures Neuro: CN II-XI grossly intact, no focal neuro deficits Psych: Alert, oriented, appropriate affect Acute cholecystitis with sepsis, bacterial peritonitis -Status post cholecystectomy -Resume Zosyn day #6 -Consult infectious disease Diarrhea -C. diff was negative -Continue with Questran -Transition to low fat, lactose free diet -Continue to monitor Acute blood loss anemia postoperative -Stable -Follow CBC -No indication for transfusion at this point in time Hypernatremia likely secondary to IV fluid resuscitation and poor oral intake -Resume D5 at 50 -Repeat sodium level in a.m. COPD with acute exacerbation with chronic hypoxic respiratory failure, -Pulmonary recommendations -Has been transitioned to oral steroids Uncomplicated UTI, has completed treatment Acute urinary retention, resolved Toxic metabolic encephalopathy, resolved Objective - Vital Signs Vital signs: Vital Signs Temp 97.8 F 11/18/20 13:53 Pulse 81 11/18/20 13:53 Resp 20 11/18/20 13:53 BP 159/68 11/18/20 13:53 Pulse Ox 97 11/18/20 13:53 Intake & Output 11/18/20 11/18/20 11/19/20 06:59 18:59 06:59 Intake Total 340 Output Total 858 600 Balance -518 -600 Weight 84.8 kg Intake: IV 100 Piperacillin-Tazobactam 3 100 .375 gm In Sodium Chloride 0.9% 100 ml @ 25 mls/hr IVPB Q8HR [facility] Rx# :[id number] Oral 240 Output: Drainage 53 Abdomen 53 Urine 300 600 Post Void Residual 505 Other: Voiding Method Bedpan Incontinent Incontinent Indwelling Catheter Indwelling Catheter # Bowel Movements 5 1 - Labs CBC & Chem 7: 11/18/20 07:04 11/18/20 07:04 Labs: Abnormal Lab Results - Last 24 Hours (Table) 11/18/20 11/18/20 Range/Units 07:04 07:04 WBC 24.54 H (4.50-10.00) X 10*3/uL RBC 3.73 L (4.10-5.20) X 10*6/uL Hgb 9.7 L (12.0-15.0) g/dL Hct 33.5 L (37.2-46.3) % MCH 26.0 L (27.0-32.0) pg MCHC 29.0 L (32.0-37.0) g/dL RDW 16.8 H (11.5-14.5) % MPV 12.6 H (9.5-12.2) fL Absolute Nucleated RBC 0.02 H (0.00-0.00) X 10*3/uL Immature Gran # 0.67 H (0.00-0.04) X 10*3/uL Neutrophils # 21.85 H (1.80-7.70) X 10*3/uL Eosinophils # 0.01 L (0.04-0.35) X 10*3/uL NRBC/100 WBC Diff 0.1 H (0.0-0.0) /100 WBCS Sodium 149 H (135-145) mmol/L Chloride 120 H (96-109) mmol/L BUN 41.0 H (9.0-27.0) mg/dL BUN/Creatinine Ratio 58.57 H (12.00-20.00) Ratio Alkaline Phosphatase 166 H (41-126) U/L Total Protein 4.8 L (6.2-8.2) g/dL Albumin 2.90 L (3.80-4.90) g/dL Albumin/Globulin Ratio 1.53 L (1.60-3.17) g/dL Microbiology - Last 24 Hours (Table) 11/14/20 09:40 Anaerobic Culture - Final Peritoneal Fluid Escherichia coli 11/14/20 09:40 Gram Stain - Final Peritoneal Fluid Body Fluid Culture - Final 11/11/20 16:40 Blood Culture - Final Blood No Growth after 144 hours
--- NOTE | 2020-11-18 20:11 | CONS ---
CONSULTATION DATE OF SERVICE: 11/18/2020 REASON FOR CONSULTATION: Peritonitis. HISTORY OF PRESENT ILLNESS: The patient is an 80-year-old female who has been admitted to the hospital with sepsis about 7 days ago on 11/11/2020, in this patient presented to hospital with right-sided abdominal pain and diarrhea for the last few days. The patient was recently admitted to this facility and had been treated for a pancreatitis with concern for possible cholecystitis. The patient on admission to the hospital was afebrile and no fever has been recorded during this admission. The patient did have admission white count 22.8, which increased to 26,000 on November 14, however, was trending down but now is trending up. Urine culture positive for an E coli. The patient was taken to the OR and is status post laparoscopic cholecystectomy completed on 11/14/2020 with abdominal culture showing E coli and has prompted this infection disease consultation. The patient remains to be afebrile, has been lethargic though. The patient has been complaining of pain to the right upper quadrant area and the patient did have greenish drainage around her ANITA drain site. The patient is slightly lethargic and unable to elaborate her pain to the right upper quadrant area. Patient's oral intake remains to be poor. No vomiting has been reported. She did have significant diarrhea yesterday for which the stool for C difficile came back negative. Most of the information has been extracted from review of the chart as the patient is not a very good historian. REVIEW OF SYSTEMS: Positive points have been mentioned in HPI. Complete review could not be obtained because of underlying status. PAST MEDICAL HISTORY: Significant for COPD, hypertension, pancreatitis, diverticulosis. PAST SURGICAL HISTORY: Bladder surgery, hysterectomy, tubal ligation. SOCIAL HISTORY: Remote history of smoking. No drug use. FAMILY HISTORY: No pertinent findings noticed. ALLERGIES: METAXALONE. MEDICATIONS: The patient is currently on Tylenol, Ventolin, DuoNeb, aspirin, Lipitor, Symbicort, cholestyramine, Celexa, Catapres, Lovenox, Imdur, Toradol, Cozaar, Narcan, Zofran, Protonix, Zosyn, vancomycin 1.25 p.o. q.i.d. EXAMINATION: Blood pressure 159/60 with a pulse of 81, temperature 97.8. She is 97% on 4 L nasal cannula. General description is an elderly female lying in bed in no distress. No tachypnea or accessory muscles of respiration use. HEENT: Examination shows no pallor or scleral icterus. Oral mucous membranes dry. NECK: Trachea central. No thyromegaly. LUNGS: Unlabored breathing, decreased breath sounds at the base. No wheeze. HEART: S1, S2. Regular rate and rhythm. ABDOMEN: Soft, mildly distended. Tender in the right upper quadrant area and did have some greenish drainage around the PEG tube site. Drainage inside the drainage tube is not ( ). EXTREMITIES: No edema of the feet. SKIN: No rash or mass palpable. NEUROLOGIC: Patient is awake and alert, oriented x( ). Mood and affect normal. LABS: Hemoglobin 9.1, white count 24.54, BUN of 41, creatinine 0.7, sodium is 149. Liver enzymes have normalized. Urine mildly positive urine showing E coli. Abdominal culture showing E coli sensitive pathogen. DIAGNOSTIC IMPRESSION AND PLAN: Patient admitted to hospital acute cholecystitis in this patient who is status post laparoscopic cholecystectomy. Patient now complaining of more pain to the right upper quadrant area and did have biliary drainage on the drainage catheter site with concern for possible biliary leak. The patient did grow E coli from her abdominal culture. However, that is sensitive and the patient has current adequate antibiotic coverage. PLAN: 1. Recommending CT of abdomen and pelvis or HIDA scan. This was discussed with the nurse practitioner. We will check with the surgeon. 2. Continue the patient on Zosyn 3.37 g q.8 hours. 3. We will follow up on clinical condition and further adjust medication if needed. Thank you for this consultation. Will follow this patient along with you. MMODL / IJN: [id number] /
[2020-11-18] MEDS: VERAPAMIL SR 180 MG TABLET.ER PO SCH (22:27)
[2020-11-19] MEDS: ASPIRIN 81 MG PO SCH (08:41)
[2020-11-19] MEDS: PIPERACILLIN-TAZOBACTAM 3.375 GM in SODIUM CHLORIDE 0.9% 100 ML IVPB SCH ×4 (08:42→15:47)
[2020-11-19] MEDS: PANTOPRAZOLE 40 MG/10 ML VIAL IVP SCH (08:42)
[2020-11-19] MEDS: KETOROLAC 15 MG/ML 1 ML VIAL IVP SCH (08:42)
[2020-11-19] MEDS: ISOSORBIDE MONONITRATE ER 30 MG TAB.ER.24H PO SCH (08:42)
[2020-11-19] MEDS: CITALOPRAM HYDROBROMIDE 20 MG TAB PO SCH (08:42)
[2020-11-19] MEDS: LOSARTAN 50 MG TAB PO SCH (08:42)
[2020-11-19] MEDS: ENOXAPARIN 40 MG/0.4 ML SYRINGE SQ SCH (08:42)
[2020-11-19] MEDS: ATORVASTATIN 20 MG TAB PO SCH (08:42)
[2020-11-19] MEDS: predniSONE 20 MG TAB PO SCH (08:42)
[2020-11-19] MEDS: SIMETHICONE 40 MG/0.6 ML DROPS 2,000 MG/30 ML BOTTLE PO SCH ×4 (08:43→21:56)
[2020-11-19] MEDS: CHOLESTYRAMINE (WITH SUGAR) 4 GM PACKET PO SCH ×4 (08:43→21:53)
[2020-11-19] MEDS: IPRATROPIUM-ALBUTEROL 3 ML NEB INHALATION SCH ×3 (09:27→20:12)
[2020-11-19] MEDS: SYMBICORT 80-4.5 MCG INHALER INHALATION SCH ×2 (09:27→20:12)
--- NOTE | 2020-11-19 09:37 | CDI ---
Documentation Clarification Form Date: 11/19/2020 09:00:12 AM From: Irene Wyatt RN, CCDS Admit Date: 11/12/2020 06:25:00 PM Patient Name: Makenna Khan Visit Number: [id number] Discharge Date: ATTENTION: The Clinical Documentation Specialists (CDI) and [facility] Coding Staff appreciate your assistance in clarifying documentation. Please respond to the clarification below the line at the bottom and electronically sign. The CDI & [facility] Coding staff will review the response and follow-up if needed. Please note: Queries are made part of the Legal Health Record. If you have any questions, please contact the author of this message via ITS. Dr. Reyna Valencia Acute blood loss anemia postoperative is documented in the progress notes on 11/18/20] and patient had Robotic cholecystectomy on 11/14/20. Additional clarification is requested regarding the relationship, if any, that exists between the diagnosis and the procedure. Patients Admitting Diagnosis: (operative note) Sepsis, acute cholecystitis, Post-Operative Diagnosis: Same, peritonitis right upper quadrant, severe intra- abdominal adhesions, ventral hernia Procedure performed: Robotic extensive lysis of adhesions, robotic cholecystectomy, and placement drain right upper quadrant History/Risk Factors: Abdominal Pain, UTI, COPD, Hypertension Clinical Indicators: 80-year-old female present to ED on 11/11 with complaints of abdominal pain with tenderness to palpation in the right upper quadrant, positive [place] signs. On 11/14 she had a Robotic extensive lysis of adhesions, robotic cholecystectomy. Per operate note estimated blood loss (ml): 5 11/11 HGB 11.3, HCT 36.3 11/13 HGB 10.1, HCT 34.1 11/15 HGB 10.5, HCT 33.6 11/18 HGB 9.7, HCT 33.5 Treatment: Monitor CBC Daily What relationship, if any, exists between the diagnosis of acute blood loss anemia, postoperative and the procedure? [ ] Acute blood loss anemia is a complication of surgical procedure [ x] Acute blood loss anemia is an expected outcome of the surgical procedure [ ] Acute blood loss anemia is related to patients co-morbid condition(s) of [insert co-morbid dxs] & not a complication of the procedure [ ] Other please specify ____ [ ] Unable to determine (Template Last Revised: July 2020) Acute blood loss anemia is an expected outcome of the surgical procedure MTDD
--- NOTE | 2020-11-19 11:38 | P.PN ---
Subjective Progress Note Date: 11/19/20 CHIEF COMPLAINT: Abdominal pain HISTORY OF PRESENT ILLNESS: Surgical service is following regards to patient's acute cholecystitis. Patient is postop day #5 status post robotic extensive lysis of adhesions, robotic cholecystectomy and placement of ANITA drain right upper quadrant. Patient is sitting up in bed and eating breakfast. She denies any abdominal pain. Denies any nausea or vomiting. She reports that her diarrhea has improved. ANITA drain with 45 mL bilious output. Afebrile. No new labs. Peritoneal fluid culture E. coli. PHYSICAL EXAM: VITAL SIGNS: Reviewed GENERAL: Well-developed in no acute distress. HEENT: No sclera icterus. Extraocular movements grossly intact. Moist buccal mucosa. Head is atraumatic, normocephalic. Hears conversational speech. No nasal drainage. NECK: Supple without lymphadenopathy. CHEST: Non-labored respirations and equal bilateral excursions. CARDIOVASCULAR: Palpable 2+ radial pulses. ABDOMEN: Soft. Nondistended. Incision sites clean dry and intact. ANITA drain with bilious output MUSCULOSKELETAL: No clubbing or cyanosis. NEUROLOGIC: No focal or lateralizing signs. Cranial nerves II through XII grossly intact. PSYCH: Appropriate affect. Alert and oriented to person, place and time. SKIN: Well perfused. Good skin turgor. ASSESSMENT: 1. Sepsis 2. Acute cholecystitis 3. Peritonitis right upper quadrant 4. Severe intra-abdominal adhesions 5. Ventral umbilical hernia 6. UTI 7. COPD exacerbation 8. Hypernatremia 9. Diarrhea PLAN: -Continue pureed Diet -Continue pain medication as needed -Continue antibiotics per ID -Continue supportive care -Continue PT OT -Encouraged patient to increase activity level -DVT prophylaxis Lovenox and GI prophylaxis Protonix Physician Digital Ad Trafficker note has been reviewed by physician. Signing provider agrees with the documented findings, assessment, and plan of care. Objective - Vital Signs Vital signs: Vital Signs Temp 97.8 F 11/19/20 07:52 Pulse 71 11/19/20 09:36 Resp 18 11/19/20 07:52 BP 191/61 11/19/20 07:52 Pulse Ox 98 11/19/20 07:52 Intake & Output 11/18/20 11/19/20 11/19/20 18:59 06:59 18:59 Intake Total 100 Output Total 600 645 Balance -600 -545 Weight 84.8 kg Intake: Intake, IV Titration 100 Amount Piperacillin-Tazobactam 3 100 .375 gm In Sodium Chloride 0.9% 100 ml @ 25 mls/hr IVPB Q8HR [facility] Rx# :[id number] Output: Drainage 45 Abdomen 45 Urine 600 600 Other: Voiding Method Incontinent Incontinent Indwelling Catheter Indwelling Catheter Indwelling Catheter # Bowel Movements 1 2 - Labs CBC & Chem 7: 11/19/20 14:12 11/19/20 14:12 Labs: Abnormal Lab Results - Last 24 Hours (Table) 11/18/20 11/18/20 Range/Units 07:04 07:04 WBC 24.54 H (4.50-10.00) X 10*3/uL RBC 3.73 L (4.10-5.20) X 10*6/uL Hgb 9.7 L (12.0-15.0) g/dL Hct 33.5 L (37.2-46.3) % MCH 26.0 L (27.0-32.0) pg MCHC 29.0 L (32.0-37.0) g/dL RDW 16.8 H (11.5-14.5) % MPV 12.6 H (9.5-12.2) fL Absolute Nucleated RBC 0.02 H (0.00-0.00) X 10*3/uL Immature Gran # 0.67 H (0.00-0.04) X 10*3/uL Neutrophils # 21.85 H (1.80-7.70) X 10*3/uL Eosinophils # 0.01 L (0.04-0.35) X 10*3/uL NRBC/100 WBC Diff 0.1 H (0.0-0.0) /100 WBCS Sodium 149 H (135-145) mmol/L Chloride 120 H (96-109) mmol/L BUN 41.0 H (9.0-27.0) mg/dL BUN/Creatinine Ratio 58.57 H (12.00-20.00) Ratio Alkaline Phosphatase 166 H (41-126) U/L Total Protein 4.8 L (6.2-8.2) g/dL Albumin 2.90 L (3.80-4.90) g/dL Albumin/Globulin Ratio 1.53 L (1.60-3.17) g/dL Microbiology - Last 24 Hours (Table) 11/14/20 09:40 Anaerobic Culture - Final Peritoneal Fluid Escherichia coli 11/14/20 09:40 Gram Stain - Final Peritoneal Fluid Body Fluid Culture - Final
[2020-11-19] MEDS ORDERED: amLODIPine 5 MG TAB PO STA (14:40)
[2020-11-19 14:47] LABS: African American GFR (CKD) >90 (>60 ml/min/1.73 sqM); Anion Gap 6 mmol/L; Blood Urea Nitrogen 29 mg/dL (7-17); Calcium 9.3 mg/dL (8.4-10.2); Carbon Dioxide 23 mmol/L (22-30); Chloride 118 mmol/L (98-107); Glucose 184 mg/dL (74-99); Non-African American GFR(CKD) 86 (>60 ml/min/1.73 sqM); Potassium 3.9 mmol/L (3.5-5.1); Sodium 147 mmol/L (137-145)
[2020-11-19 14:58] LABS: HCT 32.4 % (34.0-46.0); HGB 10.1 gm/dL (11.4-16.0); Hypochromasia Marked; MCH 27.2 pg (25.0-35.0); MCHC 31.1 g/dL (31.0-37.0); MCV 87.6 fL (80.0-100.0); Mean Platelet Volume 10.7; Platelet Count 253 k/uL (150-450); RBC 3.69 m/uL (3.80-5.40); RDW 15.7 % (11.5-15.5); WBC 28.1 k/uL (3.8-10.6)
--- NOTE | 2020-11-19 15:04 | P.PN ---
Subjective Progress Note Date: 11/19/20 This is a 80-year-old white female patient with past history of COPD on home oxygen at 3 L, hypertension, hyperlipidemia, GERD, urinary tract infections, who was recently hospitalized from 10/16/2020 through 10/23/2020 for acute pancreatitis, and ultrasound of the gallbladder showed gallbladder sludge and positive sonographic Hernandez sign, and urinary tract infection. During that admission we saw the patient for acute exacerbation of COPD in addition to the above mentioned complaints. Patient was treated with steroids, nebulized bronchodilators. Her maintenance inhaler at home is Trelegy. Patient's acute pancreatitis was thought to be possibly related to regular alcohol intake. And patient reported drinking one or 2 large glasses of wine on a daily basis. Her liver enzymes improved during that admission, abdominal pain improved, she was discharged home on 10/21/2020. On 11/11/2020 patient returned to the emergency department for evaluation of right-sided abdominal pain, and diarrhea for the past few days. Patient apparently failed to follow-up with any of her doctors as recommended. She did finish her antibiotics for the urinary tract infection. Patient reports 5-6 bouts of diarrhea on a daily basis. She still complains of right upper quadrant pain which is very sharp consistent, rated 8 out of 10. She denied any radiation. Denied any fever or chills, no chest pain. She did report some mild nausea. Denied any dysuria. Her KUB abdomen showed no acute abnormality. Lung bases showed possible interstitial changes, no evidence of pneumoperitoneum or bowel obstruction. Ultrasound of gallbladder showed cholelithiasis with no acute cholecystitis, fatty infiltration of the liver. Initial blood work showed elevated white count of 22.8, hemoglobin was 11.3, INR was 1.0, sodium was 134, the rest of electrolytes and renal profile were fairly unremarkable with the exception of BUN being elevated at 36, her liver enzymes showed total bilirubin of 0.6, AST of 139, ALT of 114, alkaline phosphatase is 163. Amylase and lipase were within normal limits at 33 and 27 respectively. Urinalysis showed turbid urine, with large amount of leuk trase, many bacteria, and white blood cells in clumps. Urine culture was sent and showed a gram- negative bacilli, cultures pending, patient was started on Zosyn. She is on Symbicort and DuoNeb breathing treatments. Patient is having ongoing sharp right upper quadrant abdominal pain. Surgical services were consulted and patient is being scheduled for robotic cholecystectomy with Dr. Vitale. We were asked to see the patient for clearance for surgery from pulmonary perspective, we don't have a chest x-ray from this admission, patient is bronchospastic she does have congestive cough on today's exam, she is on 4 L of oxygen and the pulse ox 90 and at 92%. She is afebrile, she is having significant right upper quadrant abdominal pain, we will go ahead and clear the patient for surgery, we'll continue to closely follow the patient in the postoperative period Patient was reevaluated today on 11/14/2020, patient is now status post robotic extensive lysis of adhesions robotic cholecystectomy and placement of #19 drain right upper quadrant. Patient was found to have severe intra-abdominal adhesions with omentum adhering to abdominal wall and she underwent extensive lysis of adhesions over [address] Cartagena. She was also noted to have bile staining right upper quadrant including a decompressed gallbladder consistent with acute cholecystitis she was also found to have right upper quadrant peritonitis and peritoneal fluid was obtained for cultures. At any rate patient was sent back to the ICU after her surgery, she was noted to be and a bit of respiratory distress, and I recommended patient on BiPAP with IPAP of 12 EPAP of 6, and FiO2 of 35%. Patient is already on antibiotics, she is also on bronchodilators, and I plan to monitor the patient in the ICU for at least the next 24 hours, if her condition gets any worse, patient could be intubated and placed on mechanical ventilation. Apparently while she was on the recovery room, her status was marginal, and the intubating the patient was considered but felt not to do so unless the patient gets any worse. Patient is lethargic, could not get adequate history from the patient today WBC count remains elevated at 25.33. Hemoglobin is 10.1. Electrolytes are normal renal profile is normal, chest x-ray is pending. Previous x-ray showed bibasilar atelectasis The patient is seen today 11/15/2020 in follow-up in the intensive care unit. She is currently resting fairly comfortably in bed. Awake. Currently on BiPAP 12/6 and 40% FiO2. Chest x-ray reveals evidence of chronic changes but no acute pulmonary process. She is having issues with hypertension. She was given labetalol earlier. His 0.9 normal saline at KVO. Abdominal dressing is dry and intact. ANITA drain remains in place.. Female fluid cultures are pending. Urine culture pending. Previous culture positive for E. coli. White count 21.8. Hemoglobin 10.5. Sodium 150. Potassium 4.0. Bicarb 19. Creatinine 0.99. Glucose 129. AST 103. ALT 67. Alk phos 212. She is continued on DuoNeb inhalations, Symbicort, IV Solu-Medrol. Antibiotics in the form of Zosyn. Lovenox for DVT prophylaxis. Progress note dated 11/16/2020. 80-year-old female, who was admitted back on November 11. Please see the above notes. The patient was admitted with a diagnosis of Escherichia coli urinary tract infection and sepsis, dehydration, and cholecystitis. The patient had a laparoscopic cholecystectomy on November 14. Currently, she is on Zosyn for her E. coli urinary tract infection. She's getting 5 L nasal cannula. He is also getting dextrose, at 100 mL an hour. I did tell the nurse to drop it down to 50 mL an hour. I discussed off the phone with her granddaughter by the name of Bita Malone. I attempted to have a conversation about CODE STATUS with the p atient, but she was not able to really respond appropriately. She was somewhat lethargic and somnolent. Anyway, the granddaughter said that the patient would agree to all support short of intubation and mechanical ventilation which I think is very appropriate given her age. White count of 16.9, hemoglobin 10.8, hematocrit 33.5, platelet count 211,000. Sodium 147, calcium is 4.1, chlorides 121, CO2 19, anion gap 7, BUN 50 and creatinine 0.81. No recent chest x-ray to report. On 11/17/2020 patient seen in follow-up on medical surgical floor. She is resting in bed, she seems to be a little dyspneic at rest. She is currently 4 L of oxygen the pulse ox of 97%, she is afebrile, a bit hypertensive this morning, with a blood pressure 189/71. Follow-up chest x-ray today has been reviewed s howing increased basilar densities that could reflect atelectasis versus developing infiltrate. Patient continues on antibiotics in the form of Zosyn for urinary tract infection. She continues on breathing treatments. She is on IV steroids with IV Solu-Medrol 40 mg every 12 hours. She denies any increased cough, no chest pain. Today's labs have been reviewed showing white blood cell, 26.6, hemoglobin is 10.7, her serum sodium has improved and is down to 145, and we will discontinue her D5W infusion. Chloride is 118, CO2 is 19, BUN is 48 and creatinine 0.85 on today's labs, her LFTs are also trending down On 11/18/2020 patient is seen in follow-up on medical surgical floor. She is resting in bed, still dyspneic at rest, however not any worse than yesterday's exam, she is remains on the same amount of oxygen at 4 L or pulse ox is 95%, she is afebrile, she remains hypertensive, and her blood pressures are in the 170s to 190s over 60s. Yesterday his follow-up chest x-ray just showed increased basilar densities that could reflect atelectasis. No wheezing, her lung sounds are clear on today's exam, however there is a possibility of bilious leak from around the ANITA drain in the left lower quadrant, ANITA drain itself is putting out serous fluid. ID service is following, and we will be ordering CT of the abdomen and pelvis. Currently patient remains on antibiotics in the form of Zosyn. Patient has been having loose stools, however C. diff was negative, she was started on oral vancomycin for possibility of C. diff which was ruled out. No new labs today, yesterday's labs showed up trending white blood cell count, and he was up to 26.6. Patient has been afebrile. Peritoneal fluid culture is showing gram-negative bacilli and final culture is pending. Urine culture was p ositive for E. coli. The patient is seen today 11/19/2020 in follow-up on the regular medical floor. She is currently sitting up in a chair at the bedside. Much more awake and alert. Feeling stronger. Feeling less shortness of breath. Less cough and congestion. She is maintaining O2 saturations in the 90s on 4 L/m per nasal cannula. Peritoneal fluid is positive for E. coli. Sodium 147. Potassium 3.9. Chloride 118. Creatinine 0.61. Glucose 184. She remains on DuoNeb inhalations, Symbicort. Antibiotics in the form of Zosyn. Objective - Vital Signs Vital signs: Vital Signs Temp 97.8 F 11/19/20 07:52 Pulse 85 11/19/20 12:27 Resp 18 11/19/20 07:52 BP 191/61 11/19/20 07:52 Pulse Ox 98 11/19/20 07:52 Intake & Output 11/18/20 11/19/20 11/19/20 18:59 06:59 18:59 Intake Total 100 Output Total 600 645 Balance -600 -545 Weight 84.8 kg Intake: Intake, IV Titration 100 Amount Piperacillin-Tazobactam 3 100 .375 gm In Sodium Chloride 0.9% 100 ml @ 25 mls/hr IVPB Q8HR [facility] Rx# :[id number] Output: Drainage 45 Abdomen 45 Urine 600 600 Other: Voiding Method Incontinent Incontinent Indwelling Catheter Indwelling Catheter Indwelling Catheter # Bowel Movements 1 2 - Exam GENERAL EXAM: Revealed an 80-year-old female, awake, alert, sitting up in a chair at the bedside, on 4 L nasal cannula, no acute distress. Head: Atraumatic, normocephalic. HEENT: PERRLA, EOMI, anicteric, no neck masses, dry mucous membranes, throat is clear. CHEST: Symmetrical chest expansion. LUNGS: Rhonchi noted bilaterally. No wheezing. No crackles. CVS: Normal S1 and S2, no S3 gallop. No murmur. ABDOMEN: Postsurgical soft slightly tender to palpation. EXTREMITIES: Good pulses bilaterally no clubbing edema or SKIN: No rashes CENTRAL NERVOUS SYSTEM: Awake, follows simple instructions only. Psychiatric: Alert, oriented. - Labs CBC & Chem 7: 11/18/20 07:04 11/19/20 14:12 Labs: Abnormal Lab Results - Last 24 Hours (Table) 11/19/20 Range/Units 14:12 Sodium 147 H (137-145) mmol/L Chloride 118 H (98-107) mmol/L BUN 29 H (7-17) mg/dL Glucose 184 H (74-99) mg/dL Microbiology - Last 24 Hours (Table) 11/14/20 09:40 Anaerobic Culture - Final Peritoneal Fluid Escherichia coli Assessment and Plan Assessment: 1 Acute cholecystitis, status post robotic cholecystectomy, extensive lysis of adhesions, placement of right upper quadrant drain. 2 Hypernatremia, current sodium 147 3 Hypertension requiring Cleviprex infusion amount recovered 4 Acute on chronic hypoxic respiratory failure secondary to COPD and the currently on BiPAP. 5 Acute urinary tract infection 6 Recent hospitalization for acute pancreatitis 7 Medical noncompliance. 8 History of alcohol abuse. 9 Former smoker Plan: The patient was seen and evaluated by Dr. Coelho Currently stable from the pulmonary standpoint Continue Zosyn Incentive spirometry Increase her activity as tolerated Titrate the FiO2 as tolerated Discharge planning is in place We'll continue to follow I, the cosigning physician, performed a history & physical examination of the patient. Lungs sounds with few scattered rhonchi. Maintaining good O2 saturations in the 90s on 4 L/m per nasal cannula. I discussed the assessment and plan of care with my nurse practitioner, Rita Fernández. I attest to the above note as dictated by her.
--- NOTE | 2020-11-19 18:48 | P.PN ---
Subjective Progress Note Date: 11/19/20 (delayed charting seen at 1445) Principal diagnosis: abdominal pain Patient is an 80-year-old female past medical history of COPD, hypertension, and anemia who presented to the hospital secondary to right upper quadrant pain. She's had a complex hospital stay including a cholecystectomy secondary to acute on chronic cholecystitis. She was also discovered to have bacterial per itonitis. Patient seen and examined at bedside. He continues to improve. Only 1 bowel movement today. No shortness of breath. No nausea. No vomiting. General: non toxic, no distress, appears at stated age Derm: Multiple areas of ecchymoses bilateral arms, warm, dry Head: atraumatic, normocephalic, symmetric Eyes: EOMI, no lid lag, anicteric sclera Mouth: no lip lesion, mucus membranes moist Cardiovascular: S1S2 reg, no murmur, positive posterior tibial pulse bilateral, Lungs: Decreased breath sounds bilateral, no rhonchi, no rales , no accessory muscle use Abdominal: soft, tender to palpation diffusely, no guarding, no appreciable organomegaly Ext: no gross muscle atrophy, no edema, no contractures Neuro: CN II-XI grossly intact, no focal neuro deficits Psych: Alert, oriented, appropriate affect Acute cholecystitis with sepsis, bacterial peritonitis -Status post cholecystectomy - Zosyn day #7 -Infectious disease recs appreciated - surgery recs appreciated Diarrhea, improved -C. diff was negative -Continue with Questran -Transition to low fat, lactose free diet -Continue to monitor Acute blood loss anemia postoperative -Stable -Follow CBC -No indication for transfusion at this point in time Hypernatremia likely secondary to IV fluid resuscitation and poor oral intake - encourage oral intake -Repeat sodium level in a.m. COPD with acute exacerbation with chronic hypoxic respiratory failure, -Pulmonary recommendations -Has been transitioned to oral steroids Uncomplicated UTI, has completed treatment Acute urinary retention, resolved Toxic metabolic encephalopathy, resolved Objective - Vital Signs Vital signs: Vital Signs Temp 97.7 F 11/19/20 14:00 Pulse 70 11/19/20 14:00 Resp 18 11/19/20 14:00 BP 151/68 11/19/20 14:00 Pulse Ox 96 11/19/20 17:18 Intake & Output 11/18/20 11/19/20 11/19/20 18:59 06:59 18:59 Intake Total 100 Output Total 600 645 30 Balance -600 -545 -30 Weight 84.8 kg Intake: Intake, IV Titration 100 Amount Piperacillin-Tazobactam 3 100 .375 gm In Sodium Chloride 0.9% 100 ml @ 25 mls/hr IVPB Q8HR [facility] Rx# :[id number] Output: Drainage 45 30 Abdomen 45 30 Urine 600 600 Other: Voiding Method Incontinent Incontinent Indwelling Catheter Indwelling Catheter Indwelling Catheter # Bowel Movements 1 2 - Labs CBC & Chem 7: 11/19/20 14:12 11/19/20 14:12 Labs: Abnormal Lab Results - Last 24 Hours (Table) 11/19/20 11/19/20 Range/Units 14:12 14:12 WBC 28.1 H (3.8-10.6) k/uL RBC 3.69 L (3.80-5.40) m/uL Hgb 10.1 L (11.4-16.0) gm/dL Hct 32.4 L (34.0-46.0) % RDW 15.7 H (11.5-15.5) % Sodium 147 H (137-145) mmol/L Chloride 118 H (98-107) mmol/L BUN 29 H (7-17) mg/dL Glucose 184 H (74-99) mg/dL Microbiology - Last 24 Hours (Table) 11/14/20 09:40 Anaerobic Culture - Final Peritoneal Fluid Escherichia coli
[2020-11-19] MEDS: VERAPAMIL SR 180 MG TABLET.ER PO SCH (21:53)
[2020-11-19] MEDS: ACETAMINOPHEN TAB 325 MG TAB PO PRN (21:53)
--- NOTE | 2020-11-19 23:15 | PN ---
PROGRESS NOTE DATE OF SERVICE: 11/19/2020 REASON FOR FOLLOWUP: 1. Acute cholecystitis and secondary peritonitis. 2. Elevated white count. INTERVAL HISTORY: Patient is afebrile. The patient is feeling better today. She has been comfortable. Right upper quadrant pain has improved. No chest pain, shortness of breath or cough. No diarrhea. PHYSICAL EXAMINATION: Blood pressure 118/62 with a pulse of 78, temperature 98.2. She is 96% on 3 L nasal cannula. General description is an elderly female lying in bed in no distress. Respiratory system: Unlabored breathing, decreased breath sounds in the base. No wheeze. Heart S1, S2. Regular rate and rhythm. Abdomen: Soft, no tenderness. Extremities: No edema of the feet. LABS: Hemoglobin is 10.3, white count 28.1. BUN of 29, creatinine 0.61. DIAGNOSTIC IMPRESSION AND PLAN: Patient with acute cholecystitis status post cholecystectomy. Abdominal culture positive E coli that is sensitive pathogen, worsening of the white count more likely steroid effect and will monitor closely. Continue Zosyn and monitor clinical course closely. MMODL / IJN: [id number] /
[2020-11-20] MEDS: PIPERACILLIN-TAZOBACTAM 3.375 GM in SODIUM CHLORIDE 0.9% 100 ML IVPB SCH ×4 (08:11→23:19)
[2020-11-20] MEDS: ASPIRIN 81 MG PO SCH (08:24)
[2020-11-20] MEDS: amLODIPine 5 MG TAB PO SCH (08:24)
[2020-11-20] MEDS: ISOSORBIDE MONONITRATE ER 30 MG TAB.ER.24H PO SCH (08:24)
[2020-11-20] MEDS: ENOXAPARIN 40 MG/0.4 ML SYRINGE SQ SCH (08:24)
[2020-11-20] MEDS: CHOLESTYRAMINE (WITH SUGAR) 4 GM PACKET PO SCH ×4 (08:24→20:19)
[2020-11-20] MEDS: ATORVASTATIN 20 MG TAB PO SCH (08:24)
[2020-11-20] MEDS: CITALOPRAM HYDROBROMIDE 20 MG TAB PO SCH (08:24)
[2020-11-20] MEDS: LOSARTAN 50 MG TAB PO SCH (08:24)
[2020-11-20] MEDS: PANTOPRAZOLE 40 MG/10 ML VIAL IVP SCH ×2 (08:25→11:19)
[2020-11-20] MEDS: SIMETHICONE 40 MG/0.6 ML DROPS 2,000 MG/30 ML BOTTLE PO SCH ×4 (08:25→20:20)
[2020-11-20] MEDS: SYMBICORT 80-4.5 MCG INHALER INHALATION SCH ×2 (08:27→21:01)
[2020-11-20] MEDS: IPRATROPIUM-ALBUTEROL 3 ML NEB INHALATION SCH ×3 (08:27→21:01)
[2020-11-20 12:27] LABS: HCT 28.8 % (37.2-46.3); HGB 8.4 g/dL (12.0-15.0); MCH 25.9 pg (27.0-32.0); MCHC 29.2 g/dL (32.0-37.0); MCV 88.9 fL (80.0-97.0); Platelet Count 226 X 10*3/uL (140-440); RBC 3.24 X 10*6/uL (4.10-5.20); RDW 17.1 % (11.5-14.5); WBC 21.37 X 10*3/uL (4.50-10.00)
--- NOTE | 2020-11-20 12:46 | P.PN ---
Subjective Progress Note Date: 11/20/20 CHIEF COMPLAINT: Cholecystitis HISTORY OF PRESENT ILLNESS: The patient is a 80-year-old female status post robotic-assisted cholecystectomy, 11/14/2020 with findings of right upper quadrant pre-existing peritonitis with bile. She reports doing much better in the last several days. She is on the medical unit. She is tolerating diet. She reports moderate improvement in the right quadrant pain. She is more alert. She denies any more than usual shortness of breath. She is a low-fat diet. She is sitting up in a chair. ROS: No reports of nausea and vomiting. No fevers or chills. No new chest pain. She has pre-existing congestive heart failure including severe chronic obstructive pulmonary disease options dependent. PHYSICAL EXAM: VITAL SIGNS: Reviewed CONSTITUTIONAL: Well developed and in no acute distress. EYES: Conjuctivae without sclera icterus. Extraocular movements grossly intact. HEAD, EARS, NOSE, THROAT: Moist buccal mucosa. Head is atraumatic, normocephalic. Hears conversational speech. No nasal drainage. NECK: No thyroidomegaly. RESPIRATORY: Non-labored respirations and equal bilateral excursions. CARDIOVASCULAR: Regular rate. Regular rhythm. ABDOMEN: ANITA serous bilious. No diffuse abdominal pain. No peritonitis. MUSCULOSKELETAL: No gross deformity of the lower extremities noted. No clubbing. No cyanosis. SKIN: Good skin turgor. Well perfused. NEUROLOGIC: Cranial nerves II through XII grossly intact. No focal or lateralizing signs. PSYCH: Appropriate affect. Alert and oriented to person. CLINICAL LABS: White blood cell count declined from 28,000-21,000. Liver function tests within normal limits PATHOLOGY: Acute on chronic cholecystitis MICROBIOLOGY: E. coli and urinary tract infection and peritoneal fluid ASSESSMENT: 1. Sepsis 2. Acute and chronic cholecystitis 3. Chronic obstructive pulmonary disease, severe, oxygen dependent 4. Ischemic congestive heart failure PLAN: 1. Diet as tolerated 2. Continue Adrian-Eastman drain. Drainage consistent with pre-existing right upper quadrant peritonitis with bile-stained fluid 3. Antibiotic management per infectious disease 4. Continue ANITA drain upon discharge. May discharge once medically stable Objective - Vital Signs Vital signs: Vital Signs Temp 97.7 F 11/20/20 08:00 Pulse 66 11/20/20 12:22 Resp 18 11/20/20 08:00 BP 159/67 11/20/20 08:00 Pulse Ox 100 11/20/20 08:00 Intake & Output 11/19/20 11/20/20 11/20/20 18:59 06:59 18:59 Intake Total 340 Output Total 830 525 Balance -830 -185 Intake: IV 240 0.9 240 Intake, IV Titration 100 Amount Piperacillin-Tazobactam 3 100 .375 gm In Sodium Chloride 0.9% 100 ml @ 25 mls/hr IVPB Q8HR [facility] Rx# :[id number] Output: Drainage 30 25 Abdomen 30 25 Urine 800 500 Other: Voiding Method Indwelling Catheter Indwelling Catheter # Bowel Movements 2 1 - Labs CBC & Chem 7: 11/20/20 07:35 11/19/20 14:12 Labs: Abnormal Lab Results - Last 24 Hours (Table) 11/19/20 11/19/20 11/20/20 Range/Units 14:12 14:12 07:35 WBC 28.1 H 21.37 H (3.8-10.6) k/uL RBC 3.69 L 3.24 L (3.80-5.40) m/uL Hgb 10.1 L 8.4 L (11.4-16.0) gm/dL Hct 32.4 L 28.8 L (34.0-46.0) % MCH 25.9 L (27.0-32.0) pg MCHC 29.2 L (32.0-37.0) g/dL RDW 15.7 H 17.1 H (11.5-15.5) % MPV 13.0 H (9.5-12.2) fL Absolute Nucleated RBC 0.02 H (0.00-0.00) X 10*3/uL NRBC/100 WBC Diff 0.1 H (0.0-0.0) /100 WBCS Sodium 147 H (137-145) mmol/L Chloride 118 H (98-107) mmol/L BUN 29 H (7-17) mg/dL Glucose 184 H (74-99) mg/dL Assessment and Plan (1) Acute cholecystitis due to biliary calculus Current Visit: Yes Status: Acute Code(s): K80.00 - CALCULUS OF GALLBLADDER W ACUTE CHOLECYST W/O OBSTRUCTION SNOMED Code(s): 17183466072595 (2) Acute on chronic cholecystitis concurrent with and due to calculus of gallbladder and bile duct Current Visit: Yes Status: Acute Code(s): K80.66 - CALCULUS OF GB AND BILE DUCT W AC AND CHR CHOLECYST W/O OBST SNOMED Code(s): 08514284977651 (3) Sepsis Current Visit: Yes Status: Acute Code(s): A41.9 - SEPSIS, UNSPECIFIED ORGANISM SNOMED Code(s): 21854087 (4) COPD with acute exacerbation Current Visit: Yes Status: Acute Code(s): J44.1 - CHRONIC OBSTRUCTIVE PULMONARY DISEASE W (ACUTE) EXACERBATION SNOMED Code(s): 572042000 (5) ACC/AHA stage C systolic heart failure due to ischemic cardiomyopathy Current Visit: Yes Status: Acute Code(s): I50.20 - UNSPECIFIED SYSTOLIC (CONGESTIVE) HEART FAILURE; I25.5 - ISCHEMIC CARDIOMYOPATHY SNOMED Code(s): 47419606965357252
[2020-11-20 14:04] LABS: African American GFR (CKD) 99.8 (60.0-200.0); Albumin 2.6 g/dL (3.80-4.90); Albumin/Globulin Ratio 1.63 (1.60-3.17); Anion Gap 4.5 mmol/L (4.00-12.00); Calcium 8.7 mg/dL (8.7-10.3); Carbon Dioxide 22.5 mmol/L (21.6-31.8); Globulin 1.6 g/dL (1.6-3.3); Non-African American GFR(CKD) 86.1 (60.0-200.0); Total Bilirubin 0.5 mg/dL (0.2-1.2); Total Protein 4.2 g/dL (6.2-8.2)
--- NOTE | 2020-11-20 15:35 | P.PN ---
Subjective Progress Note Date: 11/20/20 This is a 80-year-old white female patient with past history of COPD on home oxygen at 3 L, hypertension, hyperlipidemia, GERD, urinary tract infections, who was recently hospitalized from 10/16/2020 through 10/23/2020 for acute pancreatitis, and ultrasound of the gallbladder showed gallbladder sludge and positive sonographic Hernandez sign, and urinary tract infection. During that admission we saw the patient for acute exacerbation of COPD in addition to the above mentioned complaints. Patient was treated with steroids, nebulized bronchodilators. Her maintenance inhaler at home is Trelegy. Patient's acute pancreatitis was thought to be possibly related to regular alcohol intake. And patient reported drinking one or 2 large glasses of wine on a daily basis. Her liver enzymes improved during that admission, abdominal pain improved, she was discharged home on 10/21/2020. On 11/11/2020 patient returned to the emergency department for evaluation of right-sided abdominal pain, and diarrhea for the past few days. Patient apparently failed to follow-up with any of her doctors as recommended. She did finish her antibiotics for the urinary tract infection. Patient reports 5-6 bouts of diarrhea on a daily basis. She still complains of right upper quadrant pain which is very sharp consistent, rated 8 out of 10. She denied any radiation. Denied any fever or chills, no chest pain. She did report some mild nausea. Denied any dysuria. Her KUB abdomen showed no acute abnormality. Lung bases showed possible interstitial changes, no evidence of pneumoperitoneum or bowel obstruction. Ultrasound of gallbladder showed cholelithiasis with no acute cholecystitis, fatty infiltration of the liver. Initial blood work showed elevated white count of 22.8, hemoglobin was 11.3, INR was 1.0, sodium was 134, the rest of electrolytes and renal profile were fairly unremarkable with the exception of BUN being elevated at 36, her liver enzymes showed total bilirubin of 0.6, AST of 139, ALT of 114, alkaline phosphatase is 163. Amylase and lipase were within normal limits at 33 and 27 respectively. Urinalysis showed turbid urine, with large amount of leuk trase, many bacteria, and white blood cells in clumps. Urine culture was sent and showed a gram- negative bacilli, cultures pending, patient was started on Zosyn. She is on Symbicort and DuoNeb breathing treatments. Patient is having ongoing sharp right upper quadrant abdominal pain. Surgical services were consulted and patient is being scheduled for robotic cholecystectomy with Dr. Vitale. We were asked to see the patient for clearance for surgery from pulmonary perspective, we don't have a chest x-ray from this admission, patient is bronchospastic she does have congestive cough on today's exam, she is on 4 L of oxygen and the pulse ox 90 and at 92%. She is afebrile, she is having significant right upper quadrant abdominal pain, we will go ahead and clear the patient for surgery, we'll continue to closely follow the patient in the postoperative period Patient was reevaluated today on 11/14/2020, patient is now status post robotic extensive lysis of adhesions robotic cholecystectomy and placement of #19 drain right upper quadrant. Patient was found to have severe intra-abdominal adhesions with omentum adhering to abdominal wall and she underwent extensive lysis of adhesions over [address] Cartagena. She was also noted to have bile staining right upper quadrant including a decompressed gallbladder consistent with acute cholecystitis she was also found to have right upper quadrant peritonitis and peritoneal fluid was obtained for cultures. At any rate patient was sent back to the ICU after her surgery, she was noted to be and a bit of respiratory distress, and I recommended patient on BiPAP with IPAP of 12 EPAP of 6, and FiO2 of 35%. Patient is already on antibiotics, she is also on bronchodilators, and I plan to monitor the patient in the ICU for at least the next 24 hours, if her condition gets any worse, patient could be intubated and placed on mechanical ventilation. Apparently while she was on the recovery room, her status was marginal, and the intubating the patient was considered but felt not to do so unless the patient gets any worse. Patient is lethargic, could not get adequate history from the patient today WBC count remains elevated at 25.33. Hemoglobin is 10.1. Electrolytes are normal renal profile is normal, chest x-ray is pending. Previous x-ray showed bibasilar atelectasis The patient is seen today 11/15/2020 in follow-up in the intensive care unit. She is currently resting fairly comfortably in bed. Awake. Currently on BiPAP 12/6 and 40% FiO2. Chest x-ray reveals evidence of chronic changes but no acute pulmonary process. She is having issues with hypertension. She was given labetalol earlier. His 0.9 normal saline at KVO. Abdominal dressing is dry and intact. ANITA drain remains in place.. Female fluid cultures are pending. Urine culture pending. Previous culture positive for E. coli. White count 21.8. Hemoglobin 10.5. Sodium 150. Potassium 4.0. Bicarb 19. Creatinine 0.99. Glucose 129. AST 103. ALT 67. Alk phos 212. She is continued on DuoNeb inhalations, Symbicort, IV Solu-Medrol. Antibiotics in the form of Zosyn. Lovenox for DVT prophylaxis. Progress note dated 11/16/2020. 80-year-old female, who was admitted back on November 11. Please see the above notes. The patient was admitted with a diagnosis of Escherichia coli urinary tract infection and sepsis, dehydration, and cholecystitis. The patient had a laparoscopic cholecystectomy on November 14. Currently, she is on Zosyn for her E. coli urinary tract infection. She's getting 5 L nasal cannula. He is also getting dextrose, at 100 mL an hour. I did tell the nurse to drop it down to 50 mL an hour. I discussed off the phone with her granddaughter by the name of Bita Malone. I attempted to have a conversation about CODE STATUS with the p atient, but she was not able to really respond appropriately. She was somewhat lethargic and somnolent. Anyway, the granddaughter said that the patient would agree to all support short of intubation and mechanical ventilation which I think is very appropriate given her age. White count of 16.9, hemoglobin 10.8, hematocrit 33.5, platelet count 211,000. Sodium 147, calcium is 4.1, chlorides 121, CO2 19, anion gap 7, BUN 50 and creatinine 0.81. No recent chest x-ray to report. On 11/17/2020 patient seen in follow-up on medical surgical floor. She is resting in bed, she seems to be a little dyspneic at rest. She is currently 4 L of oxygen the pulse ox of 97%, she is afebrile, a bit hypertensive this morning, with a blood pressure 189/71. Follow-up chest x-ray today has been reviewed s howing increased basilar densities that could reflect atelectasis versus developing infiltrate. Patient continues on antibiotics in the form of Zosyn for urinary tract infection. She continues on breathing treatments. She is on IV steroids with IV Solu-Medrol 40 mg every 12 hours. She denies any increased cough, no chest pain. Today's labs have been reviewed showing white blood cell, 26.6, hemoglobin is 10.7, her serum sodium has improved and is down to 145, and we will discontinue her D5W infusion. Chloride is 118, CO2 is 19, BUN is 48 and creatinine 0.85 on today's labs, her LFTs are also trending down On 11/18/2020 patient is seen in follow-up on medical surgical floor. She is resting in bed, still dyspneic at rest, however not any worse than yesterday's exam, she is remains on the same amount of oxygen at 4 L or pulse ox is 95%, she is afebrile, she remains hypertensive, and her blood pressures are in the 170s to 190s over 60s. Yesterday his follow-up chest x-ray just showed increased basilar densities that could reflect atelectasis. No wheezing, her lung sounds are clear on today's exam, however there is a possibility of bilious leak from around the ANITA drain in the left lower quadrant, ANITA drain itself is putting out serous fluid. ID service is following, and we will be ordering CT of the abdomen and pelvis. Currently patient remains on antibiotics in the form of Zosyn. Patient has been having loose stools, however C. diff was negative, she was started on oral vancomycin for possibility of C. diff which was ruled out. No new labs today, yesterday's labs showed up trending white blood cell count, and he was up to 26.6. Patient has been afebrile. Peritoneal fluid culture is showing gram-negative bacilli and final culture is pending. Urine culture was p ositive for E. coli. The patient is seen today 11/19/2020 in follow-up on the regular medical floor. She is currently sitting up in a chair at the bedside. Much more awake and alert. Feeling stronger. Feeling less shortness of breath. Less cough and congestion. She is maintaining O2 saturations in the 90s on 4 L/m per nasal cannula. Peritoneal fluid is positive for E. coli. Sodium 147. Potassium 3.9. Chloride 118. Creatinine 0.61. Glucose 184. She remains on DuoNeb inhalations, Symbicort. Antibiotics in the form of Zosyn. The patient is seen today 11/20/2020 in follow-up on the regular medical floor. She is currently resting comfortably in bed. Awake and alert in no acute d istress. Maintaining O2 saturations in the 90s on 3 L/m per nasal cannula. She's afebrile. Hemodynamically stable. Peritoneal fluid was positive for E. coli. Blood culture revealing no growth. White count 21.3. Hemoglobin 8.4. Sodium 145. Potassium 4.0. Creatinine 0.6. She remains on DuoNeb inhalations, Symbicort. Antibiotics in the form of Zosyn. Objective - Vital Signs Vital signs: Vital Signs Temp 97.7 F 11/20/20 08:00 Pulse 66 11/20/20 12:22 Resp 18 11/20/20 08:00 BP 159/67 11/20/20 08:00 Pulse Ox 100 11/20/20 08:00 Intake & Output 11/19/20 11/20/20 11/20/20 18:59 06:59 18:59 Intake Total 340 Output Total 830 525 Balance -830 -185 Intake: IV 240 0.9 240 Intake, IV Titration 100 Amount Piperacillin-Tazobactam 3 100 .375 gm In Sodium Chloride 0.9% 100 ml @ 25 mls/hr IVPB Q8HR FORMERLY [facility], 1928–1983 Rx# :[id number] Output: Drainage 30 25 Abdomen 30 25 Urine 800 500 Other: Voiding Method Indwelling Catheter Indwelling Catheter # Bowel Movements 2 1 - Exam GENERAL EXAM: Revealed an 80-year-old female, awake, alert, resting in bed, on 3 L nasal cannula, no acute distress. Head: Atraumatic, normocephalic. HEENT: PERRLA, EOMI, anicteric, no neck masses, dry mucous membranes, throat is clear. CHEST: Symmetrical chest expansion. LUNGS: Rhonchi noted bilaterally. No wheezing. No crackles. CVS: Normal S1 and S2, no S3 gallop. No murmur. ABDOMEN: Postsurgical soft slightly tender to palpation. EXTREMITIES: Good pulses bilaterally no clubbing edema or SKIN: No rashes CENTRAL NERVOUS SYSTEM: Awake, follows simple instructions only. Psychiatric: Alert, oriented. - Labs CBC & Chem 7: 11/20/20 07:35 11/20/20 07:35 Labs: Abnormal Lab Results - Last 24 Hours (Table) 11/20/20 11/20/20 Range/Units 07:35 07:35 WBC 21.37 H (4.50-10.00) X 10*3/uL RBC 3.24 L (4.10-5.20) X 10*6/uL Hgb 8.4 L (12.0-15.0) g/dL Hct 28.8 L (37.2-46.3) % MCH 25.9 L (27.0-32.0) pg MCHC 29.2 L (32.0-37.0) g/dL RDW 17.1 H (11.5-14.5) % MPV 13.0 H (9.5-12.2) fL Absolute Nucleated RBC 0.02 H (0.00-0.00) X 10*3/uL NRBC/100 WBC Diff 0.1 H (0.0-0.0) /100 WBCS Chloride 118 H (96-109) mmol/L BUN/Creatinine Ratio 40.00 H (12.00-20.00) Ratio Alkaline Phosphatase 140 H (41-126) U/L Total Protein 4.2 L (6.2-8.2) g/dL Albumin 2.60 L (3.80-4.90) g/dL Assessment and Plan Assessment: 1 Acute cholecystitis, status post robotic cholecystectomy, extensive lysis of a dhesions, placement of right upper quadrant drain. 2 Hypernatremia, recovered, current sodium 145 3 Hypertension requiring Cleviprex infusion amount recovered 4 Acute on chronic hypoxic respiratory failure secondary to COPD 5 Acute urinary tract infection 6 Recent hospitalization for acute pancreatitis 7 Medical noncompliance. 8 History of alcohol abuse. 9 Former smoker Plan: The patient was seen and evaluated by Dr. Coelho Currently stable from the pulmonary standpoint Continue Zosyn Incentive spirometry Increase her activity as tolerated Titrate the FiO2 as tolerated Probable transfer to ECF post discharge I, the cosigning physician, performed a history & physical examination of the patient. Lungs sounds with few scattered rhonchi. Maintaining good O2 sat urations in the 90s on 3 L/m per nasal cannula. I discussed the assessment and plan of care with my nurse practitioner, Rita Fernández. I attest to the above note as dictated by her.
--- NOTE | 2020-11-20 16:59 | PN ---
PROGRESS NOTE DATE OF SERVICE: 11/20/2020. REASON FOR FOLLOWUP: Acute cholecystitis and leukocytosis. INTERVAL HISTORY: The patient is afebrile. The patient is feeling better. Breathing comfortably. Overall, right upper quadrant abdominal pain has improved. Denies any chest pain, shortness of breath or cough and no diarrhea. PHYSICAL EXAMINATION: Blood pressure 159/67, pulse of 60, temperature 97.9. She is 100% on 3 L nasal cannula. General description is an elderly female up in the chair in no distress. Respiratory system: Unlabored breathing, decreased breath sounds in the base, with no wheeze. Heart S1, S2. Regular rate and rhythm. Abdomen: Soft, mildly tender. No guarding or rigidity. LABS: Hemoglobin is 8.4, white count 21.3, BUN of 24, creatinine 0.6. DIAGNOSTIC IMPRESSION AND PLAN: Patient with acute cholecystitis status post cholecystectomy, abdominal culture positive for E coli sensitive pathogen. Patient covered with Zosyn that will be continued over the weekend. Hopefully finish therapy with oral Augmentin as per discussion with the admitting team. Continue supportive care. MMODL / IJN: [id number] /
[2020-11-20] MEDS: VERAPAMIL SR 180 MG TABLET.ER PO SCH (20:20)
[2020-11-20] MEDS: ACETAMINOPHEN TAB 325 MG TAB PO PRN (23:19)
[2020-11-21] MEDS: CHOLESTYRAMINE (WITH SUGAR) 4 GM PACKET PO SCH ×4 (07:47→20:38)
[2020-11-21] MEDS: PIPERACILLIN-TAZOBACTAM 3.375 GM in SODIUM CHLORIDE 0.9% 100 ML IVPB SCH ×3 (07:52→23:36)
[2020-11-21] MEDS: SIMETHICONE 40 MG/0.6 ML DROPS 2,000 MG/30 ML BOTTLE PO SCH ×4 (07:53→20:38)
[2020-11-21] MEDS: LOSARTAN 50 MG TAB PO SCH (07:55)
[2020-11-21] MEDS: CITALOPRAM HYDROBROMIDE 20 MG TAB PO SCH (07:55)
[2020-11-21] MEDS: PANTOPRAZOLE 40 MG/10 ML VIAL IVP SCH (07:55)
[2020-11-21] MEDS: ATORVASTATIN 20 MG TAB PO SCH (07:55)
[2020-11-21] MEDS: ISOSORBIDE MONONITRATE ER 30 MG TAB.ER.24H PO SCH (07:55)
[2020-11-21] MEDS: amLODIPine 5 MG TAB PO SCH (07:55)
[2020-11-21] MEDS: ASPIRIN 81 MG PO SCH (07:55)
[2020-11-21] MEDS: ENOXAPARIN 40 MG/0.4 ML SYRINGE SQ SCH (07:56)
[2020-11-21] MEDS: SYMBICORT 80-4.5 MCG INHALER INHALATION SCH ×2 (08:35→20:56)
[2020-11-21] MEDS: IPRATROPIUM-ALBUTEROL 3 ML NEB INHALATION SCH ×3 (08:35→20:56)
[2020-11-21 08:56] LABS: Anisocytosis Slight; HCT 29.3 % (34.0-46.0); HGB 8.8 gm/dL (11.4-16.0); Hypochromasia Marked; MCH 26.2 pg (25.0-35.0); MCHC 29.8 g/dL (31.0-37.0); MCV 87.8 fL (80.0-100.0); Platelet Count 261 k/uL (150-450); RBC 3.34 m/uL (3.80-5.40); RDW 16.4 % (11.5-15.5); WBC 21.7 k/uL (3.8-10.6)
[2020-11-21 09:07] LABS: ALT 24 U/L (4-34); AST 24 U/L (14-36); African American GFR (CKD) >90 (>60 ml/min/1.73 sqM); Albumin 2.1 g/dL (3.5-5.0); Alkaline Phosphatase 128 U/L (38-126); Anion Gap 1 mmol/L; Blood Urea Nitrogen 18 mg/dL (7-17); Calcium 8.9 mg/dL (8.4-10.2); Carbon Dioxide 25 mmol/L (22-30); Chloride 114 mmol/L (98-107); Globulin 2.2 g/dL; Glucose 101 mg/dL (74-99); Magnesium 1.9 mg/dL (1.6-2.3); Non-African American GFR(CKD) 86 (>60 ml/min/1.73 sqM); Potassium 4.2 mmol/L (3.5-5.1); Sodium 140 mmol/L (137-145); Total Bilirubin 0.6 mg/dL (0.2-1.3); Total Protein 4.3 g/dL (6.3-8.2)
[2020-11-21] MEDS: ACETAMINOPHEN TAB 325 MG TAB PO PRN (10:39)
[2020-11-21] MEDS ORDERED: FUROSEMIDE 10 MG/ML 2 ML VIAL IV ONE (10:45)
--- NOTE | 2020-11-21 11:15 | P.PN ---
Subjective Progress Note Date: 11/21/20 This is a 80-year-old white female patient with past history of COPD on home oxygen at 3 L, hypertension, hyperlipidemia, GERD, urinary tract infections, who was recently hospitalized from 10/16/2020 through 10/23/2020 for acute pancreatitis, and ultrasound of the gallbladder showed gallbladder sludge and positive sonographic Hernandez sign, and urinary tract infection. During that admission we saw the patient for acute exacerbation of COPD in addition to the above mentioned complaints. Patient was treated with steroids, nebulized bronchodilators. Her maintenance inhaler at home is Trelegy. Patient's acute pancreatitis was thought to be possibly related to regular alcohol intake. And patient reported drinking one or 2 large glasses of wine on a daily basis. Her liver enzymes improved during that admission, abdominal pain improved, she was discharged home on 10/21/2020. On 11/11/2020 patient returned to the emergency department for evaluation of right-sided abdominal pain, and diarrhea for the past few days. Patient apparently failed to follow-up with any of her doctors as recommended. She did finish her antibiotics for the urinary tract infection. Patient reports 5-6 bouts of diarrhea on a daily basis. She still complains of right upper quadrant pain which is very sharp consistent, rated 8 out of 10. She denied any radiation. Denied any fever or chills, no chest pain. She did report some mild nausea. Denied any dysuria. Her KUB abdomen showed no acute abnormality. Lung bases showed possible interstitial changes, no evidence of pneumoperitoneum or bowel obstruction. Ultrasound of gallbladder showed cholelithiasis with no acute cholecystitis, fatty infiltration of the liver. Initial blood work showed elevated white count of 22.8, hemoglobin was 11.3, INR was 1.0, sodium was 134, the rest of electrolytes and renal profile were fairly unremarkable with the exception of BUN being elevated at 36, her liver enzymes showed total bilirubin of 0.6, AST of 139, ALT of 114, alkaline phosphatase is 163. Amylase and lipase were within normal limits at 33 and 27 respectively. Urinalysis showed turbid urine, with large amount of leuk trase, many bacteria, and white blood cells in clumps. Urine culture was sent and showed a gram- negative bacilli, cultures pending, patient was started on Zosyn. She is on Symbicort and DuoNeb breathing treatments. Patient is having ongoing sharp right upper quadrant abdominal pain. Surgical services were consulted and patient is being scheduled for robotic cholecystectomy with Dr. Vitale. We were asked to see the patient for clearance for surgery from pulmonary perspective, we don't have a chest x-ray from this admission, patient is bronchospastic she does have congestive cough on today's exam, she is on 4 L of oxygen and the pulse ox 90 and at 92%. She is afebrile, she is having significant right upper quadrant abdominal pain, we will go ahead and clear the patient for surgery, we'll continue to closely follow the patient in the postoperative period Patient was reevaluated today on 11/14/2020, patient is now status post robotic extensive lysis of adhesions robotic cholecystectomy and placement of #19 drain right upper quadrant. Patient was found to have severe intra-abdominal adhesions with omentum adhering to abdominal wall and she underwent extensive lysis of adhesions over [address] Cartagena. She was also noted to have bile staining right upper quadrant including a decompressed gallbladder consistent with acute cholecystitis she was also found to have right upper quadrant peritonitis and peritoneal fluid was obtained for cultures. At any rate patient was sent back to the ICU after her surgery, she was noted to be and a bit of respiratory distress, and I recommended patient on BiPAP with IPAP of 12 EPAP of 6, and FiO2 of 35%. Patient is already on antibiotics, she is also on bronchodilators, and I plan to monitor the patient in the ICU for at least the next 24 hours, if her condition gets any worse, patient could be intubated and placed on mechanical ventilation. Apparently while she was on the recovery room, her status was marginal, and the intubating the patient was considered but felt not to do so unless the patient gets any worse. Patient is lethargic, could not get adequate history from the patient today WBC count remains elevated at 25.33. Hemoglobin is 10.1. Electrolytes are normal renal profile is normal, chest x-ray is pending. Previous x-ray showed bibasilar atelectasis The patient is seen today 11/15/2020 in follow-up in the intensive care unit. She is currently resting fairly comfortably in bed. Awake. Currently on BiPAP 12/6 and 40% FiO2. Chest x-ray reveals evidence of chronic changes but no acute pulmonary process. She is having issues with hypertension. She was given labetalol earlier. His 0.9 normal saline at KVO. Abdominal dressing is dry and intact. ANITA drain remains in place.. Female fluid cultures are pending. Urine culture pending. Previous culture positive for E. coli. White count 21.8. Hemoglobin 10.5. Sodium 150. Potassium 4.0. Bicarb 19. Creatinine 0.99. Glucose 129. AST 103. ALT 67. Alk phos 212. She is continued on DuoNeb inhalations, Symbicort, IV Solu-Medrol. Antibiotics in the form of Zosyn. Lovenox for DVT prophylaxis. Progress note dated 11/16/2020. 80-year-old female, who was admitted back on November 11. Please see the above notes. The patient was admitted with a diagnosis of Escherichia coli urinary tract infection and sepsis, dehydration, and cholecystitis. The patient had a laparoscopic cholecystectomy on November 14. Currently, she is on Zosyn for her E. coli urinary tract infection. She's getting 5 L nasal cannula. He is also getting dextrose, at 100 mL an hour. I did tell the nurse to drop it down to 50 mL an hour. I discussed off the phone with her granddaughter by the name of Bita Malone. I attempted to have a conversation about CODE STATUS with the p atient, but she was not able to really respond appropriately. She was somewhat lethargic and somnolent. Anyway, the granddaughter said that the patient would agree to all support short of intubation and mechanical ventilation which I think is very appropriate given her age. White count of 16.9, hemoglobin 10.8, hematocrit 33.5, platelet count 211,000. Sodium 147, calcium is 4.1, chlorides 121, CO2 19, anion gap 7, BUN 50 and creatinine 0.81. No recent chest x-ray to report. On 11/17/2020 patient seen in follow-up on medical surgical floor. She is resting in bed, she seems to be a little dyspneic at rest. She is currently 4 L of oxygen the pulse ox of 97%, she is afebrile, a bit hypertensive this morning, with a blood pressure 189/71. Follow-up chest x-ray today has been reviewed s howing increased basilar densities that could reflect atelectasis versus developing infiltrate. Patient continues on antibiotics in the form of Zosyn for urinary tract infection. She continues on breathing treatments. She is on IV steroids with IV Solu-Medrol 40 mg every 12 hours. She denies any increased cough, no chest pain. Today's labs have been reviewed showing white blood cell, 26.6, hemoglobin is 10.7, her serum sodium has improved and is down to 145, and we will discontinue her D5W infusion. Chloride is 118, CO2 is 19, BUN is 48 and creatinine 0.85 on today's labs, her LFTs are also trending down On 11/18/2020 patient is seen in follow-up on medical surgical floor. She is resting in bed, still dyspneic at rest, however not any worse than yesterday's exam, she is remains on the same amount of oxygen at 4 L or pulse ox is 95%, she is afebrile, she remains hypertensive, and her blood pressures are in the 170s to 190s over 60s. Yesterday his follow-up chest x-ray just showed increased basilar densities that could reflect atelectasis. No wheezing, her lung sounds are clear on today's exam, however there is a possibility of bilious leak from around the ANITA drain in the left lower quadrant, ANITA drain itself is putting out serous fluid. ID service is following, and we will be ordering CT of the abdomen and pelvis. Currently patient remains on antibiotics in the form of Zosyn. Patient has been having loose stools, however C. diff was negative, she was started on oral vancomycin for possibility of C. diff which was ruled out. No new labs today, yesterday's labs showed up trending white blood cell count, and he was up to 26.6. Patient has been afebrile. Peritoneal fluid culture is showing gram-negative bacilli and final culture is pending. Urine culture was p ositive for E. coli. The patient is seen today 11/19/2020 in follow-up on the regular medical floor. She is currently sitting up in a chair at the bedside. Much more awake and alert. Feeling stronger. Feeling less shortness of breath. Less cough and congestion. She is maintaining O2 saturations in the 90s on 4 L/m per nasal cannula. Peritoneal fluid is positive for E. coli. Sodium 147. Potassium 3.9. Chloride 118. Creatinine 0.61. Glucose 184. She remains on DuoNeb inhalations, Symbicort. Antibiotics in the form of Zosyn. The patient is seen today 11/20/2020 in follow-up on the regular medical floor. She is currently resting comfortably in bed. Awake and alert in no acute d istress. Maintaining O2 saturations in the 90s on 3 L/m per nasal cannula. She's afebrile. Hemodynamically stable. Peritoneal fluid was positive for E. coli. Blood culture revealing no growth. White count 21.3. Hemoglobin 8.4. Sodium 145. Potassium 4.0. Creatinine 0.6. She remains on DuoNeb inhalations, Symbicort. Antibiotics in the form of Zosyn. The patient is seen today 11/21/2020 in follow-up on the regular medical floor. She is awake and alert in no acute distress. Currently resting comfortably in bed. No worsening shortness of breath, cough or congestion. Maintaining O2 s aturations in the upper 90s on 3 L/m per nasal cannula. She's afebrile. Hemodynamically stable. Urine culture was positive for E. coli. Follow-up culture negative. Peritoneal fluid cultures positive for E. coli. White count 21.7. Hemoglobin 8.8. Sodium 140. Potassium 4.2. Creatinine 0.62. Glucose 101. Alk phos 128. She remains on Zosyn. Continued on bronchodilators. Lovenox for DVT prophylaxis. Objective - Vital Signs Vital signs: Vital Signs Temp 97.9 F 11/21/20 07:36 Pulse 68 11/21/20 08:46 Resp 19 11/21/20 07:36 BP 136/56 11/21/20 07:36 Pulse Ox 97 11/21/20 07:36 Intake & Output 11/20/20 11/21/20 11/21/20 18:59 06:59 18:59 Output Total 50 390 Balance -50 -390 Output: Drainage 50 90 Abdomen 50 90 Urine 300 Other: Voiding Method Indwelling Catheter - Exam GENERAL EXAM: Revealed an 80-year-old female, awake, alert, resting in bed, on 3 L nasal cannula, no acute distress. Head: Atraumatic, normocephalic. HEENT: PERRLA, EOMI, anicteric, no neck masses, dry mucous membranes, throat is clear. CHEST: Symmetrical chest expansion. LUNGS: Rhonchi noted bilaterally. No wheezing. No crackles. CVS: Normal S1 and S2, no S3 gallop. No murmur. ABDOMEN: Postsurgical soft slightly tender to palpation. EXTREMITIES: Good pulses bilaterally no clubbing edema or SKIN: No rashes CENTRAL NERVOUS SYSTEM: Awake, follows simple instructions only. Psychiatric: Alert, oriented. - Labs CBC & Chem 7: 11/21/20 08:44 11/21/20 08:44 Labs: Abnormal Lab Results - Last 24 Hours (Table) 11/20/20 11/20/20 11/21/20 Range/Units 07:35 07:35 08:44 WBC 21.37 H 21.7 H (4.50-10.00) X 10*3/uL RBC 3.24 L 3.34 L (4.10-5.20) X 10*6/uL Hgb 8.4 L 8.8 L (12.0-15.0) g/dL Hct 28.8 L 29.3 L (37.2-46.3) % MCH 25.9 L (27.0-32.0) pg MCHC 29.2 L 29.8 L (32.0-37.0) g/dL RDW 17.1 H 16.4 H (11.5-14.5) % MPV 13.0 H (9.5-12.2) fL Absolute Nucleated RBC 0.02 H (0.00-0.00) X 10*3/uL NRBC/100 WBC Diff 0.1 H (0.0-0.0) /100 WBCS Chloride 118 H (96-109) mmol/L BUN (7-17) mg/dL BUN/Creatinine Ratio 40.00 H (12.00-20.00) Ratio Glucose (74-99) mg/dL Alkaline Phosphatase 140 H (41-126) U/L Total Protein 4.2 L (6.2-8.2) g/dL Albumin 2.60 L (3.80-4.90) g/dL 11/21/20 Range/Units 08:44 WBC (4.50-10.00) X 10*3/uL RBC (4.10-5.20) X 10*6/uL Hgb (12.0-15.0) g/dL Hct (37.2-46.3) % MCH (27.0-32.0) pg MCHC (32.0-37.0) g/dL RDW (11.5-14.5) % MPV (9.5-12.2) fL Absolute Nucleated RBC (0.00-0.00) X 10*3/uL NRBC/100 WBC Diff (0.0-0.0) /100 WBCS Chloride 114 H (96-109) mmol/L BUN 18 H (7-17) mg/dL BUN/Creatinine Ratio (12.00-20.00) Ratio Glucose 101 H (74-99) mg/dL Alkaline Phosphatase 128 H (41-126) U/L Total Protein 4.3 L (6.2-8.2) g/dL Albumin 2.1 L (3.80-4.90) g/dL Assessment and Plan Assessment: 1 Acute cholecystitis, status post robotic cholecystectomy, extensive lysis of adhesions, placement of right upper quadrant drain. 2 Hypernatremia, recovered, current sodium 145 3 Hypertension requiring Cleviprex infusion amount recovered 4 Acute on chronic hypoxic respiratory failure secondary to COPD 5 Acute urinary tract infection 6 Recent hospitalization for acute pancreatitis 7 Medical noncompliance. 8 History of alcohol abuse. 9 Former smoker Plan: The patient was seen and evaluated by Dr. Coelho Currently stable from the pulmonary standpoint Incentive spirometry Increase her activity as tolerated Titrate the FiO2 as tolerated Currently on Zosyn Lovenox for DVT prophylaxis Probable transfer to ECF post discharge I, the cosigning physician, performed a history & physical examination of the patient. Lungs sounds with few scattered rhonchi. Maintaining good O2 sa turations in the 90s on 3 L/m per nasal cannula. I discussed the assessment and plan of care with my nurse practitioner, Rita Fernández. I attest to the above note as dictated by her.
[2020-11-21] MEDS: HYDROcodone/APAP 7.5-325MG 1 EACH TAB PO PRN (12:44)
--- NOTE | 2020-11-21 13:07 | P.PN ---
Progress Note - Text Progress Note Date: 11/21/20 The patient is resting chair. She's has complaints of abdominal pain. Her ANITA drain has some biliary O purulent fluid. On exam vital signs are stable. Abdomen is soft. Status post laparoscopic cholecystectomy. Patient will continue receive supportive care.
--- NOTE | 2020-11-21 17:02 | P.PN ---
Subjective Progress Note Date: 11/21/20 (delayed charting seen at 1030) Principal diagnosis: abdominal pain Patient is an 80-year-old female past medical history of COPD, hypertension, and anemia who presented to the hospital secondary to right upper quadrant pain. She's had a complex hospital stay including a cholecystectomy secondary to acute on chronic cholecystitis. She was also discovered to have bacterial per itonitis. Patient seen and examined at bedside. She continues to have some abdominal pain that is the same or better than yesterday, + shortness of breath. No nausea. No vomiting. General: non toxic, no distress, appears at stated age Derm: Multiple areas of ecchymoses bilateral arms, warm, dry Head: atraumatic, normocephalic, symmetric Eyes: EOMI, no lid lag, anicteric sclera Mouth: no lip lesion, mucus membranes moist Cardiovascular: S1S2 reg, no murmur, positive posterior tibial pulse bilateral, Lungs: Ronchi bilateral, no accessory muscle use Abdominal: soft, tender to palpation diffusely, no guarding, no appreciable organomegaly Ext: no gross muscle atrophy, no edema, no contractures Neuro: CN II-XI grossly intact, no focal neuro deficits Psych: Alert, oriented, appropriate affect Acute cholecystitis with sepsis, bacterial peritonitis -Status post cholecystectomy - Zosyn day #9 -Infectious disease recs appreciated - surgery recs appreciated Diarrhea, improved -C. diff was negative -Continue with Questran -Transition to low fat, lactose free diet -Continue to monitor Acute blood loss anemia postoperative -Stable -Follow CBC -No indication for transfusion at this point in time Hypernatremia likely secondary to IV fluid resuscitation and poor oral intake - encourage oral intake -Repeat sodium level in a.m. COPD with acute exacerbation with chronic hypoxic respiratory failure, -Pulmonary recommendations -Has been transitioned to oral steroids Uncomplicated UTI, has completed treatment Acute urinary retention, resolved Toxic metabolic encephalopathy, [facility] Objective - Vital Signs Vital signs: Vital Signs Temp 97.5 F L 11/21/20 14:10 Pulse 64 11/21/20 15:10 Resp 18 11/21/20 14:10 BP 117/54 11/21/20 14:10 Pulse Ox 96 11/21/20 14:10 Intake & Output 11/20/20 11/21/20 11/21/20 18:59 06:59 18:59 Output Total 50 390 30 Balance -50 -390 -30 Output: Drainage 50 90 30 Abdomen 50 90 30 Urine 300 Other: Voiding Method Indwelling Catheter External Catheter - Labs CBC & Chem 7: 11/21/20 08:44 11/21/20 08:44 Labs: Abnormal Lab Results - Last 24 Hours (Table) 11/21/20 11/21/20 Range/Units 08:44 08:44 WBC 21.7 H (3.8-10.6) k/uL RBC 3.34 L (3.80-5.40) m/uL Hgb 8.8 L (11.4-16.0) gm/dL Hct 29.3 L (34.0-46.0) % MCHC 29.8 L (31.0-37.0) g/dL RDW 16.4 H (11.5-15.5) % Chloride 114 H (98-107) mmol/L BUN 18 H (7-17) mg/dL Glucose 101 H (74-99) mg/dL Alkaline Phosphatase 128 H (38-126) U/L Total Protein 4.3 L (6.3-8.2) g/dL Albumin 2.1 L (3.5-5.0) g/dL
--- NOTE | 2020-11-21 17:06 | P.PN ---
Subjective Progress Note Date: 11/20/20 (Patient seen and examined at bedside on 11/20/20 at 1130) Principal diagnosis: abdominal pain Patient is an 80-year-old female past medical history of COPD, hypertension, and anemia who presented to the hospital secondary to right upper quadrant pain. She's had a complex hospital stay including a cholecystectomy secondary to acute on chronic cholecystitis. She was also discovered to have bacterial peritonitis. Patient seen and examined at bedside. + belly pain, no nausea, no vomiitng, had 2 bowel movements that were formed General: non toxic, no distress, appears at stated age Derm: Multiple areas of ecchymoses bilateral arms, warm, dry Head: atraumatic, normocephalic, symmetric Eyes: EOMI, no lid lag, anicteric sclera Mouth: no lip lesion, mucus membranes moist Cardiovascular: S1S2 reg, no murmur, positive posterior tibial pulse bilateral, Lungs: Decreased bs bilateral, no accessory muscle use Abdominal: soft, tender to palpation diffusely, no guarding, no appreciable organomegaly Ext: no gross muscle atrophy, no edema, no contractures Neuro: CN II-XI grossly intact, no focal neuro deficits Psych: Alert, oriented, appropriate affect Acute cholecystitis with sepsis, bacterial peritonitis -Status post cholecystectomy - Zosyn day #8 -Infectious disease recs appreciated: Augmentin on discharge - surgery recs appreciated Diarrhea, improved -C. diff was negative -Continue with Questran -Transition to low fat, lactose free diet -Continue to monitor Acute blood loss anemia postoperative -Stable -Follow CBC -No indication for transfusion at this point in time COPD with acute exacerbation with chronic hypoxic respiratory failure -Pulmonary recommendations -Has been transitioned to oral steroids Uncomplicated UTI, has completed treatment Acute urinary retention, resolved Toxic metabolic encephalopathy, resolved Hypernatremia likely secondary to IV fluid resuscitation and poor oral intake, resolved To [facility] on 11/23/20 Objective - Vital Signs Vital signs: Vital Signs Temp 97.5 F L 11/21/20 14:10 Pulse 64 11/21/20 15:10 Resp 18 11/21/20 14:10 BP 117/54 11/21/20 14:10 Pulse Ox 96 11/21/20 14:10 Intake & Output 11/20/20 11/21/20 11/21/20 18:59 06:59 18:59 Output Total 50 390 30 Balance -50 -390 -30 Output: Drainage 50 90 30 Abdomen 50 90 30 Urine 300 Other: Voiding Method Indwelling Catheter External Catheter - Labs CBC & Chem 7: 11/21/20 08:44 11/21/20 08:44 Labs: Abnormal Lab Results - Last 24 Hours (Table) 11/21/20 11/21/20 Range/Units 08:44 08:44 WBC 21.7 H (3.8-10.6) k/uL RBC 3.34 L (3.80-5.40) m/uL Hgb 8.8 L (11.4-16.0) gm/dL Hct 29.3 L (34.0-46.0) % MCHC 29.8 L (31.0-37.0) g/dL RDW 16.4 H (11.5-15.5) % Chloride 114 H (98-107) mmol/L BUN 18 H (7-17) mg/dL Glucose 101 H (74-99) mg/dL Alkaline Phosphatase 128 H (38-126) U/L Total Protein 4.3 L (6.3-8.2) g/dL Albumin 2.1 L (3.5-5.0) g/dL
[2020-11-21] MEDS: VERAPAMIL SR 180 MG TABLET.ER PO SCH (20:37)
[2020-11-22] MEDS: HYDROcodone/APAP 7.5-325MG 1 EACH TAB PO PRN ×2 (03:54→12:30)
[2020-11-22] MEDS: ENOXAPARIN 40 MG/0.4 ML SYRINGE SQ SCH (07:40)
[2020-11-22] MEDS: PIPERACILLIN-TAZOBACTAM 3.375 GM in SODIUM CHLORIDE 0.9% 100 ML IVPB SCH ×3 (07:40→23:25)
[2020-11-22] MEDS: SIMETHICONE 40 MG/0.6 ML DROPS 2,000 MG/30 ML BOTTLE PO SCH ×4 (07:40→20:00)
[2020-11-22] MEDS: CHOLESTYRAMINE (WITH SUGAR) 4 GM PACKET PO SCH ×4 (07:40→20:00)
[2020-11-22] MEDS: ATORVASTATIN 20 MG TAB PO SCH (07:41)
[2020-11-22] MEDS: ASPIRIN 81 MG PO SCH (07:41)
[2020-11-22] MEDS: CITALOPRAM HYDROBROMIDE 20 MG TAB PO SCH (07:41)
[2020-11-22] MEDS: PANTOPRAZOLE 40 MG/10 ML VIAL IVP SCH (07:41)
[2020-11-22] MEDS: amLODIPine 5 MG TAB PO SCH (07:41)
[2020-11-22] MEDS: ISOSORBIDE MONONITRATE ER 30 MG TAB.ER.24H PO SCH (07:41)
[2020-11-22] MEDS: LOSARTAN 50 MG TAB PO SCH (07:41)
--- NOTE | 2020-11-22 07:58 | PN ---
PROGRESS NOTE DATE OF SERVICE: 11/21/2020 REASON FOR FOLLOWUP: Acute cholecystitis and peritonitis. INTERVAL HISTORY: Patient is afebrile. She has been complaining of pain to the right upper quadrant area, though improvement with the pain medication. Denies having any chest pain or shortness of breath. Occasional cough. No vomiting or diarrhea. PHYSICAL EXAMINATION: Blood pressure 141/59, pulse of 67, temperature 97.7. She is 97% on 3 L nasal cannula. General description is an elderly female up in the chair in no distress. Respiratory system: Unlabored breathing, decreased intensity of breath sounds, no wheezes. Heart S1, S2. Regular rate and rhythm. Abdomen is soft, mild tenderness. No guarding or rigidity. Extremities with no edema of the feet. LABS: Hemoglobin is 8.8, white count 1.7, BUN of 18, creatinine 0.62. DIAGNOSTIC IMPRESSION AND PLAN: Patient with cholecystitis, status post cholecystectomy in this patient who had abdominal culture positive for E coli sensitive pathogen. The patient did have persistent elevated white count and now showing a downward trend, but no fever. Covered with Zosyn which should cover this pathogen. If white count does not improve further, may benefit from imaging. Continue Zosyn and monitor clinical course closely. MMODL / IJN: [id number] /
[2020-11-22] MEDS: IPRATROPIUM-ALBUTEROL 3 ML NEB INHALATION SCH ×3 (08:07→20:33)
[2020-11-22] MEDS: SYMBICORT 80-4.5 MCG INHALER INHALATION SCH ×2 (08:07→20:34)
[2020-11-22 09:58] LABS: African American GFR (CKD) 99.8 (60.0-200.0); Anion Gap 6.4 mmol/L (4.00-12.00); BUN/Creat Ratio 23.33 Ratio (12.00-20.00); Calcium 8.4 mg/dL (8.7-10.3); Carbon Dioxide 23.6 mmol/L (21.6-31.8); Non-African American GFR(CKD) 86.1 (60.0-200.0); Potassium 4.3 mmol/L (3.5-5.5)
[2020-11-22] MEDS ORDERED: FUROSEMIDE 10 MG/ML 4 ML VIAL IV STA (10:20)
--- NOTE | 2020-11-22 10:38 | P.PN ---
Subjective Progress Note Date: 11/22/20 (seen at 1020) Principal diagnosis: abdominal pain Patient is an 80-year-old female with history of COPD with chronic hypoxic respiratory failure requiring 3 L nasal cannula, diverticulosis, hypertension and prior anemia who presented to the ER complaints of right upper quadrant pain. She was subsequently admitted for possible early cholecystitis with cholelithiasis. She was also found have a couple. Urinary tract infection. Surgery was consulted and scheduled robotic cholecystectomy which was performed on 11/13/2020. She was seen by cardiology and pulmonary to obtain surgical risk evaluations. Postoperatively she developed some respiratory distress and req uired BiPAP and was transferred to the ICU. She then progressed well throughout her hospital stay. On 11/17 she was noted to have diarrhea. C. diff was ordered which was negative. She was started on cholestyramine and her diarrhea improved. She has been progressing slowly throughout her hospital stay. Plan is for transfer to snf facility on 11/23/20. Patient seen and examined at bedside. + increased RUQ pain today, no nuasea, no diarrhea, + SOB slightly worse than yesterday. Gallbladder ultrasound: Cholelithiasis, no acute cholecystitis, limited exam due to bowel gas, right renal atrophy, fatty infiltration of the liver KUB: No acute abnormality evident Echocardiogram: Ejection fraction 60-65%, mild aortic valve sclerosis Gallbladder pathology: Acute on chronic cholecystitis General: ill appearing, no distress, appears at stated age, obese Derm: warm, dry Head: atraumatic, normocephalic, symmetric Eyes: EOMI, no lid lag, anicteric sclera Mouth: no lip lesion, mucus membranes moist Cardiovascular: S1S2 reg, no murmur, positive posterior tibial pulse bilateral, Lungs: Decreased bs bilateral with rhonchi, no accessory muscle use Abdominal: soft, + tender to palpation RLQ, no guarding, no appreciable organomegaly, + ANITA drain with thick yellow output, dressing in place with soak through Ext: no gross muscle atrophy, 2+ edema, no contractures Neuro: CN II-XI grossly intact, no focal neuro deficits Psych: Alert, oriented, appropriate affect Acute cholecystitis with sepsis, bacterial peritonitis - Status post cholecystectomy - Zosyn day #10, transition to 7 days of augmentin on discharge, remove midline - Infectious disease recs appreciated - surgery recs appreciated: ANITA drain to remin in place on discharge Diarrhea, improved -C. diff was negative -Continue with Questran -Continue low fat, lactose free diet -Continue to monitor Acute blood loss anemia postoperative -Stable, anticipated outcome -Follow CBC -No indication for transfusion at this point in time COPD with chronic hypoxic respiratory failure -Pulmonary recommendations -steroid copmpleted - bronchodilators Postoperative hypertension requiring clot the proximal Hypernatremia, resolved Acute on chronic hypoxic respiratory failure secondary to COPD, acute resolved Sepsis, resolved Acute urinary retention, resolved Complicated E. coli urinary tract infection COPD exacerbation, resolved Toxic metabolic encephalopathy, resolved DVT prophylaxis: Lovenox Discussed with: patient, nursing Anticipated discharge: in AM Anticipated discharge place: [facility] A total of minutes was spent on the care of this complex patient more than 50% of the time was spent in counseling and care coordination. Objective - Vital Signs Vital signs: Vital Signs Temp 98.5 F 11/22/20 07:28 Pulse 60 11/22/20 07:28 Resp 17 11/22/20 07:28 BP 158/58 11/22/20 07:28 Pulse Ox 95 11/22/20 07:28 Intake & Output 11/21/20 11/22/20 11/22/20 18:59 06:59 18:59 Intake Total 500 Output Total 630 1240 Balance -630 -740 Intake: Intake, IV Titration 100 Amount Piperacillin-Tazobactam 3 100 .375 gm In Sodium Chloride 0.9% 100 ml @ 25 mls/hr IVPB Q8HR [facility] Rx# :[id number] Oral 400 Output: Drainage 30 40 Abdomen 30 40 Urine 600 600 Post Void Residual 600 Other: Voiding Method External Catheter External Catheter # Voids 3 - Labs CBC & Chem 7: 11/21/20 08:44 11/22/20 05:35 Labs: Abnormal Lab Results - Last 24 Hours (Table) 11/21/20 11/21/20 Range/Units 08:44 08:44 WBC 21.7 H (3.8-10.6) k/uL RBC 3.34 L (3.80-5.40) m/uL Hgb 8.8 L (11.4-16.0) gm/dL Hct 29.3 L (34.0-46.0) % MCHC 29.8 L (31.0-37.0) g/dL RDW 16.4 H (11.5-15.5) % Chloride 114 H (98-107) mmol/L BUN 18 H (7-17) mg/dL Glucose 101 H (74-99) mg/dL Alkaline Phosphatase 128 H (38-126) U/L Total Protein 4.3 L (6.3-8.2) g/dL Albumin 2.1 L (3.5-5.0) g/dL
[2020-11-22 11:22] LABS: HCT 29.2 % (37.2-46.3); HGB 8.6 g/dL (12.0-15.0); MCH 26.1 pg (27.0-32.0); MCHC 29.5 g/dL (32.0-37.0); MCV 88.5 fL (80.0-97.0); Mean Platelet Volume 13.4 fL (9.5-12.2); Platelet Count 302 X 10*3/uL (140-440); RDW 17.3 % (11.5-14.5); WBC 22.08 X 10*3/uL (4.50-10.00)
--- NOTE | 2020-11-22 14:39 | XR ---
EXAMINATION TYPE: XR chest 1V portable DATE OF EXAM: 11/22/2020 COMPARISON: 11/17/2020 HISTORY: Shortness of breath TECHNIQUE: Single frontal view of the chest is obtained. FINDINGS AND IMPRESSION: Bibasilar opacities again demonstrated with no significant change, could be on the basis of atelectas is and/or pneumonia. No pneumothorax or pleural effusion. Cardiomediastinal silhouette within normal limits. No acute osseous abnormality.
--- NOTE | 2020-11-22 18:39 | PN ---
PROGRESS NOTE DATE OF SERVICE: 11/22/2020 REASON FOR FOLLOWUP: Complicated cholecystitis and peritonitis. INTERVAL HISTORY: Patient is afebrile. She has been complaining of more pain to the right upper quadrant area. Patient denies having any chest pain. No shortness of breath. No worsening cough. No vomiting or diarrhea. PHYSICAL EXAMINATION: Blood pressure 150/58 with a pulse of 60, temperature 98.5, she is 95% on 3 L nasal cannula. General description is an elderly female lying in bed in no distress. Respiratory system: Unlabored breathing, decreased intensity of breath sounds, no wheeze. Heart S1, S2. Regular rate and rhythm. Abdomen is soft, tender in right upper quadrant area. LABS: Hemoglobin 8.1, white count 2.3, BUN of 14, creatinine 0.6. DIAGNOSTIC IMPRESSION AND PLAN: Patient with cholecystitis, status post cholecystectomy. Abdominal culture positive for E coli sensitive pathogen. Patient now has persistent elevated white count, which seemed to have shown some worsening despite being on adequate antibiotic therapy with more pain. Patient would benefit from a CT of abdomen and pelvis to make sure no evidence of any abscess that may need surgical drainage. Continue supportive care. MMODL / IJN: [id number] /
[2020-11-22] MEDS: VERAPAMIL SR 180 MG TABLET.ER PO SCH (20:00)
[2020-11-23] MEDS: SYMBICORT 80-4.5 MCG INHALER INHALATION SCH ×2 (07:35→18:41)
[2020-11-23] MEDS: IPRATROPIUM-ALBUTEROL 3 ML NEB INHALATION SCH ×3 (07:35→18:41)
[2020-11-23] MEDS: ISOSORBIDE MONONITRATE ER 30 MG TAB.ER.24H PO SCH (07:46)
[2020-11-23] MEDS: CITALOPRAM HYDROBROMIDE 20 MG TAB PO SCH (07:46)
[2020-11-23] MEDS: LOSARTAN 50 MG TAB PO SCH (07:46)
[2020-11-23] MEDS: ATORVASTATIN 20 MG TAB PO SCH (07:46)
[2020-11-23] MEDS: PANTOPRAZOLE 40 MG TABLET PO SCH (07:46)
[2020-11-23] MEDS: ASPIRIN 81 MG PO SCH (07:46)
[2020-11-23] MEDS: amLODIPine 5 MG TAB PO SCH (07:46)
[2020-11-23] MEDS: PIPERACILLIN-TAZOBACTAM 3.375 GM in SODIUM CHLORIDE 0.9% 100 ML IVPB SCH ×3 (07:47→23:26)
[2020-11-23] MEDS: ENOXAPARIN 40 MG/0.4 ML SYRINGE SQ SCH (07:47)
[2020-11-23] MEDS: CHOLESTYRAMINE (WITH SUGAR) 4 GM PACKET PO SCH ×4 (07:47→20:06)
[2020-11-23] MEDS: SIMETHICONE 40 MG/0.6 ML DROPS 2,000 MG/30 ML BOTTLE PO SCH ×4 (08:04→20:08)
[2020-11-23 08:46] LABS: Anisocytosis Slight; HCT 26.9 % (34.0-46.0); HGB 8.2 gm/dL (11.4-16.0); Hypochromasia Marked; MCH 26.2 pg (25.0-35.0); MCHC 30.4 g/dL (31.0-37.0); MCV 86.1 fL (80.0-100.0); Mean Platelet Volume 10.7; Platelet Count 350 k/uL (150-450); RBC 3.13 m/uL (3.80-5.40); RDW 16.6 % (11.5-15.5); WBC 18.2 k/uL (3.8-10.6)
[2020-11-23 09:35] LABS: African American GFR (CKD) >90 (>60 ml/min/1.73 sqM); Anion Gap 3 mmol/L; Blood Urea Nitrogen 14 mg/dL (7-17); Calcium 8.9 mg/dL (8.4-10.2); Carbon Dioxide 26 mmol/L (22-30); Chloride 109 mmol/L (98-107); Glucose 82 mg/dL (74-99); Non-African American GFR(CKD) 85 (>60 ml/min/1.73 sqM); Potassium 3.9 mmol/L (3.5-5.1); Sodium 138 mmol/L (137-145)
[2020-11-23 09:42] LABS: African American GFR (CKD) 94.8 (60.0-200.0); Albumin 2.6 g/dL (3.80-4.90); Albumin/Globulin Ratio 1.53 (1.60-3.17); BUN/Creat Ratio 24.29 Ratio (12.00-20.00); Calcium 8.4 mg/dL (8.7-10.3); Globulin 1.7 g/dL (1.6-3.3); Non-African American GFR(CKD) 81.8 (60.0-200.0); Potassium 3.8 mmol/L (3.5-5.5); Total Bilirubin 0.6 mg/dL (0.3-1.2); Total Protein 4.3 g/dL (6.2-8.2)
--- NOTE | 2020-11-23 10:47 | CT ---
EXAMINATION TYPE: CT abdomen pelvis w con DATE OF EXAM: 11/23/2020 COMPARISON: 10/17/2020 HISTORY: 80-year-old female Abdominal pain, s/p cholecystectomy, r/o abscess. TECHNIQUE: Contiguous axial scanning of the abdomen and pelvis following administration of 100 ml Iso sujata 300 IV contrast. Delayed images through the kidneys and coronal/sagittal reconstructions perform ed. CT DLP: 1743.8 mGycm Automated exposure control for dose reduction was used. FINDINGS: Heart normal size without pericardial effusion. Emphysematous change in the visualized lower lungs. P rominent degenerative consolidation, left greater than right, increased from 10/17/2020. Associated sm all left effusion. Moderate atherosclerotic calcification throughout the abdominal aorta with possible severe stenoses a t the celiac axis and SMA origin. Possible severe atherosclerotic narrowing at the bilateral proximal common iliac arteries. Small fatty umbilical hernia. A couple stable tiny hepatic cysts in the left liver lobe. New 3.6 cm cyst anterior inferior right li aliyah lobe a new adjacent probable subcapsular perihepatic fluid measuring 1 cm thick. There are a couple diverticula of the third portion of the duodenum projecting superiorly measuring 4 .7 and 3.2 cm. A surgical drain is present, terminating right upper to mid abdomen just below the liver. Status post cholecystectomy. No abnormal fluid collection seen within the cholecystectomy bed. No biliary ductal dilatation. Trapezoid IVC filter. Adrenal glands, lobulated bilateral kidneys, spleen, and mildly atrophic pancreas show no gross abnor mal. No dilated small bowel or free air. Moderate stool burden. Sigmoid diverticulosis. No pericolonic inflammatory change. Bladder partially urine distended. Small focus of nondependent intraluminal bladder air probably due to instrumentation. Pelvic phleboliths. Uterus surgically absent. Neither ovary is visualized. No abn ormal fluid collection in the pelvis or pelvic lymphadenopathy. Bones: Osteopenia. Moderate to severe degenerative change of the hips. Advanced degenerative disc dis ease throughout the visualized lumbar spine. Mild superior endplate deformity T12 is unchanged from . Small focus of air in the subcutaneous adipose of the right mid to lower anterior abdomen suggesting subcutaneous injections. IMPRESSION: 1. RIGHT UPPER TO MID ABDOMINAL SURGICAL DRAIN. TIP JUST BELOW THE RIGHT LIVER LOBE. 2. STATUS POST cholecystectomy. While there is no evidence for abscess in the cholecystectomy bed, th ere is a new cystic structure in the right liver lobe measuring 3.6 cm suspicious for a hepatic absce ss. 1 cm thick perihepatic/subcapsular fluid just overlying along the right liver lobe also suspiciou s for infective fluid. 3. New trace left pleural effusion with increasing dependent consolidation in the lungs. Correlate to exclude symptoms of pneumonia. 4. Sigmoid diverticulosis without acute diverticulitis. 5. Moderate to severe atherosclerotic changes. Possible severe stenoses at the celiac axis and SMA or igins as well as at the proximal bilateral common iliac arteries.
[2020-11-23] MEDS: HYDROcodone/APAP 7.5-325MG 1 EACH TAB PO PRN (12:05)
--- NOTE | 2020-11-23 12:31 | P.PN ---
Progress Note - Text Progress Note Date: 12/09/20 Patient feels better today. She still has complaints of abdominal pain. Her white count is decreased 18,000. On exam vital signs are stable. Abdomen soft. ANITA drain still has some sero- bilious fluid. Status post laparoscopic ostectomy. Patient okay receive IV antibiotics and supportive care.
--- NOTE | 2020-11-23 13:37 | P.PN ---
Subjective Progress Note Date: 11/23/20 Patient was seen and examined at the bedside on 11/23. She reported continued right-sided abdominal pain, 6 out of 10 at the time of interview, nonradiating. She denied nausea, vomiting, fever, chills, chest pain, shortness of breath. CT abdomen and pelvis with contrast revealed new possible 3.6 cm hepatic abscess in the right lower lobe. Objective - Vital Signs Vital signs: Vital Signs Temp 98.2 F 11/23/20 08:00 Pulse 61 11/23/20 12:00 Resp 18 11/23/20 08:00 BP 149/53 11/23/20 08:00 Pulse Ox 95 11/23/20 08:00 Intake & Output 11/22/20 11/23/20 11/23/20 18:59 06:59 18:59 Intake Total 300 Output Total 915 710 Balance -915 -410 Weight 84.8 kg Intake: Oral 300 Output: Drainage 15 10 Abdomen 15 10 Urine 900 650 Post Void Residual 50 Other: Voiding Method External Catheter External Catheter External Catheter - Exam General: Non-toxic, in no acute distress, appears stated age, obese HEENT: NC/AT, anicteric sclerae, moist conjunctiva, no lid-lag, PERRLA Cardiovascular: S1/S2 wnl, no murmurs, rubs, or gallops Lungs: Clear to auscultation, normal respiratory effort, no accessory muscle use Abdominal: Soft, ANITA drain in place with yellow fluid output, diffuse mild right sided tenderness to palpation, non-distended, no guarding, rebound, or rigidity Skin: Warm, dry Extremities: 2+ bilateral lower extremity pitting edema, Psychiatric: Alert and oriented to person, place and time, appropriate affect Neuro: CN II-XII grossly intact, no focal deficits noted - Labs CBC & Chem 7: 11/23/20 05:34 11/23/20 05:34 Labs: Abnormal Lab Results - Last 24 Hours (Table) 11/23/20 11/23/20 11/23/20 Range/Units 05:34 05:34 05:34 WBC 18.2 H (3.8-10.6) k/uL RBC 3.13 L (3.80-5.40) m/uL Hgb 8.2 L (11.4-16.0) gm/dL Hct 26.9 L (34.0-46.0) % MCHC 30.4 L (31.0-37.0) g/dL RDW 16.6 H (11.5-15.5) % Chloride 112 H 109 H (96-109) mmol/L BUN/Creatinine Ratio 24.29 H (12.00-20.00) Ratio Calcium 8.4 L (8.7-10.3) mg/dL Alkaline Phosphatase 149 H (41-126) U/L Total Protein 4.3 L (6.2-8.2) g/dL Albumin 2.60 L (3.80-4.90) g/dL Albumin/Globulin Ratio 1.53 L (1.60-3.17) g/dL Assessment and Plan Plan: Acute cholecystitis with sepsis, bacterial peritonitis -Status post cholecystectomy -Zosyn day #11, transition to 7 days of augmentin on discharge, remove midline -Infectious disease recs appreciated -Surgery recs appreciated: ANITA drain to remain in place on discharge New right hepatic lobe suspected abscess 3.6 cm -Interventional radiology consulted for possible drainage -Infectious disease following Diarrhea, improved -C. diff was negative -Continue with Questran -Continue low fat, lactose free diet -Continue to monitor Acute blood loss anemia postoperative -Stable, anticipated outcome -Follow CBC -No indication for transfusion at this point in time COPD with chronic hypoxic respiratory failure -Pulmonary recommendations -steroid completed -bronchodilators Hypernatremia, resolved Acute on chronic hypoxic respiratory failure secondary to COPD, acute resolved Sepsis, resolved Acute urinary retention, resolved Complicated E. coli urinary tract infection COPD exacerbation, resolved Toxic metabolic encephalopathy, resolved
[2020-11-23] MEDS: VERAPAMIL SR 180 MG TABLET.ER PO SCH (20:07)
--- NOTE | 2020-11-24 07:01 | PN ---
PROGRESS NOTE DATE OF SERVICE: 11/23/2020 REASON FOR FOLLOW UP: Cholecystitis and concern for hepatic abscess. INTERVAL HISTORY: Patient is afebrile. The patient is breathing comfortably. Denies having any chest pain, shortness of breath. She did have a cough, not bringing up any sputum. Abdominal pain is currently controlled now. No vomiting or diarrhea. PHYSICAL EXAMINATION: Blood pressure 123/57, pulse of 76, temperature 97.4. She is 94% on 2 L nasal cannula. General description is a middle-aged female up in the bed in no distress. Respiratory system: Unlabored breathing, decreased intensity in breath sounds. No wheeze. Heart S1, S2. Regular rate and rhythm. Abdomen soft. No tenderness. LABS: Hemoglobin is 8.8, white count of 18.2, BUN of 14, creatinine 0.63. CT of abdomen and pelvis concerning for a pelvic abscess. DIAGNOSTIC IMPRESSION AND PLAN: Patient with a positive peritoneal fluid culture with E coli in this patient who did have cholecystitis status post cholecystectomy now with evidence of possible herpetic abscess, more likely responsible for this persistent elevated white count. CT will be reviewed with radiologist to see if the abscess can be drained, CT-guided. Continue Zosyn. In view of this new finding, she will likely need outpatient IV antibiotic therapy on discharge. MMODL / IJN: [id number] /
[2020-11-24] MEDS: SYMBICORT 80-4.5 MCG INHALER INHALATION SCH ×2 (07:05→19:07)
[2020-11-24] MEDS: IPRATROPIUM-ALBUTEROL 3 ML NEB INHALATION SCH ×3 (07:05→19:08)
[2020-11-24] MEDS: CHOLESTYRAMINE (WITH SUGAR) 4 GM PACKET PO SCH ×4 (08:16→20:07)
[2020-11-24] MEDS: amLODIPine 5 MG TAB PO SCH (08:16)
[2020-11-24] MEDS: ENOXAPARIN 40 MG/0.4 ML SYRINGE SQ SCH (08:16)
[2020-11-24] MEDS: PIPERACILLIN-TAZOBACTAM 3.375 GM in SODIUM CHLORIDE 0.9% 100 ML IVPB SCH ×3 (08:17→23:06)
[2020-11-24] MEDS: SIMETHICONE 40 MG/0.6 ML DROPS 2,000 MG/30 ML BOTTLE PO SCH ×4 (08:17→20:07)
[2020-11-24] MEDS: LOSARTAN 50 MG TAB PO SCH (08:17)
[2020-11-24] MEDS: ASPIRIN 81 MG PO SCH (08:17)
[2020-11-24] MEDS: CITALOPRAM HYDROBROMIDE 20 MG TAB PO SCH (08:17)
[2020-11-24] MEDS: ATORVASTATIN 20 MG TAB PO SCH (08:17)
[2020-11-24] MEDS: PANTOPRAZOLE 40 MG TABLET PO SCH (08:17)
[2020-11-24] MEDS: ISOSORBIDE MONONITRATE ER 30 MG TAB.ER.24H PO SCH (08:17)
[2020-11-24 09:53] LABS: Prothrombin Time 10.5 sec (9.0-12.0)
--- NOTE | 2020-11-24 10:57 | P.PN ---
Subjective Progress Note Date: 11/24/20 Patient is doing fairly well today. She denies any abdominal pain. She had breakfast this morning with no difficulty. Objective - Vital Signs Vital signs: Vital Signs Temp 98.2 F 11/24/20 07:19 Pulse 70 11/24/20 07:21 Resp 24 11/24/20 08:16 BP 152/53 11/24/20 07:19 Pulse Ox 93 L 11/24/20 07:19 Intake & Output 11/23/20 11/24/20 11/24/20 18:59 06:59 18:59 Intake Total 300 Output Total 460 594 Balance -460 -294 Weight 84.8 kg Intake: Oral 300 Output: Drainage 10 Abdomen 10 Urine 450 200 Post Void Residual 394 Other: Voiding Method External Catheter External Catheter External Catheter - Exam General: The patient is awake and alert, in no distress Eye: there is normal conjunctiva bilaterally. Neck: The neck is supple, there is no JVD. Cardiovascular: Normal S1-S2, no S3-S4, no murmurs. Respiratory: Lungs clear to auscultation bilaterally Gastrointestinal: Abdomen is soft, nontender Musculoskeletal: There is no pedal edema. Neurological:. Speech is normal. Skin: Skin is warm and dry - Labs CBC & Chem 7: 11/23/20 05:34 11/23/20 05:34 Assessment and Plan Assessment: Patient is an 80-year-old female with history of COPD with chronic hypoxic respiratory failure requiring 3 L nasal cannula, diverticulosis, hypertension and prior anemia who presented to the ER complaints of right upper quadrant pain. She was subsequently admitted for possible early cholecystitis with cholelithiasis. She was also found have a couple. Urinary tract infection. Surgery was consulted and scheduled robotic cholecystectomy which was performed on 11/13/2020. She was seen by cardiology and pulmonary to obtain surgical risk evaluations. Postoperatively she developed some respiratory distress and required BiPAP and was transferred to the ICU. She then progressed well throughout her hospital stay. On 11/17 she was noted to have diarrhea. C. diff was ordered which was negative. She was started on cholestyramine and her diarrhea improved. She has been progressing slowly throughout her hospital stay. Plan is for transfer to senior living facility on 11/23/20. Acute cholecystitis with sepsis, bacterial peritonitis - Status post cholecystectomy, postoperative care per general surgery - Zon day #12 - Infectious disease recs appreciated Suspected liver abscess - Awaiting IR evaluation Diarrhea, improved -C. diff was negative -Continue with Questran -Continue low fat, lactose free diet -Continue to monitor Acute blood loss anemia postoperative -Stable COPD with chronic hypoxic respiratory failure -Pulmonary recommendations -steroid copmpleted - bronchodilators Postoperative hypertension, blood pressure improved Hypernatremia, resolved Acute on chronic hypoxic respiratory failure secondary to COPD, acute resolved Sepsis, resolved Acute urinary retention, resolved Complicated E. coli urinary tract infection COPD exacerbation, resolved Toxic metabolic encephalopathy, resolved DVT prophylaxis: Lovenox Discussed with: patient, nursing Anticipated discharge: Pending clinical course Anticipated discharge place: [facility] A total of minutes was spent on the care of this complex patient more than 50% of the time was spent in counseling and care coordination.
--- NOTE | 2020-11-24 11:45 | P.PN ---
<Tisha Solis - Last Filed: 11/24/20 11:35> Subjective Progress Note Date: 11/24/20 CHIEF COMPLAINT: Abdominal pain HISTORY OF PRESENT ILLNESS: Surgical service is following regards to patient's acute cholecystitis. Patient is status post robotic extensive lysis of adhesions, robotic cholecystectomy and placement of ANITA drain right upper quadrant on 11/14/20. Patient denies any abdominal pain. She denies any nausea or vomiting. She is tolerating diet. She does report that her appetite is decreased. She is having bowel movements. She had a computed tomography scan of the abdomen and pelvis completed yesterday that shows no evidence for abscess in the cholecystectomy bed, there is a new cystic structure in the right liver lobe measuring 3.6 cm suspicious for a hepatic abscess. 1 cm thick perihepatic/sub-capsular fluid just overlying along the right liver lobe also suspicious for infected fluid. Patient is followed by infectious disease. They have consult with radiology for possible drainage of hepatic abscess. Patient afebrile. WBC from yesterday is 18.2 PHYSICAL EXAM: VITAL SIGNS: Reviewed GENERAL: Well-developed in no acute distress. HEENT: No sclera icterus. Extraocular movements grossly intact. Moist buccal mucosa. Head is atraumatic, normocephalic. Hears conversational speech. No nasal drainage. NECK: Supple without lymphadenopathy. CHEST: Non-labored respirations and equal bilateral excursions. CARDIOVASCULAR: Palpable 2+ radial pulses. ABDOMEN: Soft. Nondistended. Incision sites clean dry and intact. ANITA drain with serous and bilious output MUSCULOSKELETAL: No clubbing or cyanosis. NEUROLOGIC: No focal or lateralizing signs. Cranial nerves II through XII gr ossly intact. PSYCH: Appropriate affect. Alert and oriented to person, place and time. SKIN: Well perfused. Good skin turgor. ASSESSMENT: 1. Sepsis 2. Acute on chronic cholecystitis 3. Peritonitis right upper quadrant 4. Severe intra-abdominal adhesions 5. Ventral umbilical hernia 6. UTI 7. COPD exacerbation 8. Hepatic abscess being evaluated by interventional radiology possible dra marrufo of abscess PLAN: -Continue low-fat diet -Continue ANITA drain. Continue ANITA drain upon discharge -Continue pain medication as needed -Continue antibiotics per ID -Continue supportive care -Continue PT OT -Encouraged patient to increase activity level -DVT prophylaxis Lovenox and GI prophylaxis Protonix Physician Diamond Picker note has been reviewed by physician. Signing provider agrees with the documented findings, assessment, and plan of care. Objective - Vital Signs Vital signs: Vital Signs Temp 98.2 F 11/24/20 07:19 Pulse 70 11/24/20 07:21 Resp 24 11/24/20 08:16 BP 152/53 11/24/20 07:19 Pulse Ox 93 L 11/24/20 07:19 Intake & Output 11/23/20 11/24/20 11/24/20 18:59 06:59 18:59 Intake Total 300 Output Total 460 594 Balance -460 -294 Weight 84.8 kg Intake: Oral 300 Output: Drainage 10 Abdomen 10 Urine 450 200 Post Void Residual 394 Other: Voiding Method External Catheter External Catheter External Catheter - Labs CBC & Chem 7: 11/23/20 05:34 11/23/20 05:34 <Dawna Vitale N - Last Filed: 11/24/20 20:16> Subjective As above. CHIEF COMPLAINT: Abnormal CT scan HISTORY OF PRESENT ILLNESS: The patient is a 80-year-old female status post robotic-assisted cholecystectomy, 11/14/2020 with placement of ANITA and findings of bile peritonitis along the right upper quadrant. She reports feeling better than 1 week ago. She is more alert. She had recent CT scan. ROS: No reports of nausea and vomiting. No fevers or chills. She has COPD and oxygen dependent. PHYSICAL EXAM: VITAL SIGNS: Reviewed CONSTITUTIONAL: Well developed and in no acute distress. EYES: Conjuctivae without sclera icterus. Extraocular movements grossly intact. HEAD, EARS, NOSE, THROAT: Moist buccal mucosa. Head is atraumatic, normocephalic . Hears conversational speech. No nasal drainage. RESPIRATORY: Non-labored respirations and equal bilateral excursions. CARDIOVASCULAR: 2+ radial pulses. ABDOMEN: ANITA serous bilious 20 mL/24hr. No diffuse abdominal pain. MUSCULOSKELETAL: No gross deformity of the lower extremities noted. No clu bbing. No cyanosis. SKIN: Good skin turgor. Well perfused. NEUROLOGIC: Cranial nerves II through XII grossly intact. No focal or lateralizing signs. PSYCH: Appropriate affect. Alert and oriented to person. CLINICAL LABS: White blood cell count declined from 22,000 to 18,000. LFTs are within normal limits. STUDIES: CT of the abdomen and pelvis with no fluid collection along hepatic fossa. Hepatic fluid collection along right lobe of the liver. ASSESSMENT: 1. Sepsis 2. Acute and chronic cholecystitis 3. Chronic obstructive pulmonary disease, severe, oxygen dependent 4. Ischemic congestive heart failure 5. Liver abscess PLAN: 1. Agree with drainage of liver abscess per interventional radiology 2. Continue IV antibiotics. 3. Agree with discharge once medically stable. Objective - Vital Signs Vital signs: Vital Signs Temp 98.1 F 11/24/20 19:52 Pulse 66 11/24/20 19:52 Resp 18 11/24/20 19:52 BP 138/57 11/24/20 19:52 Pulse Ox 93 L 11/24/20 19:52 Intake & Output 11/24/20 11/24/20 11/25/20 06:59 18:59 06:59 Intake Total 300 Output Total 594 Balance -294 Intake: Oral 300 Output: Urine 200 Post Void Residual 394 Other: Voiding Method External Catheter External Catheter - Labs CBC & Chem 7: 11/23/20 05:34 11/23/20 05:34 Assessment and Plan (1) Acute cholecystitis due to biliary calculus Current Visit: Yes Status: Acute Code(s): K80.00 - CALCULUS OF GALLBLADDER W ACUTE CHOLECYST W/O OBSTRUCTION SNOMED Code(s): 81604075372129 (2) Acute on chronic cholecystitis concurrent with and due to calculus of gallbladder and bile duct Current Visit: Yes Status: Acute Code(s): K80.66 - CALCULUS OF GB AND BILE DUCT W AC AND CHR CHOLECYST W/O OBST SNOMED Code(s): 94756796284915 (3) Sepsis Current Visit: Yes Status: Acute Code(s): A41.9 - SEPSIS, UNSPECIFIED ORGANISM SNOMED Code(s): 33093668 (4) COPD with acute exacerbation Current Visit: Yes Status: Acute Code(s): J44.1 - CHRONIC OBSTRUCTIVE PULM ONARY DISEASE W (ACUTE) EXACERBATION SNOMED Code(s): 277648047 (5) ACC/AHA stage C systolic heart failure due to ischemic cardiomyopathy Current Visit: Yes Status: Acute Code(s): I50.20 - UNSPECIFIED SYSTOLIC (CONGESTIVE) HEART FAILURE; I25.5 - ISCHEMIC CARDIOMYOPATHY SNOMED Code(s): 12580350422321235 (6) Liver abscess Current Visit: Yes Status: Acute Code(s): K75.0 - ABSCESS OF LIVER SNOMED Code(s): 43866171
[2020-11-24] MEDS: HYDROcodone/APAP 7.5-325MG 1 EACH TAB PO PRN (12:02)
[2020-11-24] MEDS: VERAPAMIL SR 180 MG TABLET.ER PO SCH (20:07)
--- NOTE | 2020-11-25 02:16 | PN ---
PROGRESS NOTE DATE OF SERVICE: November 24, 2020 REASON FOR FOLLOW UP: Liver abscess. INTERVAL HISTORY: Patient is afebrile. The patient is breathing comfortably. Denies any chest pain, shortness of breath. Abdominal pain is currently controlled. No vomiting or any diarrhea. PHYSICAL EXAMINATION: Blood pressure 138/57, pulse of 66, temperature 98.1. She is 93% on 3 L nasal cannula. General description is an elderly female lying in bed in no distress. Respiratory system: Unlabored breathing, decreased intensity of breath sounds. No wheeze. Heart S1, S2. Regular rate and rhythm. Abdomen soft, no tenderness. LAB: No new labs have been obtained today. DIAGNOSTIC IMPRESSION AND PLAN: Patient with complicated cholecystitis status post cholecystectomy. Abdominal culture with an E coli now with evidence of liver abscess. Discussed with surgeon. CT-guided aspirate will be requested. Continue with Zosyn and monitor clinical course closely. MMODL / IJN: [id number] /
[2020-11-25] MEDS: ASPIRIN 81 MG PO SCH ×2 (06:48→15:46)
[2020-11-25] MEDS: ENOXAPARIN 40 MG/0.4 ML SYRINGE SQ SCH ×2 (06:49→15:46)
[2020-11-25] MEDS: IPRATROPIUM-ALBUTEROL 3 ML NEB INHALATION SCH ×3 (07:24→19:31)
[2020-11-25] MEDS: SYMBICORT 80-4.5 MCG INHALER INHALATION SCH ×2 (07:25→19:31)
[2020-11-25] MEDS: PIPERACILLIN-TAZOBACTAM 3.375 GM in SODIUM CHLORIDE 0.9% 100 ML IVPB SCH ×5 (08:05→23:37)
[2020-11-25] MEDS: ISOSORBIDE MONONITRATE ER 30 MG TAB.ER.24H PO SCH (08:07)
[2020-11-25] MEDS: amLODIPine 5 MG TAB PO SCH (08:07)
[2020-11-25] MEDS: PANTOPRAZOLE 40 MG TABLET PO SCH (08:08)
[2020-11-25] MEDS: SIMETHICONE 40 MG/0.6 ML DROPS 2,000 MG/30 ML BOTTLE PO SCH ×4 (08:08→20:12)
[2020-11-25] MEDS: ATORVASTATIN 20 MG TAB PO SCH (08:08)
[2020-11-25] MEDS: CITALOPRAM HYDROBROMIDE 20 MG TAB PO SCH (08:08)
[2020-11-25] MEDS: LOSARTAN 50 MG TAB PO SCH (08:08)
[2020-11-25] MEDS: CHOLESTYRAMINE (WITH SUGAR) 4 GM PACKET PO SCH ×4 (08:09→20:12)
--- NOTE | 2020-11-25 12:14 | P.PN ---
<Tisha Solis - Last Filed: 11/25/20 12:10> Subjective Progress Note Date: 11/25/20 CHIEF COMPLAINT: Abdominal pain HISTORY OF PRESENT ILLNESS: Surgical service is following regards to patient's acute cholecystitis. Patient is status post robotic extensive lysis of adhesions, robotic cholecystectomy and placement of ANITA drain right upper quadrant on 11/14/20. Patient denies any abdominal pain. She denies any nausea or vomiting. She is tolerating diet. She is having bowel movements. She had a computed tomography scan of the abdomen and pelvis completed yesterday that shows no evidence for abscess in the cholecystectomy bed, there is a new cystic structure in the right liver lobe measuring 3.6 cm suspicious for a hepatic abscess. 1 cm thick perihepatic/sub-capsular fluid just overlying along the right liver lobe also suspicious for infected fluid. Patient is scheduled to have aspiration of fluid from the liver abscess by IR today. It is felt that this is unlikely to be a biloma and from surgical standpoint had recommended that aspiration of the fluid be completed by IR. Patient is afebrile. CBC from today is pending. PHYSICAL EXAM: VITAL SIGNS: Reviewed GENERAL: Well-developed in no acute distress. HEENT: No sclera icterus. Extraocular movements grossly intact. Moist buccal mucosa. Head is atraumatic, normocephalic. Hears conversational speech. No nasal drainage. NECK: Supple without lymphadenopathy. CHEST: Non-labored respirations and equal bilateral excursions. CARDIOVASCULAR: Palpable 2+ radial pulses. ABDOMEN: Soft. Nondistended. Incision sites clean dry and intact. ANITA drain with serous and bilious output MUSCULOSKELETAL: No clubbing or cyanosis. NEUROLOGIC: No focal or lateralizing signs. Cranial nerves II through XII grossly intact. PSYCH: Appropriate affect. Alert and oriented to person, place and time. SKIN: Well perfused. Good skin turgor. ASSESSMENT: 1. Sepsis 2. Acute on chronic cholecystitis 3. Peritonitis right upper quadrant 4. Severe intra-abdominal adhesions 5. Ventral umbilical hernia 6. UTI 7. COPD exacerbation 8. Hepatic abscess PLAN: -Patient can be discharged from surgical standpoint after IR aspirates hepatic abscess -Continue low-fat diet -Continue ANITA drain upon discharge -Continue pain medication as needed -Continue antibiotics per ID -DVT prophylaxis Lovenox and GI prophylaxis Protonix Physician Medical Administrative Specialist note has been reviewed by physician. Signing provider agrees with the documented findings, assessment, and plan of care. Objective - Vital Signs Vital signs: Vital Signs Temp 98.5 F 11/25/20 07:21 Pulse 58 L 11/25/20 11:35 Resp 23 11/25/20 07:21 BP 132/51 11/25/20 07:21 Pulse Ox 96 11/25/20 07:25 Intake & Output 11/24/20 11/25/20 11/25/20 18:59 06:59 18:59 Output Total 420 Balance -420 Output: Drainage 20 Abdomen 20 Urine 400 Other: Voiding Method External Catheter # Voids 3 # Bowel Movements 1 - Labs CBC & Chem 7: 11/23/20 05:34 11/23/20 05:34 <Dawna Vitale - Last Filed: 11/25/20 19:35> Subjective As above. CHIEF COMPLAINT: Abnormal CT scan HISTORY OF PRESENT ILLNESS: The patient is a 80-year-old female status post robotic-assisted cholecystectomy, 11/14/2020 with placement of ANITA and findings of bile peritonitis along the right upper quadrant. She reports doing well and eager to go home. I personally spoke to radiologist with intra-operative findings of pre-existing fluid collection, non-bilious per indocyanine green. ROS: No reports of nausea and vomiting. No fevers or chills. She has COPD and oxygen dependent. PHYSICAL EXAM: VITAL SIGNS: Reviewed CONSTITUTIONAL: Well developed and in no acute distress. EYES: Conjuctivae without sclera icterus. Extraocular movements grossly intact. HEAD, EARS, NOSE, THROAT: Moist buccal mucosa. Head is atraumatic, normocephalic. Hears conversational speech. No nasal drainage. RESPIRATORY: Non-labored respirations and equal bilateral excursions. CARDIOVASCULAR: 2+ radial pulses. ABDOMEN: No diffuse abdominal pain. ANITA present MUSCULOSKELETAL: No gross deformity of the lower extremities noted. No clubbing. No cyanosis. SKIN: Good skin turgor. Well perfused. NEUROLOGIC: Cranial nerves II through XII grossly intact. No focal or lateralizing signs. PSYCH: Appropriate affect. Alert and oriented to person. CLINICAL LABS: White blood cell count declined from 22,000 to 14,000. ASSESSMENT: 1. Sepsis 2. Acute and chronic cholecystitis 3. Chronic obstructive pulmonary disease, severe, oxygen dependent 4. Liver abscess per CT scan PLAN: 1. Patient underwent aspiration of fluid. 2. Continue ANITA drain upon discharge 3. Continue IV antibiotics. Objective - Vital Signs Vital signs: Vital Signs Temp 98.6 F 11/25/20 17:34 Pulse 61 11/25/20 17:34 Resp 24 11/25/20 17:34 BP 130/48 11/25/20 17:34 Pulse Ox 96 11/25/20 17:34 Intake & Output 11/25/20 11/25/20 11/26/20 06:59 18:59 06:59 Intake Total 100 Output Total 420 10 Balance -420 90 Intake: Intake, IV Titration 100 Amount Piperacillin-Tazobactam 3 100 .375 gm In Sodium Chloride 0.9% 100 ml @ 25 mls/hr IVPB Q8HR [facility] Rx# :[id number] Output: Drainage 20 10 Abdomen 20 10 Urine 400 Other: # Voids 3 1 # Bowel Movements 1 - Labs CBC & Chem 7: 11/25/20 12:32 11/23/20 05:34 Labs: Abnormal Lab Results - Last 24 Hours (Table) 11/25/20 Range/Units 12:32 WBC 14.7 H (3.8-10.6) k/uL RBC 2.91 L (3.80-5.40) m/uL Hgb 8.0 L (11.4-16.0) gm/dL Hct 24.7 L (34.0-46.0) % RDW 17.4 H (11.5-15.5) % Plt Count 463 H (150-450) k/uL Neutrophils # 12.2 H (1.3-7.7) k/uL Assessment and Plan (1) Acute cholecystitis due to biliary calculus Current Visit: Yes Status: Acute Code(s): K80.00 - CALCULUS OF GALLBLADDER W ACUTE CHOLECYST W/O OBSTRUCTION SNOMED Code(s): 21994310180216 (2) Acute on chronic cholecystitis concurrent with and due to calculus of gallbladder and bile duct Current Visit: Yes Status: Acute Code(s): K80.66 - CALCULUS OF GB AND BILE DUCT W AC AND CHR CHOLECYST W/O OBST SNOMED Code(s): 27822025306956 (3) Sepsis Current Visit: Yes Status: Acute Code(s): A41.9 - SEPSIS, UNSPECIFIED ORGANISM SNOMED Code(s): 49965437 (4) COPD with acute exacerbation Current Visit: Yes Status: Acute Code(s): J44.1 - CHRONIC OBSTRUCTIVE PULMONARY DISEASE W (ACUTE) EXACERBATION SNOMED Code(s): 620841866 (5) Liver abscess Current Visit: Yes Status: Acute Code(s): K75.0 - ABSCESS OF LIVER SNOMED Code(s): 04186069
[2020-11-25 12:46] LABS: Anisocytosis Slight; Basophils % (A) 0 %; Eosinophils # (A) 0.1 k/uL (0-0.7); Eosinophils % (A) 1 %; HCT 24.7 % (34.0-46.0); Hypochromasia Marked; Lymphocytes # (A) 1.3 k/uL (1.0-4.8); Lymphocytes % (A) 9 %; MCH 27.4 pg (25.0-35.0); MCHC 32.2 g/dL (31.0-37.0); Mean Platelet Volume 8.9; Monocytes # (A) 0.9 k/uL (0-1.0); Monocytes % (A) 6 %; Neutrophils # (A) 12.2 k/uL (1.3-7.7); Neutrophils % (A) 83 %; Platelet Count 463 k/uL (150-450); RBC 2.91 m/uL (3.80-5.40); RDW 17.4 % (11.5-15.5); WBC 14.7 k/uL (3.8-10.6)
--- NOTE | 2020-11-25 15:32 | CDI ---
Documentation Clarification Form Date: 11/25/2020 02:46:04 PM From: Irene Wyatt RN, CCDS Admit Date: 11/12/2020 06:25:00 PM Patient Name: Makenna Khan Visit Number: [id number] Discharge Date: ATTENTION: The Clinical Documentation Specialists (CDI) and [facility] Coding Staff appreciate your assistance in clarifying documentation. Please respond to the clarification below the line at the bottom and electronically sign. The CDI & [facility] Coding staff will review the response and follow-up if needed. Please note: Queries are made part of the Legal Health Record. If you have any questions, please contact the author of this message via ITS. Dr. Dawna Vitale Your patient has the documented diagnosis of ACC/AHA stage C Systolic Heart Failure in your progress notes on 11/20/20. The ECHO is showing EF 60-65 %. Additional information regarding the type and acuity of CHF is requested. History/Risk Factors: COPD on NC, Hypertension, UTI, former smoker Clinical Indicators: 80-year-old female present on 11/12 ruled in for acute cholecystitis and is post robotic-assisted cholecystectomy, on 11/14/20.The progress notes on 11/20 progress note, she has pre-existing congestive heart failure. Ischemic congestive heart failure 11/20 08:00 VS/Pulse OX: 159/67 66 18 97.7 100 % / NC 11/12 Echocardiogram Results: Overall left ventricular systolic function is normal with, an EF between 60-65 % There is mild aortic valve sclerosis, there is mild pulmonary hypertension 11/15 Chest X-ray: Chronic changes without evidence for ac pulmonary disease 11/17 Chest X-ray: Increased basilar densities may reflect atelectasis versus developing infiltrate 11/22 Chest X-ray: Bibasilar opacities again demonstrated with no significant change, could be on the basis of atelectasis and/or pneumonia Treatment: 11/14 Lasix 20 mg IV once 11/21 Lasix 20 mg IV once 11/22 Lasix 40 mg IV once Cozzar 150 mg po daily Imdur 30 mg po daily Verapamil Hcl 360 mg po hs In your professional opinion, can you please clarify the acuity and type of CHF if known? [ ] Acute Systolic Heart Failure (reduced EF) [ ] Chronic Systolic Heart Failure (reduced EF) [ ] Acute on Chronic Systolic Heart Failure (reduced EF) [ ] Acute Diastolic Heart Failure (preserved EF) [ ] Chronic Diastolic Heart Failure (preserved EF) [ ] Acute on Chronic Diastolic Heart Failure (preserved EF) [ ] Acute Systolic & Diastolic Heart Failure [ ] Chronic Systolic & Diastolic Heart Failure [ ] Acute on Chronic Heart Failure Systolic & Diastolic Heart Failure [ ] Other, please specify [X ] Unable to determine (Template Last Revised: June 2020) Unable to determine 11/25/20 1919 [facility]
--- NOTE | 2020-11-25 15:34 | P.PN ---
Subjective Progress Note Date: 11/25/20 Patient is doing fairly well today. She was seen by me this morning and after her liver aspiration. She is working to breathe a little bit at the time of my evaluation and was just transferred back to bed. She has severe and chronic COPD and usually get dyspneic with minimal exertion. Objective - Vital Signs Vital signs: Vital Signs Temp 98.3 F 11/25/20 13:58 Pulse 58 L 11/25/20 14:55 Resp 18 11/25/20 14:55 BP 145/78 11/25/20 14:55 Pulse Ox 97 11/25/20 14:55 Intake & Output 11/24/20 11/25/20 11/25/20 18:59 06:59 18:59 Intake Total 100 Output Total 420 Balance -420 100 Intake: Intake, IV Titration 100 Amount Piperacillin-Tazobactam 3 100 .375 gm In Sodium Chloride 0.9% 100 ml @ 25 mls/hr IVPB Q8HR [facility] Rx# :[id number] Output: Drainage 20 Abdomen 20 Urine 400 Other: Voiding Method External Catheter # Voids 3 # Bowel Movements 1 - Exam General: The patient is awake and alert, in no distress Eye: there is normal conjunctiva bilaterally. Neck: The neck is supple, there is no JVD. Cardiovascular: Normal S1-S2, no S3-S4, no murmurs. Respiratory: Lungs clear to auscultation bilaterally Gastrointestinal: Abdomen is soft, nontender Musculoskeletal: There is no pedal edema. Neurological:. Speech is normal. Skin: Skin is warm and dry - Labs CBC & Chem 7: 11/25/20 12:32 11/23/20 05:34 Labs: Abnormal Lab Results - Last 24 Hours (Table) 11/25/20 Range/Units 12:32 WBC 14.7 H (3.8-10.6) k/uL RBC 2.91 L (3.80-5.40) m/uL Hgb 8.0 L (11.4-16.0) gm/dL Hct 24.7 L (34.0-46.0) % RDW 17.4 H (11.5-15.5) % Plt Count 463 H (150-450) k/uL Neutrophils # 12.2 H (1.3-7.7) k/uL Assessment and Plan Assessment: Patient is an 80-year-old female with history of COPD with chronic hypoxic respiratory failure requiring 3 L nasal cannula, diverticulosis, hypertension and prior anemia who presented to the ER complaints of right upper quadrant pain. She was subsequently admitted for possible early cholecystitis with cholelithiasis. She was also found have a couple. Urinary tract infection. Surgery was consulted and scheduled robotic cholecystectomy which was performed on 11/13/2020. She was seen by cardiology and pulmonary to obtain surgical risk evaluations. Postoperatively she developed some respiratory distress and required BiPAP and was transferred to the ICU. She then progressed well throughout her hospital stay. On 11/17 she was noted to have diarrhea. C. diff was ordered which was negative. She was started on cholestyramine and her diarr hea improved. She has been progressing slowly throughout her hospital stay. Plan is for transfer to halfway facility on 11/23/20. Acute cholecystitis with sepsis, bacterial peritonitis - Status post cholecystectomy, postoperative care per general surgery - Zosyn day #13 ?? - Infectious disease recommended IV ceftriaxone 2 g daily and Flagyl 500 mg 3 times a day for another 2 weeks Suspected liver abscess - Discussed with interventional radiology. Thought to be a biloma. Patient und erwent aspiration on 11/25 and culture will be sent Diarrhea, improved -C. diff was negative -Continue with Questran -Continue low fat, lactose free diet -Continue to monitor Acute blood loss anemia postoperative -Stable COPD with chronic hypoxic respiratory failure -Pulmonary recommendations -steroid copmpleted - bronchodilators Postoperative hypertension, blood pressure improved Hypernatremia, resolved Acute on chronic hypoxic respiratory failure secondary to COPD, acute resolved Sepsis, resolved Acute urinary retention, resolved Complicated E. coli urinary tract infection COPD exacerbation, resolved Toxic metabolic encephalopathy, resolved DVT prophylaxis: Lovenox Discussed with: patient, nursing Anticipated discharge: Tomorrow Anticipated discharge place: [facility] A total of minutes was spent on the care of this complex patient more than 50% of the time was spent in counseling and care coordination.
--- NOTE | 2020-11-25 15:56 | CT ---
EXAMINATION TYPE: CT guided abscess drainage DATE OF EXAM: 11/25/2020 COMPARISON: CT 11/23/2020 HISTORY: Abnormal CT CT DLP: 2578 mGycm Automated exposure control for dose reduction was used. FINDINGS: CT used for procedure planning purposes. The skin overlying a suitable path to the fluid collection i n the right upper quadrant was localized using CT and the overlying skin was prepped and draped. Lido hubert used for local anesthesia. An 18-gauge needle was advanced into the fluid collection, 3 cc of s erosanguineous fluid were aspirated and sent for laboratory analysis. Following the procedure hemosta sis achieved. No immediate competition, minimal bleeding. Patient remained in stable condition. IMPRESSION: PATIENT IS POST ASPIRATION OF FLUID IN THE RIGHT UPPER QUADRANT FOR LABORATORY ANALYSIS, THIS PROCEDU RE PERFORMED BY THE UNDERSIGNED
--- NOTE | 2020-11-25 17:01 | CDI ---
Documentation Clarification Form Date: 11/25/2020 03:58:59 PM From: Irene Wyatt RN, CCDS Admit Date: 11/12/2020 06:25:00 PM Patient Name: Makenna Khan Visit Number: [id number] Discharge Date: ATTENTION: The Clinical Documentation Specialists (CDI) and [facility] Coding Staff appreciate your assistance in clarifying documentation. Please respond to the clarification below the line at the bottom and electronically sign. The CDI & [facility] Coding staff will review the response and follow-up if needed. Please note: Queries are made part of the Legal Health Record. If you have any questions, please contact the author of this message via ITS. Dr. Reyna Valencia Postoperative hypertension is documented, on 11/22/20 progress note and patient had Robotic assisted cholecystectomy on 11/14/20. Additional clarification is requested regarding the relationship, if any, that exists between the diagnosis and the procedure. Patients Admitting Diagnosis: Acute Cholecystitis Post-Operative Diagnosis: Acute cholecystitis with sepsis, bacterial peritonitis Procedure performed: Robotic extensive lysis of adhesions, robotic cholecystectomy, and placement drain right upper quadrant History/Risk Factors: Hypertension, COPD, Diverticulosis, anemia, chronic hypoxic respiratory failure Clinical Indicators: 80-year-old female admitted on 11/12/20 with abdominal pain and for possible early cholecystitis with cholelithiasis. Surgery was consulted and scheduled robotic cholecystectomy which was performed on 11/14/20. 11/22 progress note: postoperative hypertension 11/14 Vital signs: (23:00) [id number]/8768 15 11/15 Vital signs: (01:00) 188/101 77 22 11/22 Vital signs: (07:28) 158/58 60 17 98.5 (13:34) 124/47 58 17 98.3 Treatment: 11/14 Apresoline 10 MG IVP Once Catapres 0.2 MG PO QID PRN 11/18-11/19 Clevidipine 25 MG infusion (11/15-11/16) Labetalol Hcl 10MG IVP Q2 PRN (11/15) Monitor BP per protocol Norvasc 5 PO Daily 11/20-11/25 Imdur 30MG PO Daily 11/12-11/25 Cozaar 150 MG PO Daily 11/12-11/25 What relationship, if any, exists between the diagnosis of postoperative hypertension] and the procedure: [ ] Postoperative hypertension is a complication of surgical procedure [ ] Postoperative hypertension is an expected outcome of the surgical procedure [ ] Postoperative is related to patients co-morbid condition(s) of Hypertension, (other specify) & not a complication of the procedure [ X] Other please specify ____ [ ] Unable to determine (Template Last Revised: July 2020) Dictation error MTDD
--- NOTE | 2020-11-25 18:11 | PN ---
PROGRESS NOTE DATE OF SERVICE: 11/25/2020. REASON FOR FOLLOWUP: Liver abscess. The patient is afebrile. The patient is status post CT-guided aspirate of the liver with more of some serous fluid, culture has been obtained. The patient tolerated the procedure, patient denies having any chest pain or shortness of breath. Did have minimal cough. No worsening abdominal pain. No diarrhea. PHYSICAL EXAMINATION: Blood pressure 145/78, pulse of 50, temperature 98.3, he is 97% on 4 L nasal cannula. GENERAL DESCRIPTION: Is an elderly female lying in bed, in no distress. RESPIRATORY SYSTEM: Coarse breath sounds bilaterally, no wheeze. HEART: S1, S2. Regular rate and rhythm. ABDOMEN: Soft no tenderness. LABS: Hemoglobin is 8, white count 14.7. DIAGNOSTIC IMPRESSION AND PLAN: Patient with acute cholecystitis status post cholecystectomy, abdominal culture positive for E coli in this patient now with concern for liver abscess status post CT- guided drainage. Those cultures will be followed. Continue Zosyn. Discharge antibiotic, more likely IV. Repeat cultures. Continue supportive care. MMODL / IJN: [id number] /
[2020-11-25] MEDS: VERAPAMIL SR 180 MG TABLET.ER PO SCH (20:12)
[2020-11-26] MEDS: PIPERACILLIN-TAZOBACTAM 3.375 GM in SODIUM CHLORIDE 0.9% 100 ML IVPB SCH ×3 (07:47→23:38)
[2020-11-26] MEDS: CHOLESTYRAMINE (WITH SUGAR) 4 GM PACKET PO SCH ×4 (07:50→22:29)
[2020-11-26] MEDS: LOSARTAN 50 MG TAB PO SCH (07:50)
[2020-11-26] MEDS: amLODIPine 5 MG TAB PO SCH (07:50)
[2020-11-26] MEDS: ISOSORBIDE MONONITRATE ER 30 MG TAB.ER.24H PO SCH (07:50)
[2020-11-26] MEDS: PANTOPRAZOLE 40 MG TABLET PO SCH (07:50)
[2020-11-26] MEDS: SIMETHICONE 40 MG/0.6 ML DROPS 2,000 MG/30 ML BOTTLE PO SCH ×4 (07:51→22:37)
[2020-11-26] MEDS: ATORVASTATIN 20 MG TAB PO SCH (07:51)
[2020-11-26] MEDS: CITALOPRAM HYDROBROMIDE 20 MG TAB PO SCH (07:51)
[2020-11-26] MEDS: IPRATROPIUM-ALBUTEROL 3 ML NEB INHALATION SCH ×3 (08:13→19:43)
[2020-11-26] MEDS: SYMBICORT 80-4.5 MCG INHALER INHALATION SCH ×2 (08:13→19:43)
--- NOTE | 2020-11-26 12:41 | P.PN ---
<Tisha Solis - Last Filed: 11/26/20 12:40> Subjective Progress Note Date: 11/26/20 CHIEF COMPLAINT: Abdominal pain HISTORY OF PRESENT ILLNESS: Surgical service is following regards to patient's acute cholecystitis. Patient is status post robotic extensive lysis of adhesions, robotic cholecystectomy and placement of ANITA drain right upper quadrant on 11/14/20. Patient denies any abdominal pain. She denies any nausea or vomiting. She is tolerating diet. She is having bowel movements. Patient is status post CT-guided aspiration of hepatic abscess fluid. Afebrile. WBC 14.7 hemoglobin 8.0 PHYSICAL EXAM: VITAL SIGNS: Reviewed GENERAL: Well-developed in no acute distress. HEENT: No sclera icterus. Extraocular movements grossly intact. Moist buccal mucosa. Head is atraumatic, normocephalic. Hears conversational speech. No nasal drainage. NECK: Supple without lymphadenopathy. CHEST: Non-labored respirations and equal bilateral excursions. CARDIOVASCULAR: Palpable 2+ radial pulses. ABDOMEN: Soft. Nondistended. Incision sites clean dry and intact. ANITA drain with bilious output MUSCULOSKELETAL: No clubbing or cyanosis. NEUROLOGIC: No focal or lateralizing signs. Cranial nerves II through XII grossly intact. PSYCH: Appropriate affect. Alert and oriented to person, place and time. SKIN: Well perfused. Good skin turgor. ASSESSMENT: 1. Sepsis 2. Acute on chronic cholecystitis 3. Peritonitis right upper quadrant 4. Severe intra-abdominal adhesions 5. Ventral umbilical hernia 6. UTI 7. COPD exacerbation 8. Hepatic abscess PLAN: -Patient can be discharged from surgical standpoint after IR aspirates hepatic abscess -Continue low-fat diet -Continue ANITA drain upon discharge -Continue pain medication as needed -Continue antibiotics per ID -DVT prophylaxis Lovenox and GI prophylaxis Protonix Physician Silver Buffer note has been reviewed by physician. Signing provider agrees with the documented findings, assessment, and plan of care. Objective - Vital Signs Vital signs: Vital Signs Temp 97.5 F L 11/26/20 08:00 Pulse 50 L 11/26/20 08:27 Resp 18 11/26/20 08:00 BP 144/63 11/26/20 08:00 Pulse Ox 93 L 11/26/20 08:00 Intake & Output 11/25/20 11/26/20 11/26/20 18:59 06:59 18:59 Intake Total 100 200 240 Output Total 10 0 Balance 90 200 240 Intake: Intake, IV Titration 100 Amount Piperacillin-Tazobactam 3 100 .375 gm In Sodium Chloride 0.9% 100 ml @ 25 mls/hr IVPB Q8HR [facility] Rx# :[id number] Oral 200 240 Output: Drainage 10 0 Abdomen 10 0 Other: Voiding Method Bedside Commode External Catheter # Voids 1 1 # Bowel Movements 1 - Labs CBC & Chem 7: 11/25/20 12:32 11/23/20 05:34 Labs: Abnormal Lab Results - Last 24 Hours (Table) 11/25/20 Range/Units 12:32 WBC 14.7 H (3.8-10.6) k/uL RBC 2.91 L (3.80-5.40) m/uL Hgb 8.0 L (11.4-16.0) gm/dL Hct 24.7 L (34.0-46.0) % RDW 17.4 H (11.5-15.5) % Plt Count 463 H (150-450) k/uL Neutrophils # 12.2 H (1.3-7.7) k/uL Microbiology - Last 24 Hours (Table) 11/25/20 15:00 Gram Stain - Preliminary Aspirate Body Fluid Culture - Preliminary 11/25/20 15:00 Anaerobic Culture - Preliminary Aspirate <Dawna Vitale N - Last Filed: 11/26/20 18:23> Subjective As above. CHIEF COMPLAINT: Cholecystitis HISTORY OF PRESENT ILLNESS: The patient is a 80-year-old female status post robotic-assisted cholecystectomy, 11/14/2020 with placement of ANITA and findings of bile peritonitis along the right upper quadrant. She is status post aspiration of right perihepatic fluid. No reports of abdominal pain. She is tolerating diet. She is eager to go home. ROS: No reports of nausea and vomiting. No fevers or chills. She has COPD and oxygen dependent. PHYSICAL EXAM: VITAL SIGNS: Reviewed CONSTITUTIONAL: Well developed and in no acute distress. EYES: Conjuctivae without sclera icterus. Extraocular movements grossly intact. HEAD, EARS, NOSE, THROAT: Moist buccal mucosa. Head is atraumatic, normocephalic. Hears conversational speech. No nasal drainage. RESPIRATORY: Non-labored respirations and equal bilateral excursions. CARDIOVASCULAR: 2+ radial pulses. ABDOMEN: No peritonitis. Incisions intact. No infection. MUSCULOSKELETAL: No gross deformity of the lower extremities noted. No clubbing. No cyanosis. SKIN: Good skin turgor. Well perfused. NEUROLOGIC: Cranial nerves II through XII grossly intact. No focal or lateralizing signs. PSYCH: Appropriate affect. Alert and oriented to person. CLINICAL LABS: No new labs. ASSESSMENT: 1. Sepsis 2. Acute and chronic cholecystitis 3. Chronic obstructive pulmonary disease, severe, oxygen dependent 4. Liver abscess per CT scan PLAN: 1. May discharge from a surgical standpoint once medically stable. 2. Antibiotic management per infectious disease. 3. Discharge home with ANITA drain. Objective - Vital Signs Vital signs: Vital Signs Temp 97.6 F 11/26/20 14:00 Pulse 50 L 11/26/20 14:00 Resp 17 11/26/20 14:00 BP 131/74 11/26/20 14:00 Pulse Ox 96 11/26/20 14:00 Intake & Output 11/25/20 11/26/20 11/26/20 18:59 06:59 18:59 Intake Total 100 200 440 Output Total 10 0 Balance 90 200 440 Intake: Intake, IV Titration 100 200 Amount Piperacillin-Tazobactam 3 100 200 .375 gm In Sodium Chloride 0.9% 100 ml @ 25 mls/hr IVPB Q8HR [facility] Rx# :[id number] Oral 200 240 Output: Drainage 10 0 Abdomen 10 0 Other: Voiding Method Bedside Commode External Catheter # Voids 1 1 1 # Bowel Movements 1 1 - Labs CBC & Chem 7: 11/25/20 12:32 11/23/20 05:34 Labs: Microbiology - Last 24 Hours (Table) 11/25/20 15:00 Gram Stain - Preliminary Aspirate Body Fluid Culture - Preliminary 11/25/20 15:00 Anaerobic Culture - Preliminary Aspirate Assessment and Plan (1) Acute cholecystitis due to biliary calculus Current Visit: Yes Status: Acute Code(s): K80.00 - CALCULUS OF GALLBLADDER W ACUTE CHOLECYST W/O OBSTRUCTION SNOMED Code(s): 85240457089004 (2) Acute on chronic cholecystitis concurrent with and due to calculus of gallbladder and bile duct Current Visit: Yes Status: Acute Code(s): K80.66 - CALCULUS OF GB AND BILE DUCT W AC AND CHR CHOLECYST W/O OBST SNOMED Code(s): 60817383050715 (3) Sepsis Current Visit: Yes Status: Acute Code(s): A41.9 - SEPSIS, UNSPECIFIED ORGANISM SNOMED Code(s): 38907196 (4) COPD with acute exacerbation Current Visit: Yes Status: Acute Code(s): J44.1 - CHRONIC OBSTRUCTIVE PULMONARY DISEASE W (ACUTE) EXACERBATION SNOMED Code(s): 656100217 (5) Liver abscess Current Visit: Yes Status: Acute Code(s): K75.0 - ABSCESS OF LIVER SNOMED Code(s): 10070887
[2020-11-26] MEDS ORDERED: methylPREDNISolone SOD SUCCI 125 MG/2 ML VIAL IV STA (14:00)
--- NOTE | 2020-11-26 14:02 | P.PN ---
Subjective Progress Note Date: 11/26/20 Patient is complaining of shortness of breath today. She appeared dyspneic when I saw her. She is having audible wheezing. Objective - Vital Signs Vital signs: Vital Signs Temp 97.5 F L 11/26/20 08:00 Pulse 50 L 11/26/20 13:37 Resp 18 11/26/20 08:00 BP 144/63 11/26/20 08:00 Pulse Ox 93 L 11/26/20 08:00 Intake & Output 11/25/20 11/26/20 11/26/20 18:59 06:59 18:59 Intake Total 100 200 240 Output Total 10 0 Balance 90 200 240 Intake: Intake, IV Titration 100 Amount Piperacillin-Tazobactam 3 100 .375 gm In Sodium Chloride 0.9% 100 ml @ 25 mls/hr IVPB Q8HR [facility] Rx# :[id number] Oral 200 240 Output: Drainage 10 0 Abdomen 10 0 Other: Voiding Method Bedside Commode External Catheter # Voids 1 1 # Bowel Movements 1 - Exam General: The patient is awake and alert, in no distress Eye: there is normal conjunctiva bilaterally. Neck: The neck is supple, there is no JVD. Cardiovascular: Normal S1-S2, no S3-S4, no murmurs. Respiratory: Lungs with end-expiratory wheezing Gastrointestinal: Abdomen is soft, nontender Musculoskeletal: There is no pedal edema. Neurological:. Speech is normal. Skin: Skin is warm and dry - Labs CBC & Chem 7: 11/25/20 12:32 11/23/20 05:34 Labs: Microbiology - Last 24 Hours (Table) 11/25/20 15:00 Gram Stain - Preliminary Aspirate Body Fluid Culture - Preliminary 11/25/20 15:00 Anaerobic Culture - Preliminary Aspirate Assessment and Plan Assessment: Patient is an 80-year-old female with history of COPD with chronic hypoxic respiratory failure requiring 3 L nasal cannula, diverticulosis, hypertension and prior anemia who presented to the ER complaints of right upper quadrant pain. She was subsequently admitted for possible early cholecystitis with cholelithiasis. She was also found have a couple. Urinary tract infection. Surgery was consulted and scheduled robotic cholecystectomy which was performed on 11/13/2020. She was seen by cardiology and pulmonary to obtain surgical risk evaluations. Postoperatively she developed some respiratory distress and required BiPAP and was transferred to the ICU. She then progressed well throughout her hospital stay. On 11/17 she was noted to have diarrhea. C. diff was ordered which was negative. She was started on cholestyramine and her diarrhea improved. She has been progressing slowly throughout her hospital stay. Plan is for transfer to snf facility on 11/23/20. Acute cholecystitis with sepsis, bacterial peritonitis - Status post cholecystectomy, postoperative care per general surgery - Zosyn day #14 ?? - Infectious disease recommended IV ceftriaxone 2 g daily and Flagyl 500 mg 3 t imes a day for another 2 weeks Suspected liver abscess - Discussed with interventional radiology. Thought to be a biloma. Patient underwent CT-guided aspiration on 11/25 and culture will be sent COPD with chronic hypoxic respiratory failure, now with acute exacerbation -Pulmonary recommendations -steroid copmpleted - bronchodilators -I would give the patient 1 time dose of IV Solu-Medrol 60 mg a day and start her on short course of prednisone 40 mg daily for 3 days starting tomorrow Diarrhea, improved -C. diff was negative -Continue with Questran -Continue low fat, lactose free diet -Continue to monitor Acute blood loss anemia postoperative -Stable Postoperative hypertension, blood pressure improved Hypernatremia, resolved Acute on chronic hypoxic respiratory failure secondary to COPD, acute resolved Sepsis, resolved Acute urinary retention, resolved Complicated E. coli urinary tract infection COPD exacerbation, resolved Toxic metabolic encephalopathy, resolved Discharge planning pending declining insertion today and improvement in her respiratory status DVT prophylaxis: Lovenox Discussed with: patient, nursing Anticipated discharge: Tomorrow Anticipated discharge place: [facility] A total of minutes was spent on the care of this complex patient more than 50% of the time was spent in counseling and care coordination.
[2020-11-26] MEDS: HYDROcodone/APAP 7.5-325MG 1 EACH TAB PO PRN (15:11)
--- NOTE | 2020-11-26 17:07 | PN ---
PROGRESS NOTE DATE OF SERVICE: 11/26/2020. REASON FOR FOLLOWUP: Liver abscess and cholecystitis. INTERVAL HISTORY: The patient is afebrile. The patient is breathing comfortably. The patient denies having any chest pain or any worsening cough. No abdominal pain or diarrhea. PHYSICAL EXAMINATION: Her blood pressure is 131/74 with a pulse of 50, temperature 97.6. She is 96% on 2 L nasal cannula. The patient is an elderly female lying in bed, in no distress. RESPIRATORY SYSTEM: Unlabored breathing, decreased breath sounds in the base, with no wheeze. HEART: S1, S2. Regular rate and rhythm. ABDOMEN: Soft, no tenderness. LABS: No new labs have been obtained today. DIAGNOSTIC IMPRESSION AND PLAN: Patient with acute cholecystitis status post cholecystectomy, now with concern for possible liver abscess status post CT-guided drainage. Cultures are pending. Patient is covered with Zosyn. To continue adjusting antibiotic further based on the repeat cultures and continue supportive care. MMODL / IJN: [id number] /
[2020-11-26] MEDS: VERAPAMIL SR 180 MG TABLET.ER PO SCH (22:37)
[2020-11-27] MEDS: SYMBICORT 80-4.5 MCG INHALER INHALATION SCH (08:25)
[2020-11-27] MEDS: IPRATROPIUM-ALBUTEROL 3 ML NEB INHALATION SCH ×2 (08:26→11:16)
[2020-11-27] MEDS: PIPERACILLIN-TAZOBACTAM 3.375 GM in SODIUM CHLORIDE 0.9% 100 ML IVPB SCH (08:49)
[2020-11-27] MEDS: LOSARTAN 50 MG TAB PO SCH (08:49)
[2020-11-27] MEDS: ISOSORBIDE MONONITRATE ER 30 MG TAB.ER.24H PO SCH (08:49)
[2020-11-27] MEDS: ENOXAPARIN 40 MG/0.4 ML SYRINGE SQ SCH (08:49)
[2020-11-27] MEDS: CHOLESTYRAMINE (WITH SUGAR) 4 GM PACKET PO SCH ×2 (08:50→19:33)
[2020-11-27] MEDS: amLODIPine 5 MG TAB PO SCH (08:50)
[2020-11-27] MEDS: SIMETHICONE 40 MG/0.6 ML DROPS 2,000 MG/30 ML BOTTLE PO SCH ×2 (08:50→19:33)
[2020-11-27] MEDS: ASPIRIN 81 MG PO SCH (08:50)
[2020-11-27] MEDS: CITALOPRAM HYDROBROMIDE 20 MG TAB PO SCH (08:50)
[2020-11-27] MEDS: ATORVASTATIN 20 MG TAB PO SCH (08:52)
[2020-11-27] MEDS ORDERED: PANTOPRAZOLE 40 MG/10 ML VIAL IVP SCH (09:00)
[2020-11-27 09:25] LABS: Anisocytosis Slight; Basophils % (A) 0 %; Eosinophils % (A) 0 %; HCT 29.9 % (34.0-46.0); HGB 8.9 gm/dL (11.4-16.0); Hypochromasia Marked; Lymphocytes # (A) 1.2 k/uL (1.0-4.8); Lymphocytes % (A) 4 %; MCH 26.4 pg (25.0-35.0); MCHC 29.9 g/dL (31.0-37.0); MCV 88.2 fL (80.0-100.0); Mean Platelet Volume 9.4; Monocytes # (A) 0.6 k/uL (0-1.0); Monocytes % (A) 2 %; Neutrophils # (A) 32.3 k/uL (1.3-7.7); Neutrophils % (A) 94 %; Platelet Count 496 k/uL (150-450); RBC 3.39 m/uL (3.80-5.40); WBC 34.3 k/uL (3.8-10.6)
--- NOTE | 2020-11-27 12:54 | P.PN ---
<Tisha Solis - Last Filed: 11/27/20 12:51> Subjective Progress Note Date: 11/27/20 CHIEF COMPLAINT: Abdominal pain HISTORY OF PRESENT ILLNESS: Surgical service is following regards to patient's acute cholecystitis. Patient is status post robotic extensive lysis of adhesions, robotic cholecystectomy and placement of ANITA drain right upper quadrant on 11/14/20. Patient denies any abdominal pain. She denies any nausea or vomiting. She is tolerating diet. She is having bowel movements. Patient is status post CT-guided aspiration of hepatic abscess fluid. Culture result pending. Yesterday patient did receive a dose of IV steroids for her shortness of breath and wheezing. Her white count has now gone up to 34.3 from 14.7 likely due to steroids. Patient is sitting up in bedside chair. Afebrile. Hemoglobin 8.9 PHYSICAL EXAM: VITAL SIGNS: Reviewed GENERAL: Well-developed in no acute distress. HEENT: No sclera icterus. Extraocular movements grossly intact. Moist buccal mucosa. Head is atraumatic, normocephalic. Hears conversational speech. No nasal drainage. NECK: Supple without lymphadenopathy. CHEST: Non-labored respirations and equal bilateral excursions. CARDIOVASCULAR: Palpable 2+ radial pulses. ABDOMEN: Soft. Nondistended. Incision sites clean dry and intact. ANITA drain with bilious output MUSCULOSKELETAL: No clubbing or cyanosis. NEUROLOGIC: No focal or lateralizing signs. Cranial nerves II through XII grossly intact. PSYCH: Appropriate affect. Alert and oriented to person, place and time. SKIN: Well perfused. Good skin turgor. ASSESSMENT: 1. Sepsis 2. Acute on chronic cholecystitis 3. Peritonitis right upper quadrant 4. Severe intra-abdominal adhesions 5. Ventral umbilical hernia 6. UTI 7. COPD exacerbation 8. Hepatic abscess PLAN: -Patient can be discharged from surgical standpoint once medically stable -Continue low-fat diet -Continue ANITA drain upon discharge -Continue pain medication as needed -Continue antibiotics per ID -DVT prophylaxis Lovenox and GI prophylaxis Protonix Physician Proof Reader note has been reviewed by physician. Signing provider agrees with the documented findings, assessment, and plan of care. Objective - Vital Signs Vital signs: Vital Signs Temp 97.5 F L 11/27/20 07:42 Pulse 52 L 11/27/20 11:28 Resp 17 11/27/20 07:42 BP 142/59 11/27/20 08:48 Pulse Ox 96 11/27/20 11:16 Intake & Output 11/26/20 11/27/20 11/27/20 18:59 06:59 18:59 Intake Total 440 Output Total 10 500 Balance 440 -10 -500 Intake: Intake, IV Titration 200 Amount Piperacillin-Tazobactam 3 200 .375 gm In Sodium Chloride 0.9% 100 ml @ 25 mls/hr IVPB Q8HR [facility] Rx# :[id number] Oral 240 Output: Drainage 10 Abdomen 10 Urine 500 Straight 500 Other: Voiding Method Bedside Commode External Catheter # Voids 1 # Bowel Movements 1 2 - Labs CBC & Chem 7: 11/27/20 06:52 11/23/20 05:34 Labs: Abnormal Lab Results - Last 24 Hours (Table) 11/27/20 Range/Units 06:52 WBC 34.3 H (3.8-10.6) k/uL RBC 3.39 L (3.80-5.40) m/uL Hgb 8.9 L (11.4-16.0) gm/dL Hct 29.9 L (34.0-46.0) % MCHC 29.9 L (31.0-37.0) g/dL RDW 18.0 H (11.5-15.5) % Plt Count 496 H (150-450) k/uL Microbiology - Last 24 Hours (Table) 11/25/20 15:00 Gram Stain - Preliminary Aspirate Body Fluid Culture - Preliminary <Dawna Vitale N - Last Filed: 11/27/20 21:25> Subjective As above. CHIEF COMPLAINT: Cholecystitis HISTORY OF PRESENT ILLNESS: The patient is a 80-year-old female status post robotic-assisted cholecystectomy, 11/14/2020 with placement of ANITA and findings of bile peritonitis along the right upper quadrant. No reports of abdominal carlos n. No reports of nausea or vomiting. She is tolerating diet. ROS: No reports of nausea and vomiting. No fevers or chills. PHYSICAL EXAM: VITAL SIGNS: Reviewed CONSTITUTIONAL: Well developed and in no acute distress. EYES: Conjuctivae without sclera icterus. Extraocular movements grossly intact. HEAD, EARS, NOSE, THROAT: Moist buccal mucosa. Head is atraumatic, normocephalic. Hears conversational speech. No nasal drainage. RESPIRATORY: Non-labored respirations and equal bilateral excursions. CARDIOVASCULAR: 2+ radial pulses. ABDOMEN: No peritonitis. Incisions intact. No infection. Adrian Eastman drain minimal. MUSCULOSKELETAL: No gross deformity of the lower extremities noted. No clubbing. No cyanosis. SKIN: Good skin turgor. Well perfused. NEUROLOGIC: Cranial nerves II through XII grossly intact. No focal or lateralizing signs. PSYCH: Appropriate affect. Alert and oriented to person. CLINICAL LABS: WBC elevated over 34,000. ASSESSMENT: 1. Sepsis 2. Acute and chronic cholecystitis 3. Chronic obstructive pulmonary disease, severe, oxygen dependent 4. Liver abscess per CT scan PLAN: 1. May be discharged with ANITA drain once medically stable Objective - Vital Signs Vital signs: Vital Signs Temp 94.8 F L 11/27/20 13:11 Pulse 41 L 11/27/20 14:42 Resp 16 11/27/20 14:42 BP 102/49 11/27/20 13:11 Pulse Ox 94 L 11/27/20 13:11 Intake & Output 11/27/20 11/27/20 11/28/20 06:59 18:59 06:59 Output Total 10 500 Balance -10 -500 Weight 84.8 kg Output: Drainage 10 Abdomen 10 Urine 500 Straight 500 Other: Voiding Method Bedside Commode External Catheter # Bowel Movements 2 - Labs CBC & Chem 7: 11/27/20 06:52 11/27/20 13:39 Labs: Abnormal Lab Results - Last 24 Hours (Table) 11/27/20 11/27/20 Range/Units 06:52 13:39 WBC 34.3 H (3.8-10.6) k/uL RBC 3.39 L (3.80-5.40) m/uL Hgb 8.9 L (11.4-16.0) gm/dL Hct 29.9 L (34.0-46.0) % MCHC 29.9 L (31.0-37.0) g/dL RDW 18.0 H (11.5-15.5) % Plt Count 496 H (150-450) k/uL Neutrophils # 32.3 H (1.3-7.7) k/uL Chloride 113 H (98-107) mmol/L Carbon Dioxide 19 L (22-30) mmol/L BUN 22 H (7-17) mg/dL Creatinine 1.23 H (0.52-1.04) mg/dL Glucose 123 H (74-99) mg/dL AST 327 H (14-36) U/L ALT 133 H (4-34) U/L Alkaline Phosphatase 176 H (38-126) U/L Total Protein 4.6 L (6.3-8.2) g/dL Albumin 2.3 L (3.5-5.0) g/dL Microbiology - Last 24 Hours (Table) 11/25/20 15:00 Gram Stain - Preliminary Aspirate Body Fluid Culture - Preliminary 11/14/20 09:40 Fungal Culture - Preliminary Peritoneal Fluid Assessment and Plan (1) Acute cholecystitis due to biliary calculus Status: Acute Code(s): K80.00 - CALCULUS OF GALLBLADDER W ACUTE CHOLECYST W/O OBSTRUCTION SNOMED Code(s): 34770300724145 (2) Acute on chronic cholecystitis concurrent with and due to calculus of gallbladder and bile duct Status: Acute Code(s): K80.66 - CALCULUS OF GB AND BILE DUCT W AC AND CHR CHOLECYST W/O OBST SNOMED Code(s): 55898450257000 (3) Sepsis Status: Acute Code(s): A41.9 - SEPSIS, UNSPECIFIED ORGANISM SNOMED Code(s): 44485496 (4) COPD with acute exacerbation Status: Acute Code(s): J44.1 - CHRONIC OBSTRUCTIVE PULMONARY DISEASE W (ACUTE) EXACERBATION SNOMED Code(s): 741655880 (5) Liver abscess Status: Acute Code(s): K75.0 - ABSCESS OF LIVER SNOMED Code(s): 21901455
[2020-11-27] MEDS: HYDROcodone/APAP 7.5-325MG 1 EACH TAB PO PRN (13:00)
[2020-11-27 13:16] VITALS: BP 102/49; PULSE 41; RESP 16; TEMP 94.8
--- NOTE | 2020-11-27 13:40 | P.PN ---
Subjective Progress Note Date: 11/27/20 Patient's overall condition is deteriorating every day. Today, she is having more audible wheezing. She reports feeling short of breath. She said that she cannot pinpoint "bothering her. She was found to have urinary retention this morning requiring straight catheterization with approximately 500 mL of urine drained. She was sitting up in the chair when I saw her. She is very weak and unable to ambulate by herself. Objective - Vital Signs Vital signs: Vital Signs Temp 94.8 F L 11/27/20 13:11 Pulse 41 L 11/27/20 13:11 Resp 16 11/27/20 13:11 BP 102/49 11/27/20 13:11 Pulse Ox 94 L 11/27/20 13:11 Intake & Output 11/26/20 11/27/20 11/27/20 18:59 06:59 18:59 Intake Total 440 Output Total 10 500 Balance 440 -10 -500 Weight 84.8 kg Intake: Intake, IV Titration 200 Amount Piperacillin-Tazobactam 3 200 .375 gm In Sodium Chloride 0.9% 100 ml @ 25 mls/hr IVPB Q8HR [facility] Rx# :[id number] Oral 240 Output: Drainage 10 Abdomen 10 Urine 500 Straight 500 Other: Voiding Method Bedside Commode External Catheter # Voids 1 # Bowel Movements 1 2 - Exam General: The patient is awake and alert, in no distress Eye: there is normal conjunctiva bilaterally. Neck: The neck is supple, there is no JVD. Cardiovascular: Normal S1-S2, no S3-S4, no murmurs. Respiratory: Lungs with end-expiratory wheezing Gastrointestinal: Abdomen is soft, nontender Musculoskeletal: There is no pedal edema. Neurological:. Speech is normal. Skin: Skin is warm and dry - Labs CBC & Chem 7: 11/27/20 06:52 11/23/20 05:34 Labs: Abnormal Lab Results - Last 24 Hours (Table) 11/27/20 Range/Units 06:52 WBC 34.3 H (3.8-10.6) k/uL RBC 3.39 L (3.80-5.40) m/uL Hgb 8.9 L (11.4-16.0) gm/dL Hct 29.9 L (34.0-46.0) % MCHC 29.9 L (31.0-37.0) g/dL RDW 18.0 H (11.5-15.5) % Plt Count 496 H (150-450) k/uL Microbiology - Last 24 Hours (Table) 11/25/20 15:00 Gram Stain - Preliminary Aspirate Body Fluid Culture - Preliminary Assessment and Plan Assessment: Patient is an 80-year-old female with history of COPD with chronic hypoxic respiratory failure requiring 3 L nasal cannula, diverticulosis, hypertension and prior anemia who presented to the ER complaints of right upper quadrant pain. She was subsequently admitted for possible early cholecystitis with cholelithiasis. She was also found have a couple. Urinary tract infection. Surgery was consulted and scheduled robotic cholecystectomy which was performed on 11/13/2020. She was seen by cardiology and pulmonary to obtain surgical risk evaluations. Postoperatively she developed some respiratory distress and required BiPAP and was transferred to the ICU. She then progressed well throughout her hospital stay. On 11/17 she was noted to have diarrhea. C. diff was ordered which was negative. She was started on cholestyramine and her diarrhea improved. She has been progressing slowly throughout her hospital stay. Plan is for transfer to [facility] facility on 11/23/20. Acute cholecystitis with sepsis, bacterial peritonitis - Status post cholecystectomy, postoperative care per general surgery - Zosyn day #16 - Infectious disease recommended IV ceftriaxone 2 g daily and Flagyl 500 mg 3 times a day for another 2 weeks Suspected liver abscess - Discussed with interventional radiology. Thought to be a biloma. Patient underwent CT-guided aspiration on 11/25 and culture will be sent COPD with chronic hypoxic respiratory failure, now with acute exacerbation -Pulmonary recommendations -steroid copmpleted - bronchodilators -I would give the patient 1 time dose of IV Solu-Medrol 60 mg a day and start her on short course of prednisone 40 mg daily for 3 days starting tomorrow Diarrhea, improved -C. diff was negative -Continue with Questran -Continue low fat, lactose free diet -Continue to monitor Acute blood loss anemia postoperative -Stable Postoperative hypertension, blood pressure improved Hypernatremia, resolved Acute on chronic hypoxic respiratory failure secondary to COPD, acute resolved Sepsis, resolved Acute urinary retention, resolved Complicated E. coli urinary tract infection COPD exacerbation, resolved Toxic metabolic encephalopathy, resolved Discharge planning pending declining insertion today and improvement in her respiratory status DVT prophylaxis: Lovenox Discussed with: patient, nursing Anticipated discharge: Tomorrow Anticipated discharge place: [facility] A total of minutes was spent on the care of this complex patient more than 50% of the time was spent in counseling and care coordination.
--- NOTE | 2020-11-27 13:42 | P.PN ---
Progress Note - Text Progress Note Date: 11/27/20 Today, I had a prolonged meeting with the patient's granddaughter regarding goals of care. I explained to her the guarded prognosis of the patient and the fact that she has been deteriorating over time. We discussed comfort measures/hospice care. We also discussed CODE STATUS. Initially she wanted her grandmother to get chest compression but not intubation but I explained to her that this cannot be achieved and the heart and lung resuscitation done at the same time. She told me that they want her to be a DO NOT RESUSCITATE. We also discussed hospice philosophy. She would like to have an informative meeting with hospice. May transition to hospice at home Time spent > 16 minutes
[2020-11-27 14:27] LABS: ALT 133 U/L (4-34); AST 327 U/L (14-36); African American GFR (CKD) 48 (>60 ml/min/1.73 sqM); Albumin 2.3 g/dL (3.5-5.0); Alkaline Phosphatase 176 U/L (38-126); Anion Gap 6 mmol/L; Blood Urea Nitrogen 22 mg/dL (7-17); Carbon Dioxide 19 mmol/L (22-30); Chloride 113 mmol/L (98-107); Globulin 2.3 g/dL; Glucose 123 mg/dL (74-99); Non-African American GFR(CKD) 42 (>60 ml/min/1.73 sqM); Potassium 4.4 mmol/L (3.5-5.1); Sodium 138 mmol/L (137-145); Total Bilirubin 0.4 mg/dL (0.2-1.3); Total Protein 4.6 g/dL (6.3-8.2)
[2020-11-27 15:01] LABS: Poikilocytosis (M) Present
--- NOTE | 2020-11-27 15:46 | P.DS ---
Providers Date of admission: 11/12/20 18:25 Expected date of discharge: 11/27/20 Attending physician: Mauricio Nixon Consults: 11/12/20 11:06 Consult Physician Routine Consulting Provider: Dawna Vitale Consult Reason/Comments: Right upper quadrant pain, cholelithiasis Do you want consulting provider notified?: Already Contacted 11/12/20 15:34 Consult Physician Routine Consulting Provider: Shane Lambert Consult Reason/Comments: clearance for surgery Do you want consulting provider notified?: Yes 11/18/20 09:09 Consult Physician Routine Consulting Provider: Maggy Mckeon Consult Reason/Comments: bacterial peritonitis Do you want consulting provider notified?: Yes Primary care physician: Caprice Gore MD Hospital Course: Patient will be admitted to inpatient hospice. Patient Condition at Discharge: Stable Plan - Discharge Summary Discharge Rx Participant: Yes New Discharge Prescriptions: No Action Isosorbide Mononitrate [Isosorbide Mononitrate ER] 30 mg PO DAILY Aspirin EC [Ecotrin Low Dose] 81 mg PO HS Jered/D3/Mag11/Zinc/Staff Research Associate/Mike/Bor [Caltrate 600+D Plus Tablet] 1 tab PO BID Mirabegron [Myrbetriq] 25 mg PO HS EPINEPHrine (Auto Inject) [Epipen] 0.3 mg IM ONCE PRN PRN Reason: Anaphylaxis Albuterol Inhaler [Ventolin Hfa Inhaler] 2 puff INHALATION RT-QID PRN PRN Reason: Shortness Of Breath Candesartan Cilexetil [Atacand] 32 mg PO DAILY Verapamil HCl [Verelan Pm] 300 mg PO HS Omeprazole 20 mg PO DAILY Citalopram Hydrobromide [CeleXA] 20 mg PO DAILY Fluticasone/Umeclidin/Vilanter [Trelegy Ellipta 100-62.5-25] 1 puff INHALATION RT-DAILY Atorvastatin Calcium [Lipitor] 20 mg PO DAILY Ipratropium-Albuterol Nebulize [Duoneb 0.5 mg-3 mg/3 ml Soln] 3 ml INHALATION RT-QID PRN PRN Reason: Shortness Of Breath Naproxen Sodium [Aleve] 440 mg PO Q12H PRN PRN Reason: Pain Discharge Medication List Albuterol Inhaler [Ventolin Hfa Inhaler] 2 puff INHALATION RT-QID PRN 05/29/21 [History] Aspirin EC [Ecotrin Low Dose] 81 mg PO HS 10/17/20 [History] Atorvastatin Calcium [Lipitor] 20 mg PO DAILY 10/17/20 [History] Jered/D3/Mag11/Zinc/Staff Research Associate/Mike/Bor [Caltrate 600+D Plus Tablet] 1 tab PO BID 10/17/20 [History] Candesartan Cilexetil [Atacand] 32 mg PO DAILY 10/17/20 [History] Citalopram Hydrobromide [CeleXA] 20 mg PO DAILY 10/17/20 [History] EPINEPHrine (Auto Inject) [Epipen] 0.3 mg IM ONCE PRN 10/17/20 [History] Fluticasone/Umeclidin/Vilanter [Trelegy Ellipta 100-62.5-25] 1 puff INHALATION RT-DAILY 10/17/20 [History] Ipratropium-Albuterol Nebulize [Duoneb 0.5 mg-3 mg/3 ml Soln] 3 ml INHALATION RT-QID PRN 10/17/20 [History] Isosorbide Mononitrate [Isosorbide Mononitrate ER] 30 mg PO DAILY 10/17/20 [History] Mirabegron [Myrbetriq] 25 mg PO HS 10/17/20 [History] Omeprazole 20 mg PO DAILY 10/17/20 [History] Verapamil HCl [Verelan Pm] 300 mg PO HS 10/17/20 [History] Naproxen Sodium [Aleve] 440 mg PO Q12H PRN 11/11/20 [History] Follow up Appointment(s)/Referral(s): Caprice Gore MD [Primary Care Provider] - 1-2 days Dawna Vitale MD [STAFF PHYSICIAN] - 12/01/20 [facility] [NON-STAFF] - As Needed Activity/Diet/Wound Care/Special Instructions: Keep a log of ANITA drain output and bring with you to your follow-up appointment Milk/strip drains 2-3 times a day
--- NOTE | 2020-11-27 16:00 | P.PN ---
Progress Note - Text Progress Note Date: 11/27/20 REASON FOR FOLLOWUP: Liver abscess and cholecystitis. INTERVAL HISTORY: The patient remains to be afebrile. The patient is breathing comfortably. The patient denies having any chest pain or any worsening cough. occasional abdominal pain or diarrhea. PHYSICAL EXAMINATION: Her blood pressure is 130/70 with a pulse of 50, temperature 97.6. She is 96% on 2 L nasal cannula. The patient is an elderly female lying in bed, in no distress. RESPIRATORY SYSTEM: Unlabored breathing, decreased breath sounds in the base, with no wheeze. HEART: S1, S2. Regular rate and rhythm. ABDOMEN: Soft, no tenderness. LABS: CT guided fluid cultures so far negative DIAGNOSTIC IMPRESSION AND PLAN: Patient with acute cholecystitis status post cholecystectomy, now with concern for possible liver abscess status post CT-guided drainage. Cultures are pending. Patient is covered with Zosyn. To continue adjusting antibiotic further based on the cultures.
== END 2020-11-27 15:21 | disposition hospice, inpatient (51) | DRG 417 ==
LOC: EC 12:26 → 4SSUR 16:31 → OBSVTOIN 11-12 18:25 → 2SICU 11-14 11:10 → 4SSUR 11-17 00:36
PROVIDERS: ADMIT Internal Medicine; ATTEND Internal Medicine
PROC: 0FT44ZZ Resection of Gallbladder, Percutaneous Endoscopic Approach (ICD-10-PCS; principal; 2020-11-14 08:00)
PROC: 0DNW4ZZ Release Peritoneum, Percutaneous Endoscopic Approach (ICD-10-PCS; principal; 2020-11-14 08:00)
PROC: 8E0W4CZ Robotic Assisted Procedure of Trunk Region, Percutaneous Endoscopic Approach (ICD-10-PCS; principal; 2020-11-14 08:00)
PROC: 05HA33Z Insertion of Infusion Device into Left Brachial Vein, Percutaneous Approach (ICD-10-PCS; 2020-11-20 08:25)
PROC: 05HC33Z Insertion of Infusion Device into Left Basilic Vein, Percutaneous Approach (ICD-10-PCS; 2020-11-25)
DX: K80.12 Calculus of gallbladder with acute and chronic cholecystitis without obstruction (principal); A41.51 Sepsis due to Escherichia coli [E. coli]; G92 Toxic encephalopathy; J96.21 Acute and chronic respiratory failure with hypoxia; K65.9 Peritonitis, unspecified; K75.0 Abscess of liver; K80.46 Calculus of bile duct with acute and chronic cholecystitis without obstruction; N39.0 Urinary tract infection, site not specified; D62 Acute posthemorrhagic anemia; E87.0 Hyperosmolality and hypernatremia; I50.20 Unspecified systolic (congestive) heart failure; J44.1 Chronic obstructive pulmonary disease with (acute) exacerbation; K43.6 Other and unspecified ventral hernia with obstruction, without gangrene; E78.5 Hyperlipidemia, unspecified; E86.0 Dehydration; F32.9 Major depressive disorder, single episode, unspecified; Z20.822 Contact with and (suspected) exposure to COVID-19; Z66 Do not resuscitate; Z51.5 Encounter for palliative care; N13.9 Obstructive and reflux uropathy, unspecified; K76.0 Fatty (change of) liver, not elsewhere classified; I11.0 Hypertensive heart disease with heart failure; I25.5 Ischemic cardiomyopathy; I08.3 Combined rheumatic disorders of mitral, aortic and tricuspid valves; K21.9 Gastro-esophageal reflux disease without esophagitis; K42.9 Umbilical hernia without obstruction or gangrene; K66.0 Peritoneal adhesions (postprocedural) (postinfection); K82.8 Other specified diseases of gallbladder; T38.0X5A Adverse effect of glucocorticoids and synthetic analogues, initial encounter; D72.829 Elevated white blood cell count, unspecified; Z79.82 Long term (current) use of aspirin; Z79.899 Other long term (current) drug therapy; Z87.891 Personal history of nicotine dependence; Z90.710 Acquired absence of both cervix and uterus; Z91.19 Patient's noncompliance with other medical treatment and regimen; Z99.81 Dependence on supplemental oxygen; Z87.440 Personal history of urinary (tract) infections; Z98.51 Tubal ligation status; Z88.8 Allergy status to other drugs, medicaments and biological substances; Z90.79 Acquired absence of other genital organ(s); Z98.890 Other specified postprocedural states
CPT/HCPCS: 36410; 36415; 71045; 74018; 74177; 75989; 76705; 76937; 80048; 80053; 81001; 82150; 83605; 83690; 83735; 85025; 85027; 85610; 85730; 87040; 87070; 87075; 87077; 87086; 87102; 87186; 87205; 87324; 87635; 88304; 93005; 93306; 94640; 94660; 94760; 96361; 96374; 96375; 96376; 99285

== ENCOUNTER 2020-11-27 14:51 | Inpatient (IN) | payer MEDICAID ==
[2020-11-27] MEDS ORDERED: GLYCOPYRROLATE 0.2 MG/ML 2 ML VIAL IVP PRN (14:56)
[2020-11-27] MEDS ORDERED: ATROPINE OPHTH SOLN 1% 5ML BTL SUBLINGUAL PRN (14:56)
[2020-11-27] MEDS ORDERED: ONDANSETRON 4 MG/2 ML VIAL IVP PRN (14:56)
[2020-11-27] MEDS ORDERED: LORazepam 2 MG/ML INJ IV PRN (14:56)
[2020-11-27] MEDS ORDERED: MORPHINE SULFATE 2 MG/ML SYRINGE IV PRN (14:56)
[2020-11-27] MEDS ORDERED: ACETAMINOPHEN SUPPOSITORY 650 MG SUPP RECTAL PRN (14:56)
[2020-11-27] MEDS ORDERED: SCOPOLAMINE 1.5MG/72HR PATCH TRANSDERM SCH (15:00)
[2020-11-27] MEDS ORDERED: MORPHINE SULFATE (100 MG/2 ML) 100 MG in SODIUM CHLORIDE 0.9% 100 ML IV SCH (15:00)
[2020-11-28 03:31] VITALS: RESP 15
--- NOTE | 2020-11-28 10:25 | P.DS ---
Providers Date of admission: 11/27/20 15:54 Expected date of discharge: 11/28/20 Attending physician: Mauricio Nixon Primary care physician: Caprice Gore MD Hospital Course: Patient overnight prior to my evaluation this morning. She was admitted under inpatient hospice. For exact time of please refer to the nursing staff documentation. Below is the least of her medical problems at this during this hospitalization. Patient is an 80-year-old female with history of COPD with chronic hypoxic respiratory failure requiring 3 L nasal cannula, diverticulosis, hypertension and prior anemia who presented to the ER complaints of right upper quadrant pain. Patient was evaluated in the ER and admitted to the hospital for further management of her medical problems noted below. Her overall condition continued to deteriorate throughout her hospital stay and family eventually elected to pursue comfort care and hospice. Acute cholecystitis with sepsis, bacterial peritonitis Suspected liver abscess Severe COPD with chronic hypoxic respiratory failure, now with acute exacerbation Chronic hypoxic respiratory failure on home O2 Diarrhea, improved Acute blood loss anemia postoperative Postoperative hypertension, blood pressure improved Hypernatremia, resolved Acute on chronic hypoxic respiratory failure secondary to COPD, acute resolved Sepsis, resolved Acute urinary retention, resolved Complicated E. coli urinary tract infection Toxic metabolic encephalopathy, resolved Plan - Discharge Summary New Discharge Prescriptions: No Action Isosorbide Mononitrate [Isosorbide Mononitrate ER] 30 mg PO DAILY Aspirin EC [Ecotrin Low Dose] 81 mg PO HS Jered/D3/Mag11/Zinc/Hotel Controller/Mike/Bor [Caltrate 600+D Plus Tablet] 1 tab PO BID Mirabegron [Myrbetriq] 25 mg PO HS EPINEPHrine (Auto Inject) [Epipen] 0.3 mg IM ONCE PRN PRN Reason: Anaphylaxis Albuterol Inhaler [Ventolin Hfa Inhaler] 2 puff INHALATION RT-QID PRN PRN Reason: Shortness Of Breath Candesartan Cilexetil [Atacand] 32 mg PO DAILY Verapamil HCl [Verelan Pm] 300 mg PO HS Omeprazole 20 mg PO DAILY Citalopram Hydrobromide [CeleXA] 20 mg PO DAILY Fluticasone/Umeclidin/Vilanter [Trelegy Ellipta 100-62.5-25] 1 puff INHALATION RT-DAILY Atorvastatin Calcium [Lipitor] 20 mg PO DAILY Ipratropium-Albuterol Nebulize [Duoneb 0.5 mg-3 mg/3 ml Soln] 3 ml INHALATION RT-QID PRN PRN Reason: Shortness Of Breath Naproxen Sodium [Aleve] 440 mg PO Q12H PRN PRN Reason: Pain Discharge Medication List Albuterol Inhaler [Ventolin Hfa Inhaler] 2 puff INHALATION RT-QID PRN 10/17/20 [History] Aspirin EC [Ecotrin Low Dose] 81 mg PO HS 10/17/20 [History] Atorvastatin Calcium [Lipitor] 20 mg PO DAILY 10/17/20 [History] Jered/D3/Mag11/Zinc/Hotel Controller/Mike/Bor [Caltrate 600+D Plus Tablet] 1 tab PO BID 10/17/20 [History] Candesartan Cilexetil [Atacand] 32 mg PO DAILY 10/17/20 [History] Citalopram Hydrobromide [CeleXA] 20 mg PO DAILY 10/17/20 [History] EPINEPHrine (Auto Inject) [Epipen] 0.3 mg IM ONCE PRN 10/17/20 [History] Fluticasone/Umeclidin/Vilanter [Trelegy Ellipta 100-62.5-25] 1 puff INHALATION RT-DAILY 10/17/20 [History] Ipratropium-Albuterol Nebulize [Duoneb 0.5 mg-3 mg/3 ml Soln] 3 ml INHALATION RT-QID PRN 10/17/20 [History] Isosorbide Mononitrate [Isosorbide Mononitrate ER] 30 mg PO DAILY 10/17/20 [History] Mirabegron [Myrbetriq] 25 mg PO HS 10/17/20 [History] Omeprazole 20 mg PO DAILY 10/17/20 [History] Verapamil HCl [Verelan Pm] 300 mg PO HS 10/17/20 [History] Naproxen Sodium [Aleve] 440 mg PO Q12H PRN 11/11/20 [History]
== END 2020-11-28 05:00 | disposition expired | DRG 951 ==
LOC: 4SSUR 15:54
PROVIDERS: ADMIT Internal Medicine; ATTEND Internal Medicine
DX: Z51.5 Encounter for palliative care (principal); A41.9 Sepsis, unspecified organism; G92 Toxic encephalopathy; J96.21 Acute and chronic respiratory failure with hypoxia; K65.2 Spontaneous bacterial peritonitis; N39.0 Urinary tract infection, site not specified; D62 Acute posthemorrhagic anemia; E87.0 Hyperosmolality and hypernatremia; K81.0 Acute cholecystitis; J44.1 Chronic obstructive pulmonary disease with (acute) exacerbation; R33.8 Other retention of urine; B96.20 Unspecified Escherichia coli [E. coli] as the cause of diseases classified elsewhere; I10 Essential (primary) hypertension; I97.3 Postprocedural hypertension; R19.7 Diarrhea, unspecified; Z99.81 Dependence on supplemental oxygen